=== PATIENT | male | born 1945 | race Caucasian/White ===

== ENCOUNTER → 2017-08-10 06:27 | Outpatient (CLI) | payer MEDICARE, OTHER, SELFPAY ==
--- NOTE | 2017-08-10 14:18 | STRESSREP_ITS ---
Stress Test Report Date: 08/10/2017 Procedure: Pharmacologic stress nuclear imaging study Indications: This of breath/dyspnea on exertion Consent: Per the patient Procedure: The patient underwent pharmacologic (Regadenoson) evaluation with a peak heart rate of 101 beats per minute (68 predicted maximal heart rate) and a peak blood pressure of 180/90 mmHg. The baseline ECG demonstrated sinus rhythm; right bundle branch block pattern. The peak pharmacologic ECG demonstrated no obvious ECG changes. There were rare PACs pretest and in recovery. There was no complaint of chest discomfort during pharmacologic infusion or recovery. The examination was discontinued secondary to completion of protocol. Impression: 1. Pharmacologic (Regadenoson) evaluation 2. Peak pharmacologic ECG with continued right bundle branch block pattern with no obvious ECG changes. 3. Rare PACs pretest and in recovery 4. Nuclear images pending Myocardial perfusion imaging study: Technique: The patient was injected with 14.8 millicuries of technetium 99m Cardiolite and subsequently rest SPECT Cardiolite nuclear imaging was obtained in the horizontal long, vertical long, and short axis views. The patient underwent pharmacologic (Regadenoson) evaluation with a peak heart rate of 101 beats per minute (68 % percent predicted maximal heart rate) and a peak blood pressure of 180/90 mmHg. The patient was injected with 44.5 millicuries of technetium 99m Cardiolite and subsequently stress SPECT Cardiolite nuclear imaging was obtained in the horizontal long, vertical long, and short axis views. A gated Cardiolite study at peak stress was obtained. Interpretation: Rest and stress SPECT Cardiolite nuclear imaging status post realignment, normalization, and attenuation correction demonstrate the appearance of relative uniform tracer uptake and myocardial perfusion appearing within normal limits. There is end systolic thickening and brightening. The gated Cardiolite study demonstrates myocardial thickening and inward wall motion. The reported LVEF is 54 %. Impression: 1. Rest and stress SPECT Cardiolite nuclear imaging demonstrate relative uniform tracer uptake and myocardial perfusion appearing within normal limits. 2. The gated Cardiolite study reports an LVEF of 54 %. This note was generated with [employer] software. It may contain incorrect words, spelling, and punctuation that were not noted in checking the note before signing.
== END ==
PROVIDERS: Family Provider Family Medicine; PCP Family Medicine; Visit Provider Family Medicine
DX: R06.09 Other forms of dyspnea (principal)
CPT/HCPCS: 78452; 93017; A9500; A4216; J2785

== ENCOUNTER → 2017-10-18 12:09 | Outpatient (CLI) | payer MEDICARE, OTHER, SELFPAY ==
[2017-10-18 13:54] LABS: Absolute Lymphocyte Count 1.33 X10^3/ul (0.83-4.51); Absolute Neutrophil Count 2.8 X10^3/uL (2.0-7.7); Basophil# 0.03 X10^3/uL; Basophil% 0.6 % (0-1); Eosinophil# 0.14 X10^3/uL; Hematocrit 42.1 % (40-54); Hemoglobin 14.3 g/dl (13.0-16.5); Lymphocyte # 1.33 X10^3/ul (4.0); Lymphocyte % 28.2 % (19-41); Mean Corpuscular Hgb 29.2 pg (27.0-32.0); Mean Corpuscular Volume 85.9 fL (80-94); Mean Platelet Vol. 10.4 fl (6.2-12.0); Monocyte# 0.42 X10^3/uL; Monocyte% 8.9 % (0-10); Neutrophil # 2.76 X10^3/uL (2.7-7.7); Neutrophil % 58.7 % (47-70); Platelet Count 230 K/mm3 (150-450); RBC Distribution Width CV 13.3 % (11.6-14.6); White Blood Count 4.7 K/mm3 (4.4-11.0)
[2017-10-18 13:56] LABS: POSITIVE COUNT NO; POSITIVE DIFFERENTIAL NO
[2017-10-18 13:57] LABS: POSITIVE MORPHOLOGY NO
[2017-10-18 14:04] LABS: Hemoglobin A1c 10.2 % (4.2-6.3)
[2017-10-18 14:09] LABS: ALB/GLOB Ratio 0.8 RATIO (0.9-2.4); AST(SGOT) 66 U/L (15-37); Alanine Aminotransfer ALT/SGPT 78 U/L (16-61); Albumin, Serum 3.3 g/dL (3.2-5.0); Alkaline Phosphatase 104 U/L (45-117); Anion Gap 10 (5-15); BUN 9 mg/dL (7-18); BUN/Creat Ratio 9.6 RATIO (10-20); Calcium,Total 9.2 mg/dL (8.5-10.1); Chloride 101 mmol/L (98-107); Cholesterol 272 mg/dL (200); Creatinine, Serum 0.94 mg/dL (0.70-1.30); EST Glomerular Filtration Rate 84 mL/min (>60); Est Glom Filt Rate - Afr Amer 102 mL/min (>60); Globulin 4.2 g/dL (2.2-4.2); Glucose 260 mg/dL (74-106); High Density Lipoprotein 37 mg/dL; Potassium 3.9 mmol/L (3.5-5.1); Protein, Total 7.5 g/dL (6.4-8.2); Sodium Level 138 mmol/L (136-145); Triglycerides 359 mg/dL; Very Low Density Lipoprotein 72 mg/dL (5-40)
[2017-10-18 16:26] LABS: Microalbumin:Creatinine Ratio 155.6 mg/g CRE (<30 mg/g CRE)
== END ==
PROVIDERS: Family Provider Family Medicine; PCP Family Medicine; Visit Provider Family Medicine
DX: E11.9 Type 2 diabetes mellitus without complications (principal); I10 Essential (primary) hypertension; E78.5 Hyperlipidemia, unspecified
CPT/HCPCS: 36415; 80053; 80061; 82043; 82570; 83036; 85025

== ENCOUNTER → 2017-10-25 08:48 | Outpatient (CLI) | payer MEDICARE, OTHER, SELFPAY | PROVIDERS: Family Provider Family Medicine; PCP Family Medicine; Visit Provider Family Medicine | DX: E11.9 Type 2 diabetes mellitus without complications (principal); E11.21 Type 2 diabetes mellitus with diabetic nephropathy; I10 Essential (primary) hypertension; E78.5 Hyperlipidemia, unspecified; K75.81 Nonalcoholic steatohepatitis (NASH) ==

== ENCOUNTER → 2018-01-17 10:12 | Outpatient (CLI) | payer MEDICARE, OTHER, SELFPAY ==
[2018-01-17 12:43] LABS: ALB/GLOB Ratio 0.8 RATIO (0.9-2.4); AST(SGOT) 25 U/L (15-37); Alanine Aminotransfer ALT/SGPT 44 U/L (16-61); Albumin, Serum 3.4 g/dL (3.2-5.0); Alkaline Phosphatase 100 U/L (45-117); Anion Gap 8 (5-15); BUN 17 mg/dL (7-18); BUN/Creat Ratio 15.3 RATIO (10-20); Calcium,Total 9.6 mg/dL (8.5-10.1); Chloride 98 mmol/L (98-107); Cholesterol 158 mg/dL (200); Creatinine, Serum 1.11 mg/dL (0.70-1.30); EST Glomerular Filtration Rate 69 mL/min (>60); Est Glom Filt Rate - Afr Amer 84 mL/min (>60); Globulin 4.4 g/dL (2.2-4.2); Glucose 182 mg/dL (74-106); High Density Lipoprotein 41 mg/dL; Potassium 3.8 mmol/L (3.5-5.1); Protein, Total 7.8 g/dL (6.4-8.2); Sodium Level 137 mmol/L (136-145); Triglycerides 181 mg/dL; Very Low Density Lipoprotein 36 mg/dL (5-40)
[2018-01-17 12:47] LABS: Hemoglobin A1c 8.2 % (4.2-6.3)
[2018-01-17 14:41] LABS: Microalbumin,Random Urine 20.3 mg/L (NO RANGE EST.); Microalbumin:Creatinine Ratio 13.4 mg/g CRE (<30 mg/g CRE)
== END ==
PROVIDERS: Family Provider Family Medicine; PCP Family Medicine; Referring Provider Family Medicine; Visit Provider Family Medicine
DX: E11.9 Type 2 diabetes mellitus without complications (principal); E11.21 Type 2 diabetes mellitus with diabetic nephropathy; I10 Essential (primary) hypertension; E78.5 Hyperlipidemia, unspecified; K75.81 Nonalcoholic steatohepatitis (NASH)
CPT/HCPCS: 36415; 80053; 80061; 82043; 82570; 83036

== ENCOUNTER → 2018-07-06 10:02 | Outpatient (CLI) | payer MEDICARE, OTHER, SELFPAY ==
[2018-05-10 13:11] VITALS: BMI 44.4
[2018-07-06 12:37] LABS: ALB/GLOB Ratio 0.9 RATIO (0.9-2.4); AST(SGOT) 40 U/L (15-37); Alanine Aminotransfer ALT/SGPT 46 U/L (16-61); Albumin, Serum 3.5 g/dL (3.2-5.0); Alkaline Phosphatase 90 U/L (45-117); Anion Gap 9 (5-15); BUN 19 mg/dL (7-18); BUN/Creat Ratio 14.8 RATIO (10-20); Calcium,Total 9.2 mg/dL (8.5-10.1); Chloride 96 mmol/L (98-107); Cholesterol 182 mg/dL (200); Creatinine, Serum 1.28 mg/dL (0.70-1.30); EST Glomerular Filtration Rate 59 mL/min (>60); Est Glom Filt Rate - Afr Amer 71 mL/min (>60); Glucose 280 mg/dL (74-106); High Density Lipoprotein 41 mg/dL; Potassium 3.8 mmol/L (3.5-5.1); Protein, Total 7.5 g/dL (6.4-8.2); Sodium Level 134 mmol/L (136-145); Triglycerides 280 mg/dL; Very Low Density Lipoprotein 56 mg/dL (5-40)
[2018-07-06 12:40] LABS: Hemoglobin A1c 11.4 % (4.2-6.3)
[2018-07-06 14:00] LABS: Microalbumin,Random Urine 55.5 mg/L (NO RANGE EST.); Microalbumin:Creatinine Ratio 24.1 mg/g CRE (<30 mg/g CRE)
== END ==
PROVIDERS: Family Provider Family Medicine; PCP Family Medicine; Referring Provider Family Medicine; Visit Provider Family Medicine
DX: E11.21 Type 2 diabetes mellitus with diabetic nephropathy (principal); R80.9 Proteinuria, unspecified; I10 Essential (primary) hypertension; E78.5 Hyperlipidemia, unspecified
CPT/HCPCS: 36415; 80053; 80061; 82043; 82570; 83036

== ENCOUNTER → 2019-01-04 15:24 | Outpatient (CLI) | payer MEDICARE, OTHER, SELFPAY ==
[2018-11-23 12:50] VITALS: BMI 44.4
== END ==
PROVIDERS: Family Provider Family Medicine; PCP Family Medicine; Visit Provider Family Medicine
DX: R19.7 Diarrhea, unspecified (principal)

== ENCOUNTER → 2019-01-05 11:26 | Outpatient (CLI) | payer MEDICARE, OTHER, SELFPAY ==
[2018-11-23 12:50] VITALS: BMI 44.4
[2019-01-08 08:38] LABS: Giardia Lamblia, Stool EIA Negative (Negative)
== END ==
PROVIDERS: Family Provider Family Medicine; PCP Family Medicine; Visit Provider Family Medicine
DX: R19.7 Diarrhea, unspecified (principal)
CPT/HCPCS: 87329; 87493; 87506

== ENCOUNTER → 2019-01-07 11:02 | Outpatient (CLI) | payer MEDICARE, OTHER, SELFPAY ==
[2018-11-23 12:50] VITALS: BMI 44.4
[2019-01-07 11:42] LABS: Absolute Neutrophil Count 3.1 X10^3/uL (2.0-7.7); Basophil# 0.06 X10^3/uL; Eosinophil# 0.32 X10^3/uL; Eosinophils% 5.2 % (0-5); Hematocrit 39.2 % (40-54); Hemoglobin 13.1 g/dL (13.0-16.5); Lymphocyte % 30.7 % (19-41); Mean Corp Hgb Conc 33.4 g/dL (32-36); Mean Corpuscular Hgb 29.9 pg (27.0-32.0); Mean Corpuscular Volume 89.5 fL (80-94); Mean Platelet Vol. 9.7 fl (6.2-12.0); Monocyte# 0.82 X10^3/uL; Monocyte% 13.3 % (0-10); NRBC Flagged by Analyzer 0 % (0-5); Neutrophil # 3.05 X10^3/uL (2.7-7.7); Neutrophil % 49.3 % (47-70); Platelet Count 305 K/mm3 (150-450); RBC Distribution Width CV 13.2 % (11.6-14.6); RBC Distribution Width SD 43.1 fl (35.1-43.9); Red Blood Count 4.38 M/mm3 (4.6-6.2); White Blood Count 6.2 K/mm3 (4.4-11.0)
[2019-01-07 12:01] LABS: Hemoglobin A1c 8.4 % (4.2-6.3)
[2019-01-07 12:13] LABS: ALB/GLOB Ratio 0.7 RATIO (0.9-2.4); AST(SGOT) 43 U/L (15-37); Alanine Aminotransfer ALT/SGPT 35 U/L (16-61); Albumin, Serum 3.1 g/dL (3.2-5.0); Alkaline Phosphatase 104 U/L (45-117); Anion Gap 7 (5-15); BUN 22 mg/dL (7-18); BUN/Creat Ratio 12.8 RATIO (10-20); Calcium,Total 9.1 mg/dL (8.5-10.1); Chloride 101 mmol/L (98-107); Cholesterol 201 mg/dL (200); Creatinine, Serum 1.72 mg/dL (0.70-1.30); EST Glomerular Filtration Rate 42 mL/min (>60); Est Glom Filt Rate - Afr Amer 50 mL/min (>60); Globulin 4.6 g/dL (2.2-4.2); Glucose 111 mg/dL (74-106); High Density Lipoprotein 47 mg/dL; PSA,Total - Annual Screen 4.52 ng/mL (0.00-4.00); Potassium 3.5 mmol/L (3.5-5.1); Protein, Total 7.7 g/dL (6.4-8.2); Sodium Level 135 mmol/L (136-145); Triglycerides 191 mg/dL; Very Low Density Lipoprotein 38 mg/dL (5-40)
== END ==
PROVIDERS: Family Provider Family Medicine; PCP Family Medicine; Referring Provider Family Medicine; Visit Provider Family Medicine
DX: E11.21 Type 2 diabetes mellitus with diabetic nephropathy (principal); I10 Essential (primary) hypertension; E78.5 Hyperlipidemia, unspecified; K75.81 Nonalcoholic steatohepatitis (NASH); Z12.5 Encounter for screening for malignant neoplasm of prostate; Z51.81 Encounter for therapeutic drug level monitoring
CPT/HCPCS: 36415; 80053; 80061; 83036; 84153; 85025; G0103

== ENCOUNTER → 2019-02-03 12:00 | Outpatient (CLI) | payer MEDICARE, OTHER, SELFPAY ==
[2018-11-23 12:50] VITALS: BMI 44.4
--- NOTE | 2019-02-03 12:04 | US_ITS ---
STUDY: RENAL ULTRASOUND - COMPLETE REASON FOR EXAM: Male, 73 years old. Retention. TECHNIQUE: Ultrasound evaluation of the kidneys was performed with real-time and static higgins-scale imaging. COMPARISON: None. FINDINGS: Exam limited by patient size. RIGHT KIDNEY: Normal location of the right kidney, which is normal in size. The right kidney measures 12.4 x 5.8 x 7.2 cm. There is a normal cortex of the right kidney. The renal cortex measures 1.5 cm. There is no right renal mass or cyst. There are no right renal calculi. There is no right hydronephrosis. DISTAL RIGHT URETER: There is non-visualization of the distal right ureter. There is no demonstrated right ureterovesical junction calculus. There is a visualized right ureteral jet. LEFT KIDNEY: Normal location of the left kidney, which is normal in size. The left kidney measures 12.8 x 5.6 x 6.7 cm. There is a normal cortex of the left kidney. The renal cortex measures 2.0 cm. There is no left renal mass or cyst. There are no left renal calculi. There is no left hydronephrosis. DISTAL LEFT URETER: There is non-visualization of the distal left ureter. There is no demonstrated left ureterovesical junction calculus. There is a visualized left ureteral jet. BLADDER: The distended urinary bladder has a volume of 172 ml. The empty urinary bladder has a volume of 10 ml. There is a normal wall thickness of the distended urinary bladder. There is no demonstrated mass within the urinary bladder. There are no demonstrated bladder calculi. US/Kidney and Bladder IMPRESSION: Normal ultrasound of the kidneys and urinary bladder. Electronically Signed: Ezio Morales MD at 16:59 EST , Service support ,
== END ==
PROVIDERS: Family Provider Family Medicine; PCP Family Medicine; Referring Provider Nurse Practitioner Adult Health; Visit Provider Nurse Practitioner Adult Health
DX: R33.9 Retention of urine, unspecified (principal)
CPT/HCPCS: 76770

== ENCOUNTER → 2019-02-06 12:49 | Outpatient (CLI) | payer MEDICARE, OTHER, SELFPAY ==
[2018-11-23 12:50] VITALS: BMI 44.4
--- NOTE | 2019-02-06 14:15 | PFTCOMP ---
COMPLETE PULMONARY FUNCTION TEST INTERPRETATION Brief HPI: Patient is a 73 year old male, currently under the care of myself, who presents to [facility] for complete pulmonary function tests secondary to diagnosis of dyspnea. Respiratory therapist reports good effort and reproducible results. Interpretation: Forced expiration spirometry shows no large airways obstructive ventilatory defect with an FEV1 of 65% predicted. There is no significant bronchodilator response by strict ATS criteria. Spirograms are of good quality and plateau slowly, indicating slowly emptying areas of the lungs. The respiratory flow volume loop shows decreased expiratory flow rates at high lung volumes consistent with small airways obstruction. Lung volumes by body plethysmography show a decreased total lung capacity at 5.18 L, 72% predicted. All other lung volumes are reduced symmetrically. Diffusion capacity by carbon monoxide is normal at 81% predicted. The airway resistance is normal. Compared to previous pulmonary function tests from 09/03/2016, there is been a significant improvement in DLCO by 20%. Impression: Mild restrictive ventilatory defect with a symmetric reduction diffusing capacity
== END ==
PROVIDERS: Family Provider Family Medicine; PCP Family Medicine; Referring Provider Nurse Practitioner Acute Care; Visit Provider Nurse Practitioner Acute Care
DX: R06.02 Shortness of breath (principal)
CPT/HCPCS: 94060; 94726; 94729

== ENCOUNTER → 2019-02-13 12:26 | Outpatient (CLI) | payer MEDICARE, OTHER, SELFPAY ==
[2018-11-23 12:50] VITALS: BMI 44.4
[2019-02-13 12:55] VITALS: PULSE 107; PULSE 110; PULSE 117; PULSE 127; PULSE 135; PULSE 142; PULSE 144; PULSE 160; O2SAT 90; O2SAT 93; O2SAT 94; O2SAT 95
--- NOTE | 2019-02-14 09:17 | PCM.PSN.6M ---
PSN 6 Minute Walk Test - 6 Minute Walk Test 6 Minute Walk Test: 6 Minute Walk Test PSN:6-Minute Walk Test Start: 02/13/19 12:55 Freq: Status: Active Protocol: RESP.6MINW Document 02/13/19 12:55 JOSÉ MANUEL (Rec: 02/13/19 12:57 LILYON [id number]) 6 Minute Walk Test Date Performed 02/13/19 Time Performed 12:30 Height 6 ft 1 in Weight: 330 lb Weight in Pounds 330.[address]: Srikanth Godinez Assistive device used: None Pre-test Oxygen Delivery Method Room Air Pulse Ox (%) 93 Pulse Rate (60-100 beats/min) 107 H Dyspnea Valeriy Scale (0-10) 0 Exertion Valeriy Scale (6-20) 6 1st minute Oxygen Delivery Method Room Air Pulse Ox (%) 90 Pulse Rate (60-100 beats/min) 117 H 2nd minute Oxygen Delivery Method Room Air Pulse Ox (%) 93 Pulse Rate (60-100 beats/min) 127 H 3rd minute Oxygen Delivery Method Room Air Pulse Ox (%) 94 Pulse Rate (60-100 beats/min) 142 H Number of Rests Taken 1 4th minute Oxygen Delivery Method Room Air Pulse Ox (%) 94 Pulse Rate (60-100 beats/min) 160 H Number of Rests Taken 1 Reported Symptoms Dizziness 5th minute Oxygen Delivery Method Room Air Pulse Ox (%) 95 Pulse Rate (60-100 beats/min) 135 H 6th minute Oxygen Delivery Method Room Air Pulse Ox (%) 94 Pulse Rate (60-100 beats/min) 144 H Dyspnea Valeriy Scale (0-10) 4 Exertion Valeriy Scale (6-20) 13 Post-test Oxygen Delivery Method Room Air Pulse Ox (%) 94 Pulse Rate (60-100 beats/min) 110 H Full Laps Walked 12 Partial Lap, Number of Tiles Walked 18 Total Distance Walked (ft) 726 - Interpretation Interpretation: The patient ambulated 726 feet over the course of 6 minutes beginning on room air without assistive devices. Pretesting oxygen saturation was noted to be 93% on room air. With ambulation, the valerie oxygen saturation was 90%. The patient did become progressively tachycardic with exertion with a heart rate of 160 noted at minute 4 of testing. Although there was no significant exertional oxygen desaturation, this testing could indicate the presence of a cardiac or musculoskeletal limitation to exercise tolerance. - Recommendations Recommendations: There is no indication for the use of supplemental oxygen at this time.
== END ==
PROVIDERS: Family Provider Family Medicine; PCP Family Medicine; Referring Provider Nurse Practitioner Acute Care; Visit Provider Nurse Practitioner Acute Care
DX: R06.02 Shortness of breath (principal)
CPT/HCPCS: 94618

== ENCOUNTER → 2019-04-18 13:31 | Outpatient (CLI) | payer MEDICARE, OTHER, SELFPAY ==
[2019-03-30 13:45] VITALS: BMI 45.1
[2019-04-18 15:35] LABS: Anion Gap 7 (5-15); BUN 25 mg/dL (7-18); BUN/Creat Ratio 16.3 RATIO (10-20); Calcium,Total 9.9 mg/dL (8.5-10.1); Chloride 95 mmol/L (98-107); Creatinine, Serum 1.53 mg/dL (0.70-1.30); EST Glomerular Filtration Rate 48 mL/min (>60); Est Glom Filt Rate - Afr Amer 58 mL/min (>60); Glucose 284 mg/dL (74-106); Potassium 3.8 mmol/L (3.5-5.1); Sodium Level 134 mmol/L (136-145)
[2019-04-18 15:42] LABS: Hemoglobin A1c 11.5 % (4.2-6.3)
== END ==
PROVIDERS: PCP Family Medicine; Referring Provider Family Medicine; Visit Provider Family Medicine
DX: E11.21 Type 2 diabetes mellitus with diabetic nephropathy (principal); E11.22 Type 2 diabetes mellitus with diabetic chronic kidney disease; N18.3 Chronic kidney disease, stage 3 (moderate)
CPT/HCPCS: 36415; 80048; 83036

== ENCOUNTER → 2019-04-19 12:54 | Outpatient (CLI) | payer MEDICARE, OTHER, SELFPAY ==
[2019-03-30 13:45] VITALS: BMI 45.1
[2019-04-19 14:23] LABS: Microalbumin:Creatinine Ratio 25.5 mg/g CRE (<30 mg/g CRE)
== END ==
PROVIDERS: PCP Family Medicine; Referring Provider Family Medicine; Visit Provider Family Medicine
DX: E11.21 Type 2 diabetes mellitus with diabetic nephropathy (principal); E11.22 Type 2 diabetes mellitus with diabetic chronic kidney disease; N18.3 Chronic kidney disease, stage 3 (moderate)
CPT/HCPCS: 82043; 82570

== ENCOUNTER 2019-04-28 06:24 | Day surgery (SDC) | payer MEDICARE, OTHER, SELFPAY ==
--- NOTE | 2019-03-30 02:07 | HP_ITS ---
Intake Vital Signs 03/30/19 BMI 45.1 03/30/19 Height 6 ft 1 in 03/30/19 Weight: 347 lb 03/30/19 BMI 45.8 03/30/19 BP 185/90 H 03/30/19 Blood Pressure Location Rt brachial 03/30/19 Position Sitting 03/30/19 Respiration 18 03/30/19 Pulse 115 H 03/30/19 Pulse Source Monitor 03/30/19 Temp 97.9 F 03/30/19 Temp Source Oral 03/30/19 Pulse Oximetry (%) 92 03/30/19 Oxygen Delivery Method room air Intake Visit Reasons: cologuard + consult Chief Complaint: Positive Cologuard Desktop Support Specialist Required: No Is patient in pain?: No Allergies No Known Allergies Allergy (Verified 03/30/19 13:44) Medications Amitriptyline HCl 25 mg PO QHS 03/24/16 [History Confirmed 03/30/19] Amlodipine Besylate [Norvasc] 5 mg PO DAILY 03/24/16 [History Confirmed 03/30/19] Aripiprazole [Abilify] 10 mg PO DAILY 03/24/16 [History Confirmed 03/30/19] Aspirin E.C. [Ecotrin] 81 mg PO DAILY@0800 03/24/16 [History Confirmed 03/30/19] Atorvastatin Calcium [Lipitor] 80 mg PO DAILY 03/24/16 [History Confirmed 03/30/19] Citalopram Hydrobromide [Celexa] 20 mg PO DAILY 03/24/16 [History Confirmed 03/30/19] Ezetimibe [Zetia] 10 mg PO DAILY 03/24/16 [History Confirmed 03/30/19] Fenofibrate [Tricor] 145 mg PO DAILY 03/24/16 [History Confirmed 03/30/19] Lisinopril/Hydrochlorothiazide [Zestoretic 20-25 mg Tablet] 1 ea PO BID 03/24/16 [History Confirmed 03/30/19] Niacin [Niaspan] 500 mg PO DAILY 03/24/16 [History Confirmed 03/30/19] metFORMIN HCl [Glucophage] 500 mg PO TIDCM 03/24/16 [History Confirmed 03/30/19] insulin aspart U-100 100 unit/mL (3 mL) subcutaneous pen See Rx Instructions SC BIDCM 05/12/17 [History Confirmed 03/30/19] tamsulosin 0.4 mg capsule 0.4 mg PO QDAY 08/17/17 [History Confirmed 03/30/19] insulin glargine 100 unit/mL (3 mL) subcutaneous pen See Rx Instructions SC BID ml 11/23/18 [History Confirmed 03/30/19] PFSH Medical History (Updated 03/30/19 @ 14:04 by Bora Butler MD) Positive colorectal cancer screening using Cologuard test (Acute) Sleep apnea (Chronic) Other tear of medial meniscus, current injury, left knee, subsequent encounter (Chronic) Other tear of lateral meniscus, current injury, left knee, initial encounter (Chronic) Other tear of lateral meniscus, current injury, left knee, subsequent encounter (Chronic) Other tear of medial meniscus, current injury, left knee, initial encounter (Chronic) Osteoarthritis of left knee (Chronic) Microalbuminuria (Chronic) Chronic diastolic heart failure (Chronic) Morbid obesity (Chronic) TARA (obstructive sleep apnea) (Chronic) Restrictive lung disease (Chronic) Diabetic peripheral neuropathy (Chronic) Actinic keratosis (Chronic) Hypercholesteremia (Chronic) Passive aggressive personality disorder (Chronic) Onychomycosis (Chronic) Depression, major, recurrent, moderate (Chronic) HTN (hypertension) (Chronic) Type 2 diabetes mellitus (Chronic) Shortness of breath on exertion (Acute) Super obese (Chronic) TARA (obstructive sleep apnea) (Chronic) Positive colorectal cancer screening using Cologuard test (Acute) Surgical History (Updated 03/30/19 @ 13:40 by Tracey Christie) left knee scope (Resolved) History of skin graft (Acute) Family History Mother Hypertension Hyperlipemia Heart disease Diabetes Environmental and seasonal allergies alcoholism and drug abuse Sister Stomach cancer Ovarian cancer Brother Diabetes Daughter bipolar Father Schizophrenia Aortic aneurysm Social History (Updated 03/30/19 @ 14:07 by Bora Butler MD) Smoking Status: Never smoker second hand exposure: No alcohol intake: current alcohol intake frequency: holidays/special occasions only substance use type: does not use caffeine: Yes what type of physical activity do you participate in: none HPI HPI HPI: MEGAN RIVER, is a 73 M who presents to the office today for HPI HPI Surgical H&P: Yes HPI: MEGAN RIVER, is a 73 M who presents to the office today for surgical consultation regarding positive Cologuard. The patient is referred by Dr. Barroso and a written copy of my surgical consult recommendations will be returned to him. 73-year-old gentleman. He lives an extraordinarily sedentary lifestyle. He has not had a recent colonoscopy. He is aware had one prior but many many years ago. He occasionally notes some rectal bleeding. There is been nothing specific. He denies any abdominal pain. Body weight is 347 pounds with a BMI of 45.1. He has multiple medical problems including type 2 diabetes and Rouse and hypertension and hyperlipidemia and obstructive sleep apnea and restrictive lung disease and morbid obesity and right bundle branch block. He is on multiple medications including aspirin. He denies history of peptic ulcer disease. He is not aware as to whether he has advanced liver disease. As of March 13 white blood cell count was 6.2 with a hemo-13.1 and hematocrit 39.2 and a platelet count 305,000 hemoglobin A1c was 8.4. BUN is 22 and creatinine 1.72. Albumin is 3.1. AST is 43. Alkaline phosphatase 104. ALT 35. Total bili 1.4. He does not claim a history of varices or peptic ulcer disease or colon polyps. Family history is negative for colon polyps or colon cancer ROS General General: No weight change, appetite, fatigue, colon cancer, breast cancer or weakness HEENT HEENT: No difficulty swallowing, eye injury, eye surgery, swollen glands or hoarseness Endo Endocrine: Yes diabetes mellitus; no thyroid disease, thyroid cancer, Hair loss, heat intolerance or cold intolerance Skin Skin: Yes changing moles; no rash Breast Breast: No left breast lump, right breast lump, nipple discharge, breast pain, abnormal mammogram, abnormal US or breast enlargement Musc Musculoskeletal: No back problems, arthritis, rheumatoid arthritis, gout or joint pain Cardio Cardiovascular: Yes high blood pressure; no murmur, pacemaker, heart disease, atrial fibrillation, heart attack, heart stent, palpitations, shortness of breat with exertion or chest pain Psych Psychiatric: No depression, anxiety or hearing voices Resp Respiratory: Yes shortness of breath, Yes sleep apnea, No cough, No COPD, No asthma, No emphysema, No wheezing Gastro Gastrointestinal: No abdominal pain, No nausea or vomiting, No diarrhea, No constipation, Yes blood in stool, No acid reflux, No hemorrhoids, No ulcers, No gallbladder problem, No black,tarry stools Zeus Hematologic: Yes blood thinners, No blood disorders, No bleeding, No anemia, No blood clots Neuro Neurologic: No system reviewed and no additional complaints, except as docu, No as per HPI, No abnormal walking, No abnormal hearing, No abnormal movements, No abnormal speech, No behavioral changes, No burning sensations, No confusion, No seizure-like activity, No unsteadiness, No dizziness, No localized weakness, No frequent falls, No headache(s), No lack of coordination, No loss of vision, No memory loss, Yes numbness, No other visual disturbances, No radiating pain, No restless legs, No sensory deficit, No fainting, Yes tingling, No tremor(s), No weakness, No other Exam Const General: cooperative Nutritional Appearance: obese morbidly obese Orientation: alert, awake HENMT Head: normal to inspection Chest Breast Palpation: No nipple discharge Resp Other: Expiratory wheezing noted Cardio Rate: regular rate Rhythm: regular rhythm Heart Sounds: no murmurs GI Other: Markedly overweight with a very large protuberant abdomen which is rather tensely held, I am unable to palpate any internal organs, nontender, bowel sounds diminished Skin Other: Significant bilateral lower extremity pitting and nonpitting edema Neuro Cognition: normal cognition Psych Affect: normal affect Assessment & Plan Problems 1. Positive colorectal cancer screening using Cologuard test R19.5 Plan 73-year-old gentleman with essentially no previous colonoscopy who presents with Cologuard positive and significant multiple medical comorbidities including a diagnosis of Rouse. I propose for him a esophagogastroduodenoscopy with biopsy possible polypectomy and a colonoscopy with possible biopsy or polypectomy as indicated. I have made him and his aware of the technique, benefit, risk, alternatives. At his body weight and abdominal girth I am concerned that a routine bowel prep would not be effective. We will recommend 2 days to clear liquids and magnesium citrate followed by MiraLAX split prep. We will utilize monitored anesthesia care. I appreciate the opportunity of assisting with his surgical care Cc: Dr. Kike Butler M.D., F.A.C.S. Coding Level of Care Code 75710 Diagnoses Positive colorectal cancer screening using Cologuard test R19.5 03/30/19 1407 <Electronically signed by Bora price MD> Date _ Bora Butler MD I have re-examined the patient. There are no clinical changes since date of exam.
[2019-03-30 13:45] VITALS: BMI 45.1
--- NOTE | 2019-04-28 | GASB_PTH ---
PATIENT: MEGAN RIVER . LOC: EN U#:[id number] AGE/SX: 73/M ROOM: RE04/28/[address]: Dr. Bora Butler MD : 1945 BED: DIS: 04/28/2019 SPEC #: [id number] RECD: 04/28/19 12:16 STATUS: BHARTI MARITZA #: [id number] JUANA: 04/28/19 00:[address]: Bora Butler DEPT: SURGICAL PATHOLOGY RECD BY: Shamar James ENTERED: 04/28/19 12:17 SP TYPE: Gastric Bx OTHR DR: Dr. Kike Barroso DO Tissues: A - Gastric mucous membrane B - Gastric mucous membrane C - Esophageal mucous membrane D - Ascending colon E - Transverse colon F - Sigmoid colon biopsy G - Sigmoid colon biopsy Procedures: Surgery Specimen Level IV HEADER OPERATION: Colonoscopy, EGD ([facility] [place]) PRE-OP DIAGNOSIS: Positive colorectal Cologuard test TISSUE SUBMITTED: A - Duodenum biopsy, B - Antrum biopsy for H. pylori and path, C - Distal esophagus biopsy, D - Proximal ascending colon polyp, E - Mid transverse polyp biopsy, F - Proximal sigmoid polyp, G - Mid sigmoid polyp biopsy MICROSCOPIC DIAGNOSIS A. Duodenum, biopsy: Focal gastric metaplasia and mild chronic inflammation, nonspecific. B. Gastric antrum, biopsy: Mild chronic gastritis. See comment. C. Distal esophagus, biopsy: Fragment of benign squamous mucosa. No evidence of inflammation. D. Proximal ascending colon polyp, biopsy: Fragments of tubular adenoma. E. Mid transverse colon polyp, biopsy: Fragments of benign colonic mucosa. See comment. F. Proximal sigmoid colon, biopsy: Tubular adenoma. G. Mid sigmoid colon polyp, biopsy: Fragments of serrated adenoma. AM:david 05/01/19 COMMENT B. The results of immunohistochemistry for Helicobacter pylori will be reported separately ([id number]). E. Neither hyperplastic nor adenomatous change is identified. Clinical correlation is suggested. MICROSCOPIC DESCRIPTION Slides are reviewed. GROSS DESCRIPTION A - Received in fixative is one container labeled with the patient's name and designated duodenum biopsy. The specimen consists of one irregular fragment of light contreras soft tissue that measures 0.4 x 0.2 x 0.1 cm. The specimen is totally submitted in one cassette. B - Received in fixative is one container labeled with the patient's name and designated antrum biopsy. The specimen consists of one irregular fragment of light contreras soft tissue that measures 0.3 x 0.3 x 0.1 cm. The specimen is totally submitted in one cassette. C - Received in fixative is one container labeled with the patient's name and designated distal esophagus biopsy. The specimen consists of one irregular fragment of light contreras soft tissue that measures 0.4 x 0.3 x 0.1 cm. The specimen is totally submitted in one cassette. D - Received in fixative is one container labeled with the patient's name and designated proximal ascending colon polyp. The specimen consists of multiple irregular fragments of light contreras soft tissue mixed with fecal material that in aggregate measure 1 x 0.5 x 0.1 cm. The specimen is totally submitted in one cassette. E - Received in fixative is one container labeled with the patient's name and designated mid transverse polyp biopsy. The specimen consists of multiple irregular fragments of light contreras soft tissue that in aggregate measure 1 x 0.2 x 0.1 cm. The specimen is totally submitted in one cassette. F - Received in fixative is one container labeled with the patient's name and designated proximal sigmoid polyp. The specimen consists of one irregular fragment of light contreras soft tissue that measures 0.3 x 0.3 x 0.1 cm. The specimen is totally submitted in one cassette. G - Received in fixative is one container labeled with the patient's name and designated mid sigmoid polyp. The specimen consists of multiple irregular fragments of light contreras soft tissue that in aggregate measure 1 x 0.3 x 0.2 cm. The specimen is totally submitted in one cassette. / SJ:rg 04/28/19 TC:5 CPT: 90492 x7
[2019-04-28 06:52] VITALS: BP 114/63; PULSE 98; RESP 18; TEMP 36.8; O2SAT 93; BMI 44.6
[2019-04-28] MEDS: Lactated Ringers 1,000 ML 100 ML IV (07:09)
--- NOTE | 2019-04-28 07:30 | IMM_PTH ---
PATIENT: MEGAN RIVER Sr. LOC: EN U#:[id number] AGE/SX: 73/M ROOM: RE04/28/[address]: Dr. Bora Butler MD : 1945 BED: DIS: 04/28/2019 SPEC #: [id number] RECD: 04/28/19 13:13 STATUS: BHARTI REQ #: [id number] JUANA: 04/28/19 07:[address]: Bora Butler DEPT: IMMUNOHISTOCHEMISTRY RECD BY: Michelle Muñoz ENTERED: 04/28/19 13:13 SP TYPE: IMMUNO OTHR DR: Dr. Kike Barroso, Tissues: B - Stomach, NOS Procedures: H Pylori (initial) PHYSICIAN & INSTITUTION [place] [id number] SPECIMEN INFORMATION: Tissue Source: B - Antrum biopsy Clinical Info: Positive colorectal Cologuard test Specimen Number: [id number] CPT code: 57108 METHODOLOGY: Deparaffinized sections of prefer/formalin-fixed tissue or PAP/DQ stained slides are incubated with monoclonal/polyclonal antibodies/oligonucleotide probes. Localization is made via biotin free immunoperoxidase method. Appropriate controls are performed and reacted as expected. Results on target cell population are indicated in the following table: RESULTS: ANTIBODY / CLONE RESULT Block B H Pylori (polyclonal) negative These tests were developed and their performance characteristics determined by [facility]. They may not have been cleared or approved by the U.S. Food and Drug Administration. The FDA has determined that such clearance or approval is not necessary. INTERPRETATION: B. Antrum biopsy: Negative for Helicobacter pylori organisms. AM:david 05/02/19
--- NOTE | 2019-04-28 08:19 | OP.CCLET_ITS ---
04/28/2019 Kike Barroso [address] [facility] [place] [address] Re : Upper GI endoscopy procedure for Sammy Mccormack Dear Dr. Barroso This procedure was performed on Sunday, April 28, 2019. My impressions and recommendations are as follows: Impressions : - Small hiatal hernia. - Z-line regular, 45 cm from the incisors. Biopsied. - Erythematous mucosa in the stomach. Biopsied at antrum - Erythematous duodenopathy. Biopsied. Biopsied at bulb Recommendations : - Await pathology results. - Discharge patient to home. - Resume previous diet. - Continue present medications. - Telephone my office for pathology results in 1 week. My findings are described in the full procedure note, which is enclosed. If I can be of further assistance, please feel free to contact me at Doctor phone number(s): Work: . Sincerely, Bora Butler MD 04/28/2019 8:18:40 AM This report has been signed electronically.
--- NOTE | 2019-04-28 08:19 | OP.EGD_ITS ---
Patient Name: Sammy Mccormack Procedure Date: 04/28/2019 7:35 AM Date of : 1945 Age: 73 Procedure: Upper GI endoscopy Indications: Cologuard positive Providers: Bora Butler MD Referring MD: Kike Barroso Medicines: See the Anesthesia note for documentation of the administered medications Complications: No immediate complications. Procedure: Pre-Anesthesia Assessment: - Prior to the procedure, a History and Physical was performed, and patient medications and allergies were reviewed. The patient's tolerance of previous anesthesia was also reviewed. The risks and benefits of the procedure and the sedation options and risks were discussed with the patient. All questions were answered, and informed consent was obtained. Prior Anticoagulants: The patient has taken no previous anticoagulant or antiplatelet agents. ASA Grade Assessment: III - A patient with severe systemic disease. After reviewing the risks and benefits, the patient was deemed in satisfactory condition to undergo the procedure. After obtaining informed consent, the endoscope was passed under direct vision. Throughout the procedure, the patient's blood pressure, pulse, and oxygen saturations were monitored continuously. The gastroscope was introduced through the mouth, and advanced to the second part of duodenum. The upper GI endoscopy was accomplished without difficulty. The patient tolerated the procedure well. Scope In: 7:40:28 AM Scope Out: 7:44:42 AM Total Procedure Duration Time 0 hours 4 minutes 14 seconds Findings: A small hiatal hernia was present. The Z-line was regular and was found 45 cm from the incisors. Biopsies were taken with a cold forceps for histology. Diffuse erythematous mucosa without bleeding was found in the stomach. Biopsies were taken with a cold forceps for histology. Mildly erythematous mucosa without active bleeding and with no stigmata of bleeding was found in the duodenal bulb. Biopsies were taken with a cold forceps for histology. Impression: - Small hiatal hernia. - Z-line regular, 45 cm from the incisors. Biopsied. - Erythematous mucosa in the stomach. Biopsied at antrum - Erythematous duodenopathy. Biopsied. Biopsied at bulb Recommendation: - Await pathology results. - Discharge patient to home. - Resume previous diet. - Continue present medications. - Telephone my office for pathology results in 1 week. Procedure Code(s): --- Professional --- 08413, Esophagogastroduodenoscopy, flexible, transoral; with biopsy, single or multiple Diagnosis Code(s): --- Professional --- K44.9, Diaphragmatic hernia without obstruction or gangrene K31.89, Other diseases of stomach and duodenum CPT copyright 2017 [employer]. All rights reserved. The codes documented in this report are preliminary and upon business center representative review may be revised to meet current compliance requirements. Bora Butler MD 04/28/2019 8:18:40 AM This report has been signed electronically. Number of Addenda: 0 Note Initiated On: 04/28/2019 7:35 AM
[2019-04-28 08:21] VITALS: BP 114/63; BP 136/74; PULSE 101; RESP 18; TEMP 36.8; O2SAT 92
[2019-04-28 08:25] VITALS: BP 114/63; BP 132/78; PULSE 100; RESP 18; O2SAT 92
--- NOTE | 2019-04-28 08:25 | OP.CCLET_ITS ---
04/28/2019 Kike Chio [address] [facility] [place] [address] Re : Colonoscopy procedure for Sammy Mccormack Dear Dr. Barroso This procedure was performed on Sunday, April 28, 2019. My impressions and recommendations are as follows: Impressions : - Non-thrombosed external hemorrhoids, non-thrombosed internal hemorrhoids and internal hemorrhoids that prolapse with straining, but spontaneously regress to the resting position (Grade II) found on digital rectal exam. - One 5 mm polyp in the proximal ascending colon, removed with a hot snare. Resected and retrieved. Injected. - One 5 mm polyp in the mid transverse colon, removed with a cold biopsy forceps. Resected and retrieved. - One 7 mm polyp in the proximal sigmoid colon, removed with a hot snare. Resected and retrieved. - One 6 mm polyp in the mid sigmoid colon, removed with a hot snare. Resected and retrieved. - Diverticulosis in the sigmoid colon. Recommendations : - Discharge patient to home. - Resume previous diet. - Continue present medications. - Repeat colonoscopy in 3 years for surveillance based on pathology results. - Telephone my office for pathology results in 1 week. My findings are described in the full procedure note, which is enclosed. If I can be of further assistance, please feel free to contact me at Doctor phone number(s): Work: . Sincerely, Bora Butler MD 04/28/2019 8:24:46 AM This report has been signed electronically.
--- NOTE | 2019-04-28 08:25 | OP.COLON_ITS ---
Patient Name: aSmmy Mccormack Procedure Date: 04/28/2019 7:46 AM Date of : 1945 Age: 73 Procedure: Colonoscopy Indications: Positive Cologuard test Providers: Bora Butler MD Referring MD: Kike Barroso Medicines: See the Anesthesia note for documentation of the administered medications Patient Profile: Last Colonoscopy: more than 10 years ago. Complications: No immediate complications. Procedure: Pre-Anesthesia Assessment: - Prior to the procedure, a History and Physical was performed, and patient medications and allergies were reviewed. The patient's tolerance of previous anesthesia was also reviewed. The risks and benefits of the procedure and the sedation options and risks were discussed with the patient. All questions were answered, and informed consent was obtained. Prior Anticoagulants: The patient has taken no previous anticoagulant or antiplatelet agents. ASA Grade Assessment: III - A patient with severe systemic disease. After reviewing the risks and benefits, the patient was deemed in satisfactory condition to undergo the procedure. After I obtained informed consent, the scope was passed under direct vision. Throughout the procedure, the patient's blood pressure, pulse, and oxygen saturations were monitored continuously. The adult colonoscope was introduced through the anus and advanced to the cecum, identified by appendiceal orifice and ileocecal valve. The colonoscopy was performed with moderate difficulty due to the patient's body habitus. The patient tolerated the procedure well. The quality of the bowel preparation was adequate to identify polyps. The ileocecal valve and the appendiceal orifice were photographed. Scope In: 7:47:34 AM Scope Withdrawal Time 0 hours 21 minutes 56 seconds Scope Out: 8:13:17 AM Total Procedure Duration Time 0 hours 25 minutes 43 seconds Findings: The digital rectal exam findings include non-thrombosed external hemorrhoids, non-thrombosed internal hemorrhoids and internal hemorrhoids that prolapse with straining, but spontaneously regress to the resting position (Grade II). A 5 mm polyp was found in the proximal ascending colon. The polyp was sessile. The polyp was removed with a hot snare. Resection and retrieval were complete. Area was successfully injected with 3 mL of a 1:10,000 solution of epinephrine for hemostasis. Estimated blood loss was minimal. A 5 mm polyp was found in the mid transverse colon. The polyp was sessile. The polyp was removed with a cold biopsy forceps. Resection and retrieval were complete. A 7 mm polyp was found in the proximal sigmoid colon. The polyp was sessile. The polyp was removed with a hot snare. Resection and retrieval were complete. A 6 mm polyp was found in the mid sigmoid colon. The polyp was sessile. The polyp was removed with a hot snare. Resection and retrieval were complete. Scattered diverticula were found in the sigmoid colon. Impression: - Non-thrombosed external hemorrhoids, non-thrombosed internal hemorrhoids and internal hemorrhoids that prolapse with straining, but spontaneously regress to the resting position (Grade II) found on digital rectal exam. - One 5 mm polyp in the proximal ascending colon, removed with a hot snare. Resected and retrieved. Injected. - One 5 mm polyp in the mid transverse colon, removed with a cold biopsy forceps. Resected and retrieved. - One 7 mm polyp in the proximal sigmoid colon, removed with a hot snare. Resected and retrieved. - One 6 mm polyp in the mid sigmoid colon, removed with a hot snare. Resected and retrieved. - Diverticulosis in the sigmoid colon. Recommendation: - Discharge patient to home. - Resume previous diet. - Continue present medications. - Repeat colonoscopy in 3 years for surveillance based on pathology results. - Telephone my office for pathology results in 1 week. Procedure Code(s): --- Professional --- 29179, Colonoscopy, flexible; with removal of tumor(s), polyp(s), or other lesion(s) by snare technique 09514, 59, Colonoscopy, flexible; with biopsy, single or multiple Diagnosis Code(s): --- Professional --- K64.1, Second degree hemorrhoids K64.4, Residual hemorrhoidal skin tags D12.2, Benign neoplasm of ascending colon D12.3, Benign neoplasm of transverse colon (hepatic flexure or splenic flexure) D12.5, Benign neoplasm of sigmoid colon R19.5, Other fecal abnormalities K57.30, Diverticulosis of large intestine without perforation or abscess without bleeding CPT copyright 2017 [employer]. All rights reserved. The codes documented in this report are preliminary and upon medical coder review may be revised to meet current compliance requirements. Bora Butler MD 04/28/2019 8:24:46 AM This report has been signed electronically. Number of Addenda: 0 Note Initiated On: 04/28/2019 7:46 AM
[2019-04-28 08:30] VITALS: BP 114/63; BP 131/74; PULSE 93; RESP 18; O2SAT 94
[2019-04-28 08:35] VITALS: BP 114/63; BP 123/72; PULSE 94; RESP 18; TEMP 36.7; O2SAT 94
[2019-04-28 08:46] VITALS: BP 114/63
[2019-04-28 09:21] LABS: Bedside Glucose 175 mg/dL (70-110)
== END 2019-04-28 08:55 | disposition home or self-care (01) ==
LOC: EN 06:24 → AC 06:26
PROVIDERS: Family Provider Family Medicine; PCP Family Medicine; Referring Provider Family Medicine; Visit Provider Surgery
PROC: 0DJD8ZZ Inspection of Lower Intestinal Tract, Via Natural or Artificial Opening Endoscopic (ICD-10-PCS; CPT 45378; principal; 2019-04-28 07:25)
DX: K29.50 Unspecified chronic gastritis without bleeding (principal); K44.9 Diaphragmatic hernia without obstruction or gangrene; D12.5 Benign neoplasm of sigmoid colon; D12.2 Benign neoplasm of ascending colon; K63.5 Polyp of colon; K64.1 Second degree hemorrhoids; K64.4 Residual hemorrhoidal skin tags; K57.30 Diverticulosis of large intestine without perforation or abscess without bleeding; E66.01 Morbid (severe) obesity due to excess calories; Z68.42 Body mass index [BMI] 45.0-49.9, adult; K75.81 Nonalcoholic steatohepatitis (NASH); I11.0 Hypertensive heart disease with heart failure; I50.32 Chronic diastolic (congestive) heart failure; E11.42 Type 2 diabetes mellitus with diabetic polyneuropathy; M17.12 Unilateral primary osteoarthritis, left knee; E78.00 Pure hypercholesterolemia, unspecified; F32.9 Major depressive disorder, single episode, unspecified; G47.33 Obstructive sleep apnea (adult) (pediatric); J98.9 Respiratory disorder, unspecified; I45.10 Unspecified right bundle-branch block; N40.0 Benign prostatic hyperplasia without lower urinary tract symptoms; Z79.4 Long term (current) use of insulin; Z79.82 Long term (current) use of aspirin; Z79.84 Long term (current) use of oral hypoglycemic drugs; Z79.899 Other long term (current) drug therapy
CPT/HCPCS: 43239; 45380; 45385; 82962; 88305; 88342; J7120; J2405; J3490

== ENCOUNTER → 2019-05-19 13:50 | Outpatient (CLI) | payer MEDICARE, OTHER, SELFPAY ==
[2019-05-09 13:00] VITALS: BMI 44.0
--- NOTE | 2019-05-19 13:52 | ECHOCS_ITS ---
Reason For Study: ARRHYTHMIA Procedure This was a 2D Doppler, Color Flow transthoracic echocardiogram. The study was technically difficult. Contrast injection was performed. Poor apical windows. Exam performed in department. Left Ventricle Normal size and thickness. The estimated ejection fraction is 75 %. Stage 1 diastolic dysfunction. No regional wall motion abnormalities noted. Right Ventricle Moderately dilated right ventricle. Normal systolic function. Atria Normal left atrium. Normal right atrium. Normal atrial septum. Mitral Valve The mitral valve is structurally normal. No prolapse or stenosis seen. Tricuspid Valve Normal tricuspid valve. Trivial tricuspid valve insufficiency. Right ventricular systolic pressure estimated to be 26 mmHg. Aortic Valve Trisinus/trileaflet aortic valve. Mild focal aortic valve thickening. There is no aortic stenosis. Pulmonic Valve Normal pulmonic valve. Great Vessels Normal aortic root. Normal arch. Normal inferior vena cava. Inferior vena cava collapse with sniff. Pericardium/Pleural No pericardial effusion. Medication 22 gauge I.V. with prn adaptor inserted into right arm. Diluted definity 4.0ml given slow IV push to enhance endocardial definition. MMode/2D Measurements & Calculations LVIDd: 5.0 cm IVSd: 1.1 cm Ao root diam: 3.9 cm LVIDs: 2.8 cm LVPWd: 1.3 cm RVDd: 4.3 cm FS: 43.7 % LAV(MOD-sp4): 37.5 ml LA A4 area: 16.0 cm2 LA dimension(2D): 4.3 cm RA A4 area: 14.9 cm2 Time Measurements MV dec time: 0.16 sec Doppler Measurements & Calculations MV E max chuck: 71.9 cm/sec Lat Peak E' Chuck: 8.0 cm/sec Med Peak E' Chuck: 5.8 cm/sec MV A max chuck: 104.8 cm/sec E/E' lat: 9.0 E/E' med: 12.4 MV E/A: 0.69 Ao V2 max: 152.5 cm/sec LV V1 max: 118.7 cm/sec TR max chuck: 236.7 cm/sec Ao max P.3 mmHg LV V1 max P.6 mmHg TR max P.4 mmHg Interpretation Summary The estimated ejection fraction is 75 %. Stage 1 diastolic dysfunction. Moderately dilated right ventricle. Trivial tricuspid valve insufficiency. Right ventricular systolic pressure estimated to be 26 mmHg. Compared to echo report dated 11/06/2014, LV function has remained the same and RVSP has improved from 32 to 26 mmHg. The study was technically difficult. Contrast injection was performed. Ordering Physician: Harlan Miller Referring Physician: KECIA KOENIG Performed By: Sailaja Layton, PUJACS, RVT
== END ==
PROVIDERS: PCP Family Medicine; Referring Provider Internal Medicine Cardiovascular Disease; Visit Provider Internal Medicine Cardiovascular Disease
DX: R06.02 Shortness of breath (principal); R00.0 Tachycardia, unspecified; I45.10 Unspecified right bundle-branch block; E11.22 Type 2 diabetes mellitus with diabetic chronic kidney disease; I13.0 Hypertensive heart and chronic kidney disease with heart failure and stage 1 through stage 4 chronic kidney disease, or unspecified chronic kidney disease; N18.3 Chronic kidney disease, stage 3 (moderate); I50.32 Chronic diastolic (congestive) heart failure
CPT/HCPCS: 93306; Q9957; A4216; C8929

== ENCOUNTER → 2019-05-25 12:36 | Outpatient (CLI) | payer MEDICARE, OTHER, SELFPAY ==
[2019-05-09 13:00] VITALS: BMI 44.0
--- NOTE | 2019-05-25 12:36 | STEWCON_ITS ---
Reason For Study: SOB Stress Results Protocol: Dobutamine Stress Echo With Definiity Maximum Predicted HR: 146 bpm Target HR: 124 bpm % Maximum Predicted HR: 88 % DurationHeart Rate Stage (mm:ss) (bpm) BP Comment Baseline 89 149/80No Chest Pain; 8 ML Diluted Definity DSE 10 MCG 3:31 99 149/68No Chest Pain DSE 20 MCG 4:03 129 156/96No Chest Pain Recovery 104 138/83No Chest Pain Stress Duration: 7:34 mm:ss Maximum Stress HR: 129 bpm METS: 1 Baseline Echocardiogram Findings The estimated ejection fraction is 65 %. Stress Echo Wall motion Data Resting WM Intermediate WM Stress WM Resting Wall Motion Wall Motion Stress No regional wall motion No regional wall motion abnormalities noted. abnormalities noted. EKG Data The baseline ECG displays normal sinus rhythm. The patient was titrated from 10 mcg to a maximum of 20 mcg of dobutamine during the stress. The maximum heart rate attained was 129 beats per minute. This was 88% of maximum predicted heart rate. During dobutamine infusion, there were no ST or T wave changes noted to suggest ischemia. No clinical angina was noted. Interpretation Summary The estimated ejection fraction is 65 %. Normal, adequate, dobutamine echocardiogram. Negative for ischemia by EKG and echocardiographic criteria. No anginal symptoms noted. Rare PACs noted. Test terminated due to the attainment of target heart rate. Appropriate blood pressure response to dobutamine. Final LVEF is 75%. Decrease sensitivity due to right bundle branch block and poor echo windows requiring Definity agent. Patient tolerated procedure well. No complications. The study was technically difficult. Contrast injection was performed. Ordering Physician: Harlan Miller Referring Physician: Kike Barroso D.O. Performed By: Sailaja Layton, PUJACS, RVT
== END ==
PROVIDERS: PCP Family Medicine; Referring Provider Internal Medicine Cardiovascular Disease; Visit Provider Internal Medicine Cardiovascular Disease
DX: R06.02 Shortness of breath (principal); E11.22 Type 2 diabetes mellitus with diabetic chronic kidney disease; I13.0 Hypertensive heart and chronic kidney disease with heart failure and stage 1 through stage 4 chronic kidney disease, or unspecified chronic kidney disease; N18.3 Chronic kidney disease, stage 3 (moderate); I50.32 Chronic diastolic (congestive) heart failure; G47.33 Obstructive sleep apnea (adult) (pediatric); I45.10 Unspecified right bundle-branch block; J98.4 Other disorders of lung; R00.0 Tachycardia, unspecified
CPT/HCPCS: 93017; 93350; J7040; Q9957; A4216; C8928

== ENCOUNTER → 2019-09-20 12:21 | Outpatient (CLI) | payer MEDICARE, OTHER, SELFPAY ==
[2019-09-11 08:11] VITALS: BMI 44.1
[2019-09-20 13:17] VITALS: PULSE 100; PULSE 119; PULSE 126; PULSE 133; PULSE 138; PULSE 141; PULSE 162; O2SAT 89; O2SAT 90; O2SAT 91; O2SAT 92; O2SAT 93
--- NOTE | 2019-09-20 13:26 | CPS ---
MrGermaine Mccormack rested from 220 to 240 then 335 to 400 then 5 to 530 he states that it was due to dry mouth.
--- NOTE | 2019-09-20 14:02 | WT_ITS ---
PSN 6 Minute Walk Test - 6 Minute Walk Test 6 Minute Walk Test: 6 Minute Walk Test PSN:6-Minute Walk Test Start: 09/20/19 13:16 Freq: Status: Active Protocol: RESP.6MINW Document 09/20/19 13:17 FR (Rec: 09/20/19 13:30 FR [id number]) 6 Minute Walk Test Date Performed 09/20/19 Time Performed 13:45 Height 6 ft 2.02 in Weight: 150.593 kg Weight in Pounds 332.[address]: Franchesca Garza Assistive device used: None Pre-test Oxygen Delivery Method Room Air Pulse Ox (%) 93 Pulse Rate (60-100 beats/min) 100 Dyspnea Valeriy Scale (0-10) 5 Exertion Valeriy Scale (6-20) 11 1st minute Oxygen Delivery Method Room Air Pulse Ox (%) 90 Pulse Rate (60-100 beats/min) 119 H 2nd minute Pulse Ox (%) 91 Pulse Rate (60-100 beats/min) 133 H Number of Rests Taken 1 Reported Symptoms Increased Work of Breathing 3rd minute Oxygen Delivery Method Room Air Pulse Ox (%) 90 Pulse Rate (60-100 beats/min) 126 H Number of Rests Taken 1 Reported Symptoms Increased Work of Breathing 4th minute Oxygen Delivery Method Room Air Pulse Ox (%) 92 Pulse Rate (60-100 beats/min) 138 H 5th minute Oxygen Delivery Method Room Air Pulse Ox (%) 89 Pulse Rate (60-100 beats/min) 141 H Number of Rests Taken 1 Reported Symptoms Increased Work of Breathing 6th minute Oxygen Delivery Method Room Air Pulse Ox (%) 90 Pulse Rate (60-100 beats/min) 162 H Dyspnea Valeriy Scale (0-10) 8 Exertion Valeriy Scale (6-20) 14 Reported Symptoms Increased Work of Breathing Post-test Oxygen Delivery Method Room Air Pulse Ox (%) 93 Dyspnea Valeriy Scale (0-10) 106 Full Laps Walked 10 Partial Lap, Number of Tiles Walked 31 Total Distance Walked (ft) 621 09/20/19 13:26 Cardiopulmonary Services by Marita Whittaker Mr. Mccormack rested from 220 to 240 then 335 to 400 then 5 to 530 he states that it was due to dry mouth. Initialized on 09/20/19 13:26 - END OF NOTE - Interpretation Interpretation: The patient was able to ambulate 621 feet over the course of 6 minutes on room air with no assistive devices and 3 breaks. The patient did desaturate as low as 89% during ambulation and had a peak heart rate of 162 bpm. These findings are consistent with a cardiopulmonary limitation exercise tolerance. - Recommendations Recommendations: No supplemental oxygen is indicated at this time, but patient will have to be followed closely given level of desaturation.
== END ==
PROVIDERS: PCP Family Medicine; Referring Provider Nurse Practitioner Acute Care; Visit Provider Nurse Practitioner Acute Care
DX: R06.02 Shortness of breath (principal)
CPT/HCPCS: 94618

== ENCOUNTER → 2019-11-15 10:33 | Outpatient (CLI) | payer MEDICARE, OTHER, SELFPAY ==
[2019-11-13 14:21] VITALS: BMI 44.6
[2019-11-15 13:06] LABS: ALB/GLOB Ratio 0.8 RATIO (0.9-2.4); AST(SGOT) 21 U/L (15-37); Alanine Aminotransfer ALT/SGPT 30 U/L (16-61); Albumin, Serum 3.5 g/dL (3.2-5.0); Alkaline Phosphatase 62 U/L (45-117); Anion Gap 6 (5-15); BUN 16 mg/dL (7-18); BUN/Creat Ratio 10.8 RATIO (10-20); Calcium,Total 9.4 mg/dL (8.5-10.1); Chloride 101 mmol/L (98-107); Cholesterol 155 mg/dL (200); Creatinine, Serum 1.48 mg/dL (0.70-1.30); EST Glomerular Filtration Rate 49 mL/min (>60); Est Glom Filt Rate - Afr Amer 60 mL/min (>60); Globulin 4.3 g/dL (2.2-4.2); Glucose 134 mg/dL (74-106); High Density Lipoprotein 48 mg/dL; Potassium 3.7 mmol/L (3.5-5.1); Protein, Total 7.8 g/dL (6.4-8.2); Sodium Level 138 mmol/L (136-145); Triglycerides 147 mg/dL; Very Low Density Lipoprotein 29 mg/dL (5-40)
[2019-11-15 13:10] LABS: Hemoglobin A1c 7.3 % (3.8-5.6)
== END ==
PROVIDERS: PCP Family Medicine; Referring Provider Family Medicine; Visit Provider Family Medicine
DX: E11.21 Type 2 diabetes mellitus with diabetic nephropathy (principal); I12.9 Hypertensive chronic kidney disease with stage 1 through stage 4 chronic kidney disease, or unspecified chronic kidney disease; E11.22 Type 2 diabetes mellitus with diabetic chronic kidney disease; N18.3 Chronic kidney disease, stage 3 (moderate)
CPT/HCPCS: 36415; 80053; 80061; 83036

== ENCOUNTER → 2019-11-30 | Outpatient (CLI) | payer MEDICARE, OTHER, SELFPAY ==
[2019-11-28 08:58] VITALS: BMI 44.7
== END | disposition home or self-care (01) ==
LOC: LABSPEC 10:01
PROVIDERS: PCP Family Medicine; Referring Provider Dermatology; Visit Provider Dermatology
DX: L02.222 Furuncle of back [any part, except buttock and flank] (principal); L57.0 Actinic keratosis; L21.8 Other seborrheic dermatitis
CPT/HCPCS: 87070; 87077; 87186; 87205

== ENCOUNTER → 2019-12-06 12:53 | Outpatient (CLI) | payer MEDICARE, OTHER, SELFPAY ==
[2019-09-11 08:11] VITALS: BMI 44.1
[2019-11-28 08:58] VITALS: BMI 44.7
--- NOTE | 2019-12-07 07:47 | PFT ---
INTRODUCTION: The patient is a 74-year-old male that presents for pulmonary function studies secondary to a diagnosis of shortness of breath. Respiratory therapy reports good patient effort. Bronchodilators were used during testing. INTERPRETATION: Forced expiration spirometry demonstrates no evidence of a large airways obstructive ventilatory defect. There was no significant response to aerosolized bronchodilators. Spirograms are of good quality and plateau gradually. Body plethysmography was performed and reveals a decreased TLC to 5.67 L, 79% of predicted, indicative of a mild restrictive ventilatory impairment. Diffusing capacity by single breath CO is mildly reduced at 75% of predicted. When compared to previous pulmonary function studies dated January 2019, there has been symmetric reductions in FVC and FEV1 by 17% and 15%, respectively. 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 There have been changes in the patient's PFTs since 2018, as noted above.
== END ==
PROVIDERS: PCP Family Medicine; Referring Provider Nurse Practitioner Acute Care; Visit Provider Nurse Practitioner Acute Care
DX: R06.02 Shortness of breath (principal)
CPT/HCPCS: 94060; 94726; 94729

== ENCOUNTER → 2020-01-18 15:50 | Outpatient (CLI) | payer MEDICARE, OTHER, SELFPAY ==
[2019-12-21 06:10] VITALS: BMI 44.7
[2020-01-18 18:04] LABS: ALB/GLOB Ratio 0.7 RATIO (0.9-2.4); AST(SGOT) 16 U/L (15-37); Alanine Aminotransfer ALT/SGPT 24 U/L (16-61); Albumin, Serum 3.2 g/dL (3.2-5.0); Alkaline Phosphatase 71 U/L (45-117); Anion Gap 6 (5-15); BUN 20 mg/dL (7-18); Calcium,Total 9.7 mg/dL (8.5-10.1); Chloride 99 mmol/L (98-107); Creatinine, Serum 1.33 mg/dL (0.70-1.30); EST Glomerular Filtration Rate 56 mL/min (>60); Est Glom Filt Rate - Afr Amer 68 mL/min (>60); Globulin 4.8 g/dL (2.2-4.2); Glucose 121 mg/dL (74-106); Potassium 3.4 mmol/L (3.5-5.1); Sodium Level 137 mmol/L (136-145)
[2020-01-18 18:05] LABS: Hemoglobin A1c 6.8 % (3.8-5.6)
== END ==
PROVIDERS: PCP Family Medicine; Visit Provider Family Medicine
DX: E11.21 Type 2 diabetes mellitus with diabetic nephropathy (principal); E11.22 Type 2 diabetes mellitus with diabetic chronic kidney disease; N18.31 Chronic kidney disease, stage 3a
CPT/HCPCS: 36415; 80053; 83036

== ENCOUNTER → 2020-02-14 16:46 | Outpatient (CLI) | payer MEDICARE, OTHER, SELFPAY ==
[2020-02-14 15:59] VITALS: BMI 44.4
--- NOTE | 2020-02-14 17:10 | RAD_ITS ---
HISTORY: SOB EXAMINATION/TECHNIQUE: XR Chest 2 Views: COMPARISON: May 17, 2014 FINDINGS: LINES/DEVICES: None. LUNGS: No consolidation. There is blunting of the right costophrenic angle may represent a small right pleural effusion No pneumothorax. Elevated right hemidiaphragm similar to prior study MEDIASTINUM AND CARDIOVASCULAR STRUCTURES: Cardiac silhouette not enlarged. Central airways and mediastinal contour are unremarkable. BONES AND SOFT TISSUES: Unremarkable. RAD/Chest PA and Lateral IMPRESSION: Question small right pleural effusion at 0326 Reported and signed by: Naomy Nunez DO Electronically Signed: Naomy Nunez DO at 3:25 EST Tel , Service support ,
[2020-02-14 17:21] LABS: Absolute Lymphocyte Count 1.27 X10^3/uL (0.83-4.51); Basophil# 0.05 X10^3/uL; Basophil% 0.8 % (0-1); Eosinophil# 0.15 X10^3/uL; Eosinophils% 2.4 % (0-5); Hematocrit 39.3 % (40-54); Lymphocyte # 1.27 X10^3/ul (4.0); Lymphocyte % 20.6 % (19-41); Mean Corp Hgb Conc 30.5 g/dL (32-36); Mean Corpuscular Volume 91.6 fL (80-94); Mean Platelet Vol. 9.7 fl (6.2-12.0); Monocyte# 0.67 X10^3/uL; Monocyte% 10.9 % (0-10); NRBC Flagged by Analyzer 0 % (0-5); Platelet Count 264 K/mm3 (150-450); RBC Distribution Width CV 13.6 % (11.6-14.6); Red Blood Count 4.29 M/mm3 (4.6-6.2); White Blood Count 6.2 K/mm3 (4.4-11.0)
[2020-02-14 17:47] LABS: ALB/GLOB Ratio 0.8 RATIO (0.9-2.4); AST(SGOT) 22 U/L (15-37); Alanine Aminotransfer ALT/SGPT 28 U/L (16-61); Albumin, Serum 3.5 g/dL (3.2-5.0); Alkaline Phosphatase 63 U/L (45-117); Anion Gap 4 (5-15); BNP,B-Type NATRIURETIC PEPTIDE 13.4 pg/mL (0-100); BUN 21 mg/dL (7-18); BUN/Creat Ratio 17.4 RATIO (10-20); Calcium,Total 9.8 mg/dL (8.5-10.1); Chloride 99 mmol/L (98-107); Creatinine, Serum 1.21 mg/dL (0.70-1.30); EST Glomerular Filtration Rate 62 mL/min (>60); Est Glom Filt Rate - Afr Amer 75 mL/min (>60); Globulin 4.4 g/dL (2.2-4.2); Glucose 160 mg/dL (74-106); Magnesium 1.6 mg/dL (1.6-2.6); Potassium 3.6 mmol/L (3.5-5.1); Protein, Total 7.9 g/dL (6.4-8.2); Sodium Level 136 mmol/L (136-145)
== END ==
PROVIDERS: PCP Family Medicine; Referring Provider Nurse Practitioner Family; Visit Provider Nurse Practitioner Family
DX: R06.02 Shortness of breath (principal); I10 Essential (primary) hypertension; R00.0 Tachycardia, unspecified; E78.5 Hyperlipidemia, unspecified
CPT/HCPCS: 36415; 71046; 80053; 83735; 83880; 85025

== ENCOUNTER → 2020-02-26 13:32 | Outpatient (CLI) | payer MEDICARE, OTHER, SELFPAY ==
[2020-02-14 15:59] VITALS: BMI 44.4
== END ==
PROVIDERS: PCP Family Medicine; Referring Provider Nurse Practitioner Family; Visit Provider Nurse Practitioner Family
DX: R00.0 Tachycardia, unspecified (principal); R06.02 Shortness of breath
CPT/HCPCS: 93225; 93226

== ENCOUNTER → 2020-05-16 12:32 | Outpatient (CLI) | payer MEDICARE, OTHER, SELFPAY ==
[2020-03-15 13:36] VITALS: BMI 45.2
[2020-05-16 13:19] VITALS: PULSE 100; PULSE 108; PULSE 86; PULSE 88; O2SAT 88; O2SAT 90; O2SAT 91; O2SAT 92
--- NOTE | 2020-05-16 13:23 | CPS ---
PATIENT ARRIVED IN W/C FOR TEST. SPO2 ON RA RANGED BETWEEN 88-89% AT REST PRIOR TO WALK. DISCUSSED READING WITH PATIENT AND ILDA(). PATIENT DECIDED TO WALK WITHOUT OXYGEN TO BEGIN TO SEE WHAT SPO2 DID. SPO2 INCREASED AND MAINTAINED 90-92%. PATIENT RESTED DURING FIRST AND SECOND MINUTE, HE DECIDED HE WAS DIZZY AND DID NOT WANT TO WALK ANYMORE. (HE WAS HYPERVENTILATING, TALKED HIM THROUGH PURSED LIP BREATHING, DIZZINESS SUBSIDED.) PATIENT'S SPO2 AT 92% ON D/C HOME WITH . (DISCUSSED THAT HE MAY REQUIRE OXYGEN, THEY WANT TO DISCUSS WITH YOU., APPT IN MAY.)
--- NOTE | 2020-05-16 17:07 | PCM.PSN.6M ---
PSN 6 Minute Walk Test - 6 Minute Walk Test 6 Minute Walk Test: 6 Minute Walk Test PSN:6-Minute Walk Test Start: 05/16/20 13:18 Freq: Status: Active Protocol: RESP.6MINW Document 05/16/20 13:19 [facility] (Rec: 05/16/20 13:31 [facility] [id number]) 6 Minute Walk Test Date Performed 05/16/20 Time Performed 12:30 Height 6 ft 2 in Weight: 150.593 kg Weight in Pounds 332.[address]: Franchesca Garaz ENGINEERING AND OPERATIONS DIRECTOR Assistive device used: None Pre-test Oxygen Delivery Method Room Air Pulse Ox (%) 88 Pulse Rate (60-100 beats/min) 88 Dyspnea Valeriy Scale (0-10) 2 Reported Symptoms Increased Work of Breathing 1st minute Oxygen Delivery Method Room Air Pulse Ox (%) 90 Pulse Rate (60-100 beats/min) 100 Dyspnea Valeriy Scale (0-10) 3 Number of Rests Taken 1 Reported Symptoms Increased Work of Breathing 2nd minute Oxygen Delivery Method Room Air Pulse Ox (%) 90 Pulse Rate (60-100 beats/min) 108 H Dyspnea Valeriy Scale (0-10) 4 Number of Rests Taken 1 Reported Symptoms Increased Work of Breathing, Dizziness 3rd minute Oxygen Delivery Method Room Air Pulse Ox (%) 91 Number of Rests Taken 1 Reported Symptoms Increased Work of Breathing 4th minute Oxygen Delivery Method Room Air Pulse Ox (%) 90 Number of Rests Taken 1 Reported Symptoms Increased Work of Breathing 5th minute Oxygen Delivery Method Room Air Pulse Ox (%) 91 Number of Rests Taken 1 Reported Symptoms Increased Work of Breathing 6th minute Oxygen Delivery Method Room Air Pulse Ox (%) 91 Number of Rests Taken 1 Reported Symptoms Increased Work of Breathing Post-test Oxygen Delivery Method Room Air Pulse Ox (%) 92 Pulse Rate (60-100 beats/min) 86 Dyspnea Valeriy Scale (0-10) 3 Reported Symptoms Increased Work of Breathing Full Laps Walked 2 Partial Lap, Number of Tiles Walked 15 Total Distance Walked (ft) 133 05/16/20 13:23 Cardiopulmonary Services by Sarah PATIENT ARRIVED IN [facility] FOR TEST. SPO2 ON RA RANGED BETWEEN 88-89% AT REST PRIOR TO WALK. DISCUSSED READING WITH PATIENT AND ILDA(). PATIENT DECIDED TO WALK WITHOUT OXYGEN TO BEGIN TO SEE WHAT SPO2 DID. SPO2 INCREASED AND MAINTAINED 90-92%. PATIENT RESTED DURING FIRST AND SECOND MINUTE, HE DECIDED HE WAS DIZZY AND DID NOT WANT TO WALK ANYMORE. (HE WAS HYPERVENTILATING, TALKED HIM THROUGH PURSED LIP BREATHING, DIZZINESS SUBSIDED.) PATIENT'S SPO2 AT 92% ON D/C HOME WITH . (DISCUSSED THAT HE MAY REQUIRE OXYGEN, THEY WANT TO DISCUSS WITH YOU., APPT IN MAY.) Initialized on 05/16/20 13:23 - END OF NOTE - Interpretation Interpretation: The patient was noted to have a saturation of 89% at rest. However, patient saturation slightly improved with ambulation. Patient was only able to travel 133 feet over the course of 6 minutes on room air with no assistive devices, but 6 breaks. Patient did report dizziness from hyperventilation. - Recommendations Recommendations: Technically, patient does not require supplemental oxygen, but did travel a minimal distance and had multiple breaks. Clinical correlation is advised
== END ==
PROVIDERS: PCP Family Medicine; Referring Provider Nurse Practitioner Acute Care; Visit Provider Nurse Practitioner Acute Care
DX: R06.02 Shortness of breath (principal)
CPT/HCPCS: 94618

== ENCOUNTER → 2020-07-23 07:08 | Outpatient (CLI) | payer MEDICARE, OTHER, SELFPAY ==
[2020-06-28 14:39] VITALS: BMI 42.3
[2020-07-18 14:13] VITALS: BMI 41.1
--- NOTE | 2020-07-23 07:20 | ECHOCS_ITS ---
Reason For Study: DYSPNEA/SOB Procedure This was a 2D Doppler, Color Flow transthoracic echocardiogram. The study was technically difficult. Contrast injection was performed. Exam performed in department. Left Ventricle Normal LV size. Left ventricular systolic function is hyperdynamic. The estimated ejection fraction is 75 %. No evidence for diastolic dysfunction. No regional wall motion abnormalities noted. Right Ventricle Normal RV size. Normal systolic function. Atria Normal left atrium. Normal right atrium. No doppler evidence for ASD. Mitral Valve There is no mitral annular calcification. Normal mitral valve. Tricuspid Valve Normal tricuspid valve. Trivial tricuspid valve insufficiency. Right ventricular systolic pressure estimated to be 23 mmHg. Aortic Valve Trisinus/trileaflet aortic valve. Mild diffuse aortic valve thickening. Mild diffuse aortic valve calcification. Pulmonic Valve The pulmonic valve is not well visualized. Great Vessels The aortic root is not well visualized. Pericardium/Pleural No pericardial effusion. Medication Diluted definity 2.5ml given slow IV push to enhance endocardial definition. MMode/2D Measurements & Calculations SV(MOD-sp4): 38.1 ml LVAd ap4: 19.4 cm2 LVAd ap2: 15.9 cm2 LVLd ap4: 6.5 cm LVLd ap2: 6.6 cm EDV(MOD-sp4): 52.8 ml EDV(MOD-sp2): 31.0 ml EDV(sp4-el): 54.4 ml EDV(sp2-el): 32.3 ml LVAs ap4: 10.2 cm2 LVLs ap4: 5.9 cm ESV(MOD-sp4): 14.7 ml ESV(sp4-el): 15.0 ml EF(MOD-sp4): 72.1 % EF(sp4-el): 72.4 % SV(sp4-el): 39.4 ml LA A4 area: 9.5 cm2 LA dimension(2D): 3.4 cm RA A4 area: 8.8 cm2 Doppler Measurements & Calculations MV E max chuck: 69.7 cm/sec Lat Peak E' Chuck: 9.2 cm/sec Med Peak E' Chuck: 5.9 cm/sec MV A max chuck: 119.0 cm/sec E/E' lat: 7.6 E/E' med: 11.8 MV E/A: 0.59 Ao V2 max: 182.2 cm/sec LV V1 max: 106.9 cm/sec PA V2 max: 114.9 cm/sec Ao max P.3 mmHg LV V1 max P.6 mmHg TR max chuck: 225.7 cm/sec TR max P.4 mmHg ECHO/Echo Complete W/ Contrast Interpretation Summary The study was technically difficult. Contrast injection was performed. Left ventricular systolic function is hyperdynamic. The estimated ejection fraction is 75 %. Trivial tricuspid valve insufficiency. Mild diffuse aortic valve thickening. Mild diffuse aortic valve calcification. Right ventricular systolic pressure estimated to be 23 mmHg. No evidence for diastolic dysfunction. Ordering Physician: Sriram Borja/Eyad Shaw Referring Physician: KECIA KOENIG Performed By: Aranza Lorenzo RDCS
--- NOTE | 2020-07-23 12:46 | STRESSREP ---
Stress Test Report Date: 07-23-2020 Procedure: Pharmacologic stress nuclear imaging study Indications: Shortness of breath/dyspnea on exertion Consent: Per the patient Procedure: The patient underwent pharmacologic (Regadenoson 0.4mg ) evaluation with a peak heart rate of 120 beats per minute (82%predicted maximal heart rate) and a peak blood pressure of 142/82 mmHg. The baseline ECG demonstrated sinus rhythm; right bundle branch block; nonspecific ST/T wave abnormality. The peak pharmacologic ECG demonstrated no obvious ECG changes. There were no cardiac dysrhythmias pretest, during pharmacologic infusion, or recovery. There was no complaint of chest discomfort during pharmacologic infusion or recovery. The examination was discontinued secondary to completion of protocol. Impression: 1. Pharmacologic (Regadenoson) evaluation 2. Peak pharmacologic ECG with no obvious ECG changes. 3. There were no cardiac dysrhythmias pretest, during pharmacologic infusion, or recovery. 4. Nuclear images pending Myocardial perfusion imaging study: Technique: The patient was injected with 14.9 millicuries of technetium 99m Cardiolite and subsequently rest SPECT Cardiolite nuclear imaging was obtained in the horizontal long, vertical long, and short axis views. The patient underwent pharmacologic (Regadenoson) evaluation with a peak heart rate of 120 beats per minute (82% percent predicted maximal heart rate) and a peak blood pressure of 142/82 mmHg. The patient was injected with 44.7 millicuries of technetium 99m Cardiolite and subsequently stress SPECT Cardiolite nuclear imaging was obtained in the horizontal long, vertical long, and short axis views. A gated Cardiolite study at peak stress was obtained. Interpretation: Rest and stress SPECT Cardiolite nuclear imaging status post realignment, normalization, and attenuation correction demonstrate relative uniform tracer uptake and myocardial perfusion appearing within normal limits. There is end systolic thickening and brightening. The gated Cardiolite study demonstrates myocardial thickening and inward wall motion. The reported LVEF is 68%. Impression: 1. Rest and stress SPECT Cardiolite nuclear imaging demonstrate relative uniform tracer uptake and myocardial perfusion appearing within normal limits. 2. The gated Cardiolite study reports an LVEF of 68%. This note was generated with [employer] software. It may contain incorrect words, spelling, and punctuation that were not noted in checking the note before signing.
== END ==
PROVIDERS: PCP Family Medicine; Referring Provider Nurse Practitioner Family; Visit Provider Nurse Practitioner Family
DX: R06.02 Shortness of breath (principal); I10 Essential (primary) hypertension; E78.5 Hyperlipidemia, unspecified; G47.33 Obstructive sleep apnea (adult) (pediatric); E11.9 Type 2 diabetes mellitus without complications
CPT/HCPCS: 78452; 93017; 93306; A9500; Q9957; A4216; C8929; J2785

== ENCOUNTER → 2020-07-30 12:58 | Outpatient (CLI) | payer MEDICARE, OTHER, SELFPAY ==
[2020-07-18 14:13] VITALS: BMI 41.1
== END ==
PROVIDERS: PCP Family Medicine; Referring Provider Internal Medicine Critical Care Medicine; Visit Provider Internal Medicine Critical Care Medicine
DX: J98.4 Other disorders of lung (principal)
CPT/HCPCS: 94762

== ENCOUNTER 2020-11-13 11:51 | Day surgery (SDC) | payer MEDICARE, OTHER, SELFPAY ==
[2020-08-08 14:35] VITALS: BMI 42.3
[2020-11-07 10:58] VITALS: BMI 41.1
--- NOTE | 2020-11-08 13:59 | EKG12_ITS ---
Test Reason : PRE OP Blood Pressure : / mmHG Vent. Rate : 081 BPM Atrial Rate : 081 BPM P-R Int : 220 ms QRS Dur : 146 ms QT Int : 416 ms P-R-T Axes : 055 032 007 degrees QTc Int : 483 ms Sinus rhythm with 1st degree A-V block Right bundle branch block Abnormal ECG Confirmed by JARRETT HARTMAN, MILLI ([id number]), script editor GERALD BREWSTER ([id number]) on 11/12/2020 8:58:22 AM Referred By: Fidencio Gray Confirmed By:MILLI FARIAS MD
[2020-11-08 15:36] LABS: Hemoglobin 12.3 g/dL (13.0-16.5); Mean Corp Hgb Conc 31.5 g/dL (32-36); Mean Corpuscular Volume 85.7 fL (80-94); Mean Platelet Vol. 10.4 fl (6.2-12.0); Platelet Count 313 K/mm3 (150-450); RBC Distribution Width CV 13.9 % (11.6-14.6); RBC Distribution Width SD 43.3 fl (35.1-43.9); Red Blood Count 4.55 M/mm3 (4.6-6.2); White Blood Count 6.8 K/mm3 (4.4-11.0)
[2020-11-08 16:15] LABS: AST(SGOT) 24 U/L (15-37); Alanine Aminotransfer ALT/SGPT 24 U/L (16-61); Alkaline Phosphatase 79 U/L (45-117); Bilirubin, Direct 0.11 mg/dL (0.00-0.30); Cholesterol 162 mg/dL (200); Globulin 4.6 g/dL (2.2-4.2); High Density Lipoprotein 48 mg/dL; Protein, Total 7.6 g/dL (6.4-8.2); Triglycerides 140 mg/dL; Very Low Density Lipoprotein 28 mg/dL (5-40)
[2020-11-08 16:16] LABS: Vitamin B12 260 pg/mL (211-911)
[2020-11-08 17:07] LABS: ALB/GLOB Ratio 0.7 RATIO (0.9-2.4); AST(SGOT) 23 U/L (15-37); Alanine Aminotransfer ALT/SGPT 25 U/L (16-61); Alkaline Phosphatase 79 U/L (45-117); Anion Gap 4 (5-15); BUN 13 mg/dL (7-18); Calcium,Total 9.5 mg/dL (8.5-10.1); Chloride 104 mmol/L (98-107); EST Glomerular Filtration Rate 77 mL/min (>60); Est Glom Filt Rate - Afr Amer 94 mL/min (>60); Globulin 4.6 g/dL (2.2-4.2); Glucose 143 mg/dL (74-106); Potassium 3.6 mmol/L (3.5-5.1); Protein, Total 7.6 g/dL (6.4-8.2); Sodium Level 138 mmol/L (136-145); Thyroid Stim Hormone (TSH) 2.25 uIU/mL (0.358-3.74)
[2020-11-11 09:00] LABS: Hemoglobin A1c 6.6 % (3.8-5.6)
[2020-11-13] VITALS (16 sets, daily range): BP systolic 152–187; BP diastolic 74–93; PULSE 70–93; RESP 16–28; TEMP 35.3–37.3; O2SAT 90–100; BMI 42.5
--- NOTE | 2020-11-13 | PROS_PTH ---
PATIENT: MEGAN RIVER . LOC: [facility] – [place] U#:[id number] AGE/SX: 75/M ROOM: RE11/13/[address]: Dr. Fidencio rGay MD : 1945 BED: DIS: 11/14/2020 SPEC #: [id number] RECD: 11/13/20 15:21 STATUS: BHARTI SALAS #: [id number] JUANA: 11/13/20 00:[address]: Fidencio Gray DEPT: SURGICAL PATHOLOGY RECD BY: Shamar James ENTERED: 11/14/20 08:23 SP TYPE: TURP OTHR DR: Dr. Kike Barroso, DO Tissues: Prostate, NOS Procedures: Surgery Specimen Level IV HEADER OPERATION: Cysto, TUR prostate, Olympus PRE-OP DIAGNOSIS: BPH TISSUE SUBMITTED: Prostate scrapings/pieces MICROSCOPIC DIAGNOSIS Prostate, transurethral resection: Benign nodular hyperplasia, glandular and stromal types. Urothelium with minimal chronic inflammation. AM:david 11/15/2020 MICROSCOPIC DESCRIPTION Slides are reviewed. GROSS DESCRIPTION Received is one container labeled with the patient's name and designated prostate scrapings/pieces. The specimen consists of multiple irregular fragments of pink-contreras, rubbery, soft tissue that in aggregate weigh 9.4 gm and measure in aggregate 5 x 5 x 1.5 cm. Two metallic clips are noted in the specimen. The entire specimen, except metallic clips, is submitted in nine cassettes. / SJ:david 11/14/20 TC:5 CPT: 07681
[2020-11-13] MEDS: Lactated Ringers 1,000 ML 100 ML IV ×3 (12:10→16:21)
[2020-11-13 12:46] LABS: Bedside Glucose 108 mg/dL (70-110)
--- NOTE | 2020-11-13 13:47 | PCM.HP.STD ---
HPI - General HPI Narrative MEGAN RIVER, is a 75 M who presents for transurethral resection of the prostate, failured urolift [facility] Medical History Actinic keratosis Cancer Chronic diastolic heart failure Chronic kidney disease, stage 3 CPAP (continuous positive airway pressure) dependence Depression, major, recurrent, moderate Diabetes Diabetic peripheral neuropathy Dietary restriction Gastric reflux History of echocardiogram History of edema History of stress test HTN (hypertension) Hyperlipidemia Insulin dependent diabetes mellitus Microalbuminuria Non-smoker Onychomycosis TARA (obstructive sleep apnea) Osteoarthritis of left knee Other tear of lateral meniscus, current injury, left knee, initial encounter Other tear of lateral meniscus, current injury, left knee, subsequent encounter Other tear of medial meniscus, current injury, left knee, initial encounter Other tear of medial meniscus, current injury, left knee, subsequent encounter Passive aggressive personality disorder Positive colorectal cancer screening using Cologuard test Positive colorectal cancer screening using Cologuard test Prostate disease Restrictive lung disease Right bundle branch block Shortness of breath on exertion Sleep apnea Super obese Tachycardia Tremor Type 2 diabetes mellitus Home Medications amitriptyline 25 mg PO QHS 03/24/16 [History Last Taken Unknown] aspirin 81 mg PO DAILY@0800 03/24/16 [History Last Taken Unknown] atorvastatin 80 mg PO DAILY 03/24/16 [History Last Taken Unknown] citalopram 20 mg PO DAILY 03/24/16 [History Last Taken 05/13/16 07:00] fenofibrate nanocrystallized 145 mg PO DAILY 03/24/16 [History Last Taken Unknown] lisinopril-hydrochlorothiazide 1 ea PO BID 03/24/16 [History Last Taken Unknown] latanoprost 0.005 % eye drops 1 drp OPHTHALMIC DAILY 05/08/19 [History Last Taken Unknown] metformin 500 mg tablet 500 mg PO BID tab 05/08/19 [History Last Taken Unknown] famotidine 20 mg tablet 20 mg PO DAILY 05/09/19 [History Last Taken Unknown] insulin glargine 100 unit/mL (3 mL) subcutaneous pen 80 unit SUBCUT DAILY ml 06/08/19 [History Last Taken Unknown] insulin aspart U-100 100 unit/mL (3 mL) subcutaneous pen 45 unit SC TID ml 11/09/19 [History Last Taken Unknown] verapamil 180 mg tablet,extended release 180 mg PO DAILY #30 tab 12/21/19 [Rx Last Taken Unknown] furosemide 40 mg tablet 40 mg PO DAILY #30 tab 02/19/20 [Rx Last Taken Unknown] potassium chloride 20 mEq tablet,extended release 20 meq PO DAILY #30 tab 02/19/20 [Rx Last Taken Unknown] aripiprazole 10 mg tablet 5 mg PO DAILY tab 11/07/20 [History Last Taken Unknown] carbidopa 25 mg-levodopa 100 mg tablet 1 tab PO .COMPLEX #90 tab 11/07/20 [Rx Last Taken Unknown] ezetimibe 10 mg tablet 10 mg PO DAILY 11/07/20 [History Last Taken Unknown] Allergy/AdvReac Type Severity Reaction Status Date / Time No Known Allergies Allergy Verified 11/13/20 12:08 Family History Mother Hypertension Hyperlipemia Heart disease Diabetes Environmental and seasonal allergies alcoholism and drug abuse Sister Stomach cancer Ovarian cancer Brother Diabetes Daughter bipolar Father Schizophrenia Aortic aneurysm Surgical History History of skin graft left knee scope s/p urolift procedure (04/21/19) Social History (Updated 11/07/20 @ 10:56 by Sola Syed) Smoking Status: Never smoker Electronic Cigarette Use: not used second hand exposure: No alcohol intake: current alcohol intake frequency: holidays/special occasions only substance use type: does not use caffeine: Yes what type of physical activity do you participate in: none Vital Signs Vital Signs Vital Signs: 11/13/20 12:33 Temperature 98.1 F Temperature Source Temporal Pulse Rate 73 Respiratory Rate 16 Respiratory Pattern Normal Blood Pressure 173/85 H Blood Pressure Mean 114 Blood Pressure Source Monitor Blood Pressure Position Semi-Fowlers Pulse Ox 94 Oxygen Delivery Method Room Air Weight Weight: 146 kg Body Mass Index (BMI) 42.5 Physical Exam Const alert and oriented x3 General Appearance: cooperative HEENT normocephalic, head/scalp atraumatic, EAC's normal and TM's normal bilaterally Eyes PERRL and EOMs intact bilaterally Pupil: sluggish Neck no lymphadenopathy, supple and no JVD General: trachea midline Lymph Lymphatic: no lymphadenopathy noted, lymphedema and lymphadenopathy Resp normal respiratory effort, normal air movement and clear to auscultation bilaterally Cardio regular rate, regular rhythm and peripheral pulses 2+ throughout GI soft to palpation, non-tender and non-distended Extremity normal capillary refill and no clubbing, cyanosis or edema General Extremity: no tenderness to palpation of joints or extremities Skin no rashes or lesions noted General Skin Exam: turgor normal Lesions: no lesions Rashes: no rashes Neuro CN's II-XII intact bilaterally Speech: speech normal Motor Exam: strength 5/5 throughout; Negative for general weakness Psych thought process normal, cooperative and affect normal Appearance: appropriate Results Lab / Micro Data Result Diagrams: 11/08/20 14:27 11/08/20 14:27 Labs: Laboratory Results - last 24 hr 11/13/20 12:27: POC Glucose 108 Assessment & Plan Assessment/Plan (1) BPH (benign prostatic hyperplasia):
--- NOTE | 2020-11-13 13:48 | DCINST_ITS ---
Discharge Instructions Diet Discharge Diet: No restrictions Activity Discharge Activity: Return to Normal Activity and May Not Drive (while taking narcotic pain medications.) Dressing / Incision Call your doctor if you observe: Fever of 101 or Higher Follow Up Care Please Follow Up With: Fidencio Gray MD When: Call [phone] for an appointment Test Results: Test results from this visit will be discussed in further detail at your follow-up appointment, if applicable. Discharge Plan Admission Primary Reason for Your Visit: tur Attending Provider: Fidencio Gray Primary Care Provider: Kike Barroso Instructions Patient Instructions: [facility] Home Recovery Discharge Orders/Prescriptions Prescriptions: Continued latanoprost 0.005 % drops 1 drp OPHTHALMIC DAILY RF: 0 famotidine [Pepcid] 20 mg tablet 20 mg PO DAILY RF: 0 insulin aspart U-100 [Novolog Flexpen U-100 Insulin] 100 unit/mL (3 mL) insulin pen 45 unit SC TID RF: 0 insulin glargine 100 unit/mL (3 mL) insulin pen 80 unit subcut DAILY RF: 0 carbidopa-levodopa [Sinemet] 25-100 mg tablet 1 tab PO .COMPLEX Qty: 90 RF: 2 atorvastatin 80 MG tablet 80 mg PO DAILY RF: 0 citalopram 20 MG tablet 20 mg PO DAILY RF: 0 amitriptyline 25 MG tablet 25 mg PO QHS RF: 0 lisinopril-hydrochlorothiazide 1 EACH tablet 1 ea PO BID RF: 0 fenofibrate nanocrystallized 145 MG tablet 145 mg PO DAILY RF: 0 metformin 500 mg tablet 500 mg PO BID RF: 0 aripiprazole 10 mg tablet 5 mg PO DAILY RF: 0 ezetimibe 10 mg tablet 10 mg PO DAILY RF: 0 verapamil 180 mg tablet extended release 180 mg PO DAILY Qty: 30 RF: 11 furosemide [Lasix] 40 mg tablet 40 mg PO DAILY Qty: 30 RF: 12 potassium chloride 20 mEq tablet extended release 20 meq PO DAILY Qty: 30 RF: 12 Held aspirin 81 MG tablet 81 mg PO DAILY@0800 RF: 0 Hold Instructions: Resume on 11/27/20. Discontinued finasteride 5 mg tablet 5 mg PO DAILY RF: 0 tamsulosin 0.4 mg capsule 0.4 mg PO DAILY RF: 0 Other Ambulatory Orders: Basic Metabolic Profile (BMP) (Routine) Timeframe: 20201108 Facility: [facility] [place] - Location: Laboratory Ordered By: Dr. Abdias Barron CBC W/Diff, Automated (Routine) Timeframe: 20201108 Facility: [facility] [place] - Location: Laboratory Ordered By: Dr. Abdias Barron 12 Lead EKG (Routine) Timeframe: 20201108 Location: None Selected Ordered By: Dr. Abdias Barron Referrals / Follow Up: Fidencio Gray MD [STAFF PHYSICIAN] - Kike Barroso DO [Primary Care Provider] - Disposition Disposition (needs filled in before D/C Order can be placed): Home, Self Care
--- NOTE | 2020-11-13 15:00 | OP.PCM_ITS ---
Report of Operation Date of Procedure: 11/13/20 Pre-Operative Diagnosis: BPH with obstruction Post-Operative Diagnosis: Same Surgery/Procedure Performed:: Transurethral resection of prostate Description of Surgical Findings:: In the preoperative setting I discussed with the patient how the surgery would be done with expect afterwards. We discussed how a prostate resection is done and we discussed the risk of the surgery including, bleeding, infection, retrograde ejaculation, changes with ejaculation or intercourse,. We discussed the possibility that the resection of the prostate may not alleviate his urinary symptoms. We discussed the small risk of developing scar tissue along the urethral channel and strictures. We also discussed the chance of the prostate could grow back and he may need further surgery or treatment in the future for prostate problems. Patient was taken back to the operating room, timeout procedure was performed, he was identified and marked and placed on the operating room table. He underwent general anesthesia. He was placed in dorsolithotomy position. Penis and testicles were prepped and draped in usual sterile fashion. Went into the bladder using the visual obturator with a resectoscope. Once inside the bladder identified the right and left ureteral orifice. I then identified the prostate and the anatomy of the prostate. I marked out the area of the sphincter and the verumontanum was identified. I then proceeded with the prostate resection first resected the median lobe. And then resected the right lobe of the prostate. Then to resect the left lobe of the prostate. I then resected the apical tissue of the prostate. Made sure that there was no injury to the sphincter or the verumontanum was still intact. At the end of the resection all the chips were Ellik out of the bladder. I then identified the left and right ureteral orifice and these were confirmed to be in good position and effluxing and not injured. The resectoscope was removed, a 22 Sinhala catheter was placed into the bladder on continuous irrigation. And the urine was fairly light pink color and draining normally. He was taken back to the PACU in good condition. Surgeon: Fidencio Gray Type of Anesthesia: General Drains: 20 fr moeller Admit VTE Documentation VTE Present on Admission: No VTE Mechan Device Prophylaxis: SCD's
[2020-11-13 15:26] LABS: Bedside Glucose 113 mg/dL (70-110)
[2020-11-13] MEDS: metFORMIN HCl 500 MG Tablet PO (18:37)
[2020-11-13] MEDS: 0.9% Normal Saline 1,000 ML 150 ML IV (18:37)
[2020-11-13 20:08] LABS: Free Kappa Light Chains 37.5 mg/L (3.3-19.4); Free Lambda Light Chains 21.2 mg/L (5.7-26.3)
[2020-11-13] MEDS: Amitriptyline 25 MG Tablet PO (21:14)
[2020-11-13] MEDS: Ciprofloxacin 400 MG/200 ML BAG 200 MG IV (21:14)
[2020-11-13] MEDS: Atorvastatin Calcium 80 MG Tablet PO (21:14)
[2020-11-13] MEDS: Latanoprost 0.005% 1 Bottle 1 DRP OPHTHALMIC (21:15)
[2020-11-13] MEDS: Docusate Sodium 100 MG Capsule PO (21:15)
[2020-11-14] VITALS (9 sets, daily range): BP systolic 122–152; BP diastolic 52–72; PULSE 80–96; RESP 18; TEMP 36.7–38.2; O2SAT 90–96; BMI 42.5
[2020-11-14] MEDS: 0.9% Normal Saline 1,000 ML 150 ML IV ×2 (02:01→09:20)
[2020-11-14] MEDS: metFORMIN HCl 500 MG Tablet PO (07:51)
[2020-11-14] MEDS: Fenofibrate 145 MG Tablet PO (07:51)
[2020-11-14] MEDS: Potassium Chloride Oral Tablet 20 MEQ PO (07:51)
[2020-11-14] MEDS: Ezetimibe 10 MG Tablet PO (07:51)
[2020-11-14] MEDS: Citalopram 20 MG Tablet PO (07:51)
[2020-11-14] MEDS: Acetaminophen 325 MG Tablet PO (07:51)
[2020-11-14] MEDS: Furosemide 40 MG Tablet PO (07:52)
[2020-11-14] MEDS: Docusate Sodium 100 MG Capsule PO (07:52)
[2020-11-14] MEDS: Famotidine 20 MG Tablet PO (07:52)
[2020-11-14] MEDS: hydroCHLOROthiazide 25 MG Tablet PO (07:52)
[2020-11-14] MEDS: Lisinopril 20 MG Tablet PO (07:52)
[2020-11-14] MEDS: ARIPiprazole 5 MG Tablet PO (07:52)
[2020-11-14] MEDS: Verapamil SR 180 MG CAPSULE PO (07:52)
[2020-11-14 08:01] LABS: Bedside Glucose 147 mg/dL (70-110)
[2020-11-14] MEDS: Insulin Lispro 100 UNIT/ML INSULN.PEN 45 UNIT SC ×2 (08:37→12:35)
[2020-11-14] MEDS: Ciprofloxacin 400 MG/200 ML BAG 200 MG IV (09:20)
[2020-11-14] MEDS: Ibuprofen 600 MG Tablet PO (11:29)
[2020-11-14 11:36] LABS: Bedside Glucose 93 mg/dL (70-110)
== END 2020-11-14 16:24 | disposition home or self-care (01) ==
LOC: SDC 11:51 → AC 11:52 → MS3 17:22
PROVIDERS: Anesthesiology; Internal Medicine Cardiovascular Disease; Psychiatry & Neurology Neurology; PCP Family Medicine; Referring Provider Urology; Visit Provider Urology
PROC: (CPT 52601; principal; 2020-11-13 13:50)
DX: N40.1 Benign prostatic hyperplasia with lower urinary tract symptoms (principal); E11.42 Type 2 diabetes mellitus with diabetic polyneuropathy; E66.9 Obesity, unspecified; Z68.41 Body mass index [BMI] 40.0-44.9, adult; E78.5 Hyperlipidemia, unspecified; G47.33 Obstructive sleep apnea (adult) (pediatric); I13.0 Hypertensive heart and chronic kidney disease with heart failure and stage 1 through stage 4 chronic kidney disease, or unspecified chronic kidney disease; E11.22 Type 2 diabetes mellitus with diabetic chronic kidney disease; N18.30 Chronic kidney disease, stage 3 unspecified; I50.32 Chronic diastolic (congestive) heart failure; F32.9 Major depressive disorder, single episode, unspecified; K21.9 Gastro-esophageal reflux disease without esophagitis; M17.12 Unilateral primary osteoarthritis, left knee; N13.8 Other obstructive and reflux uropathy; Z79.4 Long term (current) use of insulin; Z79.82 Long term (current) use of aspirin; Z79.899 Other long term (current) drug therapy
CPT/HCPCS: 00914; 52601; 36415; 80053; 80061; 80076; 82607; 82746; 82962; 83036; 83883; 84425; 84443; 85027; 88305; 93005; 99251; J7030; J7120; G0463; J0744; J2405

== ENCOUNTER → 2020-12-03 13:10 | Outpatient (CLI) | payer MEDICARE, OTHER, SELFPAY ==
[2020-11-07 10:58] VITALS: BMI 41.1
--- NOTE | 2020-12-03 13:12 | MRI_ITS ---
STUDY: MRI BRAIN WITH AND WITHOUT CONTRAST REASON FOR EXAM: Male, 75 years old. Mild cognitive impairment and Parkinson''s disease TECHNIQUE: Standardized multiplanar fat and water weighted pulse sequences were obtained. 29ml Dotarem via IV was administered for the contrast portion of the examination. COMPARISON: None. FINDINGS: There is mild cerebral atrophy with widening of the extra-axial spaces and ventricular dilatation. There are a limited number of small white matter hyperintensities, distributed throughout the deep white matter tracts of the cerebral hemispheres, consistent with mild chronic white matter ischemic changes. There is no evidence for recent intracranial ischemia or other cause of cytotoxic edema on diffusion weighted imaging (DWI). Normal T2* images of the brain without demonstrated susceptibility artifact. There is no demonstrated hemosiderin stain. Normal bilateral basal ganglia. Normal thalami. There is no extra-axial fluid accumulation. Normal flow voids within the major intracranial circulation suggesting patency by spin echo criteria. Normal venous enhancement. There is no enhancing intra-axial or extra-axial abnormality. Normal sella turcica, pituitary gland, infundibular stalk, optic chiasm and hypothalamus. Normal tectal plate and pineal gland. Normal midbrain, hubert and medulla. Normal cerebellum. Normal basal cisterns. Normal bilateral temporal bones. Normal bilateral internal auditory canals. No demonstrated orbital abnormality, within the constraints of a routine brain study. Normal visualized paranasal sinuses. Normal calvarium and skull base. Normal visualized soft tissue structures. Normal visualized upper cervical spine. MRI/Brain W/WO Contrast IMPRESSION: Involutional changes of the brain, as described above. Electronically Signed: Corwin Tovar MD at 16:37 EDT Tel , Service support ,
== END ==
PROVIDERS: PCP Family Medicine; Referring Provider Psychiatry & Neurology Neurology; Visit Provider Psychiatry & Neurology Neurology
DX: G20 Parkinson's disease (principal); G31.84 Mild cognitive impairment of uncertain or unknown etiology
CPT/HCPCS: 70553; A9575

== ENCOUNTER → 2020-12-13 10:38 | Outpatient (CLI) | payer MEDICARE, OTHER, SELFPAY ==
[2020-11-07 10:58] VITALS: BMI 41.1
--- NOTE | 2020-12-13 10:40 | ART_ITS ---
Reason For Study: Nonpalpable pulses in feet Procedure A bilateral lower extremity continuous wave Doppler with analog waveform analysis and ankle brachial indexes. Left Segmental Pressures Left brachial= 134mmHg. Left posterior tibial artery = 148mmHg. Left dorsalis pedis artery = 136mmHg. Left digit = 130 mmHg. The left dorsalis pedis waveforms are triphasic. The left posterior tibial artery waveforms are triphasic. Right Segmental Pressures Right brachial= 129mmHg. Right posterior tibial artery = 101mmHg. Right dorsalis pedis artery = 168mmHg. Right digit = 84 mmHg. The right dorsalis pedis waveforms are triphasic. The right posterior tibial artery waveforms are triphasic. Right HYDRAULIC JACK ADJUSTER BP taken twice. Indices The right ankle brachial index by the dorsalis pedis is 1.25. The right ankle brachial index by the posterior tibial artery is 0.75. The right digital-brachial index is 0.63. The left ankle brachial index by the dorsalis pedis is 1.01. The left ankle brachial index by the posterior tibial artery is 1.10. The left digital-brachial index is 0.97. VL/Ankle Brachial Index Interpretation Summary Normal bilateral lower extremity ankle-brachial indices and triphasic Doppler w aveforms Abnormal right lower extremity digital brachial indices Normal left lower extremity digital brachial indices Ordering Physician: Neri Gibson Referring Physician: Kike Barroso Performed By: Kimberly Stephenson RVT
== END ==
PROVIDERS: PCP Family Medicine; Referring Provider Psychiatry & Neurology Neurology; Visit Provider Psychiatry & Neurology Neurology
DX: I73.9 Peripheral vascular disease, unspecified (principal)
CPT/HCPCS: 93922

== ENCOUNTER → 2021-01-01 14:18 | Outpatient (CLI) | payer MEDICARE, OTHER, SELFPAY ==
[2020-11-07 10:58] VITALS: BMI 41.1
--- NOTE | 2021-01-01 15:08 | NEURO ---
NCS and/or EMG Patient Report Ordering Doctor: Neri Gibson DATE OF SERVICE: 01/01/21 Sammy Presents for electrodiagnostic testing of the left upper limb. He reports tremors in the left arm for the past few months. He denies any numbness or tingling. He denies any pain. Electrodiagnostic findings:Left median motor nerve demonstrates prolonged distal latency with normal amplitude and borderline reduced conduction velocity. Normal left median F wave. Prolonged left median sensory latency at the wrist. Absent left median palmar response normal ulnar and radial sensory responses. Ulnar motor response could not be obtained.On needle EMG, all muscles tested in the left upper limb showed no evidence of denervation with normal motor unit action potentials. Electrodiagnostic impression: This is an abnormal study in the left upper limb. 1. 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 2. Ulnar motor response could not be obtained. This may be due to technical difficulties in the examination as the patient did demonstrate significant shaking. 3. No electrodiagnostic evidence for cervical radiculopathy.
== END ==
PROVIDERS: PCP Family Medicine; Visit Provider Psychiatry & Neurology Neurology
DX: E11.42 Type 2 diabetes mellitus with diabetic polyneuropathy (principal); G56.20 Lesion of ulnar nerve, unspecified upper limb
CPT/HCPCS: 95886; 95910

== ENCOUNTER → 2021-01-24 13:39 | Outpatient (CLI) | payer MEDICARE, OTHER, SELFPAY ==
[2021-01-24 15:47] LABS: Ferritin 259 ng/mL (26-388); Iron 92 ug/dL (65-175)
[2021-01-27 14:08] LABS: Albumin 3.1 g/dL (2.9-4.4); Alpha-1-Globulins 0.3 g/dL (0.0-0.4); Alpha-2-Globulins 0.9 g/dL (0.4-1.0); Gamma Globulin 1.2 g/dL (0.4-1.8); Immunoglobulin A 256 mg/dL (61-437); Immunoglobulin G 1296 mg/dL (603-1613); Immunoglobulin M 67 mg/dL (15-143); PROEL- TOTAL PROTEIN 6.7 g/dL (6.0-8.5)
== END ==
PROVIDERS: PCP Family Medicine; Referring Provider Psychiatry & Neurology Neurology; Visit Provider Psychiatry & Neurology Neurology
DX: G62.9 Polyneuropathy, unspecified (principal); Z86.2 Personal history of diseases of the blood and blood-forming organs and certain disorders involving the immune mechanism
CPT/HCPCS: 36415; 82728; 82784; 83540; 84165; 86334

== ENCOUNTER → 2021-01-28 12:44 | Outpatient (CLI) | payer MEDICARE, OTHER, SELFPAY | PROVIDERS: PCP Family Medicine; Referring Provider Psychiatry & Neurology Neurology; Visit Provider Psychiatry & Neurology Neurology | DX: G62.9 Polyneuropathy, unspecified (principal) | CPT/HCPCS: 86335 ==

== ENCOUNTER → 2021-03-03 | Outpatient (CLI) | payer MEDICARE, OTHER, SELFPAY | END | disposition home or self-care (01) | PROVIDERS: PCP Family Medicine; Referring Provider Family Medicine; Visit Provider Family Medicine | DX: Z20.828 Contact with and (suspected) exposure to other viral communicable diseases (principal) | CPT/HCPCS: 87633; 87635; U0005; U0003 ==

== ENCOUNTER → 2021-03-12 12:30 | Outpatient (CLI) | payer MEDICARE, OTHER, SELFPAY ==
[2021-03-12 12:30] VITALS: PULSE 104; PULSE 107; PULSE 110; PULSE 113; PULSE 118; PULSE 73; PULSE 80; PULSE 97; O2SAT 89; O2SAT 91; O2SAT 92; O2SAT 94; O2SAT 95
--- NOTE | 2021-03-14 07:30 | WT_ITS ---
PSN 6 Minute Walk Test 6 Minute Walk Test 6 Minute Walk Test: 6 Minute Walk Test PSN:6-Minute Walk Test Start: 03/12/21 12:52 Freq: Status: Active Protocol: RESP.6MINW Document 03/12/21 12:30 [facility] (Rec: 03/12/21 12:59 [facility] [id number]) 6 Minute Walk Test Date Performed 03/12/21 Time Performed 12:30 Height 6 ft 1 in Weight: 145.15 kg Weight in Pounds 320.[address]: Ron Assistive device used: None Pre-test Oxygen Delivery Method Room Air Pulse Ox (%) 95 Pulse Rate (60-100 beats/min) 73 Dyspnea Valeriy Scale (0-10) 0 Exertion Valeriy Scale (6-20) 6 1st minute Oxygen Delivery Method Room Air Pulse Ox (%) 94 Pulse Rate (60-100 beats/min) 107 H 2nd minute Oxygen Delivery Method Room Air Pulse Ox (%) 91 Pulse Rate (60-100 beats/min) 118 H Dyspnea Valeriy Scale (0-10) 3 Number of Rests Taken 1 Reported Symptoms Increased Work of Breathing 3rd minute Oxygen Delivery Method Room Air Pulse Ox (%) 92 Pulse Rate (60-100 beats/min) 97 Dyspnea Valeriy Scale (0-10) 3 Number of Rests Taken 1 Reported Symptoms Increased Work of Breathing 4th minute Oxygen Delivery Method Room Air Pulse Ox (%) 95 Pulse Rate (60-100 beats/min) 104 H 5th minute Oxygen Delivery Method Room Air Pulse Ox (%) 89 Pulse Rate (60-100 beats/min) 113 H Dyspnea Valeriy Scale (0-10) 2 Number of Rests Taken 1 Reported Symptoms Increased Work of Breathing 6th minute Oxygen Delivery Method Room Air Pulse Ox (%) 91 Pulse Rate (60-100 beats/min) 110 H Dyspnea Valeriy Scale (0-10) 3 Exertion Valeriy Scale (6-20) 13 Number of Rests Taken 1 Reported Symptoms Increased Work of Breathing Post-test Oxygen Delivery Method Room Air Pulse Ox (%) 95 Pulse Rate (60-100 beats/min) 80 Full Laps Walked 7 Partial Lap, Number of Tiles Walked 0 Total Distance Walked (ft) 413 Interpretation Interpretation: The patient ambulated 413 feet over the course of 6 minutes beginning on room air without assistive devices. Pretesting oxygen saturation was noted to be 95% on room air. With ambulation, the valerie oxygen saturation was 89%. This testing indicated the presence of impaired walk distance along with significant exertional oxygen desaturation. Recommendations Recommendations: There is no indication for the use of supplemental oxygen at this time. However, close interval follow-up is recommended, given the degree of oxygen desaturation noted during this study.
== END ==
PROVIDERS: PCP Family Medicine; Referring Provider Nurse Practitioner Acute Care; Visit Provider Nurse Practitioner Acute Care
DX: R06.02 Shortness of breath (principal)
CPT/HCPCS: 94618

== ENCOUNTER 2021-07-01 13:23 | Outpatient (CLI) | payer MEDICARE, OTHER, SELFPAY ==
[2021-07-01 15:59] LABS: Anion Gap 3 (5-15); BUN 28 mg/dL (7-18); BUN/Creat Ratio 19.9 RATIO (10-20); Calcium,Total 9.2 mg/dL (8.5-10.1); Chloride 100 mmol/L (98-107); Creatinine, Serum 1.41 mg/dL (0.70-1.30); EST Glomerular Filtration Rate 52 mL/min (>60); Est Glom Filt Rate - Afr Amer 63 mL/min (>60); Glucose 138 mg/dL (74-106); Potassium 3.8 mmol/L (3.5-5.1); Sodium Level 139 mmol/L (136-145)
== END 2021-07-01 23:59 | disposition home or self-care (01) ==
LOC: MTLAB 13:26
PROVIDERS: PCP Family Medicine; Referring Provider Urology; Visit Provider Urology
DX: R39.14 Feeling of incomplete bladder emptying (principal)
CPT/HCPCS: 36415; 80048; 84153

== ENCOUNTER → 2022-01-26 | Outpatient (CLI) | payer MEDICARE, OTHER, SELFPAY ==
[2022-01-26 15:18] LABS: Absolute Lymphocyte Count 1.82 X10^3/uL (0.83-4.51); Absolute Neutrophil Count 4.7 X10^3/uL (2.0-7.7); Basophil# 0.06 X10^3/uL; Basophil% 0.8 % (0-1); Eosinophil# 0.41 X10^3/uL; Eosinophils% 5.3 % (0-5); Hematocrit 36.8 % (40-54); Hemoglobin 12.1 g/dL (13.0-16.5); Lymphocyte # 1.82 X10^3/ul (0.83-4.51); Lymphocyte % 23.7 % (19-41); Mean Corp Hgb Conc 32.9 g/dL (32-36); Mean Corpuscular Hgb 29.9 pg (27.0-32.0); Mean Corpuscular Volume 90.9 fL (80-94); Mean Platelet Vol. 10.6 fl (6.2-12.0); Monocyte# 0.68 X10^3/uL; Monocyte% 8.9 % (0-10); NRBC Flagged by Analyzer 0 % (0-5); Neutrophil # 4.67 X10^3/uL (2.7-7.7); Neutrophil % 60.9 % (47-70); Platelet Count 339 K/mm3 (150-450); RBC Distribution Width CV 14.1 % (11.6-14.6); RBC Distribution Width SD 47.5 fl (35.1-43.9); Red Blood Count 4.05 M/mm3 (4.6-6.2); White Blood Count 7.7 K/mm3 (4.4-11.0)
[2022-01-26 15:28] LABS: ALB/GLOB Ratio 0.8 RATIO (0.9-2.4); AST(SGOT) 26 U/L (15-37); Alanine Aminotransfer ALT/SGPT 28 U/L (16-61); Albumin, Serum 3.3 g/dL (3.2-5.0); Alkaline Phosphatase 73 U/L (45-117); Anion Gap 12 (5-15); BUN 33 mg/dL (7-18); BUN/Creat Ratio 18.4 RATIO (10-20); Calcium,Total 9.5 mg/dL (8.5-10.1); Chloride 100 mmol/L (98-107); Cholesterol 150 mg/dL (200); Creatinine, Serum 1.79 mg/dL (0.70-1.30); EST Glomerular Filtration Rate 39 mL/min (>60); Est Glom Filt Rate - Afr Amer 48 mL/min (>60); Globulin 4.4 g/dL (2.2-4.2); Glucose 141 mg/dL (74-106); High Density Lipoprotein 53 mg/dL; Potassium 3.7 mmol/L (3.5-5.1); Protein, Total 7.7 g/dL (6.4-8.2); Sodium Level 141 mmol/L (136-145); Triglycerides 178 mg/dL; Very Low Density Lipoprotein 36 mg/dL (5-40)
== END | disposition home or self-care (01) ==
PROVIDERS: PCP Family Medicine; Referring Provider Family Medicine; Visit Provider Family Medicine
DX: I12.9 Hypertensive chronic kidney disease with stage 1 through stage 4 chronic kidney disease, or unspecified chronic kidney disease (principal); E11.21 Type 2 diabetes mellitus with diabetic nephropathy; E11.22 Type 2 diabetes mellitus with diabetic chronic kidney disease; N18.31 Chronic kidney disease, stage 3a; E78.5 Hyperlipidemia, unspecified
CPT/HCPCS: 36415; 80053; 80061; 85025

== ENCOUNTER 2022-02-12 11:15 | Outpatient (CLI) | payer MEDICARE, OTHER, SELFPAY ==
[2022-02-12 15:25] LABS: Anion Gap 8 (5-15); BUN 17 mg/dL (7-18); BUN/Creat Ratio 13.9 RATIO (10-20); Chloride 105 mmol/L (98-107); Creatinine, Serum 1.22 mg/dL (0.70-1.30); EST Glomerular Filtration Rate 61 mL/min (>60); Est Glom Filt Rate - Afr Amer 74 mL/min (>60); Glucose 156 mg/dL (74-106); Potassium 4.1 mmol/L (3.5-5.1); Sodium Level 140 mmol/L (136-145)
== END 2022-02-12 23:59 | disposition home or self-care (01) ==
LOC: BFHLAB 11:16
PROVIDERS: PCP Family Medicine; Visit Provider Family Medicine
DX: N18.32 Chronic kidney disease, stage 3b (principal)
CPT/HCPCS: 36415; 80048

== ENCOUNTER → 2022-07-16 | Outpatient (CLI) | payer MEDICARE, OTHER, SELFPAY ==
[2022-07-16 15:44] LABS: Absolute Lymphocyte Count 1.33 X10^3/uL (0.83-4.51); Absolute Neutrophil Count 4.8 X10^3/uL (2.0-7.7); Basophil# 0.05 X10^3/uL; Basophil% 0.7 % (0-1); Eosinophil# 0.14 X10^3/uL; Hematocrit 34.9 % (40-54); Hemoglobin 11.1 g/dL (13.0-16.5); Lymphocyte # 1.33 X10^3/ul (0.83-4.51); Lymphocyte % 19.2 % (19-41); Mean Corp Hgb Conc 31.8 g/dL (32-36); Mean Corpuscular Hgb 28.7 pg (27.0-32.0); Mean Corpuscular Volume 90.2 fL (80-94); Mean Platelet Vol. 9.9 fl (6.2-12.0); Monocyte# 0.62 X10^3/uL; Monocyte% 8.9 % (0-10); NRBC Flagged by Analyzer 0 % (0-5); Neutrophil # 4.77 X10^3/uL (2.7-7.7); Neutrophil % 68.8 % (47-70); Platelet Count 325 K/mm3 (150-450); RBC Distribution Width CV 15.7 % (11.6-14.6); RBC Distribution Width SD 51.9 fl (35.1-43.9); Red Blood Count 3.87 M/mm3 (4.6-6.2); White Blood Count 6.9 K/mm3 (4.4-11.0)
[2022-07-16 15:57] LABS: ALB/GLOB Ratio 0.8 RATIO (0.9-2.4); AST(SGOT) 20 U/L (15-37); Alanine Aminotransfer ALT/SGPT 17 U/L (16-61); Albumin, Serum 3.3 g/dL (3.2-5.0); Alkaline Phosphatase 63 U/L (45-117); Anion Gap 3 (5-15); BUN 18 mg/dL (7-18); BUN/Creat Ratio 13.1 RATIO (10-20); Calcium,Total 9.4 mg/dL (8.5-10.1); Chloride 104 mmol/L (98-107); Creatinine, Serum 1.37 mg/dL (0.70-1.30); EST Glomerular Filtration Rate 54 mL/min (>60); Est Glom Filt Rate - Afr Amer 65 mL/min (>60); Glucose 141 mg/dL (74-106); Potassium 3.6 mmol/L (3.5-5.1); Protein, Total 7.3 g/dL (6.4-8.2); Sodium Level 135 mmol/L (136-145)
== END | disposition home or self-care (01) ==
LOC: BFHLAB 13:46
PROVIDERS: PCP Family Medicine; Referring Provider Family Medicine; Visit Provider Family Medicine
DX: D64.9 Anemia, unspecified (principal); N18.31 Chronic kidney disease, stage 3a
CPT/HCPCS: 36415; 80053; 85025

== ENCOUNTER → 2023-01-04 | Outpatient (CLI) | payer MEDICARE, OTHER, SELFPAY ==
[2023-01-04 15:16] LABS: Absolute Lymphocyte Count 1.81 X10^3/uL (0.83-4.51); Absolute Neutrophil Count 6.8 X10^3/uL (2.0-7.7); Eosinophil# 0.27 X10^3/uL; Eosinophils% 2.8 % (0-5); Hematocrit 37.8 % (40-54); Hemoglobin 11.7 g/dL (13.0-16.5); Lymphocyte # 1.81 X10^3/ul (0.83-4.51); Lymphocyte % 18.5 % (19-41); Mean Corpuscular Hgb 28.5 pg (27.0-32.0); Mean Platelet Vol. 9.5 fl (6.2-12.0); Monocyte# 0.69 X10^3/uL; Monocyte% 7.1 % (0-10); NRBC Flagged by Analyzer 0 % (0-5); Neutrophil # 6.82 X10^3/uL (2.7-7.7); Neutrophil % 69.7 % (47-70); Platelet Count 407 K/mm3 (150-450); RBC Distribution Width CV 13.6 % (11.6-14.6); Red Blood Count 4.11 M/mm3 (4.6-6.2); White Blood Count 9.8 K/mm3 (4.4-11.0)
[2023-01-04 15:34] LABS: Microalbumin,Random Urine 17.5 mg/L (NO RANGE EST.); Microalbumin:Creatinine Ratio 29.1 mg/g CRE (<30 mg/g CRE)
[2023-01-04 15:57] LABS: ALB/GLOB Ratio 0.7 RATIO (0.9-2.4); AST(SGOT) 17 U/L (15-37); Alanine Aminotransfer ALT/SGPT 31 U/L (16-61); Albumin, Serum 3.2 g/dL (3.2-5.0); Alkaline Phosphatase 122 U/L (45-117); Anion Gap 13 (5-15); BUN 28 mg/dL (7-18); BUN/Creat Ratio 18.9 RATIO (10-20); Calcium,Total 9.3 mg/dL (8.5-10.1); Chloride 95 mmol/L (98-107); Cholesterol 128 mg/dL (200); Creatinine, Serum 1.48 mg/dL (0.70-1.30); EST Glomerular Filtration Rate 49 mL/min (>60); Est Glom Filt Rate - Afr Amer 59 mL/min (>60); Globulin 4.7 g/dL (2.2-4.2); Glucose 247 mg/dL (74-106); High Density Lipoprotein 50 mg/dL; Potassium 3.4 mmol/L (3.5-5.1); Protein, Total 7.9 g/dL (6.4-8.2); Sodium Level 135 mmol/L (136-145); Thyroid Stim Hormone (TSH) 5.05 uIU/mL (0.358-3.74); Triglycerides 202 mg/dL; Very Low Density Lipoprotein 40 mg/dL (5-40)
== END | disposition home or self-care (01) ==
PROVIDERS: PCP Family Medicine; Referring Provider Internal Medicine Endocrinology, Diabetes & Metabolism; Visit Provider Internal Medicine Endocrinology, Diabetes & Metabolism
DX: I12.9 Hypertensive chronic kidney disease with stage 1 through stage 4 chronic kidney disease, or unspecified chronic kidney disease (principal); E11.21 Type 2 diabetes mellitus with diabetic nephropathy; E11.22 Type 2 diabetes mellitus with diabetic chronic kidney disease; N18.31 Chronic kidney disease, stage 3a
CPT/HCPCS: 36415; 80053; 80061; 82043; 82570; 84443; 85025

== ENCOUNTER → 2023-02-02 | Outpatient (CLI) | payer MEDICARE, OTHER, SELFPAY ==
[2023-02-02 13:25] VITALS: PULSE 105; PULSE 114; PULSE 125; PULSE 131; PULSE 132; PULSE 137; PULSE 87; O2SAT 92; O2SAT 93
--- NOTE | 2023-02-05 07:26 | PCM.PSN.6M ---
PSN 6 Minute Walk Test 6 Minute Walk Test 6 Minute Walk Test: 6 Minute Walk Test PSN:6-Minute Walk Test Start: 02/02/23 13:25 Freq: Status: Discharge Protocol: RESP.6MINW Document 02/02/23 13:25 [facility] (Rec: 02/02/23 13:39 [facility] [id number]) 6 Minute Walk Test Date Performed 02/02/23 Time Performed 12:35 Height 6 ft 1 in Weight: 142.428 kg Weight in Pounds 314.[address]: Franchesca Garza [employer] Assistive device used: None Pre-test Oxygen Delivery Method Room Air Pulse Ox 92 Pulse Rate (60-100) 87 Dyspnea Valeriy Scale (0-10) 0 Exertion Valeriy Scale (6-20) 6 1st minute Oxygen Delivery Method Room Air Pulse Ox 93 Pulse Rate (60-100) 114 H 2nd minute Oxygen Delivery Method Room Air Pulse Ox 92 Pulse Rate (60-100) 137 H Dyspnea Valeriy Scale (0-10) 3 Number of Rests Taken 1 3rd minute Oxygen Delivery Method Room Air Pulse Ox 92 Pulse Rate (60-100) 125 H Number of Rests Taken 1 4th minute Oxygen Delivery Method Room Air Pulse Ox 92 Pulse Rate (60-100) 132 H Number of Rests Taken 1 5th minute Oxygen Delivery Method Room Air Pulse Ox 92 Pulse Rate (60-100) 132 H Number of Rests Taken 1 6th minute Oxygen Delivery Method Room Air Pulse Ox 92 Pulse Rate (60-100) 131 H Post-test Oxygen Delivery Method Room Air Pulse Ox 93 Pulse Rate (60-100) 105 H Full Laps Walked 8 Partial Lap, Number of Tiles Walked 25 Total Distance Walked (ft) 497 Interpretation Interpretation: The patient was able to ambulate only 497 feet over the course of 6 minutes on room air with no assistive devices and for breaks. The patient was noted to have a lower baseline saturation of 92%, but this did not change significantly during testing. However, patient's pulse did increase from a baseline of 87% to as high as 137 bpm. These findings are consistent with a cardiovascular limitation exercise tolerance. Recommendations Recommendations: No supplemental oxygen is indicated at this time. Patient may benefit from cardiac optimization
== END | disposition home or self-care (01) ==
LOC: PSN 12:38
PROVIDERS: PCP Family Medicine; Referring Provider Nurse Practitioner Acute Care; Visit Provider Nurse Practitioner Acute Care
DX: R06.02 Shortness of breath (principal)
CPT/HCPCS: 94618

== ENCOUNTER 2023-07-12 20:53 | Inpatient (IN) | payer MEDICARE, OTHER, SELFPAY ==
[2023-07-12 20:53] VITALS: BP 86/48; PULSE 94; RESP 21; TEMP 36.9; O2SAT 86; BMI 42.2
[2023-07-12 20:57] VITALS: BP 86/48; PULSE 93; RESP 24; TEMP 36.9; O2SAT 92
--- NOTE | 2023-07-12 21:04 | EKG12_ITS ---
Test Reason : DYSRHYTHMIA Blood Pressure : / mmHG Vent. Rate : 088 BPM Atrial Rate : 088 BPM P-R Int : 248 ms QRS Dur : 146 ms QT Int : 412 ms P-R-T Axes : 021 012 050 degrees QTc Int : 498 ms Sinus rhythm with 1st degree A-V block Right bundle branch block Septal infarct , age undetermined Possible Inferior infarct , age undetermined Abnormal ECG Confirmed by SARAH HARTMAN, TRENT ([id number]), editorial project manager DANTE CORTEZ ([id number]) on 07/13/2023 8:29:41 AM Referred By: Confirmed By:TRENT SMITH MD
--- NOTE | 2023-07-12 21:06 | EDS_ITS ---
HPI History of Present Illness Chief Complaint: Weakness Narrative Narrative: 78-year-old male past medical history of dementia, possible Parkinson's disease, chronic kidney disease, obstructive sleep apnea presents via EMS with generalized weakness. According to his and EMS, they had been out shopping today. When he was getting out of the car, he was standing and stated wait a minute. He then felt very weak and was assisted to the ground. He denies any injury. His states there was no loss of consciousness. He was very weak. Upon arrival to the ED, he is hypotensive and hypoxic. He denies any pain or injury. No recent nausea or vomiting, no diarrhea. [facility] Medical History Actinic keratosis Cancer Chronic diastolic heart failure Chronic kidney disease, stage 3 CPAP (continuous positive airway pressure) dependence Depression, major, recurrent, moderate Diabetes Diabetic peripheral neuropathy Dietary restriction Essential hypertension Fatigue Gastric reflux History of echocardiogram History of edema History of stress test Hyperlipidemia Insulin dependent diabetes mellitus Microalbuminuria Non-smoker Onychomycosis TARA (obstructive sleep apnea) Osteoarthritis of left knee Other tear of lateral meniscus, current injury, left knee, initial encounter Other tear of lateral meniscus, current injury, left knee, subsequent encounter Other tear of medial meniscus, current injury, left knee, initial encounter Other tear of medial meniscus, current injury, left knee, subsequent encounter Passive aggressive personality disorder Positive colorectal cancer screening using Cologuard test Positive colorectal cancer screening using Cologuard test Prostate disease Restrictive lung disease Right bundle branch block Shortness of breath on exertion Sleep apnea Super obese Tachycardia Tremor Type 2 diabetes mellitus Home Medications amitriptyline 25 mg tablet 25 mg PO QHS 03/24/16 [History Last Taken Unknown] aspirin 81 mg tablet,delayed release 81 mg PO DAILY@0800 03/24/16 [History Last Taken Unknown] atorvastatin 80 mg tablet 80 mg PO DAILY 03/24/16 [History Last Taken Unknown] citalopram 20 mg tablet 20 mg PO DAILY 03/24/16 [History Last Taken 05/13/16 07:00] fenofibrate nanocrystallized 145 mg tablet 145 mg PO DAILY 03/24/16 [History Last Taken Unknown] lisinopril 20 mg-hydrochlorothiazide 25 mg tablet 1 ea PO BID 03/24/16 [History Last Taken Unknown] metformin 500 mg tablet 500 mg PO BID 05/08/19 [History Last Taken Unknown] famotidine 20 mg tablet (Pepcid) 20 mg PO DAILY 05/09/19 [History Last Taken Unknown] ezetimibe 10 mg tablet 10 mg PO DAILY 11/07/20 [History Last Taken Unknown] finasteride 5 mg tablet 5 mg PO DAILY 12/06/20 [History Last Taken Unknown] potassium chloride 20 mEq tablet,extended release 20 meq PO DAILY #30 tabs 02/28/21 [Rx Last Taken Unknown] flu vacc (65yr up)-MF59C(PF) 60 mcg(15 mcgx4)/0.5 mL IM syringe 60 mcg IM ONCE #0.5 mL 11/17/21 [Clinic Last Taken Unknown] olopatadine 0.2 % eye drops 1 drp ophthalmic (eye) BID 07/20/22 [History Last Taken Unknown] hydroxyzine pamoate 25 mg capsule 25 mg PO TID #90 caps 01/04/23 [Rx Last Taken Unknown] verapamil 180 mg tablet,extended release See Rx Instructions .Route .COMPLEX #30 tabs 03/08/23 [Rx Last Taken Unknown] Lantus Solostar U-100 Insulin 100 unit/mL (3 mL) subcutaneous pen (insulin glargine) 80 unit (0.8 mL) subcut DAILY #72 mL 04/15/23 [Rx Last Taken Unknown] Precision Xtra Test (blood sugar diagnostic) #200 ea 04/15/23 [Rx Last Taken Unknown] insulin aspart U-100 100 unit/mL (3 mL) subcutaneous pen (Novolog FlexPen U-100 Insulin aspart) 45 unit (0.45 mL) subcut TID #120 mL 04/15/23 [Rx Last Taken Unknown] pen needle, diabetic 32 gauge x 5/32 (BD Ultra-Fine Zenaida Pen Needle) #400 ea 04/15/23 [Rx Last Taken Unknown] lancets 32 gauge (Easy Touch Twist Lancets) #200 ea 04/16/23 [Rx Last Taken Unknown] donepezil 10 mg tablet 10 mg PO QHS #30 tabs 04/26/23 [Rx Last Taken Unknown] donepezil 5 mg tablet 5 mg PO QHS #30 tabs 04/26/23 [Rx Last Taken Unknown] furosemide 40 mg tablet (Lasix) 40 mg PO DAILY #90 tabs 04/26/23 [Rx Last Taken Unknown] Allergy/AdvReac Type Severity Reaction Status Date / Time No Known Allergies Allergy Verified 07/12/23 20:54 Family History Mother Hypertension Hyperlipemia Heart disease Diabetes Environmental and seasonal allergies alcoholism and drug abuse Sister Stomach cancer Ovarian cancer Brother Diabetes Daughter bipolar Father Schizophrenia Aortic aneurysm Surgical History History of arthroscopy of left knee (~05/03/16) History of skin graft History of transurethral resection of prostate (11/13/20) s/p urolift procedure (04/21/19) Social History Smoking Status: Never smoker Electronic Cigarette Use: not used second hand exposure: No alcohol intake: current alcohol intake frequency: holidays/special occasions only substance use type: does not use caffeine: Yes what type of physical activity do you participate in: none jason/yazdanism: None seatbelt use: always ROS ROS ED ROS Narrative Constitutional: No fever, no chills. Positive generalized weakness. HEENT: No sore throat. No neck pain. No loss of vision. No rhinorrhea. Cardiovascular: No chest pain. No palpitations. No pedal edema. Respiratory: No cough, no shortness of breath. Abdominal: No abdominal pain. No nausea. No vomiting. Genitourinary: No dysuria. No hematuria. Musculoskeletal: No myalgias. No arthralgias. Neurologic: No headaches. No dizziness. No lightheadedness. Skin: No rash. No change in color. Psychiatric: No depression. No anxiety. EXAM Physical Exam Narrative Exam Narrative: Afebrile. Vital signs noted. HEENT: Normocephalic. Atraumatic. PERRL, EOMI. Neck soft and supple. No point tenderness or step off. Cardiovascular: Regular rate and rhythm. No murmurs, rubs, or gallops appreciated. Respiratory: No tachypnea. Lungs clear to auscultation bilaterally. Gastrointestinal: Abdomen soft, obese nontender, with normoactive bowel sounds. No rebound or guarding. Neurological: Awake. Alert. Nonfocal, nonlateralizing. Skin: No rash. Normal color. No pallor. Musculoskeletal: Full range of motion extremities. Const Vital Signs: 07/12/23 20:53 07/12/23 20:57 07/12/23 21:48 Temperature 98.5 F 98.5 F Temperature Source Temporal Temporal Pulse Rate 94 93 81 Respiratory Rate 21 H 24 H 16 Respiratory Effort Respiratory Depth Respiratory Pattern Blood Pressure 86/48 L 86/48 L 105/50 L Blood Pressure Mean 60 60 68 Pulse Ox 86 92 94 Oxygen Delivery Method Room Air Nasal Cannula Oxygen Flow Rate (L/min) 2 07/12/23 21:04 07/12/23 22:10 07/12/23 22:15 Temperature Temperature Source Pulse Rate 77 Respiratory Rate 21 H Respiratory Effort Short of Breath Respiratory Depth Respiratory Pattern Normal Blood Pressure 97/66 Blood Pressure Mean 76 Pulse Ox Oxygen Delivery Method Nasal Cannula Oxygen Flow Rate (L/min) 4 07/12/23 22:46 Temperature Temperature Source Pulse Rate Respiratory Rate Respiratory Effort Normal Non-Labored Respiratory Depth Normal Respiratory Pattern Normal Blood Pressure Blood Pressure Mean Pulse Ox Oxygen Delivery Method Room Air Oxygen Flow Rate (L/min) Sepsis Attestation Sepsis Alert: Yes Sepsis Attestation: Agree w/Sepsis Date exam was performed: 07/12/23 Time exam was performed: 23:06 Possible Source of Sepsis: Genitourinary Sepsis Organ Dysfunction Criteria Present: SBP < 90 mmHg or MAP < 65 mmHg, SBP decrease of more than 40 mmHg, Creatinine > 2.0 mg/dL, Lactic Acid > 2 mmol/L and New/Unexplained change in mental status MDM MDM MDM Narrative Medical decision making narrative: In the differential diagnosis is COPD exacerbation with hypoxia versus sepsis of unknown source. Sepsis workup was pursued. He will be bolused normal saline as he is currently hypotensive and he was placed in Trendelenburg position. Will start with 1 L and if his lactic acid is elevated he will receive the 30 mg/kg. EKG was obtained and interpreted by myself as normal sinus rhythm at 88 bpm with first-degree AV block. There is a right bundle branch block present. No acute ST changes. No STEMI. I reviewed his laboratory work and he has normal white count of 10.4, hemoglobin 12.5, hematocrit 39.3. Platelet count normal at 409. Coagulation studies are normal with an INR of 1.2 and a PTT 30.3. His electrolyte panel is reviewed and his BUN is elevated 35 with a creatinine of 2.38 which is an acute on chronic kidney injury. Lactic acid is elevated at 3.1. He will be bolused a total of at least 4 L. Although he is hypotensive, his MAP remains above 65. I reviewed his respiratory swabs and he is negative for COVID, influenza, and RSV. Ur inalysis was obtained and reviewed and is consistent with acute UTI with greater than 100 WBCs. There is 1+ bacteria. He is not really meeting any other SIRS criteria as he does not have a leukocytosis, he is not tachycardic, and he is afebrile. Yet, he has a creatinine greater then 2, and is meeting other sepsis criteria including mental status change given his weakness, hypoxia, and significant low blood pressure. However, he will be started on Rocephin for his lactic acidosis and hypotension. Regarding his hypoxia, he does have history of obstructive sleep apnea. Chest x-ray was obtained and 1 view interpreted by myself independently as no pneumothorax or consolidation. I reviewed the radiology report which comments on atelectasis more so than pneumonia. Blood cultures are currently pending as well as urine culture. I will discuss patient with the hospitalist, Dr. Allen for admission. Patient is in stable condition. History & Record Review Discussion w/independent historian: Patient and Family () Additional record(s) reviewed:: Prior ED visit and Prior labs Lab Data Attestation: I reviewed the patient's lab results. Labs: Laboratory Results - last 24 hr 07/12/23 07/12/23 21:05 21:56 WBC 10.4 RBC 4.60 Hgb 12.5 L Hct 39.3 L MCV 85.4 MCH 27.2 MCHC 31.8 L RDW Std Deviation 47.2 H RDW Coeff of Woo 15.4 H Plt Count 409 MPV 10.5 Immature Gran % (Auto) 0.500 Neut % (Auto) 71.7 H Lymph % (Auto) 15.1 L [place] % (Auto) 10.2 H Eos % (Auto) 1.8 Baso % (Auto) 0.7 Absolute Neuts (auto) 7.5 Absolute Lymphs (auto) 1.57 Nucleated RBC % 0 PT 14.8 INR 1.2 APTT 30.3 Sodium 139 Potassium 3.8 Chloride 102 Carbon Dioxide 30.0 Anion Gap 7 BUN 35 H Creatinine 2.38 H Estim Creat Clear Calc 38.34 Est GFR (MDRD) Af Amer 34 L Est GFR (MDRD) Non-Af 28 L BUN/Creatinine Ratio 14.7 Glucose 81 Lactic Acid 3.1 H* Calcium 9.8 Total Bilirubin 0.40 AST 31 ALT 37 Alkaline Phosphatase 59 Troponin I High Sens 16 Total Protein 7.8 Albumin 3.4 Globulin 4.4 H Albumin/Globulin Ratio 0.8 L Urine Color Yellow Urine Clarity Cloudy Urine pH 6.5 Ur Specific [place] 1.005 Urine Protein 15 H Urine Glucose (UA) Normal Urine Ketones Negative Urine Occult Blood 25 H Urine Nitrite Negative Urine Bilirubin Negative Urine Urobilinogen Normal Ur Leukocyte Esterase 500 H Urine RBC 0 SEEN Urine WBC >100 SEEN Ur Squamous Epith Cells 0 SEEN Urine Bacteria 1+ Urine Mucus 0 SEEN Radiography Diagnostic Testing: Clinical Impression(s) from Imaging Studies Chest X-Ray 07/12/23 21:25 IMPRESSION: Minimal bibasilar pulmonary opacity may be atelectasis rather than pneumonia. Electronically Signed: Francis Nicolas DO at 22:01 EDT , Management Discussion w/another healthcare provider: Hospitalist (Dr. Allen) Discharge Plan Dx/Rx/DC Orders Clinical Impression: Acute UTI, Hypotension, Lactic acidosis, Acute kidney injury superimposed on chronic kidney disease, Weakness, Hypoxia, Sepsis Disposition Disposition: Acute Care [facility]
[2023-07-12 21:22] LABS: Absolute Lymphocyte Count 1.57 X10^3/uL (0.83-4.51); Absolute Neutrophil Count 7.5 X10^3/uL (2.0-7.7); Basophil# 0.07 X10^3/uL; Basophil% 0.7 % (0-1); Eosinophil# 0.19 X10^3/uL; Eosinophils% 1.8 % (0-5); Hematocrit 39.3 % (40-54); Hemoglobin 12.5 g/dL (13.0-16.5); Lymphocyte # 1.57 X10^3/ul (0.83-4.51); Lymphocyte % 15.1 % (19-41); Mean Corp Hgb Conc 31.8 g/dL (32-36); Mean Corpuscular Hgb 27.2 pg (27.0-32.0); Mean Corpuscular Volume 85.4 fL (80-94); Mean Platelet Vol. 10.5 fl (6.2-12.0); Monocyte# 1.06 X10^3/uL; Monocyte% 10.2 % (0-10); NRBC Flagged by Analyzer 0 % (0-5); Neutrophil # 7.49 X10^3/uL (2.7-7.7); Neutrophil % 71.7 % (47-70); Platelet Count 409 K/mm3 (150-450); RBC Distribution Width CV 15.4 % (11.6-14.6); RBC Distribution Width SD 47.2 fl (35.1-43.9); White Blood Count 10.4 K/mm3 (4.4-11.0)
--- NOTE | 2023-07-12 21:25 | RAD_ITS ---
EXAM: XR CHEST, 1 VIEW CLINICAL INDICATION: Shortness of Breath TECHNIQUE: Frontal view of the chest. COMPARISON: 02/14/2020 FINDINGS: LUNGS AND PLEURAL SPACES: Minimal bibasilar pulmonary opacity may be atelectasis rather than pneumonia. Incidental azygous lobe and fissure. No pneumothorax. No effusion. HEART: No significant abnormality. Cardiac silhouette not enlarged. MEDIASTINUM: Central airways and mediastinal contour are unremarkable. BONES/JOINTS: Degenerative changes in the spine and shoulders. No acute fracture. SOFT TISSUES: No significant abnormality. VASCULATURE: Atherosclerosis. RAD/Chest 1 View (Portable) IMPRESSION: Minimal bibasilar pulmonary opacity may be atelectasis rather than pneumonia. Electronically Signed: Francis Nicolas DO at 22:01 EDT ,
[2023-07-12 21:31] LABS: International Normalized Ratio 1.2; Prothrombin Time (Protime)PT. 14.8 SECONDS (11.7-14.9)
[2023-07-12 21:32] LABS: Partial Thromboplast Time 30.3 Seconds (24.1-36.2)
[2023-07-12 21:46] LABS: ALB/GLOB Ratio 0.8 RATIO (0.9-2.4); AST(SGOT) 31 U/L (15-37); Alanine Aminotransfer ALT/SGPT 37 U/L (16-61); Albumin, Serum 3.4 g/dL (3.2-5.0); Alkaline Phosphatase 59 U/L (45-117); Anion Gap 7 (5-15); BUN 35 mg/dL (7-18); BUN/Creat Ratio 14.7 RATIO (10-20); Calcium,Total 9.8 mg/dL (8.5-10.1); Chloride 102 mmol/L (98-107); Creatinine, Serum 2.38 mg/dL (0.70-1.30); EST Glomerular Filtration Rate 28 mL/min (>60); Est Glom Filt Rate - Afr Amer 34 mL/min (>60); Estimated Creatinine Clearance 38.34 ml/min; Globulin 4.4 g/dL (2.2-4.2); Glucose 81 mg/dL (74-106); Potassium 3.8 mmol/L (3.5-5.1); Protein, Total 7.8 g/dL (6.4-8.2); Sodium Level 139 mmol/L (136-145); Troponin-I HS 16 pg/mL (3.0-78.0)
[2023-07-12 21:48] VITALS: BP 105/50; PULSE 81; RESP 16; O2SAT 94
[2023-07-12 21:52] LABS: Lactic Acid 3.1 mmol/L (0.4-1.9)
[2023-07-12 22:02] LABS: Color, Urine Yellow (Yellow); Glucose, Dipstick Normal (Normal); Ketone-Dipstick Negative (Negative); Leukocyte Esterase-Dipstick 500 /ul (Negative); Nitrite-Dipstick Negative (Negative); Occult Blood-Urine 25 /ul (Negative); Protein-Dipstick 15 mg/dl (Negative); Specific Gravity, Urine 1.005 (1.002-1.030); Urine Bilirubin Dipstick Negative (Negative); Urine Clarity Cloudy (Clear); Urine Urobilinogen Normal (Normal); Urine pH 6.5 (5.0 - 8.0)
[2023-07-12 22:03] LABS: Mucous, Urine 0 SEEN /hpf (<or=2+); Red Blood Cells-Urine 0 SEEN /hpf (0-5); Squamous Epithelial Cells - UA 0 SEEN /hpf (0-5)
[2023-07-12 22:07] LABS: Bacteria 1+ /hpf (None Seen); White Blood Cells >100 SEEN /hpf (0-5)
[2023-07-12 22:15] VITALS: BP 97/66; PULSE 77; RESP 21
[2023-07-12] MEDS: 0.9% Normal Saline (1000mL) 1,000 ML 999 ML IV ×3 (22:56→22:57)
[2023-07-12] MEDS: Ceftriaxone 1 GM/50 ML BAG IV (22:56)
[2023-07-12 23:00] VITALS: BP 137/78; PULSE 82; RESP 21; O2SAT 99
--- NOTE | 2023-07-12 23:31 | PCM.HP.STD ---
HPI - General General Date of Admission: 07/12/23 HPI Narrative MEGAN RIVER, is a 78 M who presents to the hospital with signs consistent of severe sepsis. He was out shopping with his today and became very fatigued and had to sit on the ground. When he presented to the hospital white count was only 10.4 however he was found to have a UTI on UA, cultures are pending. He was also found to have new onset hypoxia and was initially placed on 4 L nasal cannula, he does have a history obstructive sleep apnea that he does not wear CPAP for. He did receive sepsis fluids in the ER and was started on IV Rocephin. Initial lactic acid on admission was 3.1. His has noticed slight increasing confusion over the last couple of days but he denies any dysuria or increased frequency. No obvious fevers or chills. Of note his renal function is now 2.38 his last creatinine was in December 2022 and it was 1.48, this new increase is consistent with an BHAVNA especially in the setting of his sepsis. [facility] Medical History Actinic keratosis Cancer Chronic diastolic heart failure Chronic kidney disease, stage 3 CPAP (continuous positive airway pressure) dependence Depression, major, recurrent, moderate Diabetes Diabetic peripheral neuropathy Dietary restriction Essential hypertension Fatigue Gastric reflux History of echocardiogram History of edema History of stress test Hyperlipidemia Insulin dependent diabetes mellitus Microalbuminuria Non-smoker Onychomycosis TARA (obstructive sleep apnea) Osteoarthritis of left knee Other tear of lateral meniscus, current injury, left knee, initial encounter Other tear of lateral meniscus, current injury, left knee, subsequent encounter Other tear of medial meniscus, current injury, left knee, initial encounter Other tear of medial meniscus, current injury, left knee, subsequent encounter Passive aggressive personality disorder Positive colorectal cancer screening using Cologuard test Positive colorectal cancer screening using Cologuard test Prostate disease Restrictive lung disease Right bundle branch block Shortness of breath on exertion Sleep apnea Super obese Tachycardia Tremor Type 2 diabetes mellitus Home Medications amitriptyline 25 mg tablet 25 mg PO QHS 03/24/16 [History Last Taken Unknown] aspirin 81 mg tablet,delayed release 81 mg PO DAILY@0800 03/24/16 [History Last Taken Unknown] atorvastatin 80 mg tablet 80 mg PO DAILY 03/24/16 [History Last Taken Unknown] citalopram 20 mg tablet 20 mg PO DAILY 03/24/16 [History Last Taken 05/13/16 07:00] fenofibrate nanocrystallized 145 mg tablet 145 mg PO DAILY 03/24/16 [History Last Taken Unknown] lisinopril 20 mg-hydrochlorothiazide 25 mg tablet 1 ea PO BID 03/24/16 [History Last Taken Unknown] metformin 500 mg tablet 500 mg PO BID 05/08/19 [History Last Taken Unknown] ezetimibe 10 mg tablet 10 mg PO DAILY 11/07/20 [History Last Taken Unknown] potassium chloride 20 mEq tablet,extended release 20 meq PO DAILY #30 tabs 02/28/21 [Rx Last Taken Unknown] hydroxyzine pamoate 25 mg capsule 25 mg PO TID #90 caps 01/04/23 [Rx Last Taken Unknown] verapamil 180 mg tablet,extended release See Rx Instructions .Route .COMPLEX #30 tabs 03/08/23 [Rx Last Taken Unknown] Lantus Solostar U-100 Insulin 100 unit/mL (3 mL) subcutaneous pen (insulin glargine) 80 unit (0.8 mL) subcut DAILY #72 mL 04/15/23 [Rx Last Taken Unknown] Precision Xtra Test (blood sugar diagnostic) #200 ea 04/15/23 [Rx Last Taken Unknown] insulin aspart U-100 100 unit/mL (3 mL) subcutaneous pen (Novolog FlexPen U-100 Insulin aspart) 45 unit (0.45 mL) subcut TID #120 mL 04/15/23 [Rx Last Taken Unknown] pen needle, diabetic 32 gauge x 5/32 (BD Ultra-Fine Zenaida Pen Needle) #400 ea 04/15/23 [Rx Last Taken Unknown] lancets 32 gauge (Easy Touch Twist Lancets) #200 ea 04/16/23 [Rx Last Taken Unknown] donepezil 10 mg tablet 10 mg PO QHS #30 tabs 04/26/23 [Rx Last Taken Unknown] furosemide 40 mg tablet (Lasix) 40 mg PO DAILY #90 tabs 04/26/23 [Rx Last Taken Unknown] omeprazole 20 mg capsule,delayed release 20 mg PO DAILY 07/12/23 [History Last Taken Unknown] oxybutynin chloride 15 mg tablet,extended release 24 hr 15 mg PO DAILY 07/12/23 [History Last Taken Unknown] timolol maleate 0.5 % eye drops 1 drp ophthalmic (eye) BID 07/12/23 [History Last Taken Unknown] Allergy/AdvReac Type Severity Reaction Status Date / Time No Known Allergies Allergy Verified 07/12/23 20:54 Family History Mother Hypertension Hyperlipemia Heart disease Diabetes Environmental and seasonal allergies alcoholism and drug abuse Sister Stomach cancer Ovarian cancer Brother Diabetes Daughter bipolar Father Schizophrenia Aortic aneurysm Surgical History History of arthroscopy of left knee (~05/03/16) History of skin graft History of transurethral resection of prostate (11/13/20) s/p urolift procedure (04/21/19) Social History Smoking Status: Never smoker Electronic Cigarette Use: not used second hand exposure: No alcohol intake: current alcohol intake frequency: holidays/special occasions only substance use type: does not use caffeine: Yes what type of physical activity do you participate in: none jason/yarsani: None seatbelt use: always ROS Constitutional Constitutional: Reports fatigue and weakness; Denies chills, fever(s) or malaise Eyes Eyes: Denies blurry vision ENT HEENT: Denies headache(s) or nasal discharge Cardiovascular Cardiovascular: Denies chest pain, dyspnea on exertion or syncope Respiratory/Chest Respiratory/Chest: Denies cough, shortness of breath at rest or shortness of breath with exertion Gastrointestinal Gastrointestinal: Denies constipation, diarrhea, nausea or vomiting Genitourinary Genitourinary: Denies dysuria Neurologic Neurologic: Denies focal weakness, numbness or tremor(s) Psychiatric Psychiatric: Denies anxiety or depression Vital Signs Vital Signs Vital Signs: 07/12/23 20:53 07/12/23 20:57 07/12/23 21:48 Temperature 98.5 F 98.5 F Temperature Source Temporal Temporal Pulse Rate 94 93 81 Respiratory Rate 21 H 24 H 16 Respiratory Effort Respiratory Depth Respiratory Pattern Blood Pressure 86/48 L 86/48 L 105/50 L Blood Pressure Mean 60 60 68 Pulse Ox 86 92 94 Oxygen Delivery Method Room Air Nasal Cannula Oxygen Flow Rate (L/min) 2 07/12/23 21:04 07/12/23 22:10 07/12/23 22:15 Temperature Temperature Source Pulse Rate 77 Respiratory Rate 21 H Respiratory Effort Short of Breath Respiratory Depth Respiratory Pattern Normal Blood Pressure 97/66 Blood Pressure Mean 76 Pulse Ox Oxygen Delivery Method Nasal Cannula Oxygen Flow Rate (L/min) 4 07/12/23 22:46 07/12/23 23:00 Temperature Temperature Source Pulse Rate 82 Respiratory Rate 21 H Respiratory Effort Normal Non-Labored Respiratory Depth Normal Respiratory Pattern Normal Blood Pressure 137/78 H Blood Pressure Mean 97 Pulse Ox 99 Oxygen Delivery Method Room Air Nasal Cannula Oxygen Flow Rate (L/min) 2 Weight Weight: 319 lb 14.252 oz Body Mass Index (BMI) 42.2 Physical Exam Narrative General: Alert, Oriented, Cooperative, No apparent distress HEENT: Atraumatic, PERRLA, EOMI, Normocephalic Oral: Moist Mucosa Neck: Supple, No JVD Lungs: Diminished, Normal air movement, No rhonchi, No wheeze, No rales Cardiovascular: Regular rate, Regular Rhythm, Normal S1, Normal S2, No murmurs Abdomen: Soft, Non Tender, Non-Distended, No Hepato-splenomegaly Extremities: Trace edema, Capillary Refill Less than 3 Seconds Skin: No rashes, No breakdown Musculoskeletal: No Tenderness to Palpation of Joints or Extremities Neurological: No focal neurological deficits, Motor Exam 5/5 strength throughout, Sensory exam intact to light touch and pain Psych/Mental Status: Normal Affect, Appropriate Results Lab / Micro Data 07/12/23 21:05 07/12/23 21:05 Labs: Laboratory Results - last 24 hr 07/12/23 21:05: WBC 10.4, RBC 4.60, Hgb 12.5 L, Hct 39.3 L, MCV 85.4, MCH 27.2, MCHC 31.8 L, RDW Std Deviation 47.2 H, RDW Coeff of Woo 15.4 H, Plt Count 409, MPV 10.5, Immature Gran % (Auto) 0.500, Neut % (Auto) 71.7 H, Lymph % (Auto) 15.1 L, [place] % (Auto) 10.2 H, Eos % (Auto) 1.8, Baso % (Auto) 0.7, Absolute Neuts (auto) 7.5, Absolute Lymphs (auto) 1.57, Nucleated RBC % 0, PT 14.8, INR 1.2, APTT 30.3, Sodium 139, Potassium 3.8, Chloride 102, Carbon Dioxide 30.0, Anion Gap 7, BUN 35 H, Creatinine 2.38 H, Estim Creat Clear Calc 38.34, Est GFR (MDRD) Af Amer 34 L, Est GFR (MDRD) Non-Af 28 L, BUN/Creatinine Ratio 14.7, Glucose 81, Lactic Acid 3.1 H*, Calcium 9.8, Total Bilirubin 0.40, AST 31, ALT 37, Alkaline Phosphatase 59, Troponin I High Sens 16, Total Protein 7.8, Albumin 3.4, Globulin 4.4 H, Albumin/Globulin Ratio 0.8 L 07/12/23 21:56: Urine Color Yellow, Urine Clarity Cloudy, Urine pH 6.5, Ur Specific [place] 1.005, Urine Protein 15 H, Urine Glucose (UA) Normal, Urine Ketones Negative, Urine Occult Blood 25 H, Urine Nitrite Negative, Urine Bilirubin Negative, Urine Urobilinogen Normal, Ur Leukocyte Esterase 500 H, Urine RBC 0 SEEN, Urine WBC >100 SEEN, Ur Squamous Epith Cells 0 SEEN, Urine Bacteria 1+, Urine Mucus 0 SEEN Micro: Microbiology 07/12/23 21:15 Mucosa - Nose SARS-CoV-2, Influenza & RSV (PCR) - Final Imaging Radiology Impression Chest X-Ray 07/12/23 21:25 IMPRESSION: Minimal bibasilar pulmonary opacity may be atelectasis rather than pneumonia. Electronically Signed: Francis Nicolas, at 22:01 EDT , Assessment & Plan Assessment/Plan (1) Sepsis: (2) Hypoxia: (3) Acute kidney injury superimposed on chronic kidney disease: (4) Acute UTI: PLAN: Plan 1. Severe sepsis with an BHAVNA secondary to an acute UTI ? Sepsis criteria met based on insurance ? Lactic acid greater than 2 ? Continue with IV fluids ? Will continue with Rocephin ? Urine cultures pending, blood cultures pending ? Respiratory panel is negative for RSV, flu, COVID 2. Chronic diastolic CHF/essential HTN/HLD ? Given his hypotension initially in the ER, will hold his antihypertensives ? Will hold his Lasix given his BHAVNA ? Continue with IV fluids ? Will monitor and make adjustments as necessary 3. DM2/CKD 3 a ? Will hold his home metformin and insulin given that his blood sugar is 81 ? Continue sign scale insulin ? Accu-Cheks ACHS ? Will monitor and make adjustments as necessary ? Baseline creatinine appears to be around 1.5 roughly, currently 2.38 4. Anxiety/depression/dementia ? Stable ? Resume his home medications 5. Overactive bladder ? Currently on oxybutynin which could be contributing to this UTI ? Will hold DVT: Heparin Charges/Coding Visit Charges Inpatient E&M: 05032 Init Hosp L3
[2023-07-13] VITALS (7 sets, daily range): BP systolic 110–138; BP diastolic 63–78; PULSE 66–77; RESP 15–18; TEMP 36.6–37.1; O2SAT 96–99; BMI 42.2
[2023-07-13 01:17] LABS: Reflex Lactate? Y
[2023-07-13] MEDS: 0.9% Saline Lock 10 ML Syringe IV ×2 (01:55→05:44)
[2023-07-13] MEDS: 0.9% Normal Saline (1000mL) 1,000 ML 100 ML IV ×3 (01:55→20:21)
[2023-07-13 02:33] LABS: Lactic Acid 0.8 mmol/L (0.4-1.9)
[2023-07-13 04:07] LABS: Absolute Lymphocyte Count 1.94 X10^3/uL (0.83-4.51); Absolute Neutrophil Count 5.9 X10^3/uL (2.0-7.7); Basophil# 0.04 X10^3/uL; Basophil% 0.4 % (0-1); Eosinophil# 0.13 X10^3/uL; Eosinophils% 1.4 % (0-5); Hematocrit 35.2 % (40-54); Hemoglobin 10.9 g/dL (13.0-16.5); Lymphocyte # 1.94 X10^3/ul (0.83-4.51); Lymphocyte % 21.6 % (19-41); Mean Corpuscular Volume 87.3 fL (80-94); Monocyte# 0.94 X10^3/uL; Monocyte% 10.5 % (0-10); NRBC Flagged by Analyzer 0 % (0-5); Neutrophil % 65.8 % (47-70); Platelet Count 296 K/mm3 (150-450); RBC Distribution Width CV 15.4 % (11.6-14.6); Red Blood Count 4.03 M/mm3 (4.6-6.2)
[2023-07-13 04:23] LABS: Anion Gap 3 (5-15); BUN 31 mg/dL (7-18); BUN/Creat Ratio 16.1 RATIO (10-20); Calcium,Total 8.4 mg/dL (8.5-10.1); Chloride 106 mmol/L (98-107); Creatinine, Serum 1.93 mg/dL (0.70-1.30); EST Glomerular Filtration Rate 36 mL/min (>60); Est Glom Filt Rate - Afr Amer 44 mL/min (>60); Glucose 77 mg/dL (74-106); Potassium 3.5 mmol/L (3.5-5.1); Sodium Level 141 mmol/L (136-145)
[2023-07-13] MEDS: hydrOXYzine PAM 25 MG Capsule PO ×3 (05:44→21:00)
[2023-07-13] MEDS: Heparin Injection (Vial) 5,000 UNIT/ML VIAL 5000 UNIT SC ×3 (05:44→21:00)
--- NOTE | 2023-07-13 07:34 | PN.HOSP_ITS ---
Reason for Visit Reason for Visit: Diagnoses Sepsis, unspecified organism (07/12/23) Acute kidney failure, unspecified (07/12/23) Chronic kidney disease, unspecified (07/12/23) Urinary tract infection, site not specified (07/12/23) Hypoxemia (07/12/23) Subjective Subjective Patient is a 78-year-old gentleman with multiple comorbidities admitted with progressive generalized weakness. Assessment on admission consistent with severe sepsis secondary to UTI Objective Data Objective Data Vital Signs: Vital Signs Temp Pulse Resp BP Pulse Ox O2 Del Method O2 Flow Rate 98.2 F 67 16 119/73 98 Nasal Cannula 2 07/13/23 04:00 07/13/23 04:00 07/13/23 04:00 07/13/23 04:00 07/13/23 04:00 07/13/23 04:00 07/13/23 04:00 Oxygen Flow Rate (L/min) 2 Oxygen Delivery Method Nasal Cannula Weight: 145.2 kg Body Mass Index (BMI) 42.2 Intake & Output: Intake and Output for Last 24 Hours 07/11/23 07/12/23 07/13/23 23:59 23:59 23:59 Intake Total 16.65 / 16.65 1050 / 1050 Balance 16.65 / 16.65 1050 / 1050 Lab / Micro Data 07/13/23 03:50 07/13/23 03:50 Labs: Laboratory Results - last 24 hr 07/12/23 21:05: WBC 10.4, RBC 4.60, Hgb 12.5 L, Hct 39.3 L, MCV 85.4, MCH 27.2, MCHC 31.8 L, RDW Std Deviation 47.2 H, RDW Coeff of Woo 15.4 H, Plt Count 409, MPV 10.5, Immature Gran % (Auto) 0.500, Neut % (Auto) 71.7 H, Lymph % (Auto) 15.1 L, [place] % (Auto) 10.2 H, Eos % (Auto) 1.8, Baso % (Auto) 0.7, Absolute Neuts (auto) 7.5, Absolute Lymphs (auto) 1.57, Nucleated RBC % 0, PT 14.8, INR 1.2, APTT 30.3, Sodium 139, Potassium 3.8, Chloride 102, Carbon Dioxide 30.0, Anion Gap 7, BUN 35 H, Creatinine 2.38 H, Estim Creat Clear Calc 38.34, Est GFR (MDRD) Af Amer 34 L, Est GFR (MDRD) Non-Af 28 L, BUN/Creatinine Ratio 14.7, Glucose 81, Lactic Acid 3.1 H*, Calcium 9.8, Total Bilirubin 0.40, AST 31, ALT 37, Alkaline Phosphatase 59, Troponin I High Sens 16, Total Protein 7.8, Albumin 3.4, Globulin 4.4 H, Albumin/Globulin Ratio 0.8 L 07/12/23 21:56: Urine Color Yellow, Urine Clarity Cloudy, Urine pH 6.5, Ur Specific [place] 1.005, Urine Protein 15 H, Urine Glucose (UA) Normal, Urine Ketones Negative, Urine Occult Blood 25 H, Urine Nitrite Negative, Urine Bilirubin Negative, Urine Urobilinogen Normal, Ur Leukocyte Esterase 500 H, Urine RBC 0 SEEN, Urine WBC >100 SEEN, Ur Squamous Epith Cells 0 SEEN, Urine Bacteria 1+, Urine Mucus 0 SEEN 07/13/23 01:42: Lactic Acid 0.8 07/13/23 03:50: WBC 9.0, RBC 4.03 L, Hgb 10.9 L, Hct 35.2 L, MCV 87.3, MCH 27.0, MCHC 31.0 L, RDW Std Deviation 49.0 H, RDW Coeff of Woo 15.4 H, Plt Count 296, MPV 10.0, Immature Gran % (Auto) 0.300, Neut % (Auto) 65.8, Lymph % (Auto) 21.6, [place] % (Auto) 10.5 H, Eos % (Auto) 1.4, Baso % (Auto) 0.4, Absolute Neuts (auto) 5.9, Absolute Lymphs (auto) 1.94, Nucleated RBC % 0, Sodium 141, Potassium 3.5, Chloride 106, Carbon Dioxide 32.0, Anion Gap 3 L, BUN 31 H, Creatinine 1.93 H, Estim Creat Clear Calc 47.30, Est GFR (MDRD) Af Amer 44 L, Est GFR (MDRD) Non-Af 36 L, BUN/Creatinine Ratio 16.1, Glucose 77, Calcium 8.4 L Micro: Microbiology 07/12/23 21:15 Mucosa - Nose SARS-CoV-2, Influenza & RSV (PCR) - Final Radiography Diagnostic Testing: Radiology Impression Chest X-Ray 07/12/23 21:25 IMPRESSION: Minimal bibasilar pulmonary opacity may be atelectasis rather than pneumonia. Electronically Signed: Francis Nicolas DO at 22:01 EDT , Physical Exam Narrative GENERAL: cooperative HEENT: Atraumatic; normocephalic EYES; Anicteric, Normal Conjunctiva NECK; supple, normal thyroid, RESPIRATORY: Diminished to auscultation CARDIOVASCULAR: Regular S1 S2, GI: soft, normoactive bowel sounds, : No Renal angle tenderness; EXTREMITIES: No edema, no clubbing, MUSCULOSKELETAL: no muscle wasting NEURO: Awake; no lateralizing signs. SKIN: No Rash PSYCH; Flat affect Assessment & Plan Assessment/Plan (1) Sepsis: (2) Hypoxia: (3) Acute kidney injury superimposed on chronic kidney disease: (4) Acute UTI: PLAN: Plan Patient is a 78-year-old gentleman with multiple comorbidities admitted with progressive generalized weakness. Assessment on admission consistent with sever e sepsis secondary to UTI 1. Severe sepsis ? Secondary to UTI patient met criteria on admission started on Rocephin after IV fluid resuscitation. Cultures sent we will follow-up on result 2. Acute kidney injury ? Superimposed on chronic kidney disease stage III. Patient started on IV fluid with subsequent monitoring of electrolytes ordered 3. Class II obesity with BMI of 42.2 ? Complicating care weight loss advised 4. Dyslipidemia -Patient is on statin therapy, continued at home dose 5. Obstructive sleep apnea ? Consistent use of CPAP encouraged 6. Diabetes mellitus type II -patient's oral hypoglycemics held. Placed on long acting insulin, Accu-Cheks a.c. and at bedtime and covered with sliding scale insulin 7. Essential hypertension ? Patient is on lisinopril and HCTZ both held given worsening kidney function 8. Chronic congestive heart failure with preserved ejection fraction ? Patient remains euvolemic 9. Depression with anxiety ? On amitriptyline as well as citalopram 10. GERD ? On PPI 11. DVT prophylaxis ? SC heparin Time spent in the patient's overall evaluation,decision-making process, review of diagnostic data, adjustment of management, discussion with other providers, nursing nursing and ancillary staff involved in patient's care documentation, 50 Minutes Charges/Coding Visit Charges Inpatient E&M: 96566 Subs Hosp L3
[2023-07-13] MEDS: Aspirin E.C. 81 MG Tablet PO (07:42)
[2023-07-13] MEDS: Pantoprazole Sodium 20 MG Tablet PO (07:43)
[2023-07-13] MEDS: Fenofibrate 145 MG Tablet PO (07:43)
[2023-07-13] MEDS: Ezetimibe 10 MG Tablet PO (07:43)
[2023-07-13] MEDS: Timolol 0.5% 5ML OPTH.BTL 1 DRP OPHTHALMIC ×2 (07:43→21:02)
[2023-07-13] MEDS: Citalopram 20 MG Tablet PO (07:43)
[2023-07-13 08:03] LABS: Bedside Glucose 76 mg/dL (74-106)
--- NOTE | 2023-07-13 09:40 | CASEMGMT ---
RN?CM?CROSSING WATCHMAN?CM?to room to meet with patient for initial transition planning/care coordination?assessment.?RN?CM?introduced self and role at [facility].? Pt voices understanding and consents to?assessment?at this time.? Pt in bed w/HOB elevated, eating breakfast and in no distress at this time.? Hx Parkinson's and dementia, but pt is A/O at this time and answers all questions appropriately.?? Care providers, pharmacy, and demographics verified/updated at this time. PCP: Dr Barroso Specialists: Dr Gibson-neuro, Dr Cooper-endocrinolgy, [facility]. Preferred [facility]acy: [facility] Insurance: MCR, Prescription Benefit:?yes Living Will/HPOA:Pt does not currently have LW/HCPOA and declines info at this time.? Pt made aware that he can contact as an out-pt and make appt in the future if he decides he would like to talk with someone about this or would like to utilize [facility] social work for advanced directive completion. LNOK: , Edwina. 3 adult children Living Arrangements: Lives w/ in 2-story home w/2 steps to enter w/railing on one side. Pt states he does okay w/the stairs. FFSU. He reports being fairly independent @ home, but states does provide some assistance w/bathing/dressing, manages his medications, and does home mgnt tasks. Transportation:?Pt states he and his both drive. DME: States he uses no AD to ambulate. He states has a CPAP but has not used it in awhile and does not remember name of co.he got it from. He does not have home O2 and does not have a pulse ox. Discussed possible need of home O2 @ discharge and verbally reviewed local DME co's and made aware [facility] is affiliated w/[facility]. Pt chooses [employer]. He states he used to have a glucometer but does not think he has it any longer, he is not sure. Pt states no need for further DME at this time.? HHC/SNF: No hx of either. Discussed discharge planning. Pt states he wishes to return home @ discharge. He declines need of HHC at this time. Therapy evals pending. CM?to follow for home oxygen needs and any further discharge planning/needs.? Pt voices no further concerns/needs at this time.? Advised pt to ask for?CM?if any further questions/concerns/needs arise.? Voices understanding. Pt Plan:? Pt wishes to discharge home and declines need for HHC. Plan: TBD. Therapy evals pending. CM to follow for possible HHC/OP therapy. Follow for possible home O2 @ d/c. Huseyin BSN?RN?CM
[2023-07-13 11:32] LABS: Bedside Glucose 142 mg/dL (74-106)
[2023-07-13] MEDS: Insulin Lispro 100 UNIT/ML INSULN.PEN SC ×2 (16:04→21:00)
[2023-07-13 16:24] LABS: Bedside Glucose 175 mg/dL (74-106)
[2023-07-13] MEDS: Donepezil HCl 10 MG Tablet PO (21:01)
[2023-07-13] MEDS: Atorvastatin Calcium 80 MG Tablet PO (21:02)
[2023-07-13] MEDS: Ceftriaxone 1 GM/50 ML BAG IV (21:02)
[2023-07-13] MEDS: Amitriptyline 25 MG Tablet PO (21:02)
[2023-07-13 21:24] LABS: Bedside Glucose 208 mg/dL (74-106)
[2023-07-14 01:00] VITALS: BP 134/76; PULSE 66; RESP 18; TEMP 36.2; O2SAT 96
[2023-07-14 03:19] LABS: Absolute Lymphocyte Count 1.45 X10^3/uL (0.83-4.51); Absolute Neutrophil Count 3.2 X10^3/uL (2.0-7.7); Basophil# 0.03 X10^3/uL; Basophil% 0.5 % (0-1); Eosinophil# 0.22 X10^3/uL; Hematocrit 34.8 % (40-54); Hemoglobin 10.7 g/dL (13.0-16.5); Lymphocyte # 1.45 X10^3/ul (0.83-4.51); Lymphocyte % 26.6 % (19-41); Mean Corp Hgb Conc 30.7 g/dL (32-36); Mean Corpuscular Hgb 27.4 pg (27.0-32.0); Mean Platelet Vol. 9.8 fl (6.2-12.0); Monocyte# 0.56 X10^3/uL; Monocyte% 10.3 % (0-10); NRBC Flagged by Analyzer 0 % (0-5); Neutrophil # 3.18 X10^3/uL (2.7-7.7); Neutrophil % 58.2 % (47-70); Platelet Count 253 K/mm3 (150-450); RBC Distribution Width CV 15.2 % (11.6-14.6); RBC Distribution Width SD 49.1 fl (35.1-43.9); Red Blood Count 3.91 M/mm3 (4.6-6.2); White Blood Count 5.5 K/mm3 (4.4-11.0)
[2023-07-14 03:49] LABS: Anion Gap 2 (5-15); BUN 23 mg/dL (7-18); BUN/Creat Ratio 16.2 RATIO (10-20); Calcium,Total 8.7 mg/dL (8.5-10.1); Chloride 106 mmol/L (98-107); Creatinine, Serum 1.42 mg/dL (0.70-1.30); EST Glomerular Filtration Rate 51 mL/min (>60); Est Glom Filt Rate - Afr Amer 62 mL/min (>60); Estimated Creatinine Clearance 64.29 ml/min; Glucose 165 mg/dL (74-106); Magnesium 1.5 mg/dL (1.6-2.6); Phosphorus 2.8 mg/dL (2.5-4.9); Potassium 3.9 mmol/L (3.5-5.1); Sodium Level 141 mmol/L (136-145)
[2023-07-14 05:00] VITALS: BP 140/75; PULSE 69; RESP 16; TEMP 36.3; O2SAT 96
[2023-07-14] MEDS: 0.9% Saline Lock 10 ML Syringe IV (05:01)
[2023-07-14] MEDS: Magnesium Sulfate 2 GM in Dextrose 5%-Water (100mL Bag) 100 ML IV (05:02)
[2023-07-14] MEDS: hydrOXYzine PAM 25 MG Capsule PO ×3 (05:02→22:15)
[2023-07-14] MEDS: Heparin Injection (Vial) 5,000 UNIT/ML VIAL 5000 UNIT SC ×3 (05:02→22:15)
--- NOTE | 2023-07-14 07:03 | PN.HOSP_ITS ---
Reason for Visit Reason for Visit: Diagnoses Sepsis, unspecified organism (07/12/23) Acute kidney failure, unspecified (07/12/23) Chronic kidney disease, unspecified (07/12/23) Urinary tract infection, site not specified (07/12/23) Hypoxemia (07/12/23) Subjective Subjective Patient urine cultures so far positive for GNR lactose power and recovery shift engineer Objective Data Objective Data Vital Signs: Vital Signs Temp Pulse Resp BP Pulse Ox O2 Del Method O2 Flow Rate 97.4 F L 69 16 140/75 H 96 Nasal Cannula 2 07/14/23 05:00 07/14/23 05:00 07/14/23 05:00 07/14/23 05:00 07/14/23 05:00 07/14/23 05:00 07/14/23 05:00 Oxygen Flow Rate (L/min) 2 Oxygen Delivery Method Nasal Cannula Weight: 145.2 kg Body Mass Index (BMI) 42.2 Intake & Output: Intake and Output for Last 24 Hours 07/12/23 07/13/23 07/14/23 23:59 23:59 23:59 Intake Total 16.65 / 16.65 2943.34 / 2943.34 973.33 / 973.33 Output Total 675 / 675 Balance 16.65 / 16.65 2943.34 / 2943.34 298.33 / 298.33 Lab / Micro Data 07/14/23 03:12 07/14/23 03:12 Labs: Laboratory Results - last 24 hr 07/13/23 07:41: POC Glucose 76 07/13/23 11:15: POC Glucose 142 H 07/13/23 16:02: POC Glucose 175 H 07/13/23 20:57: POC Glucose 208 H 07/14/23 03:12: WBC 5.5, RBC 3.91 L, Hgb 10.7 L, Hct 34.8 L, MCV 89.0, MCH 27.4, MCHC 30.7 L, RDW Std Deviation 49.1 H, RDW Coeff of Woo 15.2 H, Plt Count 253, MPV 9.8, Immature Gran % (Auto) 0.400, Neut % (Auto) 58.2, Lymph % (Auto) 26.6, [place] % (Auto) 10.3 H, Eos % (Auto) 4.0, Baso % (Auto) 0.5, Absolute Neuts (auto) 3.2, Absolute Lymphs (auto) 1.45, Nucleated RBC % 0, Sodium 141, Potassium 3.9, Chloride 106, Carbon Dioxide 33.0 H, Anion Gap 2 L, BUN 23 H, Creatinine 1.42 H, Estim Creat Clear Calc 64.29, Est GFR (MDRD) Af Amer 62, Est GFR (MDRD) Non-Af 51 L, BUN/Creatinine Ratio 16.2, Glucose 165 H, Calcium 8.7, Phosphorus 2.8, Magnesium 1.5 L Micro: Microbiology 07/12/23 21:56 Urine, Catheterized Urine Culture - Preliminary GNR lactose power and recovery shift engineer 07/12/23 21:15 Mucosa - Nose SARS-CoV-2, Influenza & RSV (PCR) - Final Physical Exam Narrative GENERAL: cooperative HEENT: Atraumatic; normocephalic EYES; Anicteric, Normal Conjunctiva NECK; supple, normal thyroid, RESPIRATORY: Diminished to auscultation CARDIOVASCULAR: Regular S1 S2, GI: soft, normoactive bowel sounds, : No Renal angle tenderness; EXTREMITIES: No edema, no clubbing, MUSCULOSKELETAL: no muscle wasting NEURO: Awake; no lateralizing signs. SKIN: No Rash PSYCH; Flat affect Assessment & Plan Assessment/Plan (1) Sepsis: (2) Hypoxia: (3) Acute kidney injury superimposed on chronic kidney disease: (4) Acute UTI: PLAN: Plan Patient is a 78-year-old gentleman with multiple comorbidities admitted with p rogressive generalized weakness. Assessment on admission consistent with severe sepsis secondary to UTI 1. Severe sepsis ? Secondary to UTI patient met criteria on admission started on Rocephin after IV fluid resuscitation. Cultures sent we will follow-up on result ? 07/14/2023;Patient urine cultures so far positive for GNR lactose power and recovery shift engineer 2. Acute kidney injury ? Superimposed on chronic kidney disease stage III. Patient started on IV fluid with subsequent monitoring of electrolytes ordered ? 07/04/2023; kidney function responded to treatment improvement in creatinine 3. Class II obesity with BMI of 42.2 ? Complicating care weight loss advised 4. Dyslipidemia -Patient is on statin therapy, continued at home dose 5. Obstructive sleep apnea ? Consistent use of CPAP encouraged 6. Diabetes mellitus type II -patient's oral hypoglycemics held. Placed on long acting insulin, Accu-Cheks a.c. and at bedtime and covered with sliding scale insulin 7. Essential hypertension ? Patient is on lisinopril and HCTZ both held given worsening kidney function 8. Chronic congestive heart failure with preserved ejection fraction ? Patient remains euvolemic 9. Depression with anxiety ? On amitriptyline as well as citalopram 10. GERD ? On PPI 11. DVT prophylaxis ? SC heparin 12. Physical deconditioning - Requested for PT OT eval and social security assessor to assist with discharge planning Time spent in the patient's overall evaluation,decision-making process, review of diagnostic data, adjustment of management, discussion with other providers, nursing nursing and ancillary staff involved in patient's care documentation, 40 Minutes Charges/Coding Visit Charges Inpatient E&M: 50503 Subs Hosp L2
[2023-07-14] MEDS: Ezetimibe 10 MG Tablet PO (07:44)
[2023-07-14] MEDS: Citalopram 20 MG Tablet PO (07:44)
[2023-07-14] MEDS: Pantoprazole Sodium 20 MG Tablet PO (07:44)
[2023-07-14] MEDS: Aspirin E.C. 81 MG Tablet PO (07:44)
[2023-07-14 07:45] VITALS: BP 123/69; PULSE 68; RESP 15; TEMP 36; O2SAT 97
[2023-07-14] MEDS: Fenofibrate 145 MG Tablet PO (07:45)
[2023-07-14 08:12] LABS: Bedside Glucose 146 mg/dL (74-106)
[2023-07-14] MEDS: Insulin Lispro 100 UNIT/ML INSULN.PEN SC ×2 (12:14→22:16)
[2023-07-14 12:34] LABS: Bedside Glucose 173 mg/dL (74-106)
[2023-07-14 13:45] VITALS: BP 139/65; PULSE 68; RESP 16; TEMP 36.6; O2SAT 96
[2023-07-14 17:40] LABS: Bedside Glucose 155 mg/dL (74-106)
[2023-07-14 19:39] VITALS: BP 147/90; PULSE 74; RESP 18; TEMP 37; O2SAT 94
[2023-07-14] MEDS: Atorvastatin Calcium 80 MG Tablet PO (22:15)
[2023-07-14] MEDS: Donepezil HCl 10 MG Tablet PO (22:15)
[2023-07-14] MEDS: Timolol 0.5% 5ML OPTH.BTL 1 DRP OPHTHALMIC (22:15)
[2023-07-14] MEDS: Amitriptyline 25 MG Tablet PO (22:15)
[2023-07-14 22:20] LABS: Bedside Glucose 182 mg/dL (74-106)
[2023-07-14] MEDS: Ceftriaxone 1 GM/50 ML BAG IV (22:21)
--- NOTE | 2023-07-14 23:40 | NURSING ---
Patient was assisted from chair to bed. Immediately after getting into bed pt became very sob and pale. SPO2 was checked and was 69% on RA. Apply 5L via NC for a short time and patient is now 96% on 2L NC and with HOB raised.
[2023-07-15] VITALS (7 sets, daily range): BP systolic 136–159; BP diastolic 73–119; PULSE 70–84; RESP 16–20; TEMP 36.5–36.8; O2SAT 83–97
[2023-07-15] MEDS: hydrOXYzine PAM 25 MG Capsule PO ×2 (06:27→15:05)
[2023-07-15] MEDS: Heparin Injection (Vial) 5,000 UNIT/ML VIAL 5000 UNIT SC ×2 (06:27→15:05)
[2023-07-15] MEDS: Insulin Lispro 100 UNIT/ML INSULN.PEN SC ×2 (06:31→11:36)
[2023-07-15 08:22] LABS: Absolute Lymphocyte Count 1.25 X10^3/uL (0.83-4.51); Absolute Neutrophil Count 3.3 X10^3/uL (2.0-7.7); Basophil# 0.03 X10^3/uL; Basophil% 0.6 % (0-1); Eosinophil# 0.22 X10^3/uL; Eosinophils% 4.1 % (0-5); Hematocrit 34.7 % (40-54); Hemoglobin 10.9 g/dL (13.0-16.5); Lymphocyte # 1.25 X10^3/ul (0.83-4.51); Lymphocyte % 23.4 % (19-41); Mean Corp Hgb Conc 31.4 g/dL (32-36); Mean Corpuscular Hgb 27.6 pg (27.0-32.0); Mean Corpuscular Volume 87.8 fL (80-94); Mean Platelet Vol. 10.3 fl (6.2-12.0); Monocyte# 0.52 X10^3/uL; Monocyte% 9.7 % (0-10); NRBC Flagged by Analyzer 0 % (0-5); Neutrophil # 3.32 X10^3/uL (2.7-7.7); Platelet Count 241 K/mm3 (150-450); RBC Distribution Width CV 14.9 % (11.6-14.6); RBC Distribution Width SD 48.1 fl (35.1-43.9); Red Blood Count 3.95 M/mm3 (4.6-6.2); White Blood Count 5.4 K/mm3 (4.4-11.0)
--- NOTE | 2023-07-15 09:04 | PCM.DC.SUM ---
Providers Date of Admission: 07/12/23 Date of Discharge: 07/15/23 Primary Care Physician: Dr. Kike Barroso, DO Reason For Visit: SEVER SEPSIS UTI Diagnosis Discharge Diagnosis (1) Sepsis: Status: Acute Code(s): A41.9 - Sepsis, unspecified organism (2) Hypoxia: Status: Acute Code(s): R09.02 - Hypoxemia (3) Acute kidney injury superimposed on chronic kidney disease: Status: Chronic Code(s): N17.9 - Acute kidney failure, unspecified; N18.9 - Chronic kidney disease, unspecified (4) Acute UTI: Status: Acute Code(s): N39.0 - Urinary tract infection, site not specified Plan Patient is a 78-year-old gentleman with multiple comorbidities admitted with progressive generalized weakness. Assessment on admission consistent with severe sepsis secondary to UTI 1. Severe sepsis secondary to UTI with Klebsiella pneumonia ? Secondary to UTI patient met criteria on admission started on Rocephin after IV fluid resuscitation. Cultures sent we will follow-up on result ? 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 07/15/2023; cultures grew Klebsiella pneumonia patient was treated with appropriate antibiotic therapy 2. Acute kidney injury ? Superimposed on chronic kidney disease stage III. Patient started on IV fluid with subsequent monitoring of electrolytes ordered ? 07/04/2023; kidney function responded to treatment improvement in creatinine 3. Class II obesity with BMI of 42.2 ? Complicating care weight loss advised 4. Dyslipidemia -Patient is on statin therapy, continued at home dose 5. Obstructive sleep apnea ? Consistent use of CPAP encouraged 6. Diabetes mellitus type II -patient's oral hypoglycemics held. Placed on long acting insulin, Accu-Cheks a.c. and at bedtime and covered with sliding scale insulin 7. Essential hypertension ? Patient is on lisinopril and HCTZ both held given worsening kidney function 8. Chronic congestive heart failure with preserved ejection fraction ? Patient remains euvolemic 9. Depression with anxiety ? On amitriptyline as well as citalopram 10. GERD ? On PPI 11. DVT prophylaxis ? SC heparin 12. Physical deconditioning - Requested for PT OT eval and social media marketer to assist with discharge planning ? Patient apparently declined home health. Time spent in the patient's overall evaluation,decision-making process, review of diagnostic data, adjustment of management, discussion with other providers, nursing nursing and ancillary staff involved in patient's care documentation, 40 Minutes Medications at Discharge Home Medications amitriptyline 25 mg tablet 25 mg PO QHS 03/24/16 aspirin 81 mg tablet,delayed release 81 mg PO DAILY@0800 03/24/16 atorvastatin 80 mg tablet 80 mg PO DAILY 03/24/16 citalopram 20 mg tablet 20 mg PO DAILY 03/24/16 fenofibrate nanocrystallized 145 mg tablet 145 mg PO DAILY 03/24/16 metformin 500 mg tablet 500 mg PO BID 05/08/19 ezetimibe 10 mg tablet 10 mg PO DAILY 11/07/20 hydroxyzine pamoate 25 mg capsule 25 mg PO TID #90 caps 01/04/23 verapamil 180 mg tablet,extended release See Rx Instructions .Route .COMPLEX #30 tabs 03/08/23 Lantus Solostar U-100 Insulin 100 unit/mL (3 mL) subcutaneous pen (insulin glargine) 80 unit (0.8 mL) subcut DAILY #72 mL 04/15/23 Precision Xtra Test (blood sugar diagnostic) #200 ea 04/15/23 insulin aspart U-100 100 unit/mL (3 mL) subcutaneous pen (Novolog FlexPen U-100 Insulin aspart) 45 unit (0.45 mL) subcut TID #120 mL 04/15/23 pen needle, diabetic 32 gauge x 5/32 (BD Ultra-Fine Zenaida Pen Needle) #400 ea 04/15/23 lancets 32 gauge (Easy Touch Twist Lancets) #200 ea 04/16/23 donepezil 10 mg tablet 10 mg PO QHS #30 tabs 04/26/23 furosemide 40 mg tablet (Lasix) 40 mg PO DAILY #90 tabs 04/26/23 omeprazole 20 mg capsule,delayed release 20 mg PO DAILY 07/12/23 oxybutynin chloride 15 mg tablet,extended release 24 hr 15 mg PO DAILY 07/12/23 timolol maleate 0.5 % eye drops 1 drp ophthalmic (eye) BID 07/12/23 cefdinir 300 mg capsule 300 mg PO BID #20 caps 07/15/23 Physical Exam Narrative GENERAL: cooperative HEENT: Atraumatic; normocephalic EYES; Anicteric, Normal Conjunctiva NECK; supple, normal thyroid, RESPIRATORY: Diminished to auscultation CARDIOVASCULAR: Regular S1 S2, GI: soft, normoactive bowel sounds, : No Renal angle tenderness; EXTREMITIES: No edema, no clubbing, MUSCULOSKELETAL: no muscle wasting NEURO: Awake; no lateralizing signs. SKIN: No Rash PSYCH; Flat affect Weight / BMI Weight Weight: 145.2 kg Body Mass Index (BMI) 42.2 ABG / Lab / Microbiology Data 07/15/23 07:45 07/14/23 03:12 Laboratory: Laboratory Results - last 24 hr 07/14/23 12:13: POC Glucose 173 H 07/14/23 17:22: POC Glucose 155 H 07/14/23 22:02: POC Glucose 182 H 07/15/23 07:45: WBC 5.4, RBC 3.95 L, Hgb 10.9 L, Hct 34.7 L, MCV 87.8, MCH 27.6, MCHC 31.4 L, RDW Std Deviation 48.1 H, RDW Coeff of Woo 14.9 H, Plt Count 241, MPV 10.3, Immature Gran % (Auto) 0.200, Neut % (Auto) 62.0, Lymph % (Auto) 23.4, [place] % (Auto) 9.7, Eos % (Auto) 4.1, Baso % (Auto) 0.6, Absolute Neuts (auto) 3.3, Absolute Lymphs (auto) 1.25, Nucleated RBC % 0 Microbiology: Microbiology 07/12/23 21:10 Blood Culture (Wb) - Anticubital Right Blood Culture - Preliminary No growth in 48 hours. 07/12/23 21:05 Blood Culture (Wb) - Anticubital Left Blood Culture - Preliminary No growth in 48 hours. 07/12/23 21:56 Urine, Catheterized Urine Culture - Final Klebsiella pneumoniae sp pneum 07/12/23 21:15 Mucosa - Nose SARS-CoV-2, Influenza & RSV (PCR) - Final D/C Instructions Discharge Diet: No restrictions Discharge Activity: Return to Normal Activity Call your doctor if you observe: Fever of 101 or Higher, Shortness of breath, Fainting spells and Chest pain Meaningful Use Info Meaningful Use Meaningful Use Diagnoses (Choose all that apply): None applicable Ischemic Stroke Statin Dosing Therapy Reference: STATIN DOSE THERAPY REFERENCE: * Patients > 75 years receive moderate or high dose statin therapy. * Patients 75 years or YOUNGER should receive HIGH intensity statin dose unless contraindicated. You will be required to document reason for non-treatment if statin daily dose does not meet guidelines. HIGH DOSE STATIN THERAPY DAILY Atorvastatin > than or = to 40 mg Rosuvastatin > than or = to 20 mg Amlodipine + Atorvastatin > than or = to 2.5/40 mg Ezetimibe + Simvastatin 10/80 mg Simvastatin 80mg Discharge Plan Admission Admit Date/Time: 07/12/23 23:17 Attending Provider: Socrates Moise Primary Care Provider: Kike Barroso Consulting Providers: Pedro Allen Discharge Orders/Prescriptions Prescriptions: New cefdinir 300 mg capsule 300 mg PO BID Qty: 20 0RF Continued (DME) Precision Xtra Test Strip See Rx Instructions .Route Qty: 200 3RF Rx Instructions: bid insulin glargine [Lantus Solostar U-100 Insulin] 100 unit/mL (3 mL) insulin pen 80 unit subcut DAILY Qty: 72 2RF insulin aspart U-100 [Novolog FlexPen U-100 Insulin] 100 unit/mL (3 mL) insulin pen 45 unit SC TID Qty: 120 3RF (DME) pen needle, diabetic [BD Ultra-Fine Zenaida Pen Needle] 32 gauge x 5/32 needle See Rx Instructions .ROUTE .MEDSUPPLY Qty: 400 3RF Rx Instructions: 4 times daily donepezil 10 mg tablet 10 mg PO QHS Qty: 30 5RF Rx Instructions: Begin after completing one month of treatment of donepezil 5mg nightly atorvastatin 80 MG tablet 80 mg PO DAILY Patient Comments: cholesterol lowering aspirin 81 MG tablet 81 mg PO DAILY@0800 Hold Instructions: Resume on 11/27/20. Patient Comments: blood thinner citalopram 20 MG tablet 20 mg PO DAILY Patient Comments: anti-depressant amitriptyline 25 MG tablet 25 mg PO QHS Patient Comments: anti-depressant fenofibrate nanocrystallized 145 MG tablet 145 mg PO DAILY Patient Comments: cholesterol lowering metformin 500 mg tablet 500 mg PO BID Patient Comments: diabetic med ezetimibe 10 mg tablet 10 mg PO DAILY omeprazole 20 mg capsule,delayed release(DR/EC) 20 mg PO DAILY oxybutynin chloride 15 mg tablet extended release 24hr 15 mg PO DAILY timolol maleate 0.5 % drops 1 drp ophthalmic (eye) BID Patient Comments: [NO ORIGINAL SIG] hydroxyzine pamoate 25 mg capsule 25 mg PO TID Qty: 90 4RF verapamil 180 mg tablet extended release See Rx Instructions .ROUTE .COMPLEX Qty: 30 6RF Dose Instruction: take 1 tablet by mouth once daily Rx Instructions: take 1 tablet by mouth once daily (DME) Easy Touch Twist Lancets 32 gauge misc See Rx Instructions .Route Qty: 200 1RF Rx Instructions: bid furosemide [Lasix] 40 mg tablet 40 mg PO DAILY Qty: 90 4RF Discontinued lisinopril-hydrochlorothiazide 1 EACH tablet 1 ea PO BID Patient Comments: bp med potassium chloride 20 mEq tablet extended release 20 meq PO DAILY Qty: 30 12RF Referrals / Follow Up: Kike Barroso DO [Primary Care Provider] - Disposition Disposition (needs filled in before D/C Order can be placed): Home, Self Care Charges/Coding Visit Charges Inpatient E&M: 31285 Disch Hosp >30min
[2023-07-15 09:46] LABS: Anion Gap 4 (5-15); BUN 17 mg/dL (7-18); BUN/Creat Ratio 14.2 RATIO (10-20); Calcium,Total 9.2 mg/dL (8.5-10.1); Chloride 106 mmol/L (98-107); EST Glomerular Filtration Rate 62 mL/min (>60); Est Glom Filt Rate - Afr Amer 75 mL/min (>60); Estimated Creatinine Clearance 76.08 ml/min; Glucose 143 mg/dL (74-106); Potassium 3.7 mmol/L (3.5-5.1); Sodium Level 139 mmol/L (136-145)
[2023-07-15] MEDS: Citalopram 20 MG Tablet PO (10:36)
[2023-07-15] MEDS: Pantoprazole Sodium 20 MG Tablet PO (10:36)
[2023-07-15] MEDS: Ezetimibe 10 MG Tablet PO (10:36)
[2023-07-15] MEDS: Timolol 0.5% 5ML OPTH.BTL 1 DRP OPHTHALMIC (10:36)
[2023-07-15] MEDS: Aspirin E.C. 81 MG Tablet PO (10:36)
[2023-07-15] MEDS: Fenofibrate 145 MG Tablet PO (10:36)
--- NOTE | 2023-07-15 10:57 | PHA.DC_ITS ---
Pharmacy [facility] Pharm[facility] Service has performed discharge medication reconciliation and counseling for this patient. The patient's discharge medication list was reviewed for discrepancies and discrepancies were resolved. The patient was counseled on the following discharge medications and changes in medications for homegoing were reviewed. 1. CEFDINIR The Reason for Use, instructions for use, and potential side effects were reviewed for all new medications. The patient's questions regarding all of their medications were answered. The patient was able to verbally demonstrate an understanding of their discharge medications. Medications at Discharge Home Medications amitriptyline 25 mg tablet 25 mg PO QHS 03/24/16 aspirin 81 mg tablet,delayed release 81 mg PO DAILY@0800 03/24/16 atorvastatin 80 mg tablet 80 mg PO DAILY 03/24/16 citalopram 20 mg tablet 20 mg PO DAILY 03/24/16 fenofibrate nanocrystallized 145 mg tablet 145 mg PO DAILY 03/24/16 metformin 500 mg tablet 500 mg PO BID 05/08/19 ezetimibe 10 mg tablet 10 mg PO DAILY 11/07/20 hydroxyzine pamoate 25 mg capsule 25 mg PO TID #90 caps 01/04/23 verapamil 180 mg tablet,extended release See Rx Instructions .Route .COMPLEX #30 tabs 03/08/23 Lantus Solostar U-100 Insulin 100 unit/mL (3 mL) subcutaneous pen (insulin glargine) 80 unit (0.8 mL) subcut DAILY #72 mL 04/15/23 Precision Xtra Test (blood sugar diagnostic) #200 ea 04/15/23 insulin aspart U-100 100 unit/mL (3 mL) subcutaneous pen (Novolog FlexPen U-100 Insulin aspart) 45 unit (0.45 mL) subcut TID #120 mL 04/15/23 pen needle, diabetic 32 gauge x 5/32 (BD Ultra-Fine Zenaida Pen Needle) #400 ea 04/15/23 lancets 32 gauge (Easy Touch Twist Lancets) #200 ea 04/16/23 donepezil 10 mg tablet 10 mg PO QHS #30 tabs 04/26/23 furosemide 40 mg tablet (Lasix) 40 mg PO DAILY #90 tabs 04/26/23 omeprazole 20 mg capsule,delayed release 20 mg PO DAILY 07/12/23 oxybutynin chloride 15 mg tablet,extended release 24 hr 15 mg PO DAILY 07/12/23 timolol maleate 0.5 % eye drops 1 drp ophthalmic (eye) BID 07/12/23 cefdinir 300 mg capsule 300 mg PO BID #20 caps 07/15/23
--- NOTE | 2023-07-15 12:00 | CASEMGMT ---
RN CM in to discuss needs at discahrge with patient. Patient is agreeable to HHC, walker, and possible oxygen at discharge. A list of HHC providers including quality and resource use data and consistent with the patient?s preferred geographical region, medical needs, and insurance network were provided from the [facility]. Patient requested RN CM called . RN CM called and discuss needs at discharge. agreeable to HHC, RN CM reviewed list of HHC with and prefers [facility]. would also like [employer] for DME at discharge. had no further questions or concerns. RN CM called and made referral to [facility], awaiting acceptance.
[2023-07-15 13:51] LABS: Bedside Glucose 154 mg/dL (74-106)
[2023-07-15 13:51] LABS: Bedside Glucose 180 mg/dL (74-106)
--- NOTE | 2023-07-15 15:30 | CASEMGMT ---
SHEBA FAJARDO received call back from [facility] nad they are able to accept patient with start of care for Wednesday. Patient requires oxygen at discharge. Script received for oxygen and walker at discharge. [place] [facility] [facility] SHEBA FAJARDO in to updated patient and regarding acceptance of [facility] and delivered oxygen tank and walker from [place]. Patient and had no further questions or concerns.
== END 2023-07-15 16:25 | disposition home health service (06) | DRG 872 ==
LOC: ED 23:05 → ICU 07-13 00:13 → PCU 07-14 14:31
PROVIDERS: Admitting Provider Family Medicine; Emergency Provider Emergency Medicine; PCP Family Medicine; Visit Provider Internal Medicine
DX: A41.59 Other Gram-negative sepsis (principal); I13.0 Hypertensive heart and chronic kidney disease with heart failure and stage 1 through stage 4 chronic kidney disease, or unspecified chronic kidney disease; N17.9 Acute kidney failure, unspecified; I50.32 Chronic diastolic (congestive) heart failure; Z68.41 Body mass index [BMI] 40.0-44.9, adult; N39.0 Urinary tract infection, site not specified; E11.42 Type 2 diabetes mellitus with diabetic polyneuropathy; E11.22 Type 2 diabetes mellitus with diabetic chronic kidney disease; F03.90 Unspecified dementia, unspecified severity, without behavioral disturbance, psychotic disturbance, mood disturbance, and anxiety; N18.31 Chronic kidney disease, stage 3a; R65.20 Severe sepsis without septic shock; E66.01 Morbid (severe) obesity due to excess calories; Z79.4 Long term (current) use of insulin; F32.A Depression, unspecified; E78.5 Hyperlipidemia, unspecified; G47.33 Obstructive sleep apnea (adult) (pediatric); K21.9 Gastro-esophageal reflux disease without esophagitis; F41.9 Anxiety disorder, unspecified; N32.81 Overactive bladder; R09.02 Hypoxemia; R53.81 Other malaise; B96.1 Klebsiella pneumoniae [K. pneumoniae] as the cause of diseases classified elsewhere; Z79.82 Long term (current) use of aspirin; Z79.84 Long term (current) use of oral hypoglycemic drugs; Z79.899 Other long term (current) drug therapy
CPT/HCPCS: 36415; 71045; 80048; 80053; 81001; 82962; 83605; 83735; 84100; 84484; 85025; 85610; 85730; 87040; 87077; 87086; 87088; 87186; 87631; 93005; 97162; 97166; 99285; J7030; A4216

== ENCOUNTER → 2023-11-01 | Outpatient (CLI) | payer MEDICARE, OTHER, SELFPAY ==
[2023-11-01 12:50] VITALS: PULSE 104; PULSE 106; PULSE 108; PULSE 67; PULSE 72; PULSE 88; PULSE 96; PULSE 99; O2SAT 84; O2SAT 92; O2SAT 94; O2SAT 95; O2SAT 96; O2SAT 97
--- NOTE | 2023-11-01 12:56 | CPS ---
Patient wears 2.5 lpm O2 at home. He did not bring his oxygen in for testing. SpO2 84% on room air, resting in wheelchair. Placed patient on 3 lpm O2 before starting testing. SpO2 recovered to 94% before walking. Patient took a few breaks during testing for 40ish seconds at a time. Patient said he was moderately short of breath towards the end but what gave him the most difficulty was his legs and body being weak and tired.
--- NOTE | 2023-11-08 06:52 | WT_ITS ---
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 Assistive device used: None Pre-test Oxygen Delivery Method Room Air Pulse Ox (%) 84 Pulse Rate (60-100 beats/min) 67 Dyspnea Valeriy Scale (0-10) 0 Exertion Valeriy Scale (6-20) 6 1st minute Oxygen Flow Rate (L/min) (L/min) 3 Oxygen Delivery Method Nasal Cannula Pulse Ox (%) 95 Pulse Rate (60-100 beats/min) 96 2nd minute Oxygen Flow Rate (L/min) (L/min) 3 Oxygen Delivery Method Nasal Cannula Pulse Ox (%) 92 Pulse Rate (60-100 beats/min) 108 H 3rd minute Oxygen Flow Rate (L/min) (L/min) 3 Oxygen Delivery Method Nasal Cannula Pulse Ox (%) 94 Pulse Rate (60-100 beats/min) 104 H Number of Rests Taken 1 4th minute Oxygen Flow Rate (L/min) (L/min) 3 Oxygen Delivery Method Nasal Cannula Pulse Ox (%) 95 Pulse Rate (60-100 beats/min) 88 Number of Rests Taken 1 5th minute Oxygen Flow Rate (L/min) (L/min) 3 Oxygen Delivery Method Nasal Cannula Pulse Ox (%) 96 Pulse Rate (60-100 beats/min) 106 H 6th minute Oxygen Flow Rate (L/min) (L/min) 3 Oxygen Delivery Method Nasal Cannula Pulse Ox (%) 95 Pulse Rate (60-100 beats/min) 99 Dyspnea Valeriy Scale (0-10) 3 Exertion Valeriy Scale (6-20) 15 Number of Rests Taken 1 Post-test Oxygen Flow Rate (L/min) (L/min) 3 Oxygen Delivery Method Nasal Cannula Pulse Ox (%) 97 Pulse Rate (60-100 beats/min) 72 Full Laps Walked 6 Partial Lap, Number of Tiles Walked 12 Total Distance Walked (ft) 366 11/01/23 12:56 Cardiopulmonary Services by Caryl Hill Patient wears 2.5 lpm O2 at home. He did not bring his oxygen in for testing. SpO2 84% on room air, resting in wheelchair. Placed patient on 3 lpm O2 before starting testing. SpO2 recovered to 94% before walking. Patient took a few breaks during testing for 40ish seconds at a time. Patient said he was moderately short of breath towards the end but what gave him the most difficulty was his legs and body being weak and tired. Initialized on 11/01/23 12:56 - END OF NOTE Interpretation Interpretation: The patient ambulated 366 feet over the course of 6 minutes. Pretesting oxygen saturation was noted to be 84% on room air. 3 L/min of supplemental oxygen was applied and the patient was able to complete the remainder of the test while maintaining appropriate oxygen saturations. Recommendations Recommendations: 3 L/min of supplemental oxygen should be utilized at rest and with exertion.
== END | disposition home or self-care (01) ==
LOC: PSN 12:25
PROVIDERS: PCP Family Medicine; Referring Provider Nurse Practitioner Acute Care; Visit Provider Nurse Practitioner Acute Care
DX: R06.02 Shortness of breath (principal)
CPT/HCPCS: 94618

== ENCOUNTER 2023-12-30 16:38 | Inpatient (IN) | payer MEDICARE, OTHER, SELFPAY ==
[2023-12-30] VITALS (19 sets, daily range): BP systolic 98–163; BP diastolic 45–83; PULSE 54–88; RESP 15–22; TEMP 36.4–36.8; O2SAT 91–100; BMI 42.0; BMI 41.1
[2023-12-30] MEDS: Dextrose 50%-Water 25 GM/50 ML DISP.SYRIN IV (16:43)
--- NOTE | 2023-12-30 17:16 | EDS_ITS ---
HPI History of Present Illness Chief Complaint: General Illness Narrative Narrative: Patient is a 70-year-old male with a past medical history of hypertension, diabetes, sleep apnea, hyperlipidemia, chronic kidney disease stage III, chronic diastolic heart failure, chronically on 2-3 L nasal cannula who presented to the emergency department chief complaint of altered mental status. According to the patient's at bedside he had a doctor's appointment for a vitamin B12 shot today and they were out running around about 2 hours and when he got home he was not acting his normal self he was having some altered mental status and was sweating therefore she called EMS to have him brought here for further evaluation management. She states that he did not have his oxygen on him while he was out he normally does not wear it as he does not want to. According to EMS when they arrived he was 50% on room air and they checked a blood sugar that was noted to be 54. They gave him oral glucose rechecked was 30 and he received D50 when he got to the emergency department according to nursing staff. After this he became alert and oriented x 4 at his baseline according to his . [facility] [facility] [place] Fatigue Essential hypertension Cancer Insulin dependent diabetes mellitus Diabetes Prostate disease Tremor Dietary restriction Gastric reflux Non-smoker CPAP (continuous positive airway pressure) dependence Sleep apnea History of edema History of echocardiogram History of stress test Hyperlipidemia Chronic kidney disease, stage 3 Right bundle branch block Tachycardia Positive colorectal cancer screening using Cologuard test Positive colorectal cancer screening using Cologuard test Shortness of breath on exertion Super obese Type 2 diabetes mellitus Depression, major, recurrent, moderate Onychomycosis Passive aggressive personality disorder Actinic keratosis Diabetic peripheral neuropathy Restrictive lung disease TARA (obstructive sleep apnea) Chronic diastolic heart failure Microalbuminuria Osteoarthritis of left knee Other tear of medial meniscus, current injury, left knee, initial encounter Other tear of lateral meniscus, current injury, left knee, subsequent encounter Other tear of lateral meniscus, current injury, left knee, initial encounter Other tear of medial meniscus, current injury, left knee, subsequent encounter Home Medications ?Medication ?Instructions ?Recorded ?Last Taken ?Type amitriptyline 25 mg tablet 25 mg PO QHS 03/24/16 Unknown History aspirin 81 mg tablet,delayed 81 mg PO DAILY@0800 03/24/16 Unknown History release atorvastatin 80 mg tablet 80 mg PO DAILY 03/24/16 Unknown History citalopram 20 mg tablet 20 mg PO DAILY 03/24/16 05/13/16 07:00 History fenofibrate nanocrystallized 145 145 mg PO DAILY 03/24/16 Unknown History mg tablet metformin 500 mg tablet 500 mg PO BID 05/08/19 Unknown History ezetimibe 10 mg tablet 10 mg PO DAILY 11/07/20 Unknown History Precision Xtra Test (blood sugar #200 ea 04/15/23 Unknown Rx diagnostic) lancets 32 gauge (Easy Touch Twist #200 ea 04/16/23 Unknown Rx Lancets) furosemide 40 mg tablet (Lasix) 40 mg PO DAILY #90 tabs 04/26/23 Unknown Rx omeprazole 20 mg capsule,delayed 20 mg PO DAILY 07/12/23 Unknown History release timolol maleate 0.5 % eye drops 1 drp ophthalmic (eye) BID 07/12/23 Unknown History hydroxyzine pamoate 25 mg capsule 25 mg PO TID #90 caps 08/30/23 Unknown Rx Lantus Solostar U-100 Insulin 100 80 unit (0.8 mL) subcut DAILY #72 09/03/23 Unknown Rx unit/mL (3 mL) subcutaneous pen mL (insulin glargine) insulin aspart U-100 100 unit/mL 45 unit (0.45 mL) subcut TID #120 09/03/23 Unknown Rx (3 mL) subcutaneous pen (Novolog mL FlexPen U-100 Insulin aspart) pen needle, diabetic 32 gauge x #400 ea 09/03/23 Unknown Rx 5/32 (BD Ultra-Fine Zenaida Pen Needle) donepezil 10 mg tablet 10 mg PO QHS #30 tabs 10/19/23 Unknown Rx clotrimazole-betamethasone 1 1 applic topical PRN 11/19/23 Unknown History %-0.05 % topical cream lisinopril 20 1 tab PO BID 11/19/23 Unknown History mg-hydrochlorothiazide 25 mg tablet oxybutynin chloride 15 mg 5 mg PO DAILY 11/19/23 Unknown History tablet,extended release 24 hr potassium chloride 20 mEq 20 meq PO QDAY 11/19/23 Unknown History tablet,extended release verapamil 180 mg tablet,extended 180 mg PO DAILY #30 tabs 12/27/23 Unknown Rx release cyanocobalamin (vitamin B-12) 100 mcg IM QMONTH 12/30/23 Unknown History 1,000 mcg/mL injection solution Allergy/AdvReac Type Severity Reaction Status Date / Time No Known Allergies Allergy Verified 12/30/23 16:49 Family History Mother Hypertension Hyperlipemia Heart disease Diabetes Environmental and seasonal allergies alcoholism and drug abuse Sister Stomach cancer Ovarian cancer Brother Diabetes Daughter bipolar Father Schizophrenia Aortic aneurysm Surgical History History of transurethral resection of prostate (11/13/20) History of arthroscopy of left knee (~05/03/16) s/p urolift procedure (04/21/19) History of skin graft Social History Smoking Status: Never smoker Electronic Cigarette Use: not used second hand exposure: No alcohol intake: current alcohol intake frequency: holidays/special occasions only substance use type: does not use caffeine: Yes what type of physical activity do you participate in: none jason/restorationism: None seatbelt use: always ROS ROS ED ROS Narrative Constitutional: Denies any fevers, chills, headaches, lightness, dizziness Eyes: Denies change in vision double vision blurry vision Cardiovascular: Denies chest pain or palpitations Respiratory: Denies coughing wheezing shortness of breath Abdomen: Denies abdominal pain nausea vomit diarrhea : Denies any urinary symptoms Neurological: Denies numbness, weakness, tingling Musculoskeletal: Denies back pain Skin: Denies rashes or lesions EXAM Physical Exam Narrative Exam Narrative: General: Patient lying in bed rest comfortably did not appear to be in acute distress Head: Atraumatic, normocephalic Eyes: PERRL bilateral, EOMI bilateral, no conjunctival injection noted Neck: Soft, supple, trach midline Cardiovascular: Regular rate and rhythm no murmurs gallops rubs noted Respiratory: Clear to auscultation bilaterally no rales rhonchi or wheezes noted Abdomen: Soft, nondistended, nontender to palpation, bowel sounds present x 4 Extremities: +5/5 strength noted in the bilateral upper and lower extremities, no pedal edema on exam, radial pulses +2/4 in the bilateral upper extremities Neurological: Patient was following commands knew that he was at [facility]. He is at his baseline according to his significant other at bedside. NIH of 0 GCS 15 Skin: Warm, dry, tact Const Vital Signs: 12/30/23 16:40 12/30/23 16:48 12/30/23 17:10 Temperature 97.8 F 97.8 F Temperature Source Oral Oral Pulse Rate 67 62 56 L Respiratory Rate 22 H 18 15 Respiratory Effort Blood Pressure 154/60 H 154/60 H 112/45 L Blood Pressure Mean 91 91 67 Pulse Ox 91 93 99 Oxygen Delivery Method High Flow High Flow High Flow Oxygen Flow Rate (L/min) 8 8 15 12/30/23 17:16 12/30/23 17:30 12/30/23 17:46 Temperature 97.9 F Temperature Source Axillary Pulse Rate 58 L 88 Respiratory Rate 17 15 Respiratory Effort Short of Breath Blood Pressure 105/52 L 117/62 Blood Pressure Mean 69 80 Pulse Ox 99 97 Oxygen Delivery Method Room Air High Flow Oxygen Flow Rate (L/min) 10 12/30/23 18:00 12/30/23 18:30 12/30/23 19:00 Temperature 97.9 F 97.9 F Temperature Source Axillary Axillary Pulse Rate 71 54 L 66 Respiratory Rate 15 18 16 Respiratory Effort Blood Pressure 129/59 H 98/72 118/61 Blood Pressure Mean 82 80 80 Pulse Ox 97 97 100 Oxygen Delivery Method High Flow Nasal Cannula Nasal Cannula Oxygen Flow Rate (L/min) 10 4 4 12/30/23 19:30 12/30/23 20:00 12/30/23 20:20 Temperature 98.2 F 98.2 F Temperature Source Oral Pulse Rate 57 L 57 L 59 L Respiratory Rate 17 19 H 18 Respiratory Effort Blood Pressure 132/66 H 121/58 H 121/58 H Blood Pressure Mean 88 79 79 Pulse Ox 96 98 98 Oxygen Delivery Method Nasal Cannula Nasal Cannula Oxygen Flow Rate (L/min) 4 4 12/30/23 20:30 Temperature Temperature Source Pulse Rate 59 L Respiratory Rate 17 Respiratory Effort Blood Pressure 140/70 H Blood Pressure Mean 93 Pulse Ox 91 Oxygen Delivery Method Nasal Cannula Oxygen Flow Rate (L/min) 4 MDM MDM MDM Narrative Medical decision making narrative: Patient is a 70-year-old male who presented to the emerged part with a chief complaint of altered mental status, hypoxia, hypoglycemia. Patient will be observed here as he is back at his baseline he is on his home oxygen requirements and his glucose is now corrected. We will observe him. According to the she would like his urine checked this will be sent. On reevaluation of the patient his glucose was noted be 79 we did give him food prior to recheck of this. Blood work was obtained as he had recurrent bouts of hypoglycemia and drop in his blood glucose. His CBC was reviewed and showed a white blood count normal at 10.2, hemoglobin stable 12.5, platelet count was noted be normal at 362. Patient's sodium normal at 138, potassium was noted be low indicating hypokalemia at 2.9 he will be given 40 mill equivalents orally and potassium will be added to his D5 half NS as he became hypoglycemic again his glucose was to be 28. Patient's anion gap normal at 8, kidney function showed normal creatinine of 1.25. Patient's AST and ALT were normal at 2021. Patient's lipase normal at 23, urinalysis showed 100 leukocyte esterase 25-50 cells and 2+ bacteria he was given a gram Rocephin this was sent for culture. At this point in time do believe the patient will warrant admission to the hospital service for his hypokalemia, recurrent bouts of hypoglycemia. Did discuss case with hospitalist Dr. Calle to accept patient for admission. Patient was placed on D5 half NS at 100 cc an hour with 40 mill equivalents of potassium supplementation in this fluid. Patient was notified that he be admitted as well as his significant other at bedside all question concerns were answered. Lab Data Labs: Laboratory Results - last 24 hr 12/30/23 12/30/23 12/30/23 16:48 17:37 17:52 WBC 10.2 RBC 4.50 L Hgb 12.5 L Hct 40.0 MCV 88.9 MCH 27.8 MCHC 31.3 L RDW Std Deviation 47.6 H RDW Coeff of Woo 14.6 Plt Count 362 MPV 10.5 Immature Gran % (Auto) 0.500 Neut % (Auto) 80.0 H Lymph % (Auto) 9.4 L Howard % (Auto) 7.7 Eos % (Auto) 2.0 Baso % (Auto) 0.4 Absolute Neuts (auto) 8.2 H Absolute Lymphs (auto) 0.96 Nucleated RBC % 0 Sodium Potassium Chloride Carbon Dioxide Anion Gap BUN Creatinine Estim Creat Clear Calc Est GFR (MDRD) Af Amer Est GFR (MDRD) Non-Af BUN/Creatinine Ratio Glucose Calcium Total Bilirubin AST ALT Alkaline Phosphatase Total Protein Albumin Globulin Albumin/Globulin Ratio Lipase Urine Color Straw Urine Clarity Clear Urine pH 7.0 Ur Specific [place] 1.010 Urine Protein Negative Urine Glucose (UA) Normal Urine Ketones Negative Urine Occult Blood 10 H Urine Nitrite Negative Urine Bilirubin Negative Urine Urobilinogen Normal Ur Leukocyte Esterase 100 H Urine RBC 0 SEEN Urine WBC 25-50 SEEN Ur Squamous Epith Cells 0 SEEN Urine Bacteria 2+ Urine Mucus 0 SEEN POC Glucose 75 12/30/23 12/30/23 18:46 18:59 WBC RBC Hgb Hct MCV MCH MCHC RDW Std Deviation RDW Coeff of Woo Plt Count MPV Immature Gran % (Auto) Neut % (Auto) Lymph % (Auto) Howard % (Auto) Eos % (Auto) Baso % (Auto) Absolute Neuts (auto) Absolute Lymphs (auto) Nucleated RBC % Sodium 138 Potassium 2.9 L Chloride 96 L Carbon Dioxide 35.0 H Anion Gap 8 BUN 17 Creatinine 1.25 Estim Creat Clear Calc 72.87 Est GFR (MDRD) Af Amer 72 Est GFR (MDRD) Non-Af 59 L BUN/Creatinine Ratio 13.6 Glucose 28 L* Calcium 10.2 H Total Bilirubin 0.50 AST 28 ALT 22 Alkaline Phosphatase 63 Total Protein 8.5 H Albumin 3.7 Globulin 4.8 H Albumin/Globulin Ratio 0.8 L Lipase 23 Urine Color Urine Clarity Urine pH Ur Specific [place] Urine Protein Urine Glucose (UA) Urine Ketones Urine Occult Blood Urine Nitrite Urine Bilirubin Urine Urobilinogen Ur Leukocyte Esterase Urine RBC Urine WBC Ur Squamous Epith Cells Urine Bacteria Urine Mucus POC Glucose 79 Discharge Plan Triage Chief Complaint: General Illness ED Provider: Tex Albert Dx/Rx/DC Orders Clinical Impression: Hypoglycemia, Acute and chronic respiratory failure with hypoxia, Acute hypokalemia Prescriptions: No Action (DME) Precision Xtra Test Strip See Rx Instructions .Route Qty: 200 3RF Rx Instructions: bid insulin aspart U-100 [Novolog FlexPen U-100 Insulin] 100 unit/mL (3 mL) insulin pen 45 unit SC TID Qty: 120 3RF insulin glargine [Lantus Solostar U-100 Insulin] 100 unit/mL (3 mL) insulin pen 80 unit subcut DAILY Qty: 72 2RF (DME) pen needle, diabetic [BD Ultra-Fine Zenaida Pen Needle] 32 gauge x 5/32 needle See Rx Instructions .ROUTE .MEDSUPPLY Qty: 400 3RF Rx Instructions: 4 times daily donepezil 10 mg tablet 10 mg PO QHS Qty: 30 10RF lisinopril-hydrochlorothiazide 20-25 mg tablet 1 tab PO BID clotrimazole-betamethasone 1-0.05 % cream 1 applic topical PRN potassium chloride 20 mEq tablet extended release 20 meq PO QDAY atorvastatin 80 MG tablet 80 mg PO DAILY Patient Comments: cholesterol lowering aspirin 81 MG tablet 81 mg PO DAILY@0800 Patient Comments: blood thinner citalopram 20 MG tablet 20 mg PO DAILY Patient Comments: anti-depressant amitriptyline 25 MG tablet 25 mg PO QHS Patient Comments: anti-depressant fenofibrate nanocrystallized 145 MG tablet 145 mg PO DAILY Patient Comments: cholesterol lowering metformin 500 mg tablet 500 mg PO BID Patient Comments: diabetic med ezetimibe 10 mg tablet 10 mg PO DAILY omeprazole 20 mg capsule,delayed release(DR/EC) 20 mg PO DAILY timolol maleate 0.5 % drops 1 drp ophthalmic (eye) BID Patient Comments: [NO ORIGINAL SIG] oxybutynin chloride 15 mg tablet extended release 24hr 5 mg PO DAILY cyanocobalamin (vitamin B-12) 1,000 mcg/mL solution 100 mcg IM QMONTH (DME) Easy Touch Twist Lancets 32 gauge misc See Rx Instructions .Route Qty: 200 1RF Rx Instructions: bid furosemide [Lasix] 40 mg tablet 40 mg PO DAILY Qty: 90 4RF hydroxyzine pamoate 25 mg capsule 25 mg PO TID Qty: 90 2RF verapamil 180 mg tablet extended release 180 mg PO DAILY Qty: 30 11RF Primary Care Provider: Kike Barroso Referrals: Kike Barroso DO [Primary Care Provider] - Print Language: Yoruba
[2023-12-30 17:55] LABS: Bedside Glucose 75 mg/dL (74-106)
[2023-12-30 18:13] LABS: Mucous, Urine 0 SEEN /hpf (<or=2+); Red Blood Cells-Urine 0 SEEN /hpf (0-5); Squamous Epithelial Cells - UA 0 SEEN /hpf (0-5)
[2023-12-30 18:18] LABS: Color, Urine Straw (Yellow); Glucose, Dipstick Normal (Normal); Ketone-Dipstick Negative (Negative); Leukocyte Esterase-Dipstick 100 /ul (Negative); Nitrite-Dipstick Negative (Negative); Occult Blood-Urine 10 /ul (Negative); Protein-Dipstick Negative (Negative); Urine Bilirubin Dipstick Negative (Negative); Urine Clarity Clear (Clear); Urine Urobilinogen Normal (Normal)
[2023-12-30 19:00] LABS: Bacteria 2+ /hpf (None Seen); White Blood Cells 25-50 SEEN /hpf (0-5)
[2023-12-30 19:06] LABS: Bedside Glucose 79 mg/dL (74-106)
[2023-12-30 19:08] LABS: Absolute Lymphocyte Count 0.96 X10^3/uL (0.83-4.51); Absolute Neutrophil Count 8.2 X10^3/uL (2.0-7.7); Basophil# 0.04 X10^3/uL; Basophil% 0.4 % (0-1); Hemoglobin 12.5 g/dL (13.0-16.5); Lymphocyte # 0.96 X10^3/ul (0.83-4.51); Lymphocyte % 9.4 % (19-41); Mean Corp Hgb Conc 31.3 g/dL (32-36); Mean Corpuscular Hgb 27.8 pg (27.0-32.0); Mean Corpuscular Volume 88.9 fL (80-94); Mean Platelet Vol. 10.5 fl (6.2-12.0); Monocyte# 0.79 X10^3/uL; Monocyte% 7.7 % (0-10); NRBC Flagged by Analyzer 0 % (0-5); Neutrophil # 8.19 X10^3/uL (2.7-7.7); Platelet Count 362 K/mm3 (150-450); RBC Distribution Width CV 14.6 % (11.6-14.6); RBC Distribution Width SD 47.6 fl (35.1-43.9); White Blood Count 10.2 K/mm3 (4.4-11.0)
[2023-12-30] MEDS: Ceftriaxone 1 GM/50 ML BAG IV (19:36)
[2023-12-30 19:53] LABS: ALB/GLOB Ratio 0.8 RATIO (0.9-2.4); AST(SGOT) 28 U/L (15-37); Alanine Aminotransfer ALT/SGPT 22 U/L (16-61); Albumin, Serum 3.7 g/dL (3.2-5.0); Alkaline Phosphatase 63 U/L (45-117); Anion Gap 8 (5-15); BUN 17 mg/dL (7-18); BUN/Creat Ratio 13.6 RATIO (10-20); Calcium,Total 10.2 mg/dL (8.5-10.1); Chloride 96 mmol/L (98-107); Creatinine, Serum 1.25 mg/dL (0.70-1.30); EST Glomerular Filtration Rate 59 mL/min (>60); Est Glom Filt Rate - Afr Amer 72 mL/min (>60); Estimated Creatinine Clearance 72.87 ml/min; Globulin 4.8 g/dL (2.2-4.2); Glucose 28 mg/dL (74-106); Lipase 23 U/L (13-75); Potassium 2.9 mmol/L (3.5-5.1); Protein, Total 8.5 g/dL (6.4-8.2); Sodium Level 138 mmol/L (136-145)
--- NOTE | 2023-12-30 20:37 | HP.PCM.HOS_ITS ---
HPI - General General Date of Admission: 12/30/23 Date of Service: 12/30/23 Chief Complaint: Confusion. 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 ED on 12/30/23 with concern per of altered mental status with several errands on day of presentation and unfortunately patient declining to wear his chronic supplementation with increasing fatigue and malaise as well as diaphoresis eventually prompting EMS call who noted upon arrival and assessment of him that he was 50% on room air and a blood sugar check was 54 with a recheck noted to be 30 prompting dextrose amp administration and transition to the ED for evaluation. Patient also reported recent history of increasing fatigue malaise as well as very foul-smelling urine and increased urinary frequency over the last couple days but no associated fevers or chills. Patient's mental status did improved to his baseline in the ED according to his spouse. Workup in the ED included T98, heart rate 71, BP 122/60, respiratory rate 18, 84% on initial room air transition to 8 L high flow noted to be 91% transiently requiring high flow up to 10 L during ED evaluations with most recent repeat vital signs T98.2, heart rate 59, BP 121/50, respiratory rate 18, 98% on 4 L nasal cannula, CBC with WBC 10.2, hemoglobin 12.5, MCV 88.9, platelet 362 with left shift, CMP with potassium 2.9, chloride 96, At 35, BUN/creatinine 17/1.5, GFR 59, glucose 28, calcium 10.2, hepatic profile not marked appearing, lipase 23, urinalysis with specific remedy 1.010, occult blood 10, negative nitrite, leukocyte esterase 100 with urine WBCs 25-50 with 2+ urine bacteria, urine culture pending per ED, blood culture pending per ED, repeat POC glucose checks given hypoglycemic presentation with repeat 75 and most recently at 1846 blood sugar 79. In the ED patient initiated on Rocephin 1 g IV x 1, potassium supplementation IV/oral as well as a dextrose amp x 2 eventually transition to D5 half NS. [facility] Medical History Fatigue Essential hypertension Cancer Insulin dependent diabetes mellitus Diabetes Prostate disease Tremor Dietary restriction Gastric reflux Non-smoker CPAP (continuous positive airway pressure) dependence Sleep apnea History of edema History of echocardiogram History of stress test Hyperlipidemia Chronic kidney disease, stage 3 Right bundle branch block Tachycardia Positive colorectal cancer screening using Cologuard test Positive colorectal cancer screening using Cologuard test Shortness of breath on exertion Super obese Type 2 diabetes mellitus Depression, major, recurrent, moderate Onychomycosis Passive aggressive personality disorder Actinic keratosis Diabetic peripheral neuropathy Restrictive lung disease TARA (obstructive sleep apnea) Chronic diastolic heart failure Microalbuminuria Osteoarthritis of left knee Other tear of medial meniscus, current injury, left knee, initial encounter Other tear of lateral meniscus, current injury, left knee, subsequent encounter Other tear of lateral meniscus, current injury, left knee, initial encounter Other tear of medial meniscus, current injury, left knee, subsequent encounter Home Medications ?Medication ?Instructions ?Recorded ?Last Taken ?Type amitriptyline 25 mg tablet 25 mg PO QHS 03/24/16 Unknown History aspirin 81 mg tablet,delayed 81 mg PO DAILY@0800 03/24/16 Unknown History release atorvastatin 80 mg tablet 80 mg PO DAILY 03/24/16 Unknown History citalopram 20 mg tablet 20 mg PO DAILY 03/24/16 05/13/16 07:00 History fenofibrate nanocrystallized 145 145 mg PO DAILY 03/24/16 Unknown History mg tablet metformin 500 mg tablet 500 mg PO BID 05/08/19 Unknown History ezetimibe 10 mg tablet 10 mg PO DAILY 11/07/20 Unknown History Precision Xtra Test (blood sugar #200 ea 04/15/23 Unknown Rx diagnostic) lancets 32 gauge (Easy Touch Twist #200 ea 04/16/23 Unknown Rx Lancets) furosemide 40 mg tablet (Lasix) 40 mg PO DAILY #90 tabs 04/26/23 Unknown Rx omeprazole 20 mg capsule,delayed 20 mg PO DAILY 07/12/23 Unknown History release timolol maleate 0.5 % eye drops 1 drp ophthalmic (eye) BID 07/12/23 Unknown History hydroxyzine pamoate 25 mg capsule 25 mg PO TID #90 caps 08/30/23 Unknown Rx Lantus Solostar U-100 Insulin 100 80 unit (0.8 mL) subcut DAILY #72 09/03/23 Unknown Rx unit/mL (3 mL) subcutaneous pen mL (insulin glargine) insulin aspart U-100 100 unit/mL 45 unit (0.45 mL) subcut TID #120 09/03/23 Unknown Rx (3 mL) subcutaneous pen (Novolog mL FlexPen U-100 Insulin aspart) pen needle, diabetic 32 gauge x #400 ea 09/03/23 Unknown Rx (BD Ultra-Fine Zenaida Pen Needle) donepezil 10 mg tablet 10 mg PO QHS #30 tabs 10/19/23 Unknown Rx clotrimazole-betamethasone 1 1 applic topical PRN 11/19/23 Unknown History %-0.05 % topical cream lisinopril 20 1 tab PO BID 11/19/23 Unknown History mg-hydrochlorothiazide 25 mg tablet oxybutynin chloride 15 mg 5 mg PO DAILY 11/19/23 Unknown History tablet,extended release 24 hr potassium chloride 20 mEq 20 meq PO QDAY 11/19/23 Unknown History tablet,extended release verapamil 180 mg tablet,extended 180 mg PO DAILY #30 tabs 12/27/23 Unknown Rx release cyanocobalamin (vitamin B-12) 100 mcg IM QMONTH 12/30/23 Unknown History 1,000 mcg/mL injection solution Allergy/AdvReac Type Severity Reaction Status Date / Time No Known Allergies Allergy Verified 12/30/23 16:49 Family History Mother Hypertension Hyperlipemia Heart disease Diabetes Environmental and seasonal allergies alcoholism and drug abuse Sister Stomach cancer Ovarian cancer Brother Diabetes Daughter bipolar Father Schizophrenia Aortic aneurysm Surgical History History of transurethral resection of prostate (11/13/20) History of arthroscopy of left knee (~05/03/16) s/p urolift procedure (04/21/19) History of skin graft Social History (Updated 12/30/23 @ 22:[address] Yana Calle MD) household members: spouse Smoking Status: Never smoker Electronic Cigarette Use: not used second hand exposure: No alcohol intake: current alcohol intake frequency: holidays/special occasions only substance use type: does not use caffeine: Yes what type of physical activity do you participate in: none jason/episcopal: None seatbelt use: always ROS ROS Narrative Admission Review of Systems: CONSTITUTIONAL: No weight loss, fever, chills, +weakness or fatigue. HEENT: Eyes: No visual loss, blurred vision, double vision or yellow sclerae. Ears, Nose, Throat: No hearing loss, sneezing, congestion, runny nose or sore throat. SKIN: No rash or itching, lesions, wounds. CARDIOVASCULAR: No chest pain, chest pressure or chest discomfort, palpitations, edema, orthopnea, syncopal events. RESPIRATORY: + Chronic dyspnea worse with activity out as patient chronically does not use his oxygen supplementation which she is chronically supposed to use. No marked recent cough or productive sputum, wheezing, hemoptysis. GASTROINTESTINAL: No anorexia, nausea, vomiting or diarrhea, abdominal pain, melena, BRBPR. GENITOURINARY: + Foul-smelling urine, increased urinary frequency. No dysuria, retention or urgency. NEUROLOGICAL: + Episode of confusion. No headache, dizziness, syncope, paralysis, ataxia, numbness or tingling in the extremities, focal weakness, change in bowel or bladder control, seizure. MUSCULOSKELETAL: + muscle, back pain, joint pain or stiffness. HEMATOLOGIC: + Chronic anemia. No specific easy bleeding/bruising history. LYMPHATICS: No enlarged nodes. No history of splenectomy. PSYCHIATRIC: + History of anxiety and depression. ENDOCRINOLOGIC: No reports of sweating, cold or heat intolerance. No polyuria or polydipsia. ALLERGIES: No history of asthma, hives, eczema or rhinitis. Vital Signs Vital Signs Vital Signs: 12/30/23 16:40 12/30/23 16:48 12/30/23 17:10 Temperature 97.8 F 97.8 F Temperature Source Oral Oral Pulse Rate 67 62 56 L Respiratory Rate 22 H 18 15 Respiratory Effort Blood Pressure 154/60 H 154/60 H 112/45 L Blood Pressure Mean 91 91 67 Pulse Ox 91 93 99 Oxygen Delivery Method High Flow High Flow High Flow Oxygen Flow Rate (L/min) 8 8 15 12/30/23 17:16 12/30/23 17:30 12/30/23 17:46 Temperature 97.9 F Temperature Source Axillary Pulse Rate 58 L 88 Respiratory Rate 17 15 Respiratory Effort Short of Breath Blood Pressure 105/52 L 117/62 Blood Pressure Mean 69 80 Pulse Ox 99 97 Oxygen Delivery Method Room Air High Flow Oxygen Flow Rate (L/min) 10 12/30/23 18:00 12/30/23 18:30 12/30/23 19:00 Temperature 97.9 F 97.9 F Temperature Source Axillary Axillary Pulse Rate 71 54 L 66 Respiratory Rate 15 18 16 Respiratory Effort Blood Pressure 129/59 H 98/72 118/61 Blood Pressure Mean 82 80 80 Pulse Ox 97 97 100 Oxygen Delivery Method High Flow Nasal Cannula Nasal Cannula Oxygen Flow Rate (L/min) 10 4 4 12/30/23 19:30 12/30/23 20:00 12/30/23 20:20 Temperature 98.2 F 98.2 F Temperature Source Oral Pulse Rate 57 L 57 L 59 L Respiratory Rate 17 19 H 18 Respiratory Effort Blood Pressure 132/66 H 121/58 H 121/58 H Blood Pressure Mean 88 79 79 Pulse Ox 96 98 98 Oxygen Delivery Method Nasal Cannula Nasal Cannula Oxygen Flow Rate (L/min) 4 4 12/30/23 20:30 Temperature Temperature Source Pulse Rate 59 L Respiratory Rate 17 Respiratory Effort Blood Pressure 140/70 H Blood Pressure Mean 93 Pulse Ox 91 Oxygen Delivery Method Nasal Cannula Oxygen Flow Rate (L/min) 4 Weight Weight: 318 lb 12.615 oz Body Mass Index (BMI) 42.0 Physical Exam Narrative Physical Examination: General: Awake, alert, oriented to self, place and recent events, does admit that he chronically avoids using his oxygen out, discussed at length, remains cooperative, seated upright in the ED bed, fatigued appearing, reports he seems back to his baseline mental status. Skin: Normal color, normal turgor, no icterus, no cyanosis except occasional stage ecchymoses, abrasion as well as bilateral lower extremity chronic venous stasis skin changes. HEENT: AT/NC, EOMI, PERRLA, MMM, no carotid bruits or JVD noted; however, thickened neck makes evaluation difficult. Lungs: Diminished, greater bases, appropriate effort, no evidence of any distress, no rales, ronchi or wheezing. Heart: Regular rate and rhythm; no gallop, rub audible. Abdomen: Soft, morbidly obese, NTTP, no suprapubic tenderness, distant BS, difficult to discern distention and HSM given habitus. Extremities: No cyanosis, no clubbing, mild ankle to distal calderon edema Neurological: Patient awake, alert, oriented as noted, cognitive function intact; pupils equally reactive to light and accommodation, cranial nerves grossly normal, moving all 4 extremities, no focal deficits, strength moderately to severely global decreased but improving. Psychiatric: Affect appears mildly flat, fatigued, no acute evidence of depressive or anxiety feelings but does have underlying history. Results Lab / Micro Data 12/30/23 16:48 12/30/23 18:59 Labs: Laboratory Results - last 24 hr 12/30/23 16:48: WBC 10.2, RBC 4.50 L, Hgb 12.5 L, Hct 40.0, MCV 88.9, MCH 27.8, MCHC 31.3 L, RDW Std Deviation 47.6 H, RDW Coeff of Woo 14.6, Plt Count 362, MPV 10.5, Immature Gran % (Auto) 0.500, Neut % (Auto) 80.0 H, Lymph % (Auto) 9.4 L, [place] % (Auto) 7.7, Eos % (Auto) 2.0, Baso % (Auto) 0.4, Absolute Neuts (auto) 8.2 H, Absolute Lymphs (auto) 0.96, Nucleated RBC % 0 12/30/23 17:37: POC Glucose 75 12/30/23 17:52: Urine Color Straw, Urine Clarity Clear, Urine pH 7.0, Ur Specific [place] 1.010, Urine Protein Negative, Urine Glucose (UA) Normal, Urine Ketones Negative, Urine Occult Blood 10 H, Urine Nitrite Negative, Urine Bilirubin Negative, Urine Urobilinogen Normal, Ur Leukocyte Esterase 100 H, Urine RBC 0 SEEN, Urine WBC 25-50 SEEN, Ur Squamous Epith Cells 0 SEEN, Urine Bacteria 2+, Urine Mucus 0 SEEN 12/30/23 18:46: POC Glucose 79 12/30/23 18:59: Sodium 138, Potassium 2.9 L, Chloride 96 L, Carbon Dioxide 35.0 H, Anion Gap 8, BUN 17, Creatinine 1.25, Estim Creat Clear Calc 72.87, Est GFR (MDRD) Af Amer 72, Est GFR (MDRD) Non-Af 59 L, BUN/Creatinine Ratio 13.6, G lucose 28 L*, Calcium 10.2 H, Total Bilirubin 0.50, AST 28, ALT 22, Alkaline Phosphatase 63, Total Protein 8.5 H, Albumin 3.7, Globulin 4.8 H, A lbumin/Globulin Ratio 0.8 L, Lipase 23 Assessment & Plan Assessment/Plan (1) Encephalopathy acute: PLAN: Plan The patient is a 78 y/o M w/ PMHx: Morbid obesity, CKD stage III based on GFR trending unclear subtype, Chronic anemia, HTN, HLD, Diabetes mellitus type II with chronic diabetic neuropathy, GERD, TARA on q HS oxygen only, Chronic essential tremor, Anxiety and Depression, HFpEF, Chronic Hypoxic Respiratory Failure secondary to Restrictive lung disease (3L NC), Dementia unclear type with unclear behavioral disturbance history, 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 ED on 12/30/23 with concern per of altered mental status with several errands on day of presentation and unfortunately patient declining to wear his chronic supplementation with increasing fatigue and malaise as well as diaphoresis eventually prompting EMS call who noted upon arrival and assessment of him that he was 50% on room air and a blood sugar check was 54 with a recheck noted to be 30 prompting dextrose amp administration and transition to the ED for evaluation. #1. Acute encephalopathy, multifactorial including Acute Complicated Urinary Tract Infection,, #2, #3: Will admit to ICU given concurrent significant hypoglycemia with need for frequent blood sugar assessments as noted below, UA upon ED evaluation remarkable, pending UCx, continuing judicious dextrose fluids given underlying heart disease, monitor I/Os, continue IV Rocephin given previous cultures were sensitive w/ transition as able pending sensitivities and speciation. Bld cx x 2 obtained in the ED. PT/OT/case management consulted for discharge planning #2. Diabetes mellitus type I with acute hypoglycemia with chronic associated neuropathy: Hold oral home regimen, will obtain hemoglobin A1c, holding short acting and long-acting insulin as patient unfortunately with recently feeling poorly was continuing his insulin but not eating at all, allow broaden to regular diet and given ongoing significant hyperglycemia will continue judicious D5 NS given underlying cardiac disease as noted, continue to check Accu-Cheks every hour and if patient maintains above greater than 110 x 2 will reassess for potentially decreasing down on the drip versus transition to q 2 hr hour Accu- Cheks, nutrition consulted for education so the patient understands what he needs to do when he is feeling poorly as far as oral intake. #3. Acute (per EMS) on Chronic hypoxic respiratory failure with underlying restrictive lung disease secondary to Oxygen non-compliance: Unfortunately secondary to patient not wearing his oxygen supplementation and likely causing in large part in addition section his mental status alteration, discussed at length with patient and his spouse and encouraged him to maintain his chronic supplementation of 3 L nasal cannula which he also uses at night as he is not on compliant with PAP therapy, encourage continued outpatient follow-up with pulmonary medicine, maintain on ATC budesonide therapy as well as as needed albuterol, encourage head of bed and I-S. #4. Hypokalemia: Admission K+ 2.9, magnesium level requested, supplementation given, repeat level in AM. #5. 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 #6. Hypertension: Continue home regimen including lisinopril, Lasix, verapamil, temporally holding hydrochlorothiazide component, PRN hydralazine. #7. Hyperlipidemia: We will continue patient home triple therapy regimen. #8. Chronic normocytic anemia: Admission hemoglobin 12.5, MCV 88.9, baseline hemoglobin appears primarily 10-12, most recently prior to this 07/15/23 hemoglobin 10.9, continue to trend CBC. #9. Chronic Kidney Disease Stage III unclear subtype based on GFR trending: Admission BUN/Cr 17/1.5, GFR 59, baseline renal function primarily 1.0-1.4 but has vacillated, most recently prior to this 07/15/23 creatinine 1.20, repeat BMP in AM. #10. HFpEF: Most recent echo noted 07/23/20 with LV systolic function hyperdynamic, EF 75%, trivial TVI, RVSP 23 mmHg, no evidence of diastolic dysfunction. Given history and this echocardiogram is remote will hydrate judiciously to be cautious, continue aspirin, statin, lisinopril, Lasix home regimen, per current list patient is on verapamil of note. #11. Morbid Obesity: Weight loss and lifestyle changes encouraged. #12. BPH: Per current list does not appear to be on any regimen, if this is an issue especially with active UTI may initiate Flomax regimen. #13. TARA: Per discussion with patient and he does not use PAP therapy, will continue chronic supplementation of oxygen which he also uses at night. #14. GERD: We will continue patient on PPI. #15. Anxiety and depression: We will continue patient home amitriptyline as well as citalopram home regimen in addition to low-dose hydroxyzine but low threshold to hold for sedation. #16. DVT prophylaxis: Lovenox. #17. CODE status: Patient does not have healthcare power of corporate associate attorney or living will in place but his who is present he notes would be his medical decision-maker if necessary. Discussed CODE status at length including difference between FULL code, DNR-CCA and DNR-CC status. Following discussions about the differences in these status, requested Full Code status. Advanced Care Planning Face to Face Time: 16 minutes. Charges/Coding Visit Charges Inpatient E&M: 45392 Init Hosp L3 Procedures Hospitalists Procedures: 00242 Advncd Care Plan 30 Min
[2023-12-30] MEDS: Potassium Chloride Oral Soln 20 MEQ/15 ML UDC 40 MEQ PO (20:43)
[2023-12-30] MEDS: Potassium Chloride 40 MEQ in Dext 5%-0.45% NS 1,000 ML 100 MEQ IV (20:43)
[2023-12-30 21:06] LABS: Magnesium 1.4 mg/dL (1.6-2.6)
[2023-12-30 22:54] LABS: Bedside Glucose 127 mg/dL (74-106)
[2023-12-30] MEDS: Dextrose 5%/0.9% NaCl 1,000 ML 75 ML IV (23:23)
[2023-12-30] MEDS: Enoxaparin 40 MG/0.4 ML Syringe SC (23:24)
[2023-12-30] MEDS: CLARIFY ORDER 1 EACH NOTE (23:24)
[2023-12-30] MEDS: Timolol 0.5% 5ML OPTH.BTL 1 DRP OPHTHALMIC (23:24)
[2023-12-30] MEDS: hydrOXYzine PAM 25 MG Capsule PO (23:25)
[2023-12-30] MEDS: Amitriptyline 25 MG Tablet PO (23:26)
[2023-12-30] MEDS: Donepezil HCl 10 MG Tablet PO (23:27)
[2023-12-30 23:49] LABS: Bedside Glucose 144 mg/dL (74-106)
[2023-12-31] VITALS (14 sets, daily range): BP systolic 119–165; BP diastolic 58–82; PULSE 53–80; RESP 18–22; TEMP 36.3–36.8; O2SAT 90–100; BMI 41.1
[2023-12-31 01:21] LABS: Bedside Glucose 160 mg/dL (74-106)
[2023-12-31 02:30] LABS: Bedside Glucose 178 mg/dL (74-106)
[2023-12-31 03:27] LABS: Bedside Glucose 155 mg/dL (74-106)
[2023-12-31 05:22] LABS: Bedside Glucose 149 mg/dL (74-106)
[2023-12-31 05:43] LABS: Absolute Lymphocyte Count 0.89 X10^3/uL (0.83-4.51); Absolute Neutrophil Count 8.4 X10^3/uL (2.0-7.7); Basophil# 0.04 X10^3/uL; Basophil% 0.4 % (0-1); Eosinophil# 0.15 X10^3/uL; Eosinophils% 1.4 % (0-5); Hematocrit 38.1 % (40-54); Hemoglobin 11.4 g/dL (13.0-16.5); Lymphocyte # 0.89 X10^3/ul (0.83-4.51); Lymphocyte % 8.4 % (19-41); Mean Corp Hgb Conc 29.9 g/dL (32-36); Mean Corpuscular Hgb 27.3 pg (27.0-32.0); Mean Corpuscular Volume 91.1 fL (80-94); Monocyte# 0.98 X10^3/uL; Monocyte% 9.3 % (0-10); NRBC Flagged by Analyzer 0 % (0-5); Neutrophil # 8.44 X10^3/uL (2.7-7.7); Neutrophil % 80.1 % (47-70); Platelet Count 303 K/mm3 (150-450); RBC Distribution Width CV 14.4 % (11.6-14.6); RBC Distribution Width SD 48.4 fl (35.1-43.9); Red Blood Count 4.18 M/mm3 (4.6-6.2); White Blood Count 10.5 K/mm3 (4.4-11.0)
[2023-12-31] MEDS: hydrOXYzine PAM 25 MG Capsule PO ×3 (06:17→21:14)
[2023-12-31 06:41] LABS: ALB/GLOB Ratio 0.8 RATIO (0.9-2.4); AST(SGOT) 18 U/L (15-37); Alanine Aminotransfer ALT/SGPT 18 U/L (16-61); Alkaline Phosphatase 50 U/L (45-117); Anion Gap -1 (5-15); BUN 14 mg/dL (7-18); BUN/Creat Ratio 12.1 RATIO (10-20); Calcium,Total 8.9 mg/dL (8.5-10.1); Chloride 97 mmol/L (98-107); Creatinine, Serum 1.16 mg/dL (0.70-1.30); EST Glomerular Filtration Rate 65 mL/min (>60); Est Glom Filt Rate - Afr Amer 78 mL/min (>60); Estimated Creatinine Clearance 77.63 ml/min; Glucose 165 mg/dL (74-106); Sodium Level 138 mmol/L (136-145)
--- NOTE | 2023-12-31 07:03 | PN.HOSP_ITS ---
Reason for Visit Reason for Visit: Diagnoses Encephalopathy, unspecified (12/30/23) Subjective Subjective A 78-year-old gentleman with multiple comorbidities was brought to pain with decreased level of sensorium. Patient was apparently found to be hypoglycemic as well as hypoxic. Workup did reveal acute cystitis admitted for subsequent inpatient management Objective Data Objective Data Vital Signs: Vital Signs Temp Pulse Resp BP Pulse Ox O2 Del Method O2 Flow Rate 97.6 F L 73 20 H 148/74 H 92 Nasal Cannula 3 12/31/23 06:00 12/31/23 06:00 12/31/23 06:00 12/31/23 06:00 12/31/23 06:00 12/31/23 06:00 12/31/23 06:00 Oxygen Flow Rate (L/min) 3 Oxygen Delivery Method Nasal Cannula Weight: 141.6 kg Body Mass Index (BMI) 41.1 Intake & Output: Intake and Output for Last 24 Hours 12/29/23 12/30/23 12/31/23 23:59 23:59 23:59 Intake Total 50 / 664.58 614.58 / 614.58 Output Total 0 / 0 0 / 0 Balance 50 / 664.58 614.58 / 614.58 Lab / Micro Data 12/31/23 05:30 12/31/23 05:30 Labs: Laboratory Results - last 24 hr 12/30/23 16:48: WBC 10.2, RBC 4.50 L, Hgb 12.5 L, Hct 40.0, MCV 88.9, MCH 27.8, MCHC 31.3 L, RDW Std Deviation 47.6 H, RDW Coeff of Woo 14.6, Plt Count 362, MPV 10.5, Immature Gran % (Auto) 0.500, Neut % (Auto) 80.0 H, Lymph % (Auto) 9.4 L, [place] % (Auto) 7.7, Eos % (Auto) 2.0, Baso % (Auto) 0.4, Absolute Neuts (auto) 8.2 H, Absolute Lymphs (auto) 0.96, Nucleated RBC % 0 12/30/23 17:37: POC Glucose 75 12/30/23 17:52: Urine Color Straw, Urine Clarity Clear, Urine pH 7.0, Ur Specific [place] 1.010, Urine Protein Negative, Urine Glucose (UA) Normal, Urine Ketones Negative, Urine Occult Blood 10 H, Urine Nitrite Negative, Urine Bilirubin Negative, Urine Urobilinogen Normal, Ur Leukocyte Esterase 100 H, Urine RBC 0 SEEN, Urine WBC 25-50 SEEN, Ur Squamous Epith Cells 0 SEEN, Urine Bacteria 2+, Urine Mucus 0 SEEN 12/30/23 18:46: POC Glucose 79 12/30/23 18:59: Sodium 138, Potassium 2.9 L, Chloride 96 L, Carbon Dioxide 35.0 H, Anion Gap 8, BUN 17, Creatinine 1.25, Estim Creat Clear Calc 72.87, Est GFR (MDRD) Af Amer 72, Est GFR (MDRD) Non-Af 59 L, BUN/Creatinine Ratio 13.6, G lucose 28 L*, Calcium 10.2 H, Total Bilirubin 0.50, AST 28, ALT 22, Alkaline Phosphatase 63, Total Protein 8.5 H, Albumin 3.7, Globulin 4.8 H, A lbumin/Globulin Ratio 0.8 L, Lipase 23 12/30/23 19:38: Magnesium 1.4 L 12/30/23 22:27: POC Glucose 127 H 12/30/23 23:30: POC Glucose 144 H 12/31/23 01:02: POC Glucose 160 H 12/31/23 02:11: POC Glucose 178 H 12/31/23 03:08: POC Glucose 155 H 12/31/23 05:03: POC Glucose 149 H 12/31/23 05:30: WBC 10.5, RBC 4.18 L, Hgb 11.4 L, Hct 38.1 L, MCV 91.1, MCH 27.3, MCHC 29.9 L, RDW Std Deviation 48.4 H, RDW Coeff of Woo 14.4, Plt Count 303, MPV 10.0, Immature Gran % (Auto) 0.400, Neut % (Auto) 80.1 H, Lymph % (Auto) 8.4 L, [place] % (Auto) 9.3, Eos % (Auto) 1.4, Baso % (Auto) 0.4, Absolute Neuts (auto) 8.4 H, Absolute Lymphs (auto) 0.89, Nucleated RBC % 0, Sodium 138, Potassium 4.0, Chloride 97 L, Carbon Dioxide 41.0 H, Anion Gap -1 L, BUN 14, Creatinine 1.16, Estim Creat Clear Calc 77.63, Est GFR (MDRD) Af Amer 78, Est GFR (MDRD) Non-Af 65, BUN/Creatinine Ratio 12.1, Glucose 165 H, Calcium 8.9, Total Bilirubin 0.40, AST 18, ALT 18, Alkaline Phosphatase 50, Total Protein 7.0, Albumin 3.0 L, Globulin 4.0, Albumin/Globulin Ratio 0.8 L Physical Exam Narrative GENERAL: cooperative HEENT: Atraumatic; normocephalic EYES; Anicteric, Normal Conjunctiva NECK; supple, normal thyroid, RESPIRATORY: Diminished to auscultation CARDIOVASCULAR: Regular S1 S2, GI: soft, normoactive bowel sounds, : No Renal angle tenderness; EXTREMITIES: No edema, no clubbing, MUSCULOSKELETAL: no muscle wasting NEURO: Awake; no lateralizing signs. SKIN: No Rash PSYCH; Flat affect Assessment & Plan Assessment/Plan (1) Encephalopathy acute: PLAN: Plan A 78-year-old gentleman with multiple comorbidities was brought to pain with decreased level of sensorium. Patient was apparently found to be hypoglycemic as well as hypoxic. Workup did reveal acute cystitis admitted for subsequent inpatient management 1. Acute metabolic encephalopathy ? Secondary to combination of cystitis as well as hypoglycemia admitted to the intensive care unit with treatment of the underlying clinical condition 2. Acute cystitis ? Patient started on broad-spectrum antibiotic therapy with ceftriaxone cultures sent we will follow-up on result 3. Hypoglycemia ? Patient with known diabetes mellitus type 2 on long-acting insulin. Patient antihyperglycemic agents were held treated with dextrose subsequent monitoring of blood glucose levels ordered 4. Acute on chronic hypoxic respiratory failure ? Patient was reported to be hypoxic on his home oxygen at 50%. Has underlying history of restrictive lung disease and is on baseline home oxygen 3 L at rest consistent use encouraged 5. Hypokalemia ? Corrected per protocol ordered repeat potassium levels for follow-up. Also did order magnesium levels 6. Hypertension ? Blood pressure controlled, home medications continued with dose adjustment as needed 7. Dyslipidemia ?Patient is on statin as well as fibrate therapy, continued at home dose 8. Vitamin B12 deficiency ? Patient is on cyanocobalamin q. monthly 9. Class III obesity with BMI of 41.2 ? Complicating care weight loss advised 10. Dementia ? Patient is on donepezil continue 11. GERD ? On PPI 12. DVT prophylaxis ? On enoxaparin Time spent in the patient's overall evaluation,decision-making process, review of diagnostic data, adjustment of management, discussion with other providers, nursing nursing and ancillary staff involved in patient's care documentation, 52 Minutes Charges/Coding Visit Charges Inpatient E&M: 55152 Subs Hosp L3
[2023-12-31] MEDS: Potassium Chloride 40 MEQ in Dext 5%-0.45% NS 1,000 ML 100 MEQ IV ×2 (08:08→15:00)
[2023-12-31] MEDS: Verapamil SR 180 MG CAPSULE PO (08:09)
[2023-12-31] MEDS: Fenofibrate 145 MG Tablet PO (08:09)
[2023-12-31] MEDS: Aspirin E.C. 81 MG Tablet PO (08:10)
[2023-12-31] MEDS: Ezetimibe 10 MG Tablet PO (08:10)
[2023-12-31] MEDS: Lisinopril 20 MG Tablet PO (08:11)
[2023-12-31] MEDS: Citalopram 20 MG Tablet PO (08:11)
[2023-12-31] MEDS: Potassium Chloride Oral Tablet 20 MEQ PO (08:11)
[2023-12-31] MEDS: Tolterodine Tartrate 4 MG CAP.SA PO (08:11)
[2023-12-31] MEDS: Furosemide 40 MG Tablet PO (08:12)
[2023-12-31] MEDS: Pantoprazole Sodium 20 MG Tablet PO (08:12)
[2023-12-31] MEDS: Timolol 0.5% 5ML OPTH.BTL 1 DRP OPHTHALMIC ×2 (08:13→21:15)
[2023-12-31] MEDS: Enoxaparin 40 MG/0.4 ML Syringe SC ×2 (08:13→21:14)
[2023-12-31 08:39] LABS: Hemoglobin A1c 5.8 % (3.8-5.6)
[2023-12-31] MEDS: Budesonide Respules 0.5 MG/2 ML AMPUL.NEB. INHALATION ×2 (09:40→19:25)
--- NOTE | 2023-12-31 09:47 | CASEMGMT ---
SHEBA FAJARDO Assessment Face to Face with patient for initial transition planning/care coordination assessment. SHEBA FAJARDO introduced self and role at [facility], pt voices understanding. Pt is A&Ox4 and is resting comfortably in bed and is calm. Care providers, pharmacy, and demographics verified. Admitting dx: Hypoglycemia, UTI, Hypokalemia LACE Strata: 3 PCP: Kike Barroso Specialists: Arthur (Neuro), (Endo), [facility] Preferred Pharmacy: [facility] Insurance: [facility] A/B, [employer] Prescription Benefit: Yes LNOK: Edwina Mccormack (W), Ga Bridger (Padmaja) Living Arrangements: Pt lives with his in a 2 story home with 2 steps to enter with handrails throughout ADLs/IADLs: Pt states that he is independent Transportation: Self, DME: Pt states that he has a working glucometer and sufficient supplies to help manage the DM. Pt also wears home oxygen through [employer]. Ann from [employer] confirms the pt current order states 3LPM Cont. Pt wears a CPAP at . Pt has a concentrator and a pulse ox. Pt states that he has portable tanks at home but none with him currently. States that his can bring one in at time of DC. Pt also has a FWW and grab bars in the home. HHC/SNF: Denies history or needs Pt?s goal: Home Plan: Home with pt and CCN. This RN CM discussed HHC, OP Tx, and CCN with the pt. Pt denies Skilled HHC and OP Tx but is willing to try CCN. Referral placed. Follow for increased oxygen needs. PT is pending. Pt denies further concerns at this time. CM to follow. Pete Suarez RN, CM
[2023-12-31] MEDS: FLU VACCINE **HIGH DOSE** TV 24-25 180 MCG/0.5 ML SYRINGE IM (09:48)
[2023-12-31] MEDS: Magnesium Chloride 64 MG Delay Rel.Tablet 128 MG PO ×2 (10:33→21:14)
[2023-12-31] MEDS: Magnesium Sulfate 2 GM in Dextrose 5%-Water (100mL Bag) 100 ML IV (11:34)
[2023-12-31 11:50] LABS: Bedside Glucose 194 mg/dL (74-106)
--- NOTE | 2023-12-31 12:38 | CHAPLAIN ---
Type of Pastoral Visit _x__ Initial Visit ___ Follow-up Visit ___ On-call Visit ___ General Patient Visit ___ Spiritual Assessment ___ Family Conference ___ Bereavement ___ Rapid Response ___ Code Blue ___ Other (describe below) Pastoral Care Referral From _x__ Patient ___ Family ___ Nurse ___ Physician ___ Wine Bottle Inspector ___ Associate Spa Director ___ Other (describe below) Sacrament/Intervention _x__ Active listening ___ Anointing ___ Protestant ___ Bereavement ___ Communion ___ Loli exploration ___ ___ Life review _x__ Prayer ___ Reconciliation ___ Sacrament of Sick ___ Supportive presence ___ Wedding ___ Other (describe below) Pastoral Comments patient states that he is feeling better and will be moved to [facility] [place]; pt gives some life background information and casual conversation continues; pt is not concerned or worried per his responses to questions; prayer is welcomed
[2023-12-31] MEDS: Atorvastatin Calcium 80 MG Tablet PO (21:14)
[2023-12-31] MEDS: Donepezil HCl 10 MG Tablet PO (21:14)
[2023-12-31] MEDS: Amitriptyline 25 MG Tablet PO (21:16)
[2023-12-31] MEDS: Ceftriaxone 1 GM/50 ML BAG IV (21:30)
[2024-01-01] VITALS (9 sets, daily range): BP systolic 138–147; BP diastolic 72–75; PULSE 64–76; RESP 16–18; TEMP 36.4–36.6; O2SAT 96–100; BMI 41.3
[2024-01-01 00:50] LABS: Bedside Glucose 233 mg/dL (74-106)
--- NOTE | 2024-01-01 02:33 | PCM.HOSP.N ---
Hospitalist Note Patient with notable fluid intake w/ now corrected BS, will d/c D5 and continue to monitor.
[2024-01-01 04:18] LABS: Bedside Glucose 218 mg/dL (74-106)
[2024-01-01 06:19] LABS: Absolute Lymphocyte Count 1.23 X10^3/uL (0.83-4.51); Absolute Neutrophil Count 6.4 X10^3/uL (2.0-7.7); Basophil# 0.04 X10^3/uL; Basophil% 0.4 % (0-1); Eosinophil# 0.27 X10^3/uL; Eosinophils% 2.9 % (0-5); Hematocrit 39.4 % (40-54); Hemoglobin 11.7 g/dL (13.0-16.5); Lymphocyte # 1.23 X10^3/ul (0.83-4.51); Lymphocyte % 13.1 % (19-41); Mean Corp Hgb Conc 29.7 g/dL (32-36); Mean Corpuscular Hgb 27.2 pg (27.0-32.0); Mean Corpuscular Volume 91.6 fL (80-94); Mean Platelet Vol. 10.7 fl (6.2-12.0); Monocyte# 1.44 X10^3/uL; Monocyte% 15.3 % (0-10); NRBC Flagged by Analyzer 0 % (0-5); Neutrophil # 6.41 X10^3/uL (2.7-7.7); Platelet Count 280 K/mm3 (150-450); RBC Distribution Width CV 14.7 % (11.6-14.6); RBC Distribution Width SD 49.5 fl (35.1-43.9); White Blood Count 9.4 K/mm3 (4.4-11.0)
[2024-01-01] MEDS: hydrOXYzine PAM 25 MG Capsule PO ×3 (06:39→21:18)
[2024-01-01 06:54] LABS: Anion Gap 2 (5-15); BUN 13 mg/dL (7-18); BUN/Creat Ratio 10.4 RATIO (10-20); Calcium,Total 9.4 mg/dL (8.5-10.1); Chloride 99 mmol/L (98-107); Creatinine, Serum 1.25 mg/dL (0.70-1.30); EST Glomerular Filtration Rate 59 mL/min (>60); Est Glom Filt Rate - Afr Amer 72 mL/min (>60); Estimated Creatinine Clearance 72.04 ml/min; Glucose 206 mg/dL (74-106); Magnesium 1.8 mg/dL (1.6-2.6); Phosphorus 2.1 mg/dL (2.5-4.9); Potassium 4.1 mmol/L (3.5-5.1); Sodium Level 137 mmol/L (136-145)
[2024-01-01 06:59] LABS: Bedside Glucose 171 mg/dL (74-106)
--- NOTE | 2024-01-01 07:20 | PCM.PN.HOSP ---
Reason for Visit Reason for Visit: Diagnoses Encephalopathy, unspecified (12/30/23) Subjective Subjective Patient seen appears dyspneic at rest. With oxygen saturation in the mid 70s was participating in physical therapy. Ordered checks x-ray for subsequent eval Objective Data Objective Data Vital Signs: Vital Signs Temp Pulse Resp BP Pulse Ox O2 Del Method O2 Flow Rate 98 F 68 18 138/72 H 96 Nasal Cannula 3 01/01/24 03:26 01/01/24 03:26 01/01/24 03:26 01/01/24 03:26 01/01/24 03:26 01/01/24 03:26 01/01/24 03:26 Oxygen Flow Rate (L/min) 3 Oxygen Delivery Method Nasal Cannula Weight: 141.6 kg Body Mass Index (BMI) 41.3 Intake & Output: Intake and Output for Last 24 Hours 12/30/23 12/31/23 01/01/24 23:59 23:59 23:59 Intake Total 50 / 664.58 2966.92 / 2966.92 1620 / 1620 Output Total 0 / 0 0 / 0 700 / 700 Balance 50 / 664.58 2966.92 / 2966.92 920 / 920 Lab / Micro Data 01/01/24 05:35 01/01/24 05:35 Labs: Laboratory Results - last 24 hr 12/31/23 05:30: Hemoglobin A1c 5.8 H 12/31/23 11:31: POC Glucose 194 H 12/31/23 18:17: POC Glucose 218 H 01/01/24 00:25: POC Glucose 233 H 01/01/24 05:35: WBC 9.4, RBC 4.30 L, Hgb 11.7 L, Hct 39.4 L, MCV 91.6, MCH 27.2, MCHC 29.7 L, RDW Std Deviation 49.5 H, RDW Coeff of Woo 14.7 H, Plt Count 280, MPV 10.7, Immature Gran % (Auto) 0.300, Neut % (Auto) 68.0, Lymph % (Auto) 13.1 L, [place] % (Auto) 15.3 H, Eos % (Auto) 2.9, Baso % (Auto) 0.4, Absolute Neuts (auto) 6.4, Absolute Lymphs (auto) 1.23, Nucleated RBC % 0, Sodium 137, Potassium 4.1, Chloride 99, Carbon Dioxide 37.0 H, Anion Gap 2 L, BUN 13, Creatinine 1.25, Estim Creat Clear Calc 72.04, Est GFR (MDRD) Af Amer 72, Est GFR (MDRD) Non-Af 59 L, BUN/Creatinine Ratio 10.4, Glucose 206 H, Calcium 9.4, Phosphorus 2.1 L, Magnesium 1.8 01/01/24 06:38: POC Glucose 171 H Physical Exam Narrative GENERAL: cooperative HEENT: Atraumatic; normocephalic EYES; Anicteric, Normal Conjunctiva NECK; supple, normal thyroid, RESPIRATORY: Diminished to auscultation CARDIOVASCULAR: Regular S1 S2, GI: soft, normoactive bowel sounds, : No Renal angle tenderness; EXTREMITIES: No edema, no clubbing, MUSCULOSKELETAL: no muscle wasting NEURO: Awake; no lateralizing signs. SKIN: No Rash PSYCH; Flat affect Assessment & Plan Assessment/Plan (1) Encephalopathy acute: PLAN: Plan A 78-year-old gentleman with multiple comorbidities was brought to pain with decreased level of sensorium. Patient was apparently found to be hypoglycemic as well as hypoxic. Workup did reveal acute cystitis admitted for subsequent inpatient management 1. Acute metabolic encephalopathy ? Secondary to combination of cystitis as well as hypoglycemia admitted to the intensive care unit with treatment of the underlying clinical condition ? 01/01/2024; patient appears to be back to his base 2. Acute cystitis with Klebsiella pneumoniae ? Patient started on broad-spectrum antibiotic therapy with ceftriaxone cultures sent we will follow-up on result ? 01/01/2024 urine cultures came back positive for Klebsiella pneumonia patient remains on appropriate antibiotic 3. Hypoglycemia ? Patient with known diabetes mellitus type 2 on long-acting insulin. Patient antihyperglycemic agents were held treated with dextrose subsequent monitoring of blood glucose levels ordered 4. Acute on chronic hypoxic respiratory failure ? Patient was reported to be hypoxic on his home oxygen at 50%. Has underlying history of restrictive lung disease and is on baseline home oxygen 3 L at rest consistent use encouraged ? 01/01/2024. Patient was found to be significantly hypoxic while participating in physical therapy ordered checks x-ray for subsequent eval do suspect a combination of his restrictive lung disease as well as congestive heart failure. Also ordered proBNP 5. Hypokalemia ? Corrected per protocol ordered repeat potassium levels for follow-up. Also did order magnesium levels 6. Hypertension ? Blood pressure controlled, home medications continued with dose adjustment as needed 7. Dyslipidemia ?Patient is on statin as well as fibrate therapy, continued at home dose 8. Vitamin B12 deficiency ? Patient is on cyanocobalamin q. monthly 9. Class III obesity with BMI of 41.2 ? Complicating care weight loss advised 10. Dementia ? Patient is on donepezil continue 11. GERD ? On PPI 12. DVT prophylaxis ? On enoxaparin Time spent in the patient's overall evaluation,decision-making process, review of diagnostic data, adjustment of management, discussion with other providers, nursing nursing and ancillary staff involved in patient's care documentation, 50 Minutes Charges/Coding Visit Charges Inpatient E&M: 61846 Subs Hosp L3
--- NOTE | 2024-01-01 09:10 | RAD_ITS ---
STUDY: X-RAY CHEST REASON FOR EXAM: Male, 78 years old. dyspnea TECHNIQUE: Frontal and lateral views of the chest. COMPARISON: July 12, 2023 FINDINGS: Elevated right hemidiaphragm. Subsegmental atelectasis right lung base. Left lower lobe airspace disease. The lungs are clear and expanded. There is no demonstrated pleural abnormality. Normal size heart. Normal mediastinum and miguelito. Normal visualized pulmonary arteries. Normal visualized aortic arch and descending thoracic aorta. Normal visualized thoracic spine. Normal visualized ribs, clavicles, and shoulders. There is no demonstrated abnormality of the visualized soft tissue structures of the upper abdomen. RAD/Chest PA and Lateral IMPRESSION: Left lower lobe airspace disease Electronically Signed: Jovani Kemp MD at 16:32 EDT ,
[2024-01-01 09:18] LABS: BNP,B-Type NATRIURETIC PEPTIDE 36.5 pg/mL (0-100)
--- NOTE | 2024-01-01 09:30 | CASEMGMT ---
Addendum entered by Loan Benito 01/01/24 15:24: Social Work SW stopped in to pt's room to speak w/him again about the possibility of going to a SNF. Pt is sleeping, pt's is in the room. SW spoke w/her about pt going somewhere for rehab, explained pt is not moving very well with PT. She does not think pt would be agreeable to going to SNF. We spoke about TCU, she thinks he may be agreeable to this, and will speak w/him about it. SW did explain that there is no guarantee there would be a bed, but SW can make the referral. states understanding. states pt had [facility] before and it was helpful, so this may be an option also if pt is moving a little better. agreeable to referral to TCU, and SW explained will have SW Wednesday to follow up w/pt and to confirm they want TCU, or if pt starts moving better can look into referral for HHC. SW let physician know as well that SW making referral to TCU. SW made referral via email, will follow up on Wednesday. JENNIFER Ortiz Original Note: Social Work SW met w/pt in regard to discharge plan. SW provided to pt a list via [facility] of [facility] facilities in network w/pt's insurance, in pt's preferred geographic area, and complete w/quality and resource use data. SW explained to pt if SNF is needed for rehab, all the facilities take his insurance. Pt would still prefer to go home but acknowledges he is not at his baseline. SW/CM will continue to follow for d/c needs. JENNIFER Ortiz
[2024-01-01] MEDS: Aspirin E.C. 81 MG Tablet PO (10:16)
[2024-01-01] MEDS: Citalopram 20 MG Tablet PO (10:16)
[2024-01-01] MEDS: Potassium Chloride Oral Tablet 20 MEQ PO (10:16)
[2024-01-01] MEDS: Tolterodine Tartrate 4 MG CAP.SA PO (10:16)
[2024-01-01] MEDS: Verapamil SR 180 MG CAPSULE PO (10:16)
[2024-01-01] MEDS: Magnesium Chloride 64 MG Delay Rel.Tablet 128 MG PO ×2 (10:17→21:18)
[2024-01-01] MEDS: Furosemide 40 MG Tablet PO (10:17)
[2024-01-01] MEDS: Enoxaparin 40 MG/0.4 ML Syringe SC ×2 (10:17→21:19)
[2024-01-01] MEDS: Ezetimibe 10 MG Tablet PO (10:18)
[2024-01-01] MEDS: Fenofibrate 145 MG Tablet PO (10:18)
[2024-01-01] MEDS: Pantoprazole Sodium 20 MG Tablet PO (10:18)
[2024-01-01] MEDS: Timolol 0.5% 5ML OPTH.BTL 1 DRP OPHTHALMIC ×2 (10:18→21:17)
[2024-01-01] MEDS: Lisinopril 20 MG Tablet PO (10:18)
[2024-01-01 14:08] LABS: Bedside Glucose 199 mg/dL (74-106)
[2024-01-01 18:42] LABS: Bedside Glucose 235 mg/dL (74-106)
[2024-01-01] MEDS: Budesonide Respules 0.5 MG/2 ML AMPUL.NEB. INHALATION (19:27)
[2024-01-01] MEDS: Ceftriaxone 1 GM/50 ML BAG IV (21:17)
[2024-01-01] MEDS: 0.9% Normal Saline (250mL Bag) 250 ML 15 ML IV (21:17)
[2024-01-01] MEDS: Atorvastatin Calcium 80 MG Tablet PO (21:18)
[2024-01-01] MEDS: Donepezil HCl 10 MG Tablet PO (21:18)
[2024-01-01] MEDS: Amitriptyline 25 MG Tablet PO (21:20)
[2024-01-01 22:35] LABS: Bedside Glucose 210 mg/dL (74-106)
[2024-01-02 03:00] VITALS: BP 142/70; PULSE 68; RESP 16; TEMP 36.9; O2SAT 96
[2024-01-02 06:00] VITALS: BMI 42.4
[2024-01-02 06:09] LABS: Absolute Lymphocyte Count 1.03 X10^3/uL (0.83-4.51); Absolute Neutrophil Count 4.1 X10^3/uL (2.0-7.7); Basophil# 0.04 X10^3/uL; Basophil% 0.6 % (0-1); Eosinophil# 0.35 X10^3/uL; Eosinophils% 5.2 % (0-5); Hematocrit 36.6 % (40-54); Hemoglobin 10.9 g/dL (13.0-16.5); Lymphocyte # 1.03 X10^3/ul (0.83-4.51); Lymphocyte % 15.3 % (19-41); Mean Corp Hgb Conc 29.8 g/dL (32-36); Mean Corpuscular Hgb 27.5 pg (27.0-32.0); Mean Corpuscular Volume 92.4 fL (80-94); Mean Platelet Vol. 10.7 fl (6.2-12.0); Monocyte# 1.21 X10^3/uL; NRBC Flagged by Analyzer 0 % (0-5); Neutrophil # 4.07 X10^3/uL (2.7-7.7); Neutrophil % 60.6 % (47-70); Platelet Count 270 K/mm3 (150-450); RBC Distribution Width CV 14.6 % (11.6-14.6); RBC Distribution Width SD 49.9 fl (35.1-43.9); Red Blood Count 3.96 M/mm3 (4.6-6.2); White Blood Count 6.7 K/mm3 (4.4-11.0)
[2024-01-02 06:27] LABS: Anion Gap 2 (5-15); BUN 15 mg/dL (7-18); BUN/Creat Ratio 13.2 RATIO (10-20); Calcium,Total 9.3 mg/dL (8.5-10.1); Chloride 100 mmol/L (98-107); Creatinine, Serum 1.14 mg/dL (0.70-1.30); EST Glomerular Filtration Rate 66 mL/min (>60); Est Glom Filt Rate - Afr Amer 80 mL/min (>60); Glucose 190 mg/dL (74-106); Potassium 4.2 mmol/L (3.5-5.1); Sodium Level 137 mmol/L (136-145)
[2024-01-02] MEDS: hydrOXYzine PAM 25 MG Capsule PO ×3 (06:27→22:16)
[2024-01-02 07:06] LABS: Bedside Glucose 186 mg/dL (74-106)
--- NOTE | 2024-01-02 07:06 | PN.HOSP_ITS ---
Reason for Visit Reason for Visit: Diagnoses Encephalopathy, unspecified (12/30/23) Subjective Subjective Patient did develop respiratory distress the day prior checks x-ray did not show any infiltrates or CHF. BNP was only 36.5. Patient seen this a.m. appears comfortable at rest participating in physical therapy Objective Data Objective Data Vital Signs: Vital Signs Temp Pulse Resp BP Pulse Ox O2 Del Method O2 Flow Rate 98.4 F 68 16 142/70 H 96 Nasal Cannula 3 01/02/24 03:00 01/02/24 03:00 01/02/24 03:00 01/02/24 03:00 01/02/24 03:00 01/02/24 03:00 01/02/24 03:00 Oxygen Flow Rate (L/min) 3 Oxygen Delivery Method Nasal Cannula Weight: 145.1 kg Body Mass Index (BMI) 42.4 Intake & Output: Intake and Output for Last 24 Hours 12/31/23 01/01/24 01/02/24 23:59 23:59 23:59 Intake Total 2966.92 / 2966.92 1670 / 1670 Output Total 0 / 0 950 / 1450 1000 / 1000 Balance 2966.92 / 2966.92 720 / 220 -1000 / -1000 Lab / Micro Data 01/02/24 05:30 01/02/24 05:30 Labs: Laboratory Results - last 24 hr 01/01/24 05:35: B-Natriuretic Peptide 36.5 01/01/24 13:50: POC Glucose 199 H 01/01/24 18:25: POC Glucose 235 H 01/01/24 21:16: POC Glucose 210 H 01/02/24 05:30: WBC 6.7, RBC 3.96 L, Hgb 10.9 L, Hct 36.6 L, MCV 92.4, MCH 27.5, MCHC 29.8 L, RDW Std Deviation 49.9 H, RDW Coeff of Woo 14.6, Plt Count 270, MPV 10.7, Immature Gran % (Auto) 0.300, Neut % (Auto) 60.6, Lymph % (Auto) 15.3 L, M [place] % (Auto) 18.0 H, Eos % (Auto) 5.2 H, Baso % (Auto) 0.6, Absolute Neuts (auto) 4.1, Absolute Lymphs (auto) 1.03, Nucleated RBC % 0, Sodium 137, Potassium 4.2, Chloride 100, Carbon Dioxide 36.0 H, Anion Gap 2 L, BUN 15, Creatinine 1.14, Estim Creat Clear Calc 79.00, Est GFR (MDRD) Af Amer 80, Est GFR (MDRD) Non-Af 66, BUN/Creatinine Ratio 13.2, Glucose 190 H, Calcium 9.3 Radiography Diagnostic Testing: Radiology Impression Chest X-Ray 01/01/24 09:10 IMPRESSION: Left lower lobe airspace disease Electronically Signed: Jovani Kemp MD at 16:32 EDT Reading Location ID and State: [facility] / [place] Tel , Service support , Physical Exam Narrative GENERAL: cooperative HEENT: Atraumatic; normocephalic EYES; Anicteric, Normal Conjunctiva NECK; supple, normal thyroid, RESPIRATORY: Diminished to auscultation CARDIOVASCULAR: Regular S1 S2, GI: soft, normoactive bowel sounds, : No Renal angle tenderness; EXTREMITIES: No edema, no clubbing, MUSCULOSKELETAL: no muscle wasting NEURO: Awake; no lateralizing signs. SKIN: No Rash PSYCH; Flat affect Assessment & Plan Assessment/Plan (1) Encephalopathy acute: PLAN: Plan A 78-year-old gentleman with multiple comorbidities was brought to pain with decreased level of sensorium. Patient was apparently found to be hypoglycemic as well as hypoxic. Workup did reveal acute cystitis admitted for subsequent inpatient management 1. Acute metabolic encephalopathy ? Secondary to combination of cystitis as well as hypoglycemia admitted to the intensive care unit with treatment of the underlying clinical condition ? 01/01/2024; patient appears to be back to his base 2. Acute cystitis with Klebsiella pneumoniae ? Patient started on broad-spectrum antibiotic therapy with ceftriaxone cultures sent we will follow-up on result ? 01/01/2024 urine cultures came back positive for Klebsiella pneumonia patient remains on appropriate antibiotic 3. Hypoglycemia ? Patient with known diabetes mellitus type 2 on long-acting insulin. Patient antihyperglycemic agents were held treated with dextrose subsequent monitoring of blood glucose levels ordered 4. Acute on chronic hypoxic respiratory failure ? Patient was reported to be hypoxic on his home oxygen at 50%. Has underlying history of restrictive lung disease and is on baseline home oxygen 3 L at rest consistent use encouraged ? 01/01/2024. Patient was found to be significantly hypoxic while participating in physical therapy ordered checks x-ray for subsequent eval do suspect a combination of his restrictive lung disease as well as congestive heart failure. Also ordered proBNP ? 01/02/2024;Patient did develop respiratory distress the day prior checks x-ray did not show any infiltrates or CHF. BNP was only 36.5. Patient respiratory distress secondary to his underlying restrictive lung disease 5. Hypokalemia ? Corrected per protocol ordered repeat potassium levels for follow-up. Also did order magnesium levels 6. Hypertension ? Blood pressure controlled, home medications continued with dose adjustment as needed 7. Dyslipidemia ?Patient is on statin as well as fibrate therapy, continued at home dose 8. Vitamin B12 deficiency ? Patient is on cyanocobalamin q. monthly 9. Class III obesity with BMI of 41.2 ? Complicating care weight loss advised 10. Dementia ? Patient is on donepezil continue 11. GERD ? On PPI 12. DVT prophylaxis ? On enoxaparin 13. Physical deconditioning ? Requested for PT OT eval and protective services social worker to assist with discharge planning. Patient agreeable to being discharged to a fdc facility Time spent in the patient's overall evaluation,decision-making process, review of diagnostic data, adjustment of management, discussion with other providers, nursing nursing and ancillary staff involved in patient's care documentation, 37 Minutes Charges/Coding Visit Charges Inpatient E&M: 78435 Subs Hosp L2
[2024-01-02 09:15] VITALS: BP 144/77; PULSE 78; RESP 16; TEMP 36.4; O2SAT 97
[2024-01-02] MEDS: Enoxaparin 40 MG/0.4 ML Syringe SC ×2 (09:18→22:15)
[2024-01-02] MEDS: Ezetimibe 10 MG Tablet PO (09:18)
[2024-01-02] MEDS: Fenofibrate 145 MG Tablet PO (09:18)
[2024-01-02] MEDS: Magnesium Chloride 64 MG Delay Rel.Tablet 128 MG PO ×2 (09:18→22:16)
[2024-01-02] MEDS: Furosemide 40 MG Tablet PO (09:18)
[2024-01-02] MEDS: Lisinopril 20 MG Tablet PO (09:18)
[2024-01-02] MEDS: Potassium Chloride Oral Tablet 20 MEQ PO (09:18)
[2024-01-02] MEDS: Tolterodine Tartrate 4 MG CAP.SA PO (09:18)
[2024-01-02] MEDS: Timolol 0.5% 5ML OPTH.BTL 1 DRP OPHTHALMIC ×2 (09:19→22:19)
[2024-01-02] MEDS: Pantoprazole Sodium 20 MG Tablet PO (09:19)
[2024-01-02] MEDS: Aspirin E.C. 81 MG Tablet PO (09:19)
[2024-01-02] MEDS: Verapamil SR 180 MG CAPSULE PO (09:19)
[2024-01-02] MEDS: Citalopram 20 MG Tablet PO (09:19)
[2024-01-02 12:50] LABS: Bedside Glucose 220 mg/dL (74-106)
[2024-01-02 15:00] VITALS: BP 110/64; PULSE 70; RESP 18; TEMP 36.6; O2SAT 95
[2024-01-02] MEDS: Insulin Lispro 100 UNIT/ML INSULN.PEN 10 UNIT SC (15:26)
[2024-01-02] MEDS: Insulin Lispro 100 UNIT/ML INSULN.PEN SC ×2 (17:44→22:18)
[2024-01-02 18:00] LABS: Bedside Glucose 286 mg/dL (74-106)
[2024-01-02 19:16] VITALS: PULSE 75; RESP 16
[2024-01-02] MEDS: Budesonide Respules 0.5 MG/2 ML AMPUL.NEB. INHALATION (19:16)
[2024-01-02] MEDS: Donepezil HCl 10 MG Tablet PO (22:15)
[2024-01-02] MEDS: Ceftriaxone 1 GM/50 ML BAG IV (22:15)
[2024-01-02] MEDS: Insulin Glargine-YFGN 100 UNIT/ML Pen 20 UNIT SC (22:17)
[2024-01-02] MEDS: Amitriptyline 25 MG Tablet PO (22:17)
[2024-01-02] MEDS: Atorvastatin Calcium 80 MG Tablet PO (22:18)
[2024-01-02 22:30] VITALS: BP 140/63; PULSE 68; RESP 18; TEMP 36.9; O2SAT 95
[2024-01-03 00:32] LABS: Bedside Glucose 235 mg/dL (74-106)
[2024-01-03 04:00] VITALS: BP 116/60; PULSE 71; RESP 18; TEMP 36.4; O2SAT 95
[2024-01-03 06:00] VITALS: BMI 42.5
[2024-01-03] MEDS: hydrOXYzine PAM 25 MG Capsule PO ×2 (06:09→13:51)
[2024-01-03 06:27] LABS: Bedside Glucose 131 mg/dL (74-106)
[2024-01-03 07:14] LABS: Absolute Lymphocyte Count 1.13 X10^3/uL (0.83-4.51); Absolute Neutrophil Count 3.3 X10^3/uL (2.0-7.7); Basophil# 0.03 X10^3/uL; Basophil% 0.6 % (0-1); Eosinophil# 0.27 X10^3/uL; Hematocrit 34.3 % (40-54); Hemoglobin 10.4 g/dL (13.0-16.5); Lymphocyte # 1.13 X10^3/ul (0.83-4.51); Lymphocyte % 20.9 % (19-41); Mean Corp Hgb Conc 30.3 g/dL (32-36); Mean Corpuscular Volume 92.2 fL (80-94); Mean Platelet Vol. 10.6 fl (6.2-12.0); Monocyte# 0.62 X10^3/uL; Monocyte% 11.5 % (0-10); NRBC Flagged by Analyzer 0 % (0-5); Neutrophil # 3.34 X10^3/uL (2.7-7.7); Neutrophil % 61.8 % (47-70); Platelet Count 292 K/mm3 (150-450); RBC Distribution Width CV 14.5 % (11.6-14.6); Red Blood Count 3.72 M/mm3 (4.6-6.2); White Blood Count 5.4 K/mm3 (4.4-11.0)
[2024-01-03 07:29] VITALS: PULSE 88; RESP 18; O2SAT 95
[2024-01-03] MEDS: Budesonide Respules 0.5 MG/2 ML AMPUL.NEB. INHALATION ×2 (07:29→19:35)
[2024-01-03 09:30] VITALS: BP 125/66; PULSE 79; RESP 18; TEMP 36.6; O2SAT 95
[2024-01-03] MEDS: Timolol 0.5% 5ML OPTH.BTL 1 DRP OPHTHALMIC ×2 (09:32→22:38)
[2024-01-03] MEDS: Lisinopril 20 MG Tablet PO (09:33)
[2024-01-03] MEDS: Pantoprazole Sodium 20 MG Tablet PO (09:33)
[2024-01-03] MEDS: Fenofibrate 145 MG Tablet PO (09:33)
[2024-01-03] MEDS: Tolterodine Tartrate 4 MG CAP.SA PO (09:33)
[2024-01-03] MEDS: Magnesium Chloride 64 MG Delay Rel.Tablet 128 MG PO ×2 (09:33→22:36)
[2024-01-03] MEDS: Aspirin E.C. 81 MG Tablet PO (09:33)
[2024-01-03] MEDS: Ezetimibe 10 MG Tablet PO (09:33)
[2024-01-03] MEDS: Verapamil SR 180 MG CAPSULE PO (09:33)
[2024-01-03] MEDS: Enoxaparin 40 MG/0.4 ML Syringe SC ×2 (09:33→22:36)
[2024-01-03] MEDS: Potassium Chloride Oral Tablet 20 MEQ PO (09:33)
[2024-01-03] MEDS: Citalopram 20 MG Tablet PO (09:34)
[2024-01-03] MEDS: Furosemide 40 MG Tablet PO (09:34)
[2024-01-03 10:00] LABS: Anion Gap 5 (5-15); BUN 21 mg/dL (7-18); BUN/Creat Ratio 14.9 RATIO (10-20); Calcium,Total 9.7 mg/dL (8.5-10.1); Chloride 100 mmol/L (98-107); Creatinine, Serum 1.41 mg/dL (0.70-1.30); EST Glomerular Filtration Rate 52 mL/min (>60); Est Glom Filt Rate - Afr Amer 62 mL/min (>60); Estimated Creatinine Clearance 64.82 ml/min; Glucose 139 mg/dL (74-106); Potassium 4.4 mmol/L (3.5-5.1); Sodium Level 139 mmol/L (136-145)
--- NOTE | 2024-01-03 11:44 | CASEMGMT ---
Social Work- SW met with pt to advise of TCU declination of referral. Pt has not had PT today, but reported he would be interested in a copy of SNF list previously provided. SW will f/u with pt and following PT today, as it has been discussed that if pt does well with PT, he would like to d/c home. JORDAN Holman
[2024-01-03] MEDS: Insulin Lispro 100 UNIT/ML INSULN.PEN SC ×3 (11:52→22:37)
[2024-01-03 12:17] LABS: Bedside Glucose 166 mg/dL (74-106)
--- NOTE | 2024-01-03 13:24 | VDUE_ITS ---
Reason For Study: LUE SWELLING Left Proximal Left jugular vein is spontaneous, widely patent, phasic, with no intraluminal echogenicity noted. Left subclavian vein is spontaneous, widely patent, phasic, with no intraluminal echogenicity noted. Left Arm Left axillary vein is spontaneous, patent, phasic, competent, compressible and demonstrates augmentation. Left brachial vein is compressible. Left cephalic vein is compressible. Left basilic vein is compressible. IV LINE NOTED IN BASILIC VEIN. Patient Safety Technically difficult study. VL/Venous Duplex US, Unilateral Interpretation Summary Deep veins of the left upper extremity are patent and compressible segmentally. There is no evidence of deep vein thrombosis. Superficial veins of the left upper extremity are patent and compressible segme ntally. There is no evidence of superficial vein thrombosis. Ordering Physician: Carrie Cooley Referring Physician: Kike Barroso Performed By: Tracey Mcfadden, KATHRINE, RVT ???
--- NOTE | 2024-01-03 14:17 | CASEMGMT ---
Social Work- SW met with pt and pt . SW provided a list of SNF providers including quality and resource use data and consistent with the patient?s preferred geographic region, medical needs, and insurance network were provided from the [employer]. [facility] as [facility]. Pt states if PT recommends a SNF, that would be her choice. If PT recommends home with help, pt is agreeable to that as well. PT has not seen pt at this time yet today, so pt agreeable to making SNF referral. DCA advised. JORDAN Holman
--- NOTE | 2024-01-03 14:31 | CASEMGMT ---
Social Work Referral sent to [facility] as requested by patient. Jody David, JOINER, INDEPENDENT LIVING SPECIALIST
[2024-01-03 15:08] VITALS: BP 127/74; PULSE 74; RESP 18; TEMP 36.2; O2SAT 97
[2024-01-03 16:58] LABS: Bedside Glucose 192 mg/dL (74-106)
--- NOTE | 2024-01-03 18:17 | PN.HOSP_ITS ---
Reason for Visit Reason for Visit: Diagnoses Encephalopathy, unspecified (12/30/23) Subjective Subjective Feeling better overall though still has some shortness of breath not quite back to baseline, feels generally weak, also has some left upper extremity swelling Objective Data Objective Data Vital Signs: Vital Signs Temp Pulse Resp BP Pulse Ox O2 Del Method O2 Flow Rate 97.1 F L 74 18 127/74 H 97 Nasal Cannula 3 01/03/24 15:08 01/03/24 15:08 01/03/24 15:08 01/03/24 15:08 01/03/24 15:08 01/03/24 15:08 01/03/24 16:22 Oxygen Flow Rate (L/min) 3 Oxygen Delivery Method Nasal Cannula Weight: 145.5 kg Body Mass Index (BMI) 42.5 Intake & Output: Intake and Output for Last 24 Hours 01/01/24 01/02/24 01/03/24 23:59 23:59 23:59 Intake Total 1670 / 1670 217.75 / 217.75 Output Total 950 / 1450 1825 / 1825 1850 / 1850 Balance 720 / 220 -1607.25 / -1607.25 -1850 / -1850 Lab / Micro Data 01/03/24 06:52 01/03/24 06:52 Labs: Laboratory Results - last 24 hr 01/02/24 22:13: POC Glucose 235 H 01/03/24 06:06: POC Glucose 131 H 01/03/24 06:52: WBC 5.4, RBC 3.72 L, Hgb 10.4 L, Hct 34.3 L, MCV 92.2, MCH 28.0, MCHC 30.3 L, RDW Std Deviation 49.0 H, RDW Coeff of Woo 14.5, Plt Count 292, MPV 10.6, Immature Gran % (Auto) 0.200, Neut % (Auto) 61.8, Lymph % (Auto) 20.9, M shanell % (Auto) 11.5 H, Eos % (Auto) 5.0, Baso % (Auto) 0.6, Absolute Neuts (auto) 3.3, Absolute Lymphs (auto) 1.13, Nucleated RBC % 0, Sodium 139, Potassium 4.4, Chloride 100, Carbon Dioxide 34.0 H, Anion Gap 5, BUN 21 H, Creatinine 1.41 H, Estim Creat Clear Calc 64.82, Est GFR (MDRD) Af Amer 62, Est GFR (MDRD) Non-Af 52 L, BUN/Creatinine Ratio 14.9, Glucose 139 H, Calcium 9.7 01/03/24 11:51: POC Glucose 166 H 01/03/24 16:38: POC Glucose 192 H Micro: Microbiology 12/30/23 19:37 Blood Culture (Wb) - Anticubital Left Blood Culture - Preliminary No growth in 48 hours. Radiography Diagnostic Testing: Radiology Impression Venous Doppler Study 01/03/24 13:24 Interpretation Summary Deep veins of the left upper extremity are patent and compressible segmentally. There is no evidence of deep vein thrombosis. Superficial veins of the left upper extremity are patent and compressible segmentally. There is no evidence of superficial vein thrombosis. Ordering Physician: Carrie Cooley Referring Physician: Kike Barroso Performed By: Tracey Mcfadden, KATHRINE, RVT ??? Physical Exam Narrative General: Alert, oriented, no apparent distress HEENT: Atraumatic, normocephalic Eyes: Anicteric, normal conjunctiva, extraocular movements grossly intact Neck: Supple Respiratory: Diminished at the bases, normal respiratory effort Cardiovascular: Regular rate GI: Soft, nontender, nondistended Extremities: 1+ pitting edema left upper extremity Musculoskeletal: Moving all extremities Neuro: No overt focal neurological deficits Skin: No rashes appreciated Psych: Cooperative Assessment & Plan Assessment/Plan (1) Encephalopathy acute: PLAN: Plan #Acute metabolic encephalopathy ? Secondary to combination of cystitis as well as hypoglycemia admitted to the intensive care unit with treatment of the underlying clinical condition ? 01/01/2024; patient appears to be back to his base -01/02: Patient still somewhat tired but was awake and alert and answering questions appropriately, overall improving with improvement in hypoglycemia and treatment of UTI. Patient remains on Rocephin. Has been quite tired so we will change hydroxyzine to as needed # Generalized weakness and debility -PT/OT -Patient may need placement pending progress # Elevated BUN/creatinine -Patient did have bump in BUN/creatinine though does not meet criteria for BHAVNA -Holding a.m. Lasix and lisinopril #Acute cystitis with Klebsiella pneumoniae ? Patient started on broad-spectrum antibiotic therapy with ceftriaxone cultures sent we will follow-up on result ? 01/01/2024 urine cultures came back positive for Klebsiella pneumonia patient remains on appropriate antibiotic -01/02: Patient improving on Rocephin, continue to monitor closely #Hypoglycemia in setting of known type 2 diabetes mellitus ? Patient with known diabetes mellitus type 2 on long-acting insulin. Patient antihyperglycemic agents were held treated with dextrose subsequent monitoring of blood glucose levels ordered -01/02: Patient on 20 units of insulin glargine with sliding scale and has been fairly well-controlled with this, this is significantly decreased from the 80 units daily with 45 units Premeal he was on at home. Will need to follow closely on discharge for further adjustments and monitoring #Acute on chronic hypoxic respiratory failure ? Patient was reported to be hypoxic on his home oxygen at 50%. Has underlying history of restrictive lung disease and is on baseline home oxygen 3 L at rest consistent use encouraged ? 01/01/2024. Patient was found to be significantly hypoxic while participating in physical therapy ordered checks x-ray for subsequent eval do suspect a combination of his restrictive lung disease as well as congestive heart failure. Also ordered proBNP ? 01/02/2024;Patient did develop respiratory distress the day prior checks x-ray did not show any infiltrates or CHF. BNP was only 36.5. Patient respiratory distress secondary to his underlying restrictive lung disease -01/02: Patient 97% on 3 L nasal cannula today, he reports he is beginning to feel better overall. Respiratory status stable at this time #Morbid obesity -BMI documented as 42.3 kg/m? at time of admission -Complicates treatment, prognosis, outcomes -Recommend weight loss and lifestyle changes #GERD -Continue PPI #DVT ppx: Lovenox subcu Carrie Cooley MD Time spent in the patient's overall evaluation,decision-making process, review of diagnostic data, adjustment of management, discussion with other providers, nursing nursing and ancillary staff involved in patient's care documentation, 36 Minutes Charges/Coding Visit Charges Inpatient E&M: 37720 Subs Hosp L2
[2024-01-03 19:35] VITALS: PULSE 75; RESP 16
[2024-01-03 22:00] VITALS: BP 142/73; PULSE 80; RESP 18; TEMP 37.3; O2SAT 96
[2024-01-03] MEDS: Atorvastatin Calcium 80 MG Tablet PO (22:36)
[2024-01-03] MEDS: Amitriptyline 25 MG Tablet PO (22:36)
[2024-01-03] MEDS: Insulin Glargine-YFGN 100 UNIT/ML Pen 20 UNIT SC (22:37)
[2024-01-03] MEDS: Donepezil HCl 10 MG Tablet PO (22:38)
[2024-01-03] MEDS: Ceftriaxone 1 GM/50 ML BAG IV (22:44)
[2024-01-03 23:03] LABS: Bedside Glucose 191 mg/dL (74-106)
[2024-01-04] VITALS (10 sets, daily range): BP systolic 124–160; BP diastolic 57–74; PULSE 76–88; RESP 14–20; TEMP 36.8–37.2; O2SAT 88–98; BMI 42.5
[2024-01-04 06:39] LABS: Bedside Glucose 110 mg/dL (74-106)
[2024-01-04 07:00] LABS: Absolute Neutrophil Count 3.6 X10^3/uL (2.0-7.7); Basophil# 0.05 X10^3/uL; Basophil% 0.8 % (0-1); Eosinophil# 0.28 X10^3/uL; Eosinophils% 4.7 % (0-5); Hematocrit 33.9 % (40-54); Hemoglobin 10.2 g/dL (13.0-16.5); Lymphocyte % 21.7 % (19-41); Mean Corp Hgb Conc 30.1 g/dL (32-36); Mean Corpuscular Hgb 27.1 pg (27.0-32.0); Mean Corpuscular Volume 90.2 fL (80-94); Mean Platelet Vol. 10.3 fl (6.2-12.0); Monocyte# 0.69 X10^3/uL; Monocyte% 11.5 % (0-10); NRBC Flagged by Analyzer 0 % (0-5); Neutrophil # 3.64 X10^3/uL (2.7-7.7); Platelet Count 310 K/mm3 (150-450); RBC Distribution Width CV 14.2 % (11.6-14.6); RBC Distribution Width SD 47.2 fl (35.1-43.9); Red Blood Count 3.76 M/mm3 (4.6-6.2)
[2024-01-04 08:12] LABS: Anion Gap 5 (5-15); BUN 19 mg/dL (7-18); BUN/Creat Ratio 15.3 RATIO (10-20); Calcium,Total 9.9 mg/dL (8.5-10.1); Chloride 100 mmol/L (98-107); Creatinine, Serum 1.24 mg/dL (0.70-1.30); EST Glomerular Filtration Rate 60 mL/min (>60); Est Glom Filt Rate - Afr Amer 72 mL/min (>60); Estimated Creatinine Clearance 73.71 ml/min; Glucose 112 mg/dL (74-106); Sodium Level 141 mmol/L (136-145)
[2024-01-04] MEDS: Aspirin E.C. 81 MG Tablet PO (08:37)
[2024-01-04] MEDS: Pantoprazole Sodium 20 MG Tablet PO (10:00)
[2024-01-04] MEDS: Magnesium Chloride 64 MG Delay Rel.Tablet 128 MG PO ×2 (10:00→21:30)
[2024-01-04] MEDS: Citalopram 20 MG Tablet PO (10:00)
[2024-01-04] MEDS: Verapamil SR 180 MG CAPSULE PO (10:00)
[2024-01-04] MEDS: Ezetimibe 10 MG Tablet PO (10:00)
[2024-01-04] MEDS: Enoxaparin 40 MG/0.4 ML Syringe SC ×2 (10:01→21:29)
[2024-01-04] MEDS: Potassium Chloride Oral Tablet 20 MEQ PO (10:01)
[2024-01-04] MEDS: Fenofibrate 145 MG Tablet PO (10:02)
[2024-01-04] MEDS: Tolterodine Tartrate 4 MG CAP.SA PO (10:02)
[2024-01-04] MEDS: Timolol 0.5% 5ML OPTH.BTL 1 DRP OPHTHALMIC ×2 (10:02→21:30)
[2024-01-04] MEDS: Insulin Lispro 100 UNIT/ML INSULN.PEN SC (11:40)
[2024-01-04 12:01] LABS: Bedside Glucose 173 mg/dL (74-106)
--- NOTE | 2024-01-04 12:19 | CASEMGMT ---
Addendum entered by Stacy Hernandez 01/04/24 14:16: Bed available today. He will be in bed 231. SW updated. Stacy Hernandez DC Planning Asst. Original Note: [facility]charge [facility]. They are to call back with bed availability. SW updated. Stacy Hernandez DC Planning Asst.
--- NOTE | 2024-01-04 14:25 | CASEMGMT ---
Addendum entered by Erna Lopez 01/04/24 16:20: Physician ordered additional medication for this evening d/t difficulty with movements to EOB; pt will not d/c today. Pt and pt express that they will want d/c to [facility] when medically ready. DCA advised. JORDAN Holman Original Note: Social Work- SW met with pt and pt spouse to advise of [facility] acceptance. Pt and state that they discussed it last night and they decided they do not want placement and would like [facility] and d/c home. SW collaborated with physician. Pt to have oxygen test completed then SW will follow up. JORDAN Holman
--- NOTE | 2024-01-04 14:45 | CASEMGMT ---
Addendum entered by Katy Sweet 01/04/24 15:20: Notified Ruchi at [facility] to cancel referral. Original Note: RN SCOTTY notified by that pt wants to go home with [facility] and wants [facility] as he has had in the past. TC to intake, left with referral for SN, PT and OT. Will await returned call for decision to accept.
--- NOTE | 2024-01-04 14:52 | CASEMGMT ---
Discharge Planning Pt has decided to return home. Referral cancelled with [facility]. Stacy Hernandez DC Planning Asst.
[2024-01-04] MEDS: Furosemide 40 MG/4 ML Vial IV (15:48)
[2024-01-04] MEDS: 0.9% Saline Lock 10 ML Syringe IV (15:48)
--- NOTE | 2024-01-04 16:18 | PCM.PN.HOSP ---
Reason for Visit Reason for Visit: Diagnoses Encephalopathy, unspecified (12/30/23) Subjective Subjective Patient overall had been feeling better throughout the day, initially planned to go to SNF and then thought he might want to go home so walk test was to be performed but he became short of breath when trying to sit up on side of bed and required O2 to be turned up. Not coughing, overall has been feeling better and has intermittently had these episodes, patient quite deconditioned. Patient and do want him to be placed and acknowledge the extra assistance he will need upon discharge Objective Data Objective Data Vital Signs: Vital Signs Temp Pulse Resp BP Pulse Ox O2 Del Method O2 Flow Rate 98.7 F 83 14 152/73 H 94 Nasal Cannula 4 01/04/24 14:37 01/04/24 14:37 01/04/24 14:37 01/04/24 14:37 01/04/24 15:47 01/04/24 15:51 01/04/24 15:51 Oxygen Flow Rate (L/min) [ 5 AMBULATING with Oxygen #3] Oxygen Flow Rate (L/min) [ 4 AMBULATING with Oxygen #2] Oxygen Flow Rate (L/min) [ 3 AMBULATING with Oxygen #1] Oxygen Flow Rate (L/min) [At 3 REST with Oxygen] Oxygen Flow Rate (L/min) 4 Oxygen Delivery Method Nasal Cannula Weight: 145.5 kg Body Mass Index (BMI) 42.5 Intake & Output: Intake and Output for Last 24 Hours 01/02/24 01/03/24 01/04/24 23:59 23:59 23:59 Intake Total 217.75 / 217.75 50 / 50 400 / 400 Output Total 1825 / 1825 3150 / 3150 750 / 750 Balance -1607.25 / -1607.25 -3100 / -3100 -350 / -350 Lab / Micro Data 01/04/24 06:44 01/04/24 06:44 Labs: Laboratory Results - last 24 hr 01/03/24 16:38: POC Glucose 192 H 01/03/24 22:33: POC Glucose 191 H 01/04/24 06:17: POC Glucose 110 H 01/04/24 06:44: WBC 6.0, RBC 3.76 L, Hgb 10.2 L, Hct 33.9 L, MCV 90.2, MCH 27.1, MCHC 30.1 L, RDW Std Deviation 47.2 H, RDW Coeff of Woo 14.2, Plt Count 310, MPV 10.3, Immature Gran % (Auto) 0.300, Neut % (Auto) 61.0, Lymph % (Auto) 21.7, Kings % (Auto) 11.5 H, Eos % (Auto) 4.7, Baso % (Auto) 0.8, Absolute Neuts (auto) 3.6, Absolute Lymphs (auto) 1.30, Nucleated RBC % 0, Sodium 141, Potassium 4.0, Chloride 100, Carbon Dioxide 36.0 H, Anion Gap 5, BUN 19 H, Creatinine 1.24, Estim Creat Clear Calc 73.71, Est GFR (MDRD) Af Amer 72, Est GFR (MDRD) Non-Af 60, BUN/Creatinine Ratio 15.3, Glucose 112 H, Calcium 9.9 01/04/24 11:40: POC Glucose 173 H Micro: Microbiology 12/30/23 19:37 Blood Culture (Wb) - Anticubital Left Blood Culture - Preliminary No growth in 48 hours. Radiography Diagnostic Testing: Radiology Impression Venous Doppler Study 01/03/24 13:24 Interpretation Summary Deep veins of the left upper extremity are patent and compressible segmentally. There is no evidence of deep vein thrombosis. Superficial veins of the left upper extremity are patent and compressible segmentally. There is no evidence of superficial vein thrombosis. Ordering Physician: Carrie Cooley Referring Physician: Kiek Barroso Performed By: Tracey Mcfadden, KATHRINE, RVT ??? Physical Exam Narrative Initial exam this a.m.: General: Alert, oriented, no apparent distress HEENT: Atraumatic, normocephalic Eyes: Anicteric, normal conjunctiva, extraocular movements grossly intact Neck: Supple Respiratory: Diminished at the bases, normal respiratory effort Cardiovascular: Regular rate GI: Soft, nontender, nondistended Extremities: Trace pitting edema left upper extremity Musculoskeletal: Moving all extremities Neuro: No overt focal neurological deficits Skin: No rashes appreciated Psych: Cooperative When reevaluated in the evening patient sat up to side of bed, did have some increased respiratory effort but was returning to normal without position change while I was in the room. Lungs still diminished at the bases but no rhonchi or wheezes, no coughing, does not appear to have increase in his lower extremity swelling Assessment & Plan Assessment/Plan (1) Encephalopathy acute: PLAN: Plan #Acute on chronic hypoxic respiratory failure ? Patient was reported to be hypoxic on his home oxygen at 50%. Has underlying history of restrictive lung disease and is on baseline home oxygen 3 L at rest consistent use encouraged ? 01/01/2024. Patient was found to be significantly hypoxic while participating in physical therapy ordered checks x-ray for subsequent eval do suspect a combination of his restrictive lung disease as well as congestive heart failure. Also ordered proBNP ? 01/02/2024;Patient did develop respiratory distress the day prior checks x-ray did not show any infiltrates or CHF. BNP was only 36.5. Patient respiratory distress secondary to his underlying restrictive lung disease -01/02: Patient 97% on 3 L nasal cannula today, he reports he is beginning to feel better overall. Respiratory status stable at this time -01/03:Patient overall had been feeling better today, initially planned to go to SNF and then thought he might want to go home so walk test to his to be performed but he became short of breath when trying to sit up on side of bed and required O2 to be turned up. Does appear he has needed higher O2 on ambulation (PT note noted he needed 5 L on ambulation from yesterday) and suspect that this is multifactorial due to obesity, his chronic heart failure, deconditioning, untreated TARA, restrictive lung disease. dose of Lasix was held this morning due to a bump in creatinine yesterday however kidney function look better today and suspect the other factor going into patient's slightly worsened breathing is the very delicate fluid balance and that missing 1 dose of Lasix may have exacerbated the above. Patient received a dose of IV Lasix. And suspect this will help, if patient doing well in the a.m. after resumption of Lasix suspect he would be stable for transfer. No cough, fever, white blood cell count. Had been at his baseline oxygen but desaturates with movement. Further decreased activity will only worsen deconditioning and respiratory status so will discharge to SNF when medically stable but suspect he will need at least temporary increase in his O2 on ambulation. Of note discussed with patient and he is not on any inhalers and has never been on any inhalers, does follow with pulmonology in outpatient basis. Additionally has sleep apnea and is supposed to use a CPAP but has not used 1 in roughly 5 years. Suspect that that exacerbates patient's already diminished respiratory status #Acute metabolic encephalopathy ? Secondary to combination of cystitis as well as hypoglycemia admitted to the intensive care unit with treatment of the underlying clinical condition ? 01/01/2024; patient appears to be back to his base -01/02: Patient still somewhat tired but was awake and alert and answering questions appropriately, overall improving with improvement in hypoglycemia and treatment of UTI. Patient remains on Rocephin. Has been quite tired so we will change hydroxyzine to as needed -01/03: Seemed to improve by making hydroxyzine as needed # Generalized weakness and debility -PT/OT -Patient may need placement pending progress -01/03: Patient to go to [facility], initially and entertained him going home however they do not feel that they could manage him at home and I agree that I do not think that is a safe discharge plan. #Acute cystitis with Klebsiella pneumoniae ? Patient started on broad-spectrum antibiotic therapy with ceftriaxone cultures sent we will follow-up on result ? 01/01/2024 urine cultures came back positive for Klebsiella pneumonia patient remains on appropriate antibiotic -01/02: Patient improving on Rocephin, continue to monitor closely -01/03: Denied any specific urinary related complaints today #Hypoglycemia in setting of known type 2 diabetes mellitus ? Patient with known diabetes mellitus type 2 on long-acting insulin. Patient antihyperglycemic agents were held treated with dextrose subsequent monitoring of blood glucose levels ordered -01/02: Patient on 20 units of insulin glargine with sliding scale and has been fairly well-controlled with this, this is significantly decreased from the 80 units daily with 45 units Premeal he was on at home. Will need to follow closely on discharge for further adjustments and monitoring -01/03: Fasting glucose 110, will need to follow with his repair supervisor upon discharge Chronic medical problems: #Morbid obesity -BMI documented as 42.3 kg/m? at time of admission -Complicates treatment, prognosis, outcomes -Recommend weight loss and lifestyle changes #GERD -Continue PPI #DVT ppx: Lovenox subcu Carrie Cooley MD Time spent in the patient's overall evaluation,decision-making process, review of diagnostic data, adjustment of management, discussion with other providers, nursing nursing and ancillary staff involved in patient's care documentation, 42 Minutes Charges/Coding Visit Charges Inpatient E&M: 73165 Subs Hosp L2
[2024-01-04 16:19] LABS: Bedside Glucose 146 mg/dL (74-106)
[2024-01-04] MEDS: Budesonide Respules 0.5 MG/2 ML AMPUL.NEB. INHALATION (19:00)
[2024-01-04] MEDS: Insulin Glargine-YFGN 100 UNIT/ML Pen 20 UNIT SC (21:28)
[2024-01-04] MEDS: Amitriptyline 25 MG Tablet PO (21:29)
[2024-01-04] MEDS: Atorvastatin Calcium 80 MG Tablet PO (21:29)
[2024-01-04] MEDS: Donepezil HCl 10 MG Tablet PO (21:29)
[2024-01-04] MEDS: Ceftriaxone 1 GM/50 ML BAG IV (21:35)
[2024-01-04 21:51] LABS: Bedside Glucose 138 mg/dL (74-106)
[2024-01-05] VITALS (7 sets, daily range): BP systolic 125–147; BP diastolic 70–91; PULSE 77–84; RESP 18; TEMP 36.9–37; O2SAT 94–96; BMI 41.6
[2024-01-05 06:33] LABS: Bedside Glucose 126 mg/dL (74-106)
[2024-01-05 07:12] LABS: Anion Gap 1 (5-15); BUN 17 mg/dL (7-18); BUN/Creat Ratio 14.8 RATIO (10-20); Calcium,Total 9.9 mg/dL (8.5-10.1); Chloride 97 mmol/L (98-107); Creatinine, Serum 1.15 mg/dL (0.70-1.30); EST Glomerular Filtration Rate 65 mL/min (>60); Est Glom Filt Rate - Afr Amer 79 mL/min (>60); Estimated Creatinine Clearance 78.61 ml/min; Glucose 121 mg/dL (74-106); Potassium 3.9 mmol/L (3.5-5.1); Sodium Level 136 mmol/L (136-145)
[2024-01-05] MEDS: Budesonide Respules 0.5 MG/2 ML AMPUL.NEB. INHALATION (07:17)
[2024-01-05 07:19] LABS: Absolute Lymphocyte Count 1.16 X10^3/uL (0.83-4.51); Absolute Neutrophil Count 3.2 X10^3/uL (2.0-7.7); Basophil# 0.05 X10^3/uL; Basophil% 0.9 % (0-1); Eosinophil# 0.25 X10^3/uL; Eosinophils% 4.7 % (0-5); Hematocrit 34.7 % (40-54); Hemoglobin 10.6 g/dL (13.0-16.5); Lymphocyte # 1.16 X10^3/ul (0.83-4.51); Lymphocyte % 21.8 % (19-41); Mean Corp Hgb Conc 30.5 g/dL (32-36); Mean Corpuscular Hgb 27.4 pg (27.0-32.0); Mean Corpuscular Volume 89.7 fL (80-94); Mean Platelet Vol. 10.2 fl (6.2-12.0); Monocyte# 0.63 X10^3/uL; Monocyte% 11.9 % (0-10); NRBC Flagged by Analyzer 0 % (0-5); Neutrophil % 60.3 % (47-70); Platelet Count 306 K/mm3 (150-450); RBC Distribution Width CV 14.2 % (11.6-14.6); RBC Distribution Width SD 46.2 fl (35.1-43.9); Red Blood Count 3.87 M/mm3 (4.6-6.2); White Blood Count 5.3 K/mm3 (4.4-11.0)
--- NOTE | 2024-01-05 08:36 | CASEMGMT ---
Discharge Planning [facility] will have a bed available after 4:30 today. Referral office requests to be kept updated on dc status. SW updated. Stacy Hernandez, YEISON Planning Asst.
[2024-01-05] MEDS: Pantoprazole Sodium 20 MG Tablet PO (09:09)
[2024-01-05] MEDS: Ezetimibe 10 MG Tablet PO (09:10)
[2024-01-05] MEDS: Citalopram 20 MG Tablet PO (09:10)
[2024-01-05] MEDS: Potassium Chloride Oral Tablet 20 MEQ PO (09:10)
[2024-01-05] MEDS: Fenofibrate 145 MG Tablet PO (09:10)
[2024-01-05] MEDS: Aspirin E.C. 81 MG Tablet PO (09:10)
[2024-01-05] MEDS: Tolterodine Tartrate 4 MG CAP.SA PO (09:10)
[2024-01-05] MEDS: Enoxaparin 40 MG/0.4 ML Syringe SC (09:10)
[2024-01-05] MEDS: Verapamil SR 180 MG CAPSULE PO (09:10)
[2024-01-05] MEDS: Magnesium Chloride 64 MG Delay Rel.Tablet 128 MG PO (09:10)
[2024-01-05] MEDS: Timolol 0.5% 5ML OPTH.BTL 1 DRP OPHTHALMIC (09:11)
[2024-01-05] MEDS: Furosemide 40 MG Tablet PO (09:16)
[2024-01-05 11:07] LABS: Bedside Glucose 251 mg/dL (74-106)
[2024-01-05] MEDS: Insulin Lispro 100 UNIT/ML INSULN.PEN SC ×2 (11:36→17:09)
[2024-01-05 11:48] LABS: Bedside Glucose 164 mg/dL (74-106)
--- NOTE | 2024-01-05 15:39 | PCM.TXEXTCAR ---
Diet Diet Order/Speech Therapy: 12/30/23 21:49 Diet: Regular - General Food consistency:: Regular Liquid Consistency:: Regular/Thin Routine Orders/Code Status Suppository Type: Dulcolax 10mg Suppository Frequency: Daily PRN O2 Liters per Minute: 3 O2 Frequency: At times needs 5 w/ ambulation Therapies Physical Therapy: Eval and Treat Occupational Therapy: Eval and Treat Problem/Diagnosis (1) Encephalopathy acute: Status: Acute Code(s): G93.40 - Encephalopathy, unspecified Plan #Acute on chronic hypoxic respiratory failure suspect due to holding lasix dose in light of noncompliance with TARA treatment and deconditioning #Acute metabolic encephalopathy secondary to UTI?resolved # Generalized weakness and debility #Acute cystitis with Klebsiella pneumoniae #Hypoglycemia in setting of known type 2 diabetes mellitus #Morbid obesity #GERD 78-year-old male history of morbid obesity, chronic diastolic heart failure, CKD stage IIIb, BPH, chronic respiratory failure, restrictive lung disease, TARA noncompliant with CPAP who presented [facility] ED 12/30/2023 due to altered mental status and was found to have O2 sat of 50% on room air and blood glucose of 54 with recheck of 30. Patient given dextrose and O2 placed and was also found to have a UTI. Mental status improved with treatment of the aforementioned. Urine grew Klebsiella pneumonia and patient was continued on antibiotics and his insulin was adjusted. He is supposed to use 3 L continuous O2 and has TARA but is noncompliant with CPAP. Patient's hospital course was complicated by episode of respiratory distress however patient had no infiltrates or overload on chest x-ray and BNP was only 36.5 and respiratory status stabilized. The day prior to discharge a dose of his Lasix were held due to his slight elevation creatinine (he had received the dose that day and was set to hold the following a.m. dose but creatinine improved independently) and he had decreased exercise tolerance with desaturation just moving the side of bed. He was given IV Lasix and overall improved, home Lasix were continued. On day of discharge patient reports his breathing is much better and he was able to get up to chair without the breathing difficulty he had 1 Lasix dose was held. He had no new or acute complaints. - your insulin has been decreased to 20 units of long-acting insulin as this is what you required in the hospital along with sliding scale insulin, this will likely need further adjustments moving forward -Please follow-up with Your test inspection engineer upon discharge. Please call their office to schedule hospital follow-up appointment upon discharge. -Please follow-up with Pulmonology upon discharge. Please call their office to schedule hospital follow-up appointment upon discharge. - you are being treated for urinary tract infection, he will need to take 1 dose of Augmentin tonight and 2 doses tomorrow to complete your course Allergies/Procedures Done in Hospital Allergies No Known Allergies Allergy (Verified 12/30/23 16:49) Type of Care/Length of Stay Estimated LOS: Convalescent Care Less Than 30 days Type of Care Needed: Skilled Rehab Potential: Fair Prognosis: Fair Additional Orders/Day of Discharge Day of Discharge: 01/05/24 Dietary and Speech Recommendations Dietitian Recommendations/Changes: Will change diet to 2000 kadie Cardiac d/t pmhx Will provide diet education at time of follow if desired by pt. Discharge Plan Admission Admit Date/Time: 12/30/23 20:41 Primary Reason for Your Visit: Mental status changes Attending Provider: Carrie Cooley Primary Care Provider: Kike Barroso Consulting Providers: Yana Calle; Socrates Moise Instructions Patient Instructions: Diabetes and Illness Additional Instructions / Restrictions: DISCHARGE INSTRUCTIONS PLEASE READ *Please take this with you to your next doctors appointment* - your insulin has been decreased to 20 units of long-acting insulin as this is what you required in the hospital along with sliding scale insulin, this will likely need further adjustments moving forward -Please follow-up with Your test inspection engineer upon discharge. Please call their office to schedule hospital follow-up appointment upon discharge. -Please follow-up with Pulmonology upon discharge. Please call their office to schedule hospital follow-up appointment upon discharge. - you are being treated for urinary tract infection, he will need to take 1 dose of Augmentin tonight and 2 doses tomorrow to complete your course -Please call your primary care provider's office upon discharge to schedule a hospital follow up within 1 week. -For any concerning signs or symptoms please call 911 or proceed to the nearest emergency department Discharge Orders/Prescriptions Prescriptions: New amoxicillin-pot clavulanate 875-125 mg tablet 1 tab PO BID Qty: 3 0RF insulin lispro [Humalog KwikPen Insulin] 100 unit/mL Insulin Pen See Protocol subcut ACHS Qty: 0 0RF Protocol: 4. Sliding Scale Insulin High-Med Dosing Condition: 150-199 mg/dl = 2 units Condition: 200-259 mg/dl = 4 units Condition: 260-324 mg/dl = 6 units Condition: 325-374 mg/dl = 8 units Condition: 375-409 mg/dl = 10 units Condition: 410-449 mg/dl = 11 units Condition: Greater than 449 call physician Protocol Text: Suggested for: - Patients on Total Daily Insulin Dose of 56-80 units - Patient who are known to be insulin resistant or septic HIGH MEDIUM DOSING ALGORITHM Continued (DME) Precision Xtra Test Strip See Rx Instructions .Route Qty: 200 3RF Rx Instructions: bid (DME) pen needle, diabetic [BD Ultra-Fine Zenaida Pen Needle] 32 gauge x 5/32 needle See Rx Instructions .ROUTE .MEDSUPPLY Qty: 400 3RF Rx Instructions: 4 times daily donepezil 10 mg tablet 10 mg PO QHS Qty: 30 10RF clotrimazole-betamethasone 1-0.05 % cream 1 applic topical PRN atorvastatin 80 MG tablet 80 mg PO DAILY Patient Comments: cholesterol lowering aspirin 81 MG tablet 81 mg PO DAILY@0800 Patient Comments: blood thinner citalopram 20 MG tablet 20 mg PO DAILY Patient Comments: anti-depressant amitriptyline 25 MG tablet 25 mg PO QHS Patient Comments: anti-depressant fenofibrate nanocrystallized 145 MG tablet 145 mg PO DAILY Patient Comments: cholesterol lowering metformin 500 mg tablet 500 mg PO BID Patient Comments: diabetic med ezetimibe 10 mg tablet 10 mg PO DAILY omeprazole 20 mg capsule,delayed release(DR/EC) 20 mg PO DAILY timolol maleate 0.5 % drops 1 drp ophthalmic (eye) BID Patient Comments: [NO ORIGINAL SIG] oxybutynin chloride 15 mg tablet extended release 24hr 5 mg PO DAILY cyanocobalamin (vitamin B-12) 1,000 mcg/mL solution 100 mcg IM QMONTH (DME) Easy Touch Twist Lancets 32 gauge misc See Rx Instructions .Route Qty: 200 1RF Rx Instructions: bid furosemide [Lasix] 40 mg tablet 40 mg PO DAILY Qty: 90 4RF verapamil 180 mg tablet extended release 180 mg PO DAILY Qty: 30 11RF Changed hydroxyzine pamoate 25 mg capsule 25 mg PO TID PRN (Reason: anxiety) Qty: 90 2RF insulin glargine [Lantus Solostar U-100 Insulin] 100 unit/mL (3 mL) insulin pen 20 unit subcut DAILY Qty: 72 2RF Discontinued insulin aspart U-100 [Novolog FlexPen U-100 Insulin] 100 unit/mL (3 mL) insulin pen 45 unit SC TID Qty: 120 3RF lisinopril-hydrochlorothiazide 20-25 mg tablet 1 tab PO BID potassium chloride 20 mEq tablet extended release 20 meq PO QDAY Referrals / Follow Up: Kike Barroso DO [Primary Care Provider] - Within 1 Week Mathew Cooper MD [Med Staff - Courtesy Staff] - Franchesca Garza NP, SURGEON'S ASSISTANT-C [Med Staff - Adv Practice Prof] - Disposition Disposition (needs filled in before D/C Order can be placed): Longterm Facility
--- NOTE | 2024-01-05 15:49 | PCM.DC.SUM ---
Providers Date of Admission: 12/30/23 Date of Discharge: 01/05/24 Primary Care Physician: Dr. Kike Barroso DO Reason For Visit: HYPOGLYCEMIA RECURRENT UTI HYPOKALEMIA Diagnosis Discharge Diagnosis (1) Encephalopathy acute: Status: Acute Code(s): G93.40 - Encephalopathy, unspecified Plan #Acute on chronic hypoxic respiratory failure suspect due to holding lasix dose in light of noncompliance with TARA treatment and deconditioning #Acute metabolic encephalopathy secondary to UTI?resolved # Generalized weakness and debility #Acute cystitis with Klebsiella pneumoniae #Hypoglycemia in setting of known type 2 diabetes mellitus #Morbid obesity #GERD Medications at Discharge Home Medications amitriptyline 25 mg tablet 25 mg PO QHS 03/24/16 aspirin 81 mg tablet,delayed release 81 mg PO DAILY@0800 03/24/16 atorvastatin 80 mg tablet 80 mg PO DAILY 03/24/16 citalopram 20 mg tablet 20 mg PO DAILY 03/24/16 fenofibrate nanocrystallized 145 mg tablet 145 mg PO DAILY 03/24/16 metformin 500 mg tablet 500 mg PO BID 05/08/19 ezetimibe 10 mg tablet 10 mg PO DAILY 11/07/20 Precision Xtra Test (blood sugar diagnostic) #200 ea 04/15/23 lancets 32 gauge (Easy Touch Twist Lancets) #200 ea 04/16/23 furosemide 40 mg tablet (Lasix) 40 mg PO DAILY #90 tabs 04/26/23 omeprazole 20 mg capsule,delayed release 20 mg PO DAILY 07/12/23 timolol maleate 0.5 % eye drops 1 drp ophthalmic (eye) BID 07/12/23 pen needle, diabetic 32 gauge x 5/32 (BD Ultra-Fine Zenaida Pen Needle) #400 ea 09/03/23 donepezil 10 mg tablet 10 mg PO QHS #30 tabs 10/19/23 clotrimazole-betamethasone 1 %-0.05 % topical cream 1 applic topical PRN 11/19/23 oxybutynin chloride 15 mg tablet,extended release 24 hr 5 mg PO DAILY 11/19/23 verapamil 180 mg tablet,extended release 180 mg PO DAILY #30 tabs 12/27/23 cyanocobalamin (vitamin B-12) 1,000 mcg/mL injection solution 100 mcg IM QMONTH 12/30/23 Lantus Solostar U-100 Insulin 100 unit/mL (3 mL) subcutaneous pen (insulin glargine) 20 unit (0.2 mL) subcut DAILY #72 mL 01/05/24 amoxicillin 875 mg-potassium clavulanate 125 mg tablet 1 tab PO BID #3 tabs 01/05/24 hydroxyzine pamoate 25 mg capsule 25 mg PO TID PRN anxiety #90 caps 01/05/24 insulin lispro 100 unit/mL subcutaneous pen (Humalog KwikPen (U-100) Insulin) See Protocol subcut ACHS #0 mL 01/05/24 Hospital Course Summary of Care Provided Minutes Spent on Discharge: 33 Hospital Course: 78-year-old male history of morbid obesity, chronic diastolic heart failure, CKD stage IIIb, BPH, chronic respiratory failure, restrictive lung disease, TARA noncompliant with CPAP who presented [facility] ED 12/30/2023 due to altered mental status and was found to have O2 sat of 50% on room air and blood glucose of 54 with recheck of 30. Patient given dextrose and O2 placed and was also found to have a UTI. Mental status improved with treatment of the aforementioned. Urine grew Klebsiella pneumonia and patient was continued on antibiotics and his insulin was adjusted. He is supposed to use 3 L continuous O2 and has TARA but is noncompliant with CPAP. Patient's hospital course was complicated by episode of respiratory distress however patient had no infiltrates or overload on chest x-ray and BNP was only 36.5 and respiratory status stabilized. The day prior to discharge a dose of his Lasix were held due to his slight elevation creatinine (he had received the dose that day and was set to hold the following a.m. dose but creatinine improved independently) and he had decreased exercise tolerance with desaturation just moving the side of bed. He was given IV Lasix and overall improved, home Lasix were continued. On day of discharge patient reports his breathing is much better and he was able to get up to chair without the breathing difficulty he had 1 Lasix dose was held. He had no new or acute complaints. - your insulin has been decreased to 20 units of long-acting insulin as this is what you required in the hospital along with sliding scale insulin, this will likely need further adjustments moving forward -Please follow-up with Your security system engineer upon discharge. Please call their office to schedule hospital follow-up appointment upon discharge. -Please follow-up with Pulmonology upon discharge. Please call their office to schedule hospital follow-up appointment upon discharge. - you are being treated for urinary tract infection, he will need to take 1 dose of Augmentin tonight and 2 doses tomorrow to complete your course Physical Exam Narrative General: Alert, oriented, no apparent distress HEENT: Atraumatic, normocephalic Eyes: Anicteric, normal conjunctiva, extraocular movements grossly intact Neck: Supple Respiratory: Diminished at the bases, improved respiratory effort, no respiratory effort or respiratory distress Cardiovascular: Regular rate GI: Soft, nontender, nondistended Musculoskeletal: Moving all extremities Neuro: No overt focal neurological deficits Skin: No rashes appreciated Psych: Cooperative Weight / BMI Weight Weight: 142.6 kg Body Mass Index (BMI) 41.6 ABG / Lab / Microbiology Data 01/05/24 06:40 01/05/24 06:40 Laboratory: Laboratory Results - last 24 hr 12/30/23 16:43: POC Glucose 251 H 01/04/24 16:00: POC Glucose 146 H 01/04/24 21:27: POC Glucose 138 H 01/05/24 06:15: POC Glucose 126 H 01/05/24 06:40: WBC 5.3, RBC 3.87 L, Hgb 10.6 L, Hct 34.7 L, MCV 89.7, MCH 27.4, MCHC 30.5 L, RDW Std Deviation 46.2 H, RDW Coeff of Woo 14.2, Plt Count 306, MPV 10.2, Immature Gran % (Auto) 0.400, Neut % (Auto) 60.3, Lymph % (Auto) 21.8, [place] % (Auto) 11.9 H, Eos % (Auto) 4.7, Baso % (Auto) 0.9, Absolute Neuts (auto) 3.2, Absolute Lymphs (auto) 1.16, Nucleated RBC % 0, Sodium 136, Potassium 3.9, Chloride 97 L, Carbon Dioxide 39.0 H, Anion Gap 1 L, BUN 17, Creatinine 1.15, Estim Creat Clear Calc 78.61, Est GFR (MDRD) Af Amer 79, Est GFR (MDRD) Non-Af 65, BUN/Creatinine Ratio 14.8, Glucose 121 H, Calcium 9.9 01/05/24 11:29: POC Glucose 164 H Microbiology: Microbiology 12/30/23 19:37 Blood Culture (Wb) - Anticubital Left Blood Culture - Final No growth in 5 days. Meaningful Use Info Meaningful Use Meaningful Use Diagnoses (Choose all that apply): None applicable Ischemic Stroke Statin Dosing Therapy Reference: STATIN DOSE THERAPY REFERENCE: * Patients > 75 years receive moderate or high dose statin therapy. * Patients 75 years or YOUNGER should receive HIGH intensity statin dose unless contraindicated. You will be required to document reason for non-treatment if statin daily dose does not meet guidelines. HIGH DOSE STATIN THERAPY DAILY Atorvastatin > than or = to 40 mg Rosuvastatin > than or = to 20 mg Amlodipine + Atorvastatin > than or = to 2.5/40 mg Ezetimibe + Simvastatin 10/80 mg Simvastatin 80mg Discharge Plan Admission Admit Date/Time: 12/30/23 20:41 Primary Reason for Your Visit: Mental status changes Attending Provider: Carrie Cooley Primary Care Provider: Kike Barroso Consulting Providers: Yana Calle; Socrates Moise Instructions Patient Instructions: Diabetes and Illness Additional Instructions / Restrictions: DISCHARGE INSTRUCTIONS PLEASE READ *Please take this with you to your next doctors appointment* - your insulin has been decreased to 20 units of long-acting insulin as this is what you required in the hospital along with sliding scale insulin, this will likely need further adjustments moving forward -Please follow-up with Your security system engineer upon discharge. Please call their office to schedule hospital follow-up appointment upon discharge. -Please follow-up with Pulmonology upon discharge. Please call their office to schedule hospital follow-up appointment upon discharge. - you are being treated for urinary tract infection, he will need to take 1 dose of Augmentin tonight and 2 doses tomorrow to complete your course -Please call your primary care provider's office upon discharge to schedule a hospital follow up within 1 week. -For any concerning signs or symptoms please call 911 or proceed to the nearest emergency department Discharge Orders/Prescriptions Prescriptions: New amoxicillin-pot clavulanate 875-125 mg tablet 1 tab PO BID Qty: 3 0RF insulin lispro [Humalog KwikPen Insulin] 100 unit/mL Insulin Pen See Protocol subcut ACHS Qty: 0 0RF Protocol: 4. Sliding Scale Insulin High-Med Dosing Condition: 150-199 mg/dl = 2 units Condition: 200-259 mg/dl = 4 units Condition: 260-324 mg/dl = 6 units Condition: 325-374 mg/dl = 8 units Condition: 375-409 mg/dl = 10 units Condition: 410-449 mg/dl = 11 units Condition: Greater than 449 call physician Protocol Text: Suggested for: - Patients on Total Daily Insulin Dose of 56-80 units - Patient who are known to be insulin resistant or septic HIGH MEDIUM DOSING ALGORITHM Continued (DME) Precision Xtra Test Strip See Rx Instructions .Route Qty: 200 3RF Rx Instructions: bid (DME) pen needle, diabetic [BD Ultra-Fine Zenaida Pen Needle] 32 gauge x 5/32 needle See Rx Instructions .ROUTE .MEDSUPPLY Qty: 400 3RF Rx Instructions: 4 times daily donepezil 10 mg tablet 10 mg PO QHS Qty: 30 10RF clotrimazole-betamethasone 1-0.05 % cream 1 applic topical PRN atorvastatin 80 MG tablet 80 mg PO DAILY Patient Comments: cholesterol lowering aspirin 81 MG tablet 81 mg PO DAILY@0800 Patient Comments: blood thinner citalopram 20 MG tablet 20 mg PO DAILY Patient Comments: anti-depressant amitriptyline 25 MG tablet 25 mg PO QHS Patient Comments: anti-depressant fenofibrate nanocrystallized 145 MG tablet 145 mg PO DAILY Patient Comments: cholesterol lowering metformin 500 mg tablet 500 mg PO BID Patient Comments: diabetic med ezetimibe 10 mg tablet 10 mg PO DAILY omeprazole 20 mg capsule,delayed release(DR/EC) 20 mg PO DAILY timolol maleate 0.5 % drops 1 drp ophthalmic (eye) BID Patient Comments: [NO ORIGINAL SIG] oxybutynin chloride 15 mg tablet extended release 24hr 5 mg PO DAILY cyanocobalamin (vitamin B-12) 1,000 mcg/mL solution 100 mcg IM QMONTH (DME) Easy Touch Twist Lancets 32 gauge misc See Rx Instructions .Route Qty: 200 1RF Rx Instructions: bid furosemide [Lasix] 40 mg tablet 40 mg PO DAILY Qty: 90 4RF verapamil 180 mg tablet extended release 180 mg PO DAILY Qty: 30 11RF Changed hydroxyzine pamoate 25 mg capsule 25 mg PO TID PRN (Reason: anxiety) Qty: 90 2RF insulin glargine [Lantus Solostar U-100 Insulin] 100 unit/mL (3 mL) insulin pen 20 unit subcut DAILY Qty: 72 2RF Discontinued insulin aspart U-100 [Novolog FlexPen U-100 Insulin] 100 unit/mL (3 mL) insulin pen 45 unit SC TID Qty: 120 3RF lisinopril-hydrochlorothiazide 20-25 mg tablet 1 tab PO BID potassium chloride 20 mEq tablet extended release 20 meq PO QDAY Referrals / Follow Up: Kike Barroso DO [Primary Care Provider] - Within 1 Week Mathew Cooper MD [Med Staff - Courtesy Staff] - Franchesca Garza NP, CHEESE PROCESSOR-C [Med Staff - Adv Practice Prof] - Disposition Disposition (needs filled in before D/C Order can be placed): [facility] Facility Charges/Coding Visit Charges Inpatient E&M: 74872 Disch Hosp >30min
--- NOTE | 2024-01-05 15:59 | CASEMGMT ---
Social Work Physician feels pt is ready for discharge today.?SW met with pt and they are agreeable to discharge plan as stated above.? DCA and bedside nurse notified of discharge. JORDAN Holman
--- NOTE | 2024-01-05 16:02 | PHA.DC.MR.R ---
Pharmacy [facility] Med Reconciliation Pharmacy Service has performed discharge medication reconciliation for this patient. The patient's discharge medication list was reviewed for discrepancies and discrepancies were resolved. Medications at Discharge Home Medications amitriptyline 25 mg tablet 25 mg PO QHS 03/24/16 aspirin 81 mg tablet,delayed release 81 mg PO DAILY@0800 03/24/16 atorvastatin 80 mg tablet 80 mg PO DAILY 03/24/16 citalopram 20 mg tablet 20 mg PO DAILY 03/24/16 fenofibrate nanocrystallized 145 mg tablet 145 mg PO DAILY 03/24/16 metformin 500 mg tablet 500 mg PO BID 05/08/19 ezetimibe 10 mg tablet 10 mg PO DAILY 11/07/20 Precision Xtra Test (blood sugar diagnostic) #200 ea 04/15/23 lancets 32 gauge (Easy Touch Twist Lancets) #200 ea 04/16/23 furosemide 40 mg tablet (Lasix) 40 mg PO DAILY #90 tabs 04/26/23 omeprazole 20 mg capsule,delayed release 20 mg PO DAILY 07/12/23 timolol maleate 0.5 % eye drops 1 drp ophthalmic (eye) BID 07/12/23 pen needle, diabetic 32 gauge x 5/32 (BD Ultra-Fine Zenaida Pen Needle) #400 ea 09/03/23 donepezil 10 mg tablet 10 mg PO QHS #30 tabs 10/19/23 clotrimazole-betamethasone 1 %-0.05 % topical cream 1 applic topical PRN 11/19/23 oxybutynin chloride 15 mg tablet,extended release 24 hr 5 mg PO DAILY 11/19/23 verapamil 180 mg tablet,extended release 180 mg PO DAILY #30 tabs 12/27/23 cyanocobalamin (vitamin B-12) 1,000 mcg/mL injection solution 100 mcg IM QMONTH 12/30/23 Lantus Solostar U-100 Insulin 100 unit/mL (3 mL) subcutaneous pen (insulin glargine) 20 unit (0.2 mL) subcut DAILY #72 mL 01/05/24 amoxicillin 875 mg-potassium clavulanate 125 mg tablet 1 tab PO BID #3 tabs 01/05/24 hydroxyzine pamoate 25 mg capsule 25 mg PO TID PRN anxiety #90 caps 01/05/24 insulin lispro 100 unit/mL subcutaneous pen (Humalog KwikPen (U-100) Insulin) See Protocol subcut ACHS #0 mL 01/05/24
--- NOTE | 2024-01-05 16:25 | CASEMGMT ---
Addendum entered by Stacy Hernandez 01/05/24 16:28: Fax confirmation rec'd. Stacy Hernandez DC Planning Asst. Original Note: Discharge Planning Discharge orders, signed med list, and transport time faxed to [facility] referral office ([phone]). Msg (x2) left with referral office regarding discharge. Physicians will transport patient by cot at 5:30p. Nursing, SW, patient, and his updated. Stacy Hernandez DC Planning Asst.
[2024-01-05 17:31] LABS: Bedside Glucose 225 mg/dL (74-106)
== END 2024-01-05 18:09 | disposition skilled nursing facility (03) | DRG 689 ==
LOC: ED 20:41 → ICU 21:14 → MS3 12-31 12:55
PROVIDERS: Internal Medicine; Admitting Provider Family Medicine; Emergency Provider Emergency Medicine; PCP Family Medicine; Visit Provider Internal Medicine
DX: N30.00 Acute cystitis without hematuria (principal); J96.21 Acute and chronic respiratory failure with hypoxia; G93.41 Metabolic encephalopathy; I13.0 Hypertensive heart and chronic kidney disease with heart failure and stage 1 through stage 4 chronic kidney disease, or unspecified chronic kidney disease; F03.918 Unspecified dementia, unspecified severity, with other behavioral disturbance; Z68.41 Body mass index [BMI] 40.0-44.9, adult; I50.32 Chronic diastolic (congestive) heart failure; E10.42 Type 1 diabetes mellitus with diabetic polyneuropathy; E10.22 Type 1 diabetes mellitus with diabetic chronic kidney disease; B96.1 Klebsiella pneumoniae [K. pneumoniae] as the cause of diseases classified elsewhere; N18.32 Chronic kidney disease, stage 3b; D64.9 Anemia, unspecified; E10.649 Type 1 diabetes mellitus with hypoglycemia without coma; F03.90 Unspecified dementia, unspecified severity, without behavioral disturbance, psychotic disturbance, mood disturbance, and anxiety; E78.5 Hyperlipidemia, unspecified; E87.6 Hypokalemia; G47.33 Obstructive sleep apnea (adult) (pediatric); Z79.4 Long term (current) use of insulin; K21.9 Gastro-esophageal reflux disease without esophagitis; E53.8 Deficiency of other specified B group vitamins; F41.8 Other specified anxiety disorders; Z79.82 Long term (current) use of aspirin; E66.813 Obesity, class 3; R53.81 Other malaise; Z23 Encounter for immunization; Z99.89 Dependence on other enabling machines and devices; Z79.899 Other long term (current) drug therapy; Z79.84 Long term (current) use of oral hypoglycemic drugs; R53.1 Weakness; R79.89 Other specified abnormal findings of blood chemistry
CPT/HCPCS: 36415; 71046; 80048; 80053; 81001; 82962; 83036; 83690; 83735; 83880; 84100; 85025; 87040; 90662; 93971; 94640; 94668; 97110; 97162; 97166; 97530; 97802; 99284; J7050; A4216; J1940; J7799

== ENCOUNTER 2024-03-03 13:48 | Inpatient (IN) | payer MEDICARE, OTHER, SELFPAY ==
[2024-03-03] VITALS (12 sets, daily range): BP systolic 131–179; BP diastolic 54–86; PULSE 91–113; RESP 16–28; TEMP 36.6–37; O2SAT 3–99; BMI 41.3; BMI 40.7
--- NOTE | 2024-03-03 14:37 | EKG12_ITS ---
Test Reason : Blood Pressure : */* mmHG Vent. Rate : 93 BPM Atrial Rate : 93 BPM P-R Int : 270 ms QRS Dur : 150 ms QT Int : 422 ms P-R-T Axes : 61 37 -12 degrees QTcB Int : 524 ms Sinus rhythm with 1st degree A-V block Right bundle branch block baseline artifact T wave abnormality, consider lateral ischemia Abnormal ECG Confirmed by Timur Pitts ([id number]), electronic news gathering editor DANTE CORTEZ ([id number]) on 03/06/2024 6:41:48 AM Referred By: Confirmed By: Timur Pitts
--- NOTE | 2024-03-03 14:38 | RAD_ITS ---
STUDY: X-RAY - RIGHT KNEE REASON FOR EXAM: Male, 78 years old. Pain TECHNIQUE: 4 view(s) of the knee. COMPARISON: None. FINDINGS: Normal visualized distal femur. Normal visualized proximal tibia and fibula. Normal proximal tibiofibular articulation. There is moderate degenerative arthrosis of the medial femorotibial compartment with moderate joint space narrowing. Normal lateral femorotibial compartment. There is moderate degenerative arthrosis of the patellofemoral articulation. Soft tissue swelling. RAD/Knee 4 or More Views IMPRESSION: Degenerative arthrosis. Electronically Signed: Gigi Marcano MD at 15:02 EST ,
--- NOTE | 2024-03-03 14:40 | RAD_ITS ---
STUDY: X-RAY CHEST REASON FOR EXAM: Male, 78 years old. Weakness TECHNIQUE: Single AP portable view of the chest. COMPARISON: Comparison is made with prior study dated January 01, 2024. FINDINGS: EKG electrodes are seen. Elevation of the right hemidiaphragm. Mild vascular congestion and atelectasis at the right lung base. There is no demonstrated pleural abnormality. There is moderate cardiac enlargement. Normal mediastinum and miguelito. Normal visualized pulmonary arteries. Normal visualized aortic arch and descending thoracic aorta. There are diffuse degenerative changes of the visualized thoracic spine. Normal visualized ribs, clavicles, and shoulders. There is no demonstrated abnormality of the visualized soft tissue structures of the upper abdomen. RAD/Chest 1 View (Portable) IMPRESSION: Elevation of the right hemidiaphragm with mild right basilar atelectasis superimposed on vascular congestion. Electronically Signed: Gigi Marcano MD at 15:03 EST ,
--- NOTE | 2024-03-03 14:41 | EDS_ITS ---
HPI <LAWSON Main - Last Filed: 03/03/24 17:47> History of Present Illness Chief Complaint: Fall Narrative Narrative: 78-year-old male with PMH of HTN, HLD, DM2, CHF, dementia lost his balance and fell in the bathroom landing on both knees. He was stuck between the toilet and the bathtub and was too weak to get up even with his 's assistance so they called the paramedics. There was no head injury or LOC. His states he always complains about being tired but he did seem more weak yesterday and did not want to eat dinner or breakfast. No fever or other symptoms of illness. He is chronically incontinent and wears depends and states he has had UTIs in the past. She states his cognition is at baseline. PFSH <LAWSON Main - Last Filed: 03/03/24 17:47> [facility] Medical History (Updated 03/03/24 @ 20:02 by Archana Sawyer) On home oxygen therapy Fatigue Essential hypertension Cancer Insulin dependent diabetes mellitus Diabetes Prostate disease Tremor Dietary restriction Gastric reflux Non-smoker CPAP (continuous positive airway pressure) dependence Sleep apnea History of edema History of echocardiogram History of stress test Hyperlipidemia Chronic kidney disease, stage 3 Right bundle branch block Tachycardia Positive colorectal cancer screening using Cologuard test Positive colorectal cancer screening using Cologuard test Shortness of breath on exertion Super obese Type 2 diabetes mellitus Depression, major, recurrent, moderate Onychomycosis Passive aggressive personality disorder Actinic keratosis Diabetic peripheral neuropathy Restrictive lung disease TARA (obstructive sleep apnea) Chronic diastolic heart failure Microalbuminuria Osteoarthritis of left knee Other tear of medial meniscus, current injury, left knee, initial encounter Other tear of lateral meniscus, current injury, left knee, subsequent encounter Other tear of lateral meniscus, current injury, left knee, initial encounter Other tear of medial meniscus, current injury, left knee, subsequent encounter Home Medications ?Medication ?Instructions ?Recorded ?Last Taken ?Type amitriptyline 25 mg tablet 25 mg PO QHS 03/24/16 Unknown History aspirin 81 mg tablet,delayed 81 mg PO DAILY@0800 03/24/16 Unknown History release atorvastatin 80 mg tablet 80 mg PO DAILY 03/24/16 Unknown History citalopram 20 mg tablet 20 mg PO DAILY 03/24/16 05/13/16 07:00 History fenofibrate nanocrystallized 145 145 mg PO DAILY 03/24/16 Unknown History mg tablet metformin 500 mg tablet 500 mg PO BID 05/08/19 Unknown History ezetimibe 10 mg tablet 10 mg PO DAILY 11/07/20 Unknown History Precision Xtra Test (blood sugar #200 ea 04/15/23 Unknown Rx diagnostic) lancets 32 gauge (Easy Touch Twist #200 ea 04/16/23 Unknown Rx Lancets) furosemide 40 mg tablet (Lasix) 40 mg PO DAILY #90 tabs 04/26/23 Unknown Rx omeprazole 20 mg capsule,delayed 20 mg PO DAILY 07/12/23 Unknown History release timolol maleate 0.5 % eye drops 1 drp ophthalmic (eye) BID 07/12/23 Unknown History pen needle, diabetic 32 gauge x #400 ea 09/03/23 Unknown Rx (BD Ultra-Fine Zenaida Pen Needle) donepezil 10 mg tablet 10 mg PO QHS #30 tabs 10/19/23 Unknown Rx clotrimazole-betamethasone 1 1 applic topical PRN 11/19/23 Unknown History %-0.05 % topical cream oxybutynin chloride 15 mg 5 mg PO DAILY 11/19/23 Unknown History tablet,extended release 24 hr verapamil 180 mg tablet,extended 180 mg PO DAILY #30 tabs 12/27/23 Unknown Rx release cyanocobalamin (vitamin B-12) 100 mcg IM QMONTH 12/30/23 Unknown History 1,000 mcg/mL injection solution Lantus Solostar U-100 Insulin 100 20 unit (0.2 mL) subcut DAILY #72 01/05/24 Unknown Rx unit/mL (3 mL) subcutaneous pen mL (insulin glargine) hydroxyzine pamoate 25 mg capsule 25 mg PO TID PRN anxiety #90 caps 01/05/24 Unknown Rx insulin lispro 100 unit/mL See Protocol subcut ACHS #0 mL 01/05/24 Unknown Rx subcutaneous pen (Humalog KwikPen (U-100) Insulin) Allergy/AdvReac Type Severity Reaction Status Date / Time No Known Allergies Allergy Verified 03/03/24 14:03 Family History Mother Hypertension Hyperlipemia Heart disease Diabetes Environmental and seasonal allergies alcoholism and drug abuse Sister Stomach cancer Ovarian cancer Brother Diabetes Daughter bipolar Father Schizophrenia Aortic aneurysm Surgical History History of transurethral resection of prostate (11/13/20) History of arthroscopy of left knee (~05/03/16) s/p urolift procedure (04/21/19) History of skin graft Social History (Updated 12/30/23 @ 22:[address] Yana Calle MD) household members: spouse Smoking Status: Never smoker Electronic Cigarette Use: not used second hand exposure: No alcohol intake: current alcohol intake frequency: holidays/special occasions only substance use type: does not use caffeine: Yes what type of physical activity do you participate in: none jason/worship: None seatbelt use: always ROS <LAWSON Main - Last Filed: 03/03/24 17:47> ROS ED ROS Narrative Constitutional: Negative for fever, chills CVS: Negative for palpitations, chest pain, syncope. Respiratory: Negative for shortness of breath, cough. GI: Negative for abdominal pain, nausea, vomiting, diarrhea, melena, hematochezia. : Negative for dysuria, hematuria or frequency. Neuro: Negative for headache. EXAM <LAWSON Main - Last Filed: 03/03/24 17:47> Physical Exam Narrative Exam Narrative: CONST: Patient sitting in no acute distress. EYES: Normal inspection. NECK: Normal inspection. RESP: No respiratory distress, CTAB. CVS: Regular rate and rhythm, no murmur, no gallop. ABD: Soft and nontender, no guarding or rebound, nondistended. SKIN: Color normal, no rash, warm, dry, intact. EXTREMITIES: Minor abrasion left knee with no bony tenderness, abrasions right knee with localized swelling and tenderness, able to extend bilaterally, 2+ DP pulses. Abrasion right toes. NEURO: Alert to self, place, situation. Some mild difficulty answering historical questions which is his baseline per . PSYCH: Normal affect. Const Vital Signs: 03/03/24 13:56 03/03/24 14:01 03/03/24 14:01 Temperature 98.6 F Temperature Source Oral Pulse Rate 91 Respiratory Rate Respiratory Effort Short of Breath Blood Pressure Blood Pressure Mean Pulse Ox 79 95 Oxygen Delivery Method Room Air Nasal Cannula Oxygen Flow Rate (L/min) 2 03/03/24 14:03 03/03/24 16:00 03/03/24 17:28 Temperature Temperature Source Pulse Rate 113 H 98 Respiratory Rate 28 H Respiratory Effort Blood Pressure 131/54 H 168/76 H Blood Pressure Mean 79 106 Pulse Ox 93 94 Oxygen Delivery Method Nasal Cannula Oxygen Flow Rate (L/min) 3 3 03/03/24 17:30 Temperature 97.9 F Temperature Source Oral Pulse Rate Respiratory Rate Respiratory Effort Blood Pressure Blood Pressure Mean Pulse Ox Oxygen Delivery Method Oxygen Flow Rate (L/min) <Dr. Russell Min DO - Last Filed: 03/03/24 23:33> Physical Exam Const Vital Signs: 03/03/24 13:56 03/03/24 14:01 03/03/24 14:01 Temperature 98.6 F Temperature Source Oral Pulse Rate 91 Respiratory Rate Respiratory Effort Short of Breath Blood Pressure Blood Pressure Mean Pulse Ox 79 95 Oxygen Delivery Method Room Air Nasal Cannula Oxygen Flow Rate (L/min) 2 03/03/24 14:03 03/03/24 16:00 03/03/24 17:28 Temperature Temperature Source Pulse Rate 113 H 98 Respiratory Rate 28 H Respiratory Effort Blood Pressure 131/54 H 168/76 H Blood Pressure Mean 79 106 Pulse Ox 93 94 Oxygen Delivery Method Nasal Cannula Oxygen Flow Rate (L/min) 3 3 03/03/24 17:30 Temperature 97.9 F Temperature Source Oral Pulse Rate Respiratory Rate Respiratory Effort Blood Pressure Blood Pressure Mean Pulse Ox Oxygen Delivery Method Oxygen Flow Rate (L/min) [facility] <LAWSON Main - Last Filed: 03/03/24 17:47> [facility] Narrative Medical decision making narrative: History gathered from: Patient and spouse Patient had mechanical fall in the bathroom landing on both knees. He felt too weak to get up. He denies hitting his head but does have a history of dementia. He is awake alert with stable vital signs. He is on chronic 3 L O2. His exam is only notable for abrasions to bilateral knees. CXR bilateral knee x-rays negative. CT brain shows no acute process. Labs as listed below consistent wi th mild BHAVNA and glucose of 240s was given IV fluids. He has a UTI and was started on IV Rocephin. Patient was only able to ambulate a few feet before feeling too weak and had to sit down. I feel he needs admitted to the hospital for treatment of UTI and generalized weakness causing difficulty ambulating as he is a fall risk. Case was discussed with the hospitalist for admission. Attending note: I have personally performed a face to face assessment of the patient and have reviewed the BAHMAN note. I personally made/approved the management plan and take responsibility for the patient management. I performed a substantive portion of the visit including all aspects of the following. My coates findings include: Brought by EMS from home reporting mechanical fall in the bathroom. Patient reports going to use the restroom his legs gave out he fell between the commode in the shower. Unable to get up. Denies hitting his head. Does have history of dementia. Is on aspirin therapy. No headache. Chronic oxygenation 3 L. Chronic cough per spouse. He felt weak when he woke up this morning. Exam GCS 15 alert and orient x 3 he is on 3 L oxygen. Lungs clear, heart was regular abdomen soft. There was contusion abrasion bilateral knees. Chest x-ray: No acute process. Bilateral knee x-rays no acute process interpreted by myself and read by radiology. CT brain pending. Labs white count and 11.5 potassium 3.4 creatinine 1.66 with last creatinine being 1.0. Given IV fluids. Urine positive for infection culture sent started on antibiotics. Attempted to ambulate patient is too weak to ambulate. Will await results of CT prior to planned admission. Lab Data Labs: Laboratory Results - last 24 hr 03/03/24 03/03/24 13:21 15:26 WBC 11.5 H RBC 3.86 L Hgb 10.8 L Hct 35.1 L MCV 90.9 MCH 28.0 MCHC 30.8 L RDW Std Deviation 46.4 H RDW Coeff of Woo 13.9 Plt Count 295 MPV 10.8 Immature Gran % (Auto) 0.300 Neut % (Auto) 84.7 H Lymph % (Auto) 6.7 L [place] % (Auto) 7.7 Eos % (Auto) 0.3 Baso % (Auto) 0.3 Absolute Neuts (auto) 9.7 H Absolute Lymphs (auto) 0.77 L Nucleated RBC % 0 Sodium 139 Potassium 3.4 L Chloride 96 L Carbon Dioxide 34.0 H Anion Gap 9 BUN 21 H Creatinine 1.66 H Estim Creat Clear Calc 54.40 Est GFR (MDRD) Af Amer 52 L Est GFR (MDRD) Non-Af 43 L BUN/Creatinine Ratio 12.7 Glucose 270 H Calcium 9.6 Troponin I High Sens 14 Urine Color Straw Urine Clarity Clear Urine pH 7.0 Ur Specific Baker 1.010 Urine Protein 15 H Urine Glucose (UA) 100 H Urine Ketones Negative Urine Occult Blood 25 H Urine Nitrite Negative Urine Bilirubin Negative Urine Urobilinogen Normal Ur Leukocyte Esterase 500 H Urine RBC 0 SEEN Urine WBC >100 SEEN Ur Squamous Epith Cells 0-5 SEEN Urine Bacteria 3+ Urine Mucus 0 SEEN Radiography Diagnostic Testing: Clinical Impression(s) from Imaging Studies Knee X-Ray 03/03/24 14:38 IMPRESSION: Degenerative arthrosis. Electronically Signed: Gigi Marcano MD at 15:02 EST , Chest X-Ray 03/03/24 14:40 IMPRESSION: Elevation of the right hemidiaphragm with mild right basilar atelectasis superimposed on vascular congestion. Electronically Signed: Gigi Marcano MD at 15:03 EST , Knee X-Ray 03/03/24 14:43 IMPRESSION: Degenerative arthrosis. Electronically Signed: Gigi Marcano MD at 15:01 EST , Brain CT 03/03/24 15:48 IMPRESSION: Normal unenhanced CT scan of the brain. Electronically Signed: Ezio Morales MD at 17:17 EST , ED attending interpretation of bilateral knee show no acute fracture or dislocation. ED attending interpretation of 1-view chest x-ray shows normal heart size, no acute infiltrate. <Dr. Russell Min, DO - Last Filed: 03/03/24 23:33> [facility] Narrative Medical decision making narrative: History gathered from: Patient and spouse Patient had mechanical fall in the bathroom landing on both knees. He felt too weak to get up. He denies hitting his head but does have a history of dementia. He is awake alert with stable vital signs. He is on chronic 3 L O2. His exam is only notable for abrasions to bilateral knees. CXR bilateral knee x-rays negative. CT brain shows no acute process. Labs as listed below consistent with mild BHAVNA and glucose of 240s was given IV fluids. He has a UTI and was started on IV Rocephin. Patient was only able to ambulate a few feet before feeling too weak and had to sit down. I feel he needs admitted to the hospital for treatment of UTI and generalized weakness causing difficulty ambulating as he is a fall risk. Case was discussed with the hospitalist for admission. Attending note: I have personally performed a face to face assessment of the patient and have reviewed the BAHMAN note. I personally made/approved the management plan and take responsibility for the patient management. I performed a substantive portion of the visit including all aspects of the following. My coates findings include: Brought by EMS from home reporting mechanical fall in the bathroom. Patient reports going to use the restroom his legs gave out he fell between the commode in the shower. Unable to get up. Denies hitting his head. Does have history of dementia. Is on aspirin therapy. No headache. Chronic oxygenation 3 L. Chronic cough per spouse. He felt weak when he woke up this morning. Exam GCS 15 alert and orient x 3 he is on 3 L oxygen. Lungs clear, heart was regular abdomen soft. There was contusion abrasion bilateral knees. Chest x-ray: No acute process. Bilateral knee x-rays no acute process interpreted by myself and read by radiology. CT brain pending. Labs white count and 11.5 potassium 3.4 creatinine 1.66 with last creatinine being 1.0. Given IV fluids. Urine positive for infection culture sent started on antibiotics. Attempted to ambulate patient is too weak to ambulate. Will await results of CT prior to planned admission. CT brain negative. Discussed with hospitalist for admission. Lab Data Attestation: I reviewed the patient's lab results. Labs: Laboratory Results - last 24 hr 03/03/24 03/03/24 13:21 15:26 WBC 11.5 H RBC 3.86 L Hgb 10.8 L Hct 35.1 L MCV 90.9 MCH 28.0 MCHC 30.8 L RDW Std Deviation 46.4 H RDW Coeff of Woo 13.9 Plt Count 295 MPV 10.8 Immature Gran % (Auto) 0.300 Neut % (Auto) 84.7 H Lymph % (Auto) 6.7 L [place] % (Auto) 7.7 Eos % (Auto) 0.3 Baso % (Auto) 0.3 Absolute Neuts (auto) 9.7 H Absolute Lymphs (auto) 0.77 L Nucleated RBC % 0 Sodium 139 Potassium 3.4 L Chloride 96 L Carbon Dioxide 34.0 H Anion Gap 9 BUN 21 H Creatinine 1.66 H Estim Creat Clear Calc 54.40 Est GFR (MDRD) Af Amer 52 L Est GFR (MDRD) Non-Af 43 L BUN/Creatinine Ratio 12.7 Glucose 270 H Calcium 9.6 Troponin I High Sens 14 Urine Color Straw Urine Clarity Clear Urine pH 7.0 Ur Specific Baker 1.010 Urine Protein 15 H Urine Glucose (UA) 100 H Urine Ketones Negative Urine Occult Blood 25 H Urine Nitrite Negative Urine Bilirubin Negative Urine Urobilinogen Normal Ur Leukocyte Esterase 500 H Urine RBC 0 SEEN Urine WBC >100 SEEN Ur Squamous Epith Cells 0-5 SEEN Urine Bacteria 3+ Urine Mucus 0 SEEN Radiography Diagnostic Testing: Clinical Impression(s) from Imaging Studies Knee X-Ray 03/03/24 14:38 IMPRESSION: Degenerative arthrosis. Electronically Signed: Gigi Marcano MD at 15:02 EST , Chest X-Ray 03/03/24 14:40 IMPRESSION: Elevation of the right hemidiaphragm with mild right basilar atelectasis superimposed on vascular congestion. Electronically Signed: Gigi Marcano MD at 15:03 EST , Knee X-Ray 03/03/24 14:43 IMPRESSION: Degenerative arthrosis. Electronically Signed: Gigi Marcano MD at 15:01 EST , Brain CT 03/03/24 15:48 IMPRESSION: Normal unenhanced CT scan of the brain. Electronically Signed: Ezio Morales MD at 17:17 EST , Discharge Plan Dx/Rx/DC Orders Clinical Impression: Fall, Abrasion of knee, bilateral, Generalized weakness, Acute UTI, Acute kidney injury Disposition Disposition: Acute Care Hospital [facility] Discharge Date/Time: 03/03/24 18:48
--- NOTE | 2024-03-03 14:41 | ED.RN ---
Patient transported to radiology
--- NOTE | 2024-03-03 14:43 | RAD_ITS ---
STUDY: X-RAY - LEFT KNEE REASON FOR EXAM: Male, 78 years old. pain TECHNIQUE: 4 view(s) of the knee. COMPARISON: None. FINDINGS: Normal visualized distal femur. Normal visualized proximal tibia and fibula. Normal proximal tibiofibular articulation. There is moderate degenerative arthrosis of the medial femorotibial compartment with moderate joint space narrowing. There is severe degenerative arthrosis of the lateral femorotibial compartment with severe joint space narrowing. There is moderate degenerative arthrosis of the patellofemoral articulation. Diffuse soft tissue swelling. Small joint effusion. RAD/Knee 4 or More Views IMPRESSION: Degenerative arthrosis. Electronically Signed: Gigi Marcano MD at 15:01 EST ,
[2024-03-03 14:44] LABS: Absolute Lymphocyte Count 0.77 X10^3/uL (0.83-4.51); Absolute Neutrophil Count 9.7 X10^3/uL (2.0-7.7); Basophil# 0.04 X10^3/uL; Basophil% 0.3 % (0-1); Eosinophil# 0.03 X10^3/uL; Eosinophils% 0.3 % (0-5); Hematocrit 35.1 % (40-54); Hemoglobin 10.8 g/dL (13.0-16.5); Lymphocyte # 0.77 X10^3/ul (0.83-4.51); Lymphocyte % 6.7 % (19-41); Mean Corp Hgb Conc 30.8 g/dL (32-36); Mean Corpuscular Volume 90.9 fL (80-94); Mean Platelet Vol. 10.8 fl (6.2-12.0); Monocyte# 0.89 X10^3/uL; Monocyte% 7.7 % (0-10); NRBC Flagged by Analyzer 0 % (0-5); Neutrophil # 9.72 X10^3/uL (2.7-7.7); Neutrophil % 84.7 % (47-70); Platelet Count 295 K/mm3 (150-450); RBC Distribution Width CV 13.9 % (11.6-14.6); RBC Distribution Width SD 46.4 fl (35.1-43.9); Red Blood Count 3.86 M/mm3 (4.6-6.2); White Blood Count 11.5 K/mm3 (4.4-11.0)
[2024-03-03 15:07] LABS: Anion Gap 9 (5-15); BUN 21 mg/dL (7-18); BUN/Creat Ratio 12.7 RATIO (10-20); Calcium,Total 9.6 mg/dL (8.5-10.1); Chloride 96 mmol/L (98-107); Creatinine, Serum 1.66 mg/dL (0.70-1.30); EST Glomerular Filtration Rate 43 mL/min (>60); Est Glom Filt Rate - Afr Amer 52 mL/min (>60); Glucose 270 mg/dL (74-106); Potassium 3.4 mmol/L (3.5-5.1); Sodium Level 139 mmol/L (136-145); Troponin-I HS 14 pg/mL (3.0-78.0)
[2024-03-03 15:31] LABS: Mucous, Urine 0 SEEN /hpf (<or=2+); Red Blood Cells-Urine 0 SEEN /hpf (0-5)
[2024-03-03] MEDS: 0.9% Normal Saline (1000mL) 1,000 ML 999 ML IV (15:36)
[2024-03-03 15:47] LABS: Color, Urine Straw (Yellow); Glucose, Dipstick 100 mg/dl (Normal); Ketone-Dipstick Negative (Negative); Leukocyte Esterase-Dipstick 500 /ul (Negative); Nitrite-Dipstick Negative (Negative); Occult Blood-Urine 25 /ul (Negative); Protein-Dipstick 15 mg/dl (Negative); Urine Bilirubin Dipstick Negative (Negative); Urine Clarity Clear (Clear); Urine Urobilinogen Normal (Normal)
--- NOTE | 2024-03-03 15:48 | CT_ITS ---
STUDY: CT BRAIN WITHOUT CONTRAST REASON FOR EXAM: Male, 78 years old. fall RADIATION DOSAGE (If Supplied By Facility): CTDIvol = ( 44.99 ) mGy, DLP = ( 863.60 ) mGycm TECHNIQUE: Transaxial CT imaging of the brain was performed without administration of intravenous contrast material. Individualized dose optimization techniques were used for this CT. COMPARISON: No relevant priors. FINDINGS: Normal soft tissue structures. Normal calvarium. Normal size ventricles and extra-axial spaces for the patient''s age. Normal white matter tracts of the cerebral hemispheres. Normal basal ganglia and thalami. Normal brainstem. Normal cerebellum. There is no intracranial hemorrhage. There are no findings of an acute ischemic infarction. Normal visualized paranasal sinuses. CT/Brain/Head without Contrast IMPRESSION: Normal unenhanced CT scan of the brain. Electronically Signed: Ezio Morales MD at 17:17 EST ,
--- NOTE | 2024-03-03 16:04 | ED.RN ---
Patient ambulated in hallway. During ambulation patient stated that he felt slightly dizzy and very weak. Patient requested to return to room stating he did not feel well.
[2024-03-03 16:05] LABS: Bacteria 3+ /hpf (None Seen); Squamous Epithelial Cells - UA 0-5 SEEN /hpf (0-5); White Blood Cells >100 SEEN /hpf (0-5)
[2024-03-03] MEDS: Acetaminophen 325 MG Tablet 650 MG PO (17:20)
[2024-03-03] MEDS: Ceftriaxone 1 GM/50 ML BAG IV (17:26)
--- NOTE | 2024-03-03 17:58 | ED.RN ---
Patient given sandwich, joel doones, and sugar free sprite per request
--- NOTE | 2024-03-03 18:37 | PCM.HP.STD ---
HPI - General General Date of Admission: 03/03/24 Date of Service: 03/03/24 Chief Complaint: Generalized weakness HPI Narrative MEGAN RIVER, is a 78-year-old male history of hypertension, diabetes, CHF, dementia, TARA who presented [facility] ED 03/03/2024 after he lost his balance and fell in the bathroom landed on both knees. He was stuck between the toilet and bathtub and was too weak to get up even with 's assistance they called paramedics. In the ED patient found to have BHAVNA and UA suggestive of UTI. Patient weak and unable to be safely discharged home so hospitalist contacted for admission. Patient evaluated with family member at bedside, he has been weak and just has not felt well over the past couple of days and when he fell today he was too weak to get up. He denies any urinary frequency or burning but has had several recent UTIs. Patient at his baseline respiratory status. Denies any other new or acute complaints [facility] Medical History Fatigue Essential hypertension Cancer Insulin dependent diabetes mellitus Diabetes Prostate disease Tremor Dietary restriction Gastric reflux Non-smoker CPAP (continuous positive airway pressure) dependence Sleep apnea History of edema History of echocardiogram History of stress test Hyperlipidemia Chronic kidney disease, stage 3 Right bundle branch block Tachycardia Positive colorectal cancer screening using Cologuard test Positive colorectal cancer screening using Cologuard test Shortness of breath on exertion Super obese Type 2 diabetes mellitus Depression, major, recurrent, moderate Onychomycosis Passive aggressive personality disorder Actinic keratosis Diabetic peripheral neuropathy Restrictive lung disease TARA (obstructive sleep apnea) Chronic diastolic heart failure Microalbuminuria Osteoarthritis of left knee Other tear of medial meniscus, current injury, left knee, initial encounter Other tear of lateral meniscus, current injury, left knee, subsequent encounter Other tear of lateral meniscus, current injury, left knee, initial encounter Other tear of medial meniscus, current injury, left knee, subsequent encounter Home Medications ?Medication ?Instructions ?Recorded ?Last Taken ?Type amitriptyline 25 mg tablet 25 mg PO QHS 03/24/16 Unknown History aspirin 81 mg tablet,delayed 81 mg PO DAILY@0800 03/24/16 Unknown History release atorvastatin 80 mg tablet 80 mg PO DAILY 03/24/16 Unknown History citalopram 20 mg tablet 20 mg PO DAILY 03/24/16 05/13/16 07:00 History fenofibrate nanocrystallized 145 145 mg PO DAILY 03/24/16 Unknown History mg tablet metformin 500 mg tablet 500 mg PO BID 05/08/19 Unknown History ezetimibe 10 mg tablet 10 mg PO DAILY 11/07/20 Unknown History Precision Xtra Test (blood sugar #200 ea 04/15/23 Unknown Rx diagnostic) lancets 32 gauge (Easy Touch Twist #200 ea 04/16/23 Unknown Rx Lancets) furosemide 40 mg tablet (Lasix) 40 mg PO DAILY #90 tabs 04/26/23 Unknown Rx omeprazole 20 mg capsule,delayed 20 mg PO DAILY 07/12/23 Unknown History release timolol maleate 0.5 % eye drops 1 drp ophthalmic (eye) BID 07/12/23 Unknown History pen needle, diabetic 32 gauge x #400 ea 09/03/23 Unknown Rx (BD Ultra-Fine Zenaida Pen Needle) donepezil 10 mg tablet 10 mg PO QHS #30 tabs 10/19/23 Unknown Rx clotrimazole-betamethasone 1 1 applic topical PRN 11/19/23 Unknown History %-0.05 % topical cream oxybutynin chloride 15 mg 5 mg PO DAILY 11/19/23 Unknown History tablet,extended release 24 hr verapamil 180 mg tablet,extended 180 mg PO DAILY #30 tabs 12/27/23 Unknown Rx release cyanocobalamin (vitamin B-12) 100 mcg IM QMONTH 12/30/23 Unknown History 1,000 mcg/mL injection solution Lantus Solostar U-100 Insulin 100 20 unit (0.2 mL) subcut DAILY #72 01/05/24 Unknown Rx unit/mL (3 mL) subcutaneous pen mL (insulin glargine) hydroxyzine pamoate 25 mg capsule 25 mg PO TID PRN anxiety #90 caps 01/05/24 Unknown Rx insulin lispro 100 unit/mL See Protocol subcut ACHS #0 mL 01/05/24 Unknown Rx subcutaneous pen (Humalog KwikPen (U-100) Insulin) Allergy/AdvReac Type Severity Reaction Status Date / Time No Known Allergies Allergy Verified 03/03/24 14:03 Family History Mother Hypertension Hyperlipemia Heart disease Diabetes Environmental and seasonal allergies alcoholism and drug abuse Sister Stomach cancer Ovarian cancer Brother Diabetes Daughter bipolar Father Schizophrenia Aortic aneurysm Surgical History History of transurethral resection of prostate (11/13/20) History of arthroscopy of left knee (~05/03/16) s/p urolift procedure (04/21/19) History of skin graft Social History (Updated 12/30/23 @ 22:[address] Yana Calle MD) household members: spouse Smoking Status: Never smoker Electronic Cigarette Use: not used second hand exposure: No alcohol intake: current alcohol intake frequency: holidays/special occasions only substance use type: does not use caffeine: Yes what type of physical activity do you participate in: none jason/congregational: None seatbelt use: always ROS ROS Narrative General: Denies fever/chills HENT: Denies headache, denies stuffy nose, denies sore throat EYES: Denies changes in vision Resp: Denies cough, baseline shortness of breath Cardiac: Denies chest pain GI: Denies abdominal pain, denies changes in bowel, denies nausea/vomiting : Denies changes in urination that he has noticed Extremity: Denies swelling MSK: Generalized weakness Neuro: Denies any numbness/tingling Heme: Denies any bleeding or bruising Skin: Denies rashes Psychiatric: No complaints voiced Vital Signs Vital Signs Vital Signs: 03/03/24 13:56 03/03/24 14:01 03/03/24 14:01 Temperature 98.6 F Temperature Source Oral Pulse Rate 91 Respiratory Rate Respiratory Effort Short of Breath Blood Pressure Blood Pressure Mean Pulse Ox 79 95 Oxygen Delivery Method Room Air Nasal Cannula Oxygen Flow Rate (L/min) 2 03/03/24 14:03 03/03/24 16:00 03/03/24 17:28 Temperature Temperature Source Pulse Rate 113 H 98 Respiratory Rate 28 H Respiratory Effort Blood Pressure 131/54 H 168/76 H Blood Pressure Mean 79 106 Pulse Ox 93 94 Oxygen Delivery Method Nasal Cannula Oxygen Flow Rate (L/min) 3 3 03/03/24 17:30 Temperature 97.9 F Temperature Source Oral Pulse Rate Respiratory Rate Respiratory Effort Blood Pressure Blood Pressure Mean Pulse Ox Oxygen Delivery Method Oxygen Flow Rate (L/min) Weight Weight: 142.337 kg Body Mass Index (BMI) 41.3 Physical Exam Narrative General: Alert, oriented, no apparent distress HEENT: Atraumatic, normocephalic Eyes: Anicteric, normal conjunctiva, extraocular movements grossly intact Neck: Supple Respiratory: Diminished bilaterally, normal respiratory effort Cardiovascular: Regular rate and rhythm GI: Soft, nontender, nondistended Extremities: No edema Musculoskeletal: Moving all extremities Neuro: No overt focal neurological deficits Skin: No rashes appreciated Psych: Cooperative Results Lab / Micro Data 03/03/24 13:21 03/03/24 13:21 Labs: Laboratory Results - last 24 hr 03/03/24 13:21: WBC 11.5 H, RBC 3.86 L, Hgb 10.8 L, Hct 35.1 L, MCV 90.9, MCH 28.0, MCHC 30.8 L, RDW Std Deviation 46.4 H, RDW Coeff of Woo 13.9, Plt Count 295, MPV 10.8, Immature Gran % (Auto) 0.300, Neut % (Auto) 84.7 H, Lymph % (Auto) 6.7 L, [place] % (Auto) 7.7, Eos % (Auto) 0.3, Baso % (Auto) 0.3, Absolute Neuts (auto) 9.7 H, Absolute Lymphs (auto) 0.77 L, Nucleated RBC % 0, Sodium 139, Potassium 3.4 L, Chloride 96 L, Carbon Dioxide 34.0 H, Anion Gap 9, BUN 21 H, Creatinine 1.66 H, Estim Creat Clear Calc 54.40, Est GFR (MDRD) Af Amer 52 L, Est GFR (MDRD) Non-Af 43 L, BUN/Creatinine Ratio 12.7, Glucose 270 H, Calcium 9.6, Troponin I High Sens 14 03/03/24 15:26: Urine Color Straw, Urine Clarity Clear, Urine pH 7.0, Ur Specific [place] 1.010, Urine Protein 15 H, Urine Glucose (UA) 100 H, Urine Ketones Negative, Urine Occult Blood 25 H, Urine Nitrite Negative, Urine Bilirubin Negative, Urine Urobilinogen Normal, Ur Leukocyte Esterase 500 H, Urine RBC 0 SEEN, Urine WBC >100 SEEN, Ur Squamous Epith Cells 0-5 SEEN, Urine Bacteria 3+, Urine Mucus 0 SEEN Imaging Radiology Impression Knee X-Ray 03/03/24 14:38 IMPRESSION: Degenerative arthrosis. Electronically Signed: Gigi Marcano MD at 15:02 EST , Chest X-Ray 03/03/24 14:40 IMPRESSION: Elevation of the right hemidiaphragm with mild right basilar atelectasis superimposed on vascular congestion. Electronically Signed: Gigi Marcano MD at 15:03 EST , Knee X-Ray 03/03/24 14:43 IMPRESSION: Degenerative arthrosis. Electronically Signed: Gigi Marcano MD at 15:01 EST , Brain CT 03/03/24 15:48 IMPRESSION: Normal unenhanced CT scan of the brain. Electronically Signed: Ezio Morales MD at 17:17 EST , Assessment & Plan Assessment/Plan (1) Generalized weakness: PLAN: Plan #UTI -UA suggestive of UTI -Urine culture pending -Continue Rocephin # BHAVNA -Creatinine 1.15 at baseline, is 1.66 today -Received some gentle hydration -Hold home Lasix -Repeat in the a.m. # Generalized weakness -Suspect secondary to UTI -Treat underlying illness -PT/OT -Case management #Hypertension -Continue home medications # Chronic hypoxic respiratory failure -On 3 L O2 continuous -Patient is unclear why, is at his baseline presently #Type 2 diabetes mellitus -Glucose checks and sliding scale insulin -Continue long-acting insulin # History of heart failure with preserved ejection fraction, chronic -Per documented history -Daily weights, I's and O's #TARA -Noncompliant with therapy -Does wear 3 L O2 nightly #Depression/anxiety -Continue home Celexa #GERD -Continue PPI #Hypokalemia -Replace -Repeat in the AM #Morbid obesity -BMI documented as 41.4 kg/m? at time of admission -Complicates treatment, prognosis, outcomes -Recommend weight loss and lifestyle changes #DVT ppx: Lovenox subcu Carrie Cooley MD Charges/Coding Visit Charges Inpatient E&M: 48465 Init Hosp L2
[2024-03-03] MEDS: Potassium Chloride Oral Tablet 20 MEQ 40 MEQ PO (22:04)
[2024-03-03] MEDS: Enoxaparin 40 MG/0.4 ML Syringe SC (22:04)
[2024-03-03] MEDS: Amitriptyline 25 MG Tablet PO (22:05)
[2024-03-03] MEDS: hydrALAZINE 20 MG/ML Vial 10 MG IV (23:07)
[2024-03-03 23:25] LABS: Bedside Glucose 147 mg/dL (74-106)
[2024-03-04] VITALS (9 sets, daily range): BP systolic 124–157; BP diastolic 46–86; PULSE 78–91; RESP 16–18; TEMP 36.4–36.9; O2SAT 92–100; BMI 40.7
[2024-03-04 05:37] LABS: Absolute Lymphocyte Count 1.45 X10^3/uL (0.83-4.51); Absolute Neutrophil Count 5.4 X10^3/uL (2.0-7.7); Basophil# 0.04 X10^3/uL; Basophil% 0.5 % (0-1); Eosinophil# 0.18 X10^3/uL; Eosinophils% 2.3 % (0-5); Hematocrit 32.4 % (40-54); Lymphocyte # 1.45 X10^3/ul (0.83-4.51); Lymphocyte % 18.5 % (19-41); Mean Corp Hgb Conc 30.9 g/dL (32-36); Mean Corpuscular Hgb 27.8 pg (27.0-32.0); Mean Platelet Vol. 10.3 fl (6.2-12.0); Monocyte# 0.77 X10^3/uL; Monocyte% 9.8 % (0-10); NRBC Flagged by Analyzer 0 % (0-5); Neutrophil # 5.37 X10^3/uL (2.7-7.7); Neutrophil % 68.5 % (47-70); Platelet Count 235 K/mm3 (150-450); RBC Distribution Width SD 46.4 fl (35.1-43.9); White Blood Count 7.8 K/mm3 (4.4-11.0)
[2024-03-04 06:04] LABS: ALB/GLOB Ratio 0.7 RATIO (0.9-2.4); AST(SGOT) 23 U/L (15-37); Alanine Aminotransfer ALT/SGPT 23 U/L (16-61); Albumin, Serum 2.9 g/dL (3.2-5.0); Alkaline Phosphatase 58 U/L (45-117); Anion Gap 3 (5-15); BUN 17 mg/dL (7-18); BUN/Creat Ratio 16.2 RATIO (10-20); Calcium,Total 9.2 mg/dL (8.5-10.1); Chloride 100 mmol/L (98-107); Creatinine, Serum 1.05 mg/dL (0.70-1.30); EST Glomerular Filtration Rate 73 mL/min (>60); Est Glom Filt Rate - Afr Amer 88 mL/min (>60); Estimated Creatinine Clearance 85.28 ml/min; Globulin 4.1 g/dL (2.2-4.2); Glucose 145 mg/dL (74-106); Magnesium 1.6 mg/dL (1.6-2.6); Potassium 3.6 mmol/L (3.5-5.1); Sodium Level 140 mmol/L (136-145)
[2024-03-04] MEDS: Citalopram 20 MG Tablet PO (08:11)
[2024-03-04] MEDS: Enoxaparin 40 MG/0.4 ML Syringe SC ×2 (08:11→22:43)
[2024-03-04] MEDS: Aspirin E.C. 81 MG Tablet PO (08:12)
[2024-03-04] MEDS: Tolterodine Tartrate 2 MG CAP.SA PO (08:12)
[2024-03-04] MEDS: Ezetimibe 10 MG Tablet PO (08:12)
[2024-03-04] MEDS: Pantoprazole Sodium 20 MG Tablet PO (08:12)
[2024-03-04] MEDS: Atorvastatin Calcium 80 MG Tablet PO (08:13)
[2024-03-04] MEDS: Insulin Glargine-YFGN 100 UNIT/ML Pen 20 UNIT SC (08:18)
[2024-03-04 08:39] LABS: Bedside Glucose 147 mg/dL (74-106)
[2024-03-04] MEDS: Ceftriaxone 1 GM/50 ML BAG IV (10:24)
[2024-03-04] MEDS: Verapamil SR 180 MG CAPSULE PO (10:24)
[2024-03-04] MEDS: Ensure Plus High Protein 120 ML LIQUID PO (10:24)
[2024-03-04] MEDS: Albuterol 2.5 MG/3 ML VIAL.NEB. INHALATION (10:28)
[2024-03-04] MEDS: Insulin Lispro 100 UNIT/ML INSULN.PEN SC ×3 (11:12→22:43)
[2024-03-04 11:32] LABS: Bedside Glucose 206 mg/dL (74-106)
--- NOTE | 2024-03-04 13:22 | PCM.PN.HOSP ---
Reason for Visit Reason for Visit: Diagnoses Weakness (03/03/24) Subjective Subjective Patient was seen and examined today, he is alert but does not carry on a lengthy conversation with me. Nursing states that the patient is aware he is in the hospital and he is aware of the year. Objective Data Objective Data Vital Signs: Vital Signs Temp Pulse Resp BP Pulse Ox O2 Del Method O2 Flow Rate 97.7 F L 91 18 124/46 H 94 Nasal Cannula 1.5 03/04/24 11:28 03/04/24 11:28 03/04/24 11:28 03/04/24 11:28 03/04/24 11:28 03/04/24 11:28 03/04/24 11:28 Oxygen Flow Rate (L/min) 1.5 Oxygen Delivery Method Nasal Cannula Weight: 140.1 kg Body Mass Index (BMI) 40.7 Intake & Output: Intake and Output for Last 24 Hours 03/02/24 03/03/24 03/04/24 23:59 23:59 23:59 Intake Total 1055 / 1355 900 / 900 Balance 1055 / 1355 900 / 900 Lab / Micro Data 03/04/24 05:07 03/04/24 05:07 Labs: Laboratory Results - last 24 hr 03/03/24 13:21: WBC 11.5 H, RBC 3.86 L, Hgb 10.8 L, Hct 35.1 L, MCV 90.9, MCH 28.0, MCHC 30.8 L, RDW Std Deviation 46.4 H, RDW Coeff of Woo 13.9, Plt Count 295, MPV 10.8, Immature Gran % (Auto) 0.300, Neut % (Auto) 84.7 H, Lymph % (Auto) 6.7 L, [place] % (Auto) 7.7, Eos % (Auto) 0.3, Baso % (Auto) 0.3, Absolute Neuts (auto) 9.7 H, Absolute Lymphs (auto) 0.77 L, Nucleated RBC % 0, Sodium 139, Potassium 3.4 L, Chloride 96 L, Carbon Dioxide 34.0 H, Anion Gap 9, BUN 21 H, Creatinine 1.66 H, Estim Creat Clear Calc 54.40, Est GFR (MDRD) Af Amer 52 L, Est GFR (MDRD) Non-Af 43 L, BUN/Creatinine Ratio 12.7, Glucose 270 H, Calcium 9.6, Troponin I High Sens 14 03/03/24 15:26: Urine Color Straw, Urine Clarity Clear, Urine pH 7.0, Ur Specific [place] 1.010, Urine Protein 15 H, Urine Glucose (UA) 100 H, Urine Ketones Negative, Urine Occult Blood 25 H, Urine Nitrite Negative, Urine Bilirubin Negative, Urine Urobilinogen Normal, Ur Leukocyte Esterase 500 H, Urine RBC 0 SEEN, Urine WBC >100 SEEN, Ur Squamous Epith Cells 0-5 SEEN, Urine Bacteria 3+, Urine Mucus 0 SEEN 03/03/24 22:08: POC Glucose 147 H 03/04/24 05:07: WBC 7.8, RBC 3.60 L, Hgb 10.0 L, Hct 32.4 L, MCV 90.0, MCH 27.8, MCHC 30.9 L, RDW Std Deviation 46.4 H, RDW Coeff of Woo 14.0, Plt Count 235, MPV 10.3, Immature Gran % (Auto) 0.400, Neut % (Auto) 68.5, Lymph % (Auto) 18.5 L, [place] % (Auto) 9.8, Eos % (Auto) 2.3, Baso % (Auto) 0.5, Absolute Neuts (auto) 5.4, Absolute Lymphs (auto) 1.45, Nucleated RBC % 0, Sodium 140, Potassium 3.6, Chloride 100, Carbon Dioxide 37.0 H, Anion Gap 3 L, BUN 17, Creatinine 1.05, Estim Creat Clear Calc 85.28, Est GFR (MDRD) Af Amer 88, Est GFR (MDRD) Non-Af 73, BUN/Creatinine Ratio 16.2, Glucose 145 H, Calcium 9.2, Magnesium 1.6, Total Bilirubin 0.40, AST 23, ALT 23, Alkaline Phosphatase 58, Total Protein 7.0, Albumin 2.9 L, Globulin 4.1, Albumin/Globulin Ratio 0.7 L, TSH 2.340 03/04/24 06:26: POC Glucose 147 H 03/04/24 11:11: POC Glucose 206 H Micro: Microbiology 03/03/24 15:26 Urine, Catheterized Urine Culture - Preliminary GNR Poss Pseudomonas sp Radiography Diagnostic Testing: Radiology Impression Knee X-Ray 03/03/24 14:38 IMPRESSION: Degenerative arthrosis. Electronically Signed: Gigi Marcano MD at 15:02 EST , Chest X-Ray 03/03/24 14:40 IMPRESSION: Elevation of the right hemidiaphragm with mild right basilar atelectasis superimposed on vascular congestion. Electronically Signed: Gigi Marcano MD at 15:03 EST , Knee X-Ray 03/03/24 14:43 IMPRESSION: Degenerative arthrosis. Electronically Signed: Gigi Marcano MD at 15:01 EST , Brain CT 03/03/24 15:48 IMPRESSION: Normal unenhanced CT scan of the brain. Electronically Signed: Ezio Morales MD at 17:17 EST , Physical Exam Const alert, oriented x3 and no apparent distress General Appearance: cooperative, well kempt and well developed Orientation / Consciousness: awake, oriented to person, oriented to place and oriented to time HEENT normocephalic, head/scalp atraumatic and moist oral mucous membranes Eyes PERRL, EOMs intact bilaterally and conjunctivae normal Neck supple, no JVD, thyroid normal and no carotid bruits General: trachea midline Resp normal respiratory effort, no retractions, no use of accessory muscles and clear to auscultation bilaterally Auscultation: Negative for rales, rhonchi or wheezes Cardio regular rate, regular rhythm, S1 normal heart sound, S2 normal heart sound, no murmurs, no rub and no gallops GI normal to inspection, nondistended, normoactive bowel sounds, soft to palpation, non-tender and non-distended Extremity no clubbing, cyanosis or edema Skin no rashes or lesions noted General Skin Exam: no breakdown Neuro oriented x3, CN's II-XII intact bilaterally, moves all extremities, no focal motor deficits and no sensory deficits noted Sensorium / Orientation: awake and alert Speech: speech normal Psych Psych Narrative: Patient has flat affect Assessment & Plan Assessment/Plan (1) Acute UTI: PLAN: Plan 1. Acute cystitis-patient remains on IV Rocephin at this time await urine cultures #2 essential hypertension-patient remains on his home medications #3 type 2 diabetes-patient's blood sugars will be monitored using fingerstick blood sugars, sliding scale insulin will be given as appropriate #4 hyperlipidemia-patient is on atorvastatin and Zetia #5 acute debility-patient will be seen by PT and OT, it may be necessary for the patient to go to an extended care facility for short-term rehab services. #6 chronic hypoxic respiratory failure-patient wears oxygen at home at 3 L/min #7 mild dehydration-patient's creatinine was elevated when he was admitted, creatinine has corrected as of today, I do not feel the patient had acute kidney injury Total clinical time spent by myself addressing the patient's medical issues, reviewing all of his data, and collaborating with the patient's care team: 35 minutes Charges/Coding Visit Charges Inpatient E&M: 91715 Subs Hosp L2
--- NOTE | 2024-03-04 14:18 | CASEMGMT ---
Addendum entered by Loan Benito 03/04/24 14:38: Social Work SW spoke w/pt and after PT/OT, they would like SNF, [facility] is first choice, [facility] [place] [facility]. Referral [facility] to [facility] via email, SW to follow up on Wednesday. JENNIFER Ortiz Original Note: Social Work Director Of Archives met w/pt and in room in regard to prior level of function and anticipated discharge plan. Strata 3 Diagnosis: Weakness and UTI PCP: Dr. Barroso Specialists: Dr. Cooper--endocrinology, Dr Berrios--neurology, [facility] Insurance: Medicare/WPS for Life Pharmacy: [facility] in [place] LNOK: , son in [place], [place], son in [place], [place], and daughter in [facility] LW/POA: As per , they have started filling out the paperwork and just need to get it notarized, will be POA Living arrangements/Prior level of function: Pt lives w/ in a two story home, no steps to enter. Pt stays on the firs floor. Pt's helps with all ADLs including cooking, cleaning, cutting up food, driving, bathing, dressing, medication management. DME: Pt has a walker he uses at times, and has a transport chair. Pt has home O2 through [employer], 3LPM continuous HHC: Pt has had [facility], had [facility] prior to admission here SNF: Pt was at [facility] in December Plan: Home vs SNF SW spoke w/pt and in room in regard to discharge plan. They would prefer to go home and continue [facility] if possible. SW did provide to a list via [facility] of assisted facilities in network w/insurance, in pt's preferred geographic area, and complete w/quality and resource use data. Pt to see PT/OT today. SW to follow up once pt has had PT/OT for appropriate discharge plan. JENNIFER Ortiz
[2024-03-04 16:38] LABS: Bedside Glucose 178 mg/dL (74-106)
[2024-03-04] MEDS: Amitriptyline 25 MG Tablet PO (22:43)
[2024-03-04] MEDS: Piperacil/Tazobactam 3.375 GM in 0.9% Normal Saline (50mL MB+) 50 ML IV (22:43)
[2024-03-04] MEDS: 0.9% Saline Lock 10 ML Syringe IV (22:46)
[2024-03-04 23:16] LABS: Bedside Glucose 186 mg/dL (74-106)
[2024-03-05] VITALS (10 sets, daily range): BP systolic 130–145; BP diastolic 41–74; PULSE 78–94; RESP 16–18; TEMP 36.6–37.3; O2SAT 92–96; BMI 40.9
[2024-03-05] MEDS: Piperacil/Tazobactam 3.375 GM in 0.9% Normal Saline (50mL MB+) 50 ML IV ×2 (07:23→14:41)
[2024-03-05] MEDS: Insulin Lispro 100 UNIT/ML INSULN.PEN SC ×4 (07:23→22:13)
[2024-03-05 07:47] LABS: Bedside Glucose 154 mg/dL (74-106)
[2024-03-05 08:04] LABS: Bedside Glucose 148 mg/dL (74-106)
[2024-03-05] MEDS: Citalopram 20 MG Tablet PO (08:42)
[2024-03-05] MEDS: Tolterodine Tartrate 2 MG CAP.SA PO (08:42)
[2024-03-05] MEDS: Aspirin E.C. 81 MG Tablet PO (08:42)
[2024-03-05] MEDS: Verapamil SR 180 MG CAPSULE PO (08:42)
[2024-03-05] MEDS: Ezetimibe 10 MG Tablet PO (08:43)
[2024-03-05] MEDS: Enoxaparin 40 MG/0.4 ML Syringe SC ×2 (08:43→21:58)
[2024-03-05] MEDS: Atorvastatin Calcium 80 MG Tablet PO (08:43)
[2024-03-05] MEDS: Pantoprazole Sodium 20 MG Tablet PO (08:43)
[2024-03-05] MEDS: Insulin Glargine-YFGN 100 UNIT/ML Pen 20 UNIT SC (11:15)
[2024-03-05 12:17] LABS: Bedside Glucose 157 mg/dL (74-106)
--- NOTE | 2024-03-05 14:39 | PCM.PN.HOSP ---
Reason for Visit Reason for Visit: Diagnoses Urinary tract infection, site not specified (03/03/24) Weakness (03/03/24) Subjective Subjective Patient was seen and examined today, he voices no complaints. Patient's urine culture was positive for Pseudomonas. It is sensitive to quinolones. Objective Data Objective Data Vital Signs: Vital Signs Temp Pulse Resp BP Pulse Ox O2 Del Method O2 Flow Rate 97.8 F 82 18 130/63 H 92 Nasal Cannula 2 03/05/24 08:16 03/05/24 08:16 03/05/24 08:17 03/05/24 08:16 03/05/24 10:32 03/05/24 10:32 03/05/24 10:32 Oxygen Flow Rate (L/min) 2 Oxygen Delivery Method Nasal Cannula Weight: 140.1 kg Body Mass Index (BMI) 40.9 Intake & Output: Intake and Output for Last 24 Hours 03/03/24 03/04/24 03/05/24 23:59 23:59 23:59 Intake Total 1055 / 1355 1350 / 1400 850 / 850 Output Total 825 / 825 Balance 1055 / 1355 1350 / 1125 25 / 25 Lab / Micro Data 03/04/24 05:07 03/04/24 05:07 Labs: Laboratory Results - last 24 hr 03/04/24 16:10: POC Glucose 178 H 03/04/24 22:33: POC Glucose 186 H 03/05/24 07:21: POC Glucose 154 H 03/05/24 07:46: POC Glucose 148 H 03/05/24 12:00: POC Glucose 157 H Micro: Microbiology 03/03/24 15:26 Urine, Catheterized Urine Culture - Final Pseudomonas aeruginosa Physical Exam Narrative alert, oriented x3 and no apparent distress General Appearance: cooperative, well kempt and well developed Orientation / Consciousness: awake, oriented to person, oriented to place and oriented to time HEENT normocephalic, head/scalp atraumatic and moist oral mucous membranes Eyes PERRL, EOMs intact bilaterally and conjunctivae normal Neck supple, no JVD, thyroid normal and no carotid bruits General: trachea midline Resp normal respiratory effort, no retractions, no use of accessory muscles and clear to auscultation bilaterally Auscultation: Negative for rales, rhonchi or wheezes Cardio regular rate, regular rhythm, S1 normal heart sound, S2 normal heart sound, no murmurs, no rub and no gallops GI normal to inspection, nondistended, normoactive bowel sounds, soft to palpation, non-tender and non-distended Extremity no clubbing, cyanosis or edema Skin no rashes or lesions noted General Skin Exam: no breakdown Neuro oriented x3, CN's II-XII intact bilaterally, moves all extremities, no focal motor deficits and no sensory deficits noted Sensorium / Orientation: awake and alert Speech: speech normal Psych Psych Narrative: Patient has flat affect Assessment & Plan Assessment/Plan (1) Generalized weakness: (2) Acute UTI: PLAN: Plan 1. Acute cystitis due to Pseudomonas-I have decided to switch the patient to Levaquin and stop his Zosyn. #2 essential hypertension-patient remains on his home medications #3 type 2 diabetes-patient's blood sugars will be monitored using fingerstick blood sugars, sliding scale insulin will be given as appropriate #4 hyperlipidemia-patient is on atorvastatin and Zetia #5 acute debility-patient will be seen by PT and OT, it may be necessary for the patient to go to an extended care facility for short-term rehab services. #6 chronic hypoxic respiratory failure-patient wears oxygen at home at 3 L/min #7 mild dehydration-patient's creatinine was elevated when he was admitted, creatinine has corrected , I do not feel the patient had acute kidney injury Total clinical time spent by myself addressing the patient's medical issues, reviewing all of his data, and collaborating with the patient's care team: 35 minutes Charges/Coding Visit Charges Inpatient E&M: 42240 Subs Hosp L2
[2024-03-05] MEDS: levoFLOXacin 500 MG Tablet PO (16:46)
[2024-03-05 16:56] LABS: Bedside Glucose 216 mg/dL (74-106)
[2024-03-05] MEDS: Amitriptyline 25 MG Tablet PO (21:58)
[2024-03-06] VITALS (7 sets, daily range): BP systolic 137–164; BP diastolic 65–78; PULSE 78–91; RESP 16–18; TEMP 36.7–37.3; O2SAT 93–96; BMI 42.0
[2024-03-06 00:34] LABS: Bedside Glucose 218 mg/dL (74-106)
[2024-03-06] MEDS: levoFLOXacin 500 MG Tablet PO (06:19)
[2024-03-06 07:09] LABS: Bedside Glucose 139 mg/dL (74-106)
[2024-03-06] MEDS: Tolterodine Tartrate 2 MG CAP.SA PO (09:21)
[2024-03-06] MEDS: Citalopram 20 MG Tablet PO (09:21)
[2024-03-06] MEDS: Atorvastatin Calcium 80 MG Tablet PO (09:21)
[2024-03-06] MEDS: Pantoprazole Sodium 20 MG Tablet PO (09:21)
[2024-03-06] MEDS: Enoxaparin 40 MG/0.4 ML Syringe SC ×2 (09:21→20:17)
[2024-03-06] MEDS: Aspirin E.C. 81 MG Tablet PO (09:21)
[2024-03-06] MEDS: Insulin Glargine-YFGN 100 UNIT/ML Pen 20 UNIT SC (09:22)
[2024-03-06] MEDS: Verapamil SR 180 MG CAPSULE PO (09:22)
[2024-03-06] MEDS: Ezetimibe 10 MG Tablet PO (09:22)
--- NOTE | 2024-03-06 09:52 | CASEMGMT ---
Addendum entered by Erna Lopez 03/06/24 16:54: SW updated TCU that per charge nurse, pt does not currently have angela bed. TCU also updated that pt had bowel movement. TCU staff left at 13:30 and will follow up in the morning. JORDAN Holman Addendum entered by Erna Lopez 03/06/24 16:00: Pt and updated on pending discharge. Pt reports that pt admitted 03/03 and had bowel movement 03/02, which is normal for pt. TCU updated. TCU deferred d/t not having a angela bed. SW remains available to follow. JORDAN Holman Original Note: Social Work- SW received notice of acceptance at TCU pending pt having a bowel movement. Bedside RN advised. Pt updated. Plan: TCU; skilled level of care JORDAN Holman
[2024-03-06] MEDS: Senna/Docusate Sodium 1 Tablet 2 TABLET PO (10:11)
--- NOTE | 2024-03-06 11:41 | PCM.PN.HOSP ---
Subjective Subjective Doing well, no issues overnight Objective Data Objective Data Vital Signs: Vital Signs Temp Pulse Resp BP Pulse Ox O2 Del Method O2 Flow Rate 98.4 F 91 16 164/78 H 96 Nasal Cannula 2 03/06/24 09:27 03/06/24 09:27 03/06/24 09:27 03/06/24 09:27 03/06/24 09:27 03/06/24 09:27 03/06/24 10:13 Oxygen Flow Rate (L/min) 2 Oxygen Delivery Method Nasal Cannula Weight: 317 lb 7.45 oz Body Mass Index (BMI) 42.0 Intake & Output: Intake and Output for Last 24 Hours 03/05/24 03/06/24 03/07/24 03:59 03:59 03:59 Intake Total 1150 / 1150 1578.33 / 1578.33 400 / 400 Output Total 275 / 275 1550 / 1550 300 / 300 Balance 875 / 875 28.33 / 28.33 100 / 100 Lab / Micro Data 03/04/24 05:07 03/04/24 05:07 Labs: Laboratory Results - last 24 hr 03/05/24 12:00: POC Glucose 157 H 03/05/24 16:31: POC Glucose 216 H 03/05/24 22:11: POC Glucose 218 H 03/06/24 06:51: POC Glucose 139 H Micro: Microbiology 03/03/24 15:26 Urine, Catheterized Urine Culture - Final Pseudomonas aeruginosa Physical Exam Narrative General: Alert, Oriented x3, Cooperative, No apparent distress HEENT: Atraumatic, PERRLA, EOMI, Normocephalic Oral: Moist Mucosa Neck: Supple, No JVD Lungs: Diminished, Normal air movement, No rhonchi, No wheeze, No rales Cardiovascular: Regular rate, Regular Rhythm, Normal S1, Normal S2, No murmurs Abdomen: Soft, Non Tender, Non-Distended, No Hepato-splenomegaly Extremities: No edema, Capillary Refill Less than 3 Seconds Skin: No rashes, No breakdown Musculoskeletal: No Tenderness to Palpation of Joints or Extremities Neurological: No focal neurological deficits, Motor Exam 5/5 strength throughout, Sensory exam intact to light touch and pain Psych/Mental Status: Flat Assessment & Plan Assessment/Plan (1) Generalized weakness: (2) Acute UTI: PLAN: Plan 1. Acute UTI secondary to Pseudomonas/debility ? Continue with Levaquin p.o. ? This is a second UTI in the ER, will have him follow-up with urology as an outpatient ? PT/OT pending possible transition to TCU 2. Essential HTN/HLD ? Continue with home blood pressure medications ? Will monitor make adjustments as necessary ? Continue with his home cholesterol medications 3. DM2 ? Stable ? Continue with insulin ? Accu-Cheks ACHS ? Will monitor make adjustments as necessary 4. Chronic hypoxic respiratory failure ? Wears oxygen at 3 L nasal cannula baseline at home DVT: Lovenox Charges/Coding Visit Charges Inpatient E&M: 33588 Subs Hosp L2
[2024-03-06 11:55] LABS: Bedside Glucose 159 mg/dL (74-106)
[2024-03-06] MEDS: Polyethylene Glycol 3350 17 GM PACKET PO (12:00)
[2024-03-06] MEDS: Insulin Lispro 100 UNIT/ML INSULN.PEN SC ×2 (12:00→20:20)
[2024-03-06 17:05] LABS: Bedside Glucose 150 mg/dL (74-106)
[2024-03-06] MEDS: Amitriptyline 25 MG Tablet PO (20:18)
[2024-03-06 20:46] LABS: Bedside Glucose 181 mg/dL (74-106)
[2024-03-07 02:14] VITALS: BP 146/51; PULSE 75; RESP 17; TEMP 36.9; O2SAT 95
[2024-03-07] MEDS: levoFLOXacin 500 MG Tablet PO (05:35)
[2024-03-07 06:38] LABS: Bedside Glucose 137 mg/dL (74-106)
[2024-03-07 07:31] LABS: Absolute Lymphocyte Count 1.13 X10^3/uL (0.83-4.51); Absolute Neutrophil Count 2.4 X10^3/uL (2.0-7.7); Basophil# 0.04 X10^3/uL; Basophil% 0.9 % (0-1); Eosinophil# 0.25 X10^3/uL; Eosinophils% 5.7 % (0-5); Hematocrit 29.2 % (40-54); Hemoglobin 8.9 g/dL (13.0-16.5); Lymphocyte # 1.13 X10^3/ul (0.83-4.51); Lymphocyte % 25.9 % (19-41); Mean Corp Hgb Conc 30.5 g/dL (32-36); Mean Corpuscular Hgb 27.3 pg (27.0-32.0); Mean Corpuscular Volume 89.6 fL (80-94); Mean Platelet Vol. 10.2 fl (6.2-12.0); Monocyte# 0.58 X10^3/uL; Monocyte% 13.3 % (0-10); NRBC Flagged by Analyzer 0 % (0-5); Neutrophil # 2.35 X10^3/uL (2.7-7.7); Neutrophil % 53.7 % (47-70); Platelet Count 238 K/mm3 (150-450); RBC Distribution Width CV 13.6 % (11.6-14.6); RBC Distribution Width SD 44.7 fl (35.1-43.9); Red Blood Count 3.26 M/mm3 (4.6-6.2); White Blood Count 4.4 K/mm3 (4.4-11.0)
[2024-03-07 07:57] VITALS: O2SAT 98
[2024-03-07 08:03] LABS: Anion Gap 1 (5-15); BUN 13 mg/dL (7-18); BUN/Creat Ratio 12.5 RATIO (10-20); Calcium,Total 9.7 mg/dL (8.5-10.1); Chloride 100 mmol/L (98-107); Creatinine, Serum 1.04 mg/dL (0.70-1.30); EST Glomerular Filtration Rate 73 mL/min (>60); Est Glom Filt Rate - Afr Amer 89 mL/min (>60); Estimated Creatinine Clearance 87.39 ml/min; Glucose 182 mg/dL (74-106); Potassium 3.7 mmol/L (3.5-5.1); Sodium Level 139 mmol/L (136-145)
[2024-03-07 08:10] VITALS: BP 145/69; PULSE 81; RESP 20; TEMP 36.8; O2SAT 95
[2024-03-07] MEDS: Atorvastatin Calcium 80 MG Tablet PO (08:15)
[2024-03-07] MEDS: Verapamil SR 180 MG CAPSULE PO (08:15)
[2024-03-07] MEDS: Enoxaparin 40 MG/0.4 ML Syringe SC (08:15)
[2024-03-07] MEDS: Citalopram 20 MG Tablet PO (08:15)
[2024-03-07] MEDS: Tolterodine Tartrate 2 MG CAP.SA PO (08:15)
[2024-03-07] MEDS: Ezetimibe 10 MG Tablet PO (08:15)
[2024-03-07] MEDS: Aspirin E.C. 81 MG Tablet PO (08:15)
[2024-03-07] MEDS: Pantoprazole Sodium 20 MG Tablet PO (08:15)
[2024-03-07] MEDS: Insulin Glargine-YFGN 100 UNIT/ML Pen 20 UNIT SC (08:17)
[2024-03-07 08:22] VITALS: O2SAT 96
--- NOTE | 2024-03-07 09:50 | PCM.TXEXTCAR ---
Diet Diet Order/Speech Therapy: 03/03/24 19:47 Diet: Cardiac - Heart Healthy Food consistency:: Regular Liquid Consistency:: Regular/Thin Routine Orders/Code Status Routine Lab Work: CBC and BMP Code Status: Full Code DC O2, CPAP, BIPAP needs Additional Home O2 Discharge instructions: No Wound(s) Left knee: Wound Type: Skin Tear Right Knee: Wound Type: Skin Tear Right second toe: Wound Type: Abrasion BL big toe: Wound Type: Abrasion chest: Wound Type: Abrasion left foot second toe: Wound Type: Abrasion Therapies Physical Therapy: Eval and Treat Occupational Therapy: Eval and Treat Problem/Diagnosis (1) Generalized weakness: Status: Acute Code(s): R53.1 - Weakness (2) Acute UTI: Status: Acute Code(s): N39.0 - Urinary tract infection, site not specified Plan 1. Acute UTI secondary to Pseudomonas/debility ? Continue with Levaquin p.o. ? This is a second UTI in the ER, will have him follow-up with urology as an outpatient ? PT/OT pending possible transition to TCU 2. Essential HTN/HLD ? Continue with home blood pressure medications ? Will monitor make adjustments as necessary ? Continue with his home cholesterol medications 3. DM2 ? Stable ? Continue with insulin ? Accu-Cheks ACHS ? Will monitor make adjustments as necessary 4. Chronic hypoxic respiratory failure ? Wears oxygen at 3 L nasal cannula baseline at home DVT: Lovenox Allergies/Procedures Done in Hospital Allergies No Known Allergies Allergy (Verified 03/03/24 14:03) Procedures: None Type of Care/Length of Stay Estimated LOS: Convalescent Care Less Than 30 days Type of Care Needed: Skilled Rehab Potential: Fair Prognosis: Fair Additional Orders/Day of Discharge Day of Discharge: 03/07/24 Dietary and Speech Recommendations Dietitian Recommendations/Changes: Will change diet to 2000 kadie Consistent CHO/Cardiac diet to help manage medical conditions Will follow and monitor for changes in pt nutritional status - will provide diet education if appropriate and pt interested. Discharge Plan Admission Admit Date/Time: 03/03/24 18:37 Attending Provider: Pedro Allen Primary Care Provider: Kike Barroso Consulting Providers: Carrie Cooley; Kike Dykes Discharge Orders/Prescriptions Prescriptions: New levofloxacin 500 mg Tablet 500 mg PO DAILY@0600 3 Days Qty: 0 0RF Continued (DME) Precision Xtra Test Strip See Rx Instructions .Route Qty: 200 3RF Rx Instructions: bid (DME) pen needle, diabetic [BD Ultra-Fine Zenaida Pen Needle] 32 gauge x 5/32 needle See Rx Instructions .ROUTE .MEDSUPPLY Qty: 400 3RF Rx Instructions: 4 times daily donepezil 10 mg tablet 10 mg PO QHS Qty: 30 10RF clotrimazole-betamethasone 1-0.05 % cream 1 applic topical PRN atorvastatin 80 MG tablet 80 mg PO DAILY Patient Comments: cholesterol lowering aspirin 81 MG tablet 81 mg PO DAILY@0800 Patient Comments: blood thinner citalopram 20 MG tablet 20 mg PO DAILY Patient Comments: anti-depressant amitriptyline 25 MG tablet 25 mg PO QHS Patient Comments: anti-depressant fenofibrate nanocrystallized 145 MG tablet 145 mg PO DAILY Patient Comments: cholesterol lowering metformin 500 mg tablet 500 mg PO BID Patient Comments: diabetic med ezetimibe 10 mg tablet 10 mg PO DAILY omeprazole 20 mg capsule,delayed release(DR/EC) 20 mg PO DAILY timolol maleate 0.5 % drops 1 drp ophthalmic (eye) BID Patient Comments: [NO ORIGINAL SIG] oxybutynin chloride 15 mg tablet extended release 24hr 5 mg PO DAILY cyanocobalamin (vitamin B-12) 1,000 mcg/mL solution 100 mcg IM QMONTH hydroxyzine pamoate 25 mg capsule 25 mg PO TID PRN (Reason: anxiety) Qty: 90 2RF insulin glargine [Lantus Solostar U-100 Insulin] 100 unit/mL (3 mL) insulin pen 20 unit subcut DAILY Qty: 72 2RF insulin lispro [Humalog KwikPen Insulin] 100 unit/mL Insulin Pen See Protocol subcut ACHS Qty: 0 0RF Protocol: 4. Sliding Scale Insulin High-Med Dosing Condition: 150-199 mg/dl = 2 units Condition: 200-259 mg/dl = 4 units Condition: 260-324 mg/dl = 6 units Condition: 325-374 mg/dl = 8 units Condition: 375-409 mg/dl = 10 units Condition: 410-449 mg/dl = 11 units Condition: Greater than 449 call physician Protocol Text: Suggested for: - Patients on Total Daily Insulin Dose of 56-80 units - Patient who are known to be insulin resistant or septic HIGH MEDIUM DOSING ALGORITHM (DME) Easy Touch Twist Lancets 32 gauge misc See Rx Instructions .Route Qty: 200 1RF Rx Instructions: bid furosemide [Lasix] 40 mg tablet 40 mg PO DAILY Qty: 90 4RF verapamil 180 mg tablet extended release 180 mg PO DAILY Qty: 30 11RF Referrals / Follow Up: Kike Barroso DO [Primary Care Provider] - Disposition Disposition (needs filled in before D/C Order can be placed): Care Home Facility
--- NOTE | 2024-03-07 10:22 | CASEMGMT ---
Social Work- SW received notice that [facility] is able to receive pt. Physician feels pt is medically ready. SW faxed discharge paperwork to [facility]. SW advised bedside nurse of pending d/c, as well as pt. SW remains available to follow. Plan: [facility] Holman
--- NOTE | 2024-03-07 10:35 | PHA.DC.MR.R ---
Pharmacy [facility] Med Reconciliation Pharmacy Service has performed discharge medication reconciliation for this patient. The patient's discharge medication list was reviewed for discrepancies and discrepancies were resolved. Medications at Discharge Home Medications amitriptyline 25 mg tablet 25 mg PO QHS 03/24/16 aspirin 81 mg tablet,delayed release 81 mg PO DAILY@0800 03/24/16 atorvastatin 80 mg tablet 80 mg PO DAILY 03/24/16 citalopram 20 mg tablet 20 mg PO DAILY 03/24/16 fenofibrate nanocrystallized 145 mg tablet 145 mg PO DAILY 03/24/16 metformin 500 mg tablet 500 mg PO BID 05/08/19 ezetimibe 10 mg tablet 10 mg PO DAILY 11/07/20 Precision Xtra Test (blood sugar diagnostic) #200 ea 04/15/23 lancets 32 gauge (Easy Touch Twist Lancets) #200 ea 04/16/23 furosemide 40 mg tablet (Lasix) 40 mg PO DAILY #90 tabs 04/26/23 omeprazole 20 mg capsule,delayed release 20 mg PO DAILY 07/12/23 timolol maleate 0.5 % eye drops 1 drp ophthalmic (eye) BID 07/12/23 pen needle, diabetic 32 gauge x 5/32 (BD Ultra-Fine Zenaida Pen Needle) #400 ea 09/03/23 donepezil 10 mg tablet 10 mg PO QHS #30 tabs 10/19/23 clotrimazole-betamethasone 1 %-0.05 % topical cream 1 applic topical PRN 11/19/23 oxybutynin chloride 15 mg tablet,extended release 24 hr 5 mg PO DAILY 11/19/23 verapamil 180 mg tablet,extended release 180 mg PO DAILY #30 tabs 12/27/23 cyanocobalamin (vitamin B-12) 1,000 mcg/mL injection solution 100 mcg IM QMONTH 12/30/23 Lantus Solostar U-100 Insulin 100 unit/mL (3 mL) subcutaneous pen (insulin glargine) 20 unit (0.2 mL) subcut DAILY #72 mL 01/05/24 hydroxyzine pamoate 25 mg capsule 25 mg PO TID PRN anxiety #90 caps 01/05/24 insulin lispro 100 unit/mL subcutaneous pen (Humalog KwikPen (U-100) Insulin) See Protocol subcut ACHS #0 mL 01/05/24 levofloxacin 500 mg tablet 500 mg PO DAILY@0600 3 days #0 tabs 03/07/24
[2024-03-07] MEDS: Insulin Lispro 100 UNIT/ML INSULN.PEN SC (11:24)
[2024-03-07 11:43] LABS: Bedside Glucose 161 mg/dL (74-106)
--- NOTE | 2024-03-07 11:51 | DS.PCM_ITS ---
Providers Date of Admission: 03/03/24 Primary Care Physician: Dr. Kike Barroso, DO Reason For Visit: WEAKNESS W/ FALL Diagnosis Discharge Diagnosis (1) Generalized weakness: Status: Acute Code(s): R53.1 - Weakness (2) Acute UTI: Status: Acute Code(s): N39.0 - Urinary tract infection, site not specified Medications at Discharge Home Medications amitriptyline 25 mg tablet 25 mg PO QHS 03/24/16 aspirin 81 mg tablet,delayed release 81 mg PO DAILY@0800 03/24/16 atorvastatin 80 mg tablet 80 mg PO DAILY 03/24/16 citalopram 20 mg tablet 20 mg PO DAILY 03/24/16 fenofibrate nanocrystallized 145 mg tablet 145 mg PO DAILY 03/24/16 metformin 500 mg tablet 500 mg PO BID 05/08/19 ezetimibe 10 mg tablet 10 mg PO DAILY 11/07/20 Precision Xtra Test (blood sugar diagnostic) #200 ea 04/15/23 lancets 32 gauge (Easy Touch Twist Lancets) #200 ea 04/16/23 furosemide 40 mg tablet (Lasix) 40 mg PO DAILY #90 tabs 04/26/23 omeprazole 20 mg capsule,delayed release 20 mg PO DAILY 07/12/23 timolol maleate 0.5 % eye drops 1 drp ophthalmic (eye) BID 07/12/23 pen needle, diabetic 32 gauge x 5/32 (BD Ultra-Fine Zenaida Pen Needle) #400 ea 09/03/23 donepezil 10 mg tablet 10 mg PO QHS #30 tabs 10/19/23 clotrimazole-betamethasone 1 %-0.05 % topical cream 1 applic topical PRN 11/19/23 oxybutynin chloride 15 mg tablet,extended release 24 hr 5 mg PO DAILY 11/19/23 verapamil 180 mg tablet,extended release 180 mg PO DAILY #30 tabs 12/27/23 cyanocobalamin (vitamin B-12) 1,000 mcg/mL injection solution 100 mcg IM QMONTH 12/30/23 Lantus Solostar U-100 Insulin 100 unit/mL (3 mL) subcutaneous pen (insulin glargine) 20 unit (0.2 mL) subcut DAILY #72 mL 01/05/24 hydroxyzine pamoate 25 mg capsule 25 mg PO TID PRN anxiety #90 caps 01/05/24 insulin lispro 100 unit/mL subcutaneous pen (Humalog KwikPen (U-100) Insulin) See Protocol subcut ACHS #0 mL 01/05/24 levofloxacin 500 mg tablet 500 mg PO DAILY@0600 3 days #0 tabs 03/07/24 Hospital Course Operations None Procedures None Summary of Care Provided Minutes Spent on Discharge: 32 Hospital Course: Per HPI: MEGAN RIVER, is a 78-year-old male history of hypertension, diabetes, CHF, dementia, TARA who presented [facility] ED 03/03/2024 after he lost his balance and fell in the bathroom landed on both knees. He was stuck between the toilet and bathtub and was too weak to get up even with 's assistance they called paramedics. In the ED patient found to have BHAVNA and UA suggestive of UTI. Patient weak and unable to be safely discharged home so hospitalist contacted for admission. Patient evaluated with family member at bedside, he has been weak and just has not felt well over the past couple of days and when he fell today he was too weak to get up. He denies any urinary frequency or burning but has had several recent UTIs. Patient at his baseline respiratory status. Denies any other new or acute complaints Hospital Course: 1. Acute UTI secondary to Pseudomonas with debility?78-year-old male presented to the hospital with weakness and a fall at home where he got stuck between the toilet and the bathtub. He was found to have a UTI that was due to Pseudomonas and it was sensitive to Levaquin. He is much improved after antibiotics however he is still weak so we discussed the plan for discharge to longterm for physical therapy and he expressed understanding of the risk benefits of going today and he would like to go when possible. Will continue Levaquin 500 mg p.o. daily for 3 more days to complete treatment. 2. Essential hypertension, hyperlipidemia, type 2 diabetes, chronic hypoxic respiratory failure on 3 L nasal cannula at baseline are all chronic medical conditions which complicate his care. His home medications were continued where appropriate Physical Exam Narrative General: Alert, Oriented x3, Cooperative, No apparent distress HEENT: Atraumatic, PERRLA, EOMI, Normocephalic Oral: Moist Mucosa Neck: Supple, No JVD Lungs: Diminished, Normal air movement, No rhonchi, No wheeze, No rales Cardiovascular: Regular rate, Regular Rhythm, Normal S1, Normal S2, No murmurs Abdomen: Soft, Non Tender, Non-Distended, No Hepato-splenomegaly Extremities: No edema, Capillary Refill Less than 3 Seconds Skin: No rashes, No breakdown Musculoskeletal: No Tenderness to Palpation of Joints or Extremities Neurological: No focal neurological deficits, Motor Exam 5/5 strength throughout, Sensory exam intact to light touch and pain Psych/Mental Status: Flat Weight / BMI Weight Weight: 317 lb 7.45 oz Body Mass Index (BMI) 42.0 ABG / Lab / Microbiology Data 03/07/24 06:56 03/07/24 06:56 Laboratory: Laboratory Results - last 24 hr 03/06/24 11:33: POC Glucose 159 H 03/06/24 16:48: POC Glucose 150 H 03/06/24 20:19: POC Glucose 181 H 03/07/24 05:46: POC Glucose 137 H 03/07/24 06:56: WBC 4.4, RBC 3.26 L, Hgb 8.9 L, Hct 29.2 L, MCV 89.6, MCH 27.3, MCHC 30.5 L, RDW Std Deviation 44.7 H, RDW Coeff of Woo 13.6, Plt Count 238, MPV 10.2, Immature Gran % (Auto) 0.500, Neut % (Auto) 53.7, Lymph % (Auto) 25.9, M shanell % (Auto) 13.3 H, Eos % (Auto) 5.7 H, Baso % (Auto) 0.9, Absolute Neuts (auto) 2.4, Absolute Lymphs (auto) 1.13, Nucleated RBC % 0, Sodium 139, Potassium 3.7, Chloride 100, Carbon Dioxide 38.0 H, Anion Gap 1 L, BUN 13, Creatinine 1.04, Estim Creat Clear Calc 87.39, Est GFR (MDRD) Af Amer 89, Est GFR (MDRD) Non-Af 73, BUN/Creatinine Ratio 12.5, Glucose 182 H, Calcium 9.7 03/07/24 11:23: POC Glucose 161 H Microbiology: Microbiology 03/03/24 15:26 Urine, Catheterized Urine Culture - Final Pseudomonas aeruginosa D/C Instructions DC O2, CPAP, BIPAP Needs Additional Home O2 Discharge instructions: No DC home with Oxygen: No Meaningful Use Info Meaningful Use Meaningful Use Diagnoses (Choose all that apply): None applicable Ischemic Stroke Statin Dosing Therapy Reference: STATIN DOSE THERAPY REFERENCE: * Patients > 75 years receive moderate or high dose statin therapy. * Patients 75 years or YOUNGER should receive HIGH intensity statin dose unless contraindicated. You will be required to document reason for non-treatment if statin daily dose does not meet guidelines. HIGH DOSE STATIN THERAPY DAILY Atorvastatin > than or = to 40 mg Rosuvastatin > than or = to 20 mg Amlodipine + Atorvastatin > than or = to 2.5/40 mg Ezetimibe + Simvastatin 10/80 mg Simvastatin 80mg Discharge Plan Admission Admit Date/Time: 03/03/24 18:37 Attending Provider: Pedro Allen Primary Care Provider: Kike Barroso Consulting Providers: Carrie Cooley; Kike Dykes Discharge Orders/Prescriptions Prescriptions: New levofloxacin 500 mg Tablet 500 mg PO DAILY@0600 3 Days Qty: 0 0RF Continued (DME) Precision Xtra Test Strip See Rx Instructions .Route Qty: 200 3RF Rx Instructions: bid (DME) pen needle, diabetic [BD Ultra-Fine Zenaida Pen Needle] 32 gauge x 5/32 needle See Rx Instructions .ROUTE .MEDSUPPLY Qty: 400 3RF Rx Instructions: 4 times daily donepezil 10 mg tablet 10 mg PO QHS Qty: 30 10RF clotrimazole-betamethasone 1-0.05 % cream 1 applic topical PRN atorvastatin 80 MG tablet 80 mg PO DAILY Patient Comments: cholesterol lowering aspirin 81 MG tablet 81 mg PO DAILY@0800 Patient Comments: blood thinner citalopram 20 MG tablet 20 mg PO DAILY Patient Comments: anti-depressant amitriptyline 25 MG tablet 25 mg PO QHS Patient Comments: anti-depressant fenofibrate nanocrystallized 145 MG tablet 145 mg PO DAILY Patient Comments: cholesterol lowering metformin 500 mg tablet 500 mg PO BID Patient Comments: diabetic med ezetimibe 10 mg tablet 10 mg PO DAILY omeprazole 20 mg capsule,delayed release(DR/EC) 20 mg PO DAILY timolol maleate 0.5 % drops 1 drp ophthalmic (eye) BID Patient Comments: [NO ORIGINAL SIG] oxybutynin chloride 15 mg tablet extended release 24hr 5 mg PO DAILY cyanocobalamin (vitamin B-12) 1,000 mcg/mL solution 100 mcg IM QMONTH hydroxyzine pamoate 25 mg capsule 25 mg PO TID PRN (Reason: anxiety) Qty: 90 2RF insulin glargine [Lantus Solostar U-100 Insulin] 100 unit/mL (3 mL) insulin pen 20 unit subcut DAILY Qty: 72 2RF insulin lispro [Humalog KwikPen Insulin] 100 unit/mL Insulin Pen See Protocol subcut ACHS Qty: 0 0RF Protocol: 4. Sliding Scale Insulin High-Med Dosing Condition: 150-199 mg/dl = 2 units Condition: 200-259 mg/dl = 4 units Condition: 260-324 mg/dl = 6 units Condition: 325-374 mg/dl = 8 units Condition: 375-409 mg/dl = 10 units Condition: 410-449 mg/dl = 11 units Condition: Greater than 449 call physician Protocol Text: Suggested for: - Patients on Total Daily Insulin Dose of 56-80 units - Patient who are known to be insulin resistant or septic HIGH MEDIUM DOSING ALGORITHM (DME) Easy Touch Twist Lancets 32 gauge misc See Rx Instructions .Route Qty: 200 1RF Rx Instructions: bid furosemide [Lasix] 40 mg tablet 40 mg PO DAILY Qty: 90 4RF verapamil 180 mg tablet extended release 180 mg PO DAILY Qty: 30 11RF Referrals / Follow Up: Kike Barroso DO [Primary Care Provider] - Disposition Disposition (needs filled in before D/C Order can be placed): Detention Facility Charges/Coding Visit Charges Inpatient E&M: 35525 Disch Hosp >30min
== END 2024-03-07 13:17 | disposition skilled nursing facility (03) | DRG 690 ==
LOC: ED 15:47 → MS3 18:48
PROVIDERS: Internal Medicine; Physician Assistant; Admitting Provider Internal Medicine; Emergency Provider Emergency Medicine; PCP Family Medicine; Visit Provider Family Medicine
DX: N39.0 Urinary tract infection, site not specified (principal); I50.32 Chronic diastolic (congestive) heart failure; I13.0 Hypertensive heart and chronic kidney disease with heart failure and stage 1 through stage 4 chronic kidney disease, or unspecified chronic kidney disease; Z68.41 Body mass index [BMI] 40.0-44.9, adult; J96.11 Chronic respiratory failure with hypoxia; N17.9 Acute kidney failure, unspecified; B96.5 Pseudomonas (aeruginosa) (mallei) (pseudomallei) as the cause of diseases classified elsewhere; E11.42 Type 2 diabetes mellitus with diabetic polyneuropathy; N18.30 Chronic kidney disease, stage 3 unspecified; F32.A Depression, unspecified; E66.01 Morbid (severe) obesity due to excess calories; E87.6 Hypokalemia; Z79.4 Long term (current) use of insulin; K21.9 Gastro-esophageal reflux disease without esophagitis; S80.01XA Contusion of right knee, initial encounter; S80.212A Abrasion, left knee, initial encounter; E78.5 Hyperlipidemia, unspecified; G47.33 Obstructive sleep apnea (adult) (pediatric); S80.211A Abrasion, right knee, initial encounter; E11.22 Type 2 diabetes mellitus with diabetic chronic kidney disease; S80.02XA Contusion of left knee, initial encounter; W17.89XA Other fall from one level to another, initial encounter; F41.9 Anxiety disorder, unspecified; E86.0 Dehydration; R53.1 Weakness; Z80.0 Family history of malignant neoplasm of digestive organs; R53.81 Other malaise; Y92.002 Bathroom of unspecified non-institutional (private) residence as the place of occurrence of the external cause; Z99.89 Dependence on other enabling machines and devices; Z79.82 Long term (current) use of aspirin
CPT/HCPCS: 36415; 70450; 71045; 73564; 80048; 80053; 81001; 82962; 83735; 84443; 84484; 85025; 87077; 87086; 87088; 87184; 87186; 93005; 94640; 94668; 97110; 97116; 97162; 97166; 97530; 97802; 99252; 99285; J7030; J7040; P9612; A4216; G0463

== ENCOUNTER 2024-03-07 13:26 | Inpatient (IN) | payer MEDICARE, OTHER, SELFPAY ==
[2024-03-07 13:52] VITALS: BP 137/72; PULSE 78; RESP 18; TEMP 36.3; O2SAT 92; BMI 41.7
--- NOTE | 2024-03-07 14:24 | NURSING ---
Resident states he is due for B12 injection today. Clarified dose with Dr. Gibson's office, 1500mcg due today. Order entered.
[2024-03-07 14:30] VITALS: BMI 41.9
[2024-03-07 14:38] VITALS: PULSE 78
[2024-03-07 17:10] LABS: Bedside Glucose 165 mg/dL (74-106)
[2024-03-07] MEDS: Cyanocobalamin (B12) 1,000 MCG/ML Vial 1500 MCG IM (17:18)
[2024-03-07] MEDS: metFORMIN HCl 500 MG Tablet PO (17:21)
[2024-03-07] MEDS: Insulin Lispro 100 UNIT/ML INSULN.PEN SC (17:31)
[2024-03-07] MEDS: Donepezil HCl 10 MG Tablet PO (21:33)
[2024-03-07] MEDS: Amitriptyline 25 MG Tablet PO (21:34)
--- NOTE | 2024-03-07 21:34 | HP.PCM_ITS ---
HPI - General General Date of Admission: 03/07/24 Date of Service: 03/07/24 Chief Complaint: Here for rehabilitation. HPI Narrative MEGAN RIVER, is a 78 Male who presents with followin03/03/2024 [facility] ED with fall. Lost balance, fell in bathroom, landing on both knees. Stuck between toilet and bathtub, unable to get up, EMS called. No head injury, no LOC. More weak, did not eat breakfast or dinner. Chronic urinary incontinence. Chronic oxygen 3 liters per nasal cannula. Urinalysis c/w UTI, urine culture sent, Rocephin IV given. Too weak to stand, unable to go home. 03/03/[address] [facility]. PT/OT for debility. Rocephin IV for UTI, urine culture pending. Gentle IV fluids, Hold Lasix for BHAVNA. 03/04/2024 Alert today, A+O x 2. Rocephin IV for UTI, urine culture pending. PT/OT for SNF. 03/05/2024 Urine culture growing Pseudomonas sensitive to quinolones. Stop Zosyn, start Levaquin. PT/OT for SNF. 03/06/2024 No acute events overnight. Levaquin for Pseudomonas UTI, f/u urology as outpatient for UTI. PT/OT for SNF. 03/07/2024 Admit to TCU with debility, here for rehabilitation, strengtheing, prior to discharge home with . [facility] Medical History (Updated 03/07/24 @ 21:[address] Finn Pierce MD) On home oxygen therapy Fatigue Essential hypertension Cancer Insulin dependent diabetes mellitus Diabetes Prostate disease Tremor Dietary restriction Gastric reflux Non-smoker CPAP (continuous positive airway pressure) dependence Sleep apnea History of edema History of echocardiogram History of stress test Hyperlipidemia Chronic kidney disease, stage 3 Right bundle branch block Tachycardia Positive colorectal cancer screening using Cologuard test Positive colorectal cancer screening using Cologuard test Shortness of breath on exertion Super obese Type 2 diabetes mellitus Depression, major, recurrent, moderate Onychomycosis Passive aggressive personality disorder Actinic keratosis Diabetic peripheral neuropathy Restrictive lung disease TARA (obstructive sleep apnea) Chronic diastolic heart failure Microalbuminuria Osteoarthritis of left knee Other tear of medial meniscus, current injury, left knee, initial encounter Other tear of lateral meniscus, current injury, left knee, subsequent encounter Other tear of lateral meniscus, current injury, left knee, initial encounter Other tear of medial meniscus, current injury, left knee, subsequent encounter Home Medications ?Medication ?Instructions ?Recorded ?Last Taken ?Type amitriptyline 25 mg tablet 25 mg PO QHS mood 03/24/16 Unknown History aspirin 81 mg tablet,delayed 81 mg PO DAILY@0800 blood thinner 03/24/16 Unknown History release atorvastatin 80 mg tablet 80 mg PO DAILY cholesterol 03/24/16 Unknown History citalopram 20 mg tablet 20 mg PO DAILY mood/depression 03/24/16 05/13/16 07:00 History fenofibrate nanocrystallized 145 145 mg PO DAILY supplement 03/24/16 Unknown History mg tablet metformin 500 mg tablet 500 mg PO BID diabetes 05/08/19 Unknown History ezetimibe 10 mg tablet 10 mg PO DAILY cholesterol 11/07/20 Unknown History Precision Xtra Test (blood sugar #200 ea 04/15/23 Unknown Rx diagnostic) lancets 32 gauge (Easy Touch Twist #200 ea 04/16/23 Unknown Rx Lancets) furosemide 40 mg tablet (Lasix) 40 mg PO DAILY fluid/swelling #90 04/26/23 Unknown Rx tabs omeprazole 20 mg capsule,delayed 20 mg PO DAILY reflux 07/12/23 03/07/24 History release timolol maleate 0.5 % eye drops 1 drp ophthalmic (eye) BID eye 07/12/23 Unknown History pressure pen needle, diabetic 32 gauge x #400 ea 09/03/23 Unknown Rx (BD Ultra-Fine Zenaida Pen Needle) donepezil 10 mg tablet 10 mg PO QHS cognition #30 tabs 10/19/23 Unknown Rx clotrimazole-betamethasone 1 1 applic topical PRN antifungal 11/19/23 Unknown History %-0.05 % topical cream oxybutynin chloride 15 mg 5 mg PO DAILY bladder 11/19/23 Unknown History tablet,extended release 24 hr verapamil 180 mg tablet,extended 180 mg PO DAILY BP #30 tabs 12/27/23 Unknown Rx release cyanocobalamin (vitamin B-12) 100 mcg IM QMONTH supplement 12/30/23 Unknown History 1,000 mcg/mL injection solution Lantus Solostar U-100 Insulin 100 20 unit (0.2 mL) subcut DAILY 01/05/24 Unknown Rx unit/mL (3 mL) subcutaneous pen diabetes #72 mL (insulin glargine) hydroxyzine pamoate 25 mg capsule 25 mg PO TID PRN anxiety #90 caps 01/05/24 Unknown Rx insulin lispro 100 unit/mL See Protocol subcut ACHS diabetes 01/05/24 Unknown Rx subcutaneous pen (Humalog KwikPen #0 mL (U-100) Insulin) levofloxacin 500 mg tablet 500 mg PO DAILY@0600 antibiotic 3 03/07/24 Unknown Rx days #0 tabs Allergy/AdvReac Type Severity Reaction Status Date / Time No Known Allergies Allergy Verified 03/03/24 14:03 Family History Mother Hypertension Hyperlipemia Heart disease Diabetes Environmental and seasonal allergies alcoholism and drug abuse Sister Stomach cancer Ovarian cancer Brother Diabetes Daughter bipolar Father Schizophrenia Aortic aneurysm Surgical History History of transurethral resection of prostate (11/13/20) History of arthroscopy of left knee (~05/03/16) s/p urolift procedure (04/21/19) History of skin graft Social History household members: spouse Smoking Status: Never smoker Electronic Cigarette Use: not used second hand exposure: No alcohol intake: current alcohol intake frequency: holidays/special occasions only substance use type: does not use caffeine: Yes what type of physical activity do you participate in: none jason/tenriism: None seatbelt use: always ROS Constitutional Constitutional: Reports weakness; Denies chills, fever(s) or weight gain ENT HEENT: Denies headache(s), nasal congestion or nasal discharge Cardiovascular Cardiovascular: Denies chest pain or palpitations Respiratory/Chest Respiratory/Chest: Denies cough, excessive phlegm production or shortness of breath with exertion Gastrointestinal Gastrointestinal: Denies abdominal pain, nausea or vomiting Genitourinary Genitourinary: Denies dysuria Musculoskeletal Musculoskeletal: Denies joint pain or joint swelling Integumentary Integumentary: Denies rash or wounds Neurologic Neurologic: Denies focal weakness, numbness or tingling Psychiatric Psychiatric: Denies anxiety, auditory hallucinations, depression, homicidal ideation or suicidal ideation Vital Signs Vital Signs Vital Signs: 03/07/24 13:52 03/07/24 14:38 Temperature 97.3 F L Temperature Source Temporal Pulse Rate 78 78 Pulse Rhythm Regular Pulse Strength Normal (2+) Respiratory Rate 18 Respiratory Effort Non-Labored Respiratory Depth Normal Respiratory Pattern Normal Blood Pressure 137/72 H Blood Pressure Mean 93 Blood Pressure Source Monitor Blood Pressure Position Sitting Blood Pressure Location Right Arm Pulse Ox 92 Oxygen Delivery Method Nasal Cannula Nasal Cannula Oxygen Flow Rate (L/min) 3 3 Fraction of Inspired Oxygen (FIO2) 96 Weight Weight: 143.517 kg Body Mass Index (BMI) 41.9 Physical Exam Const alert General Appearance: cooperative HEENT normocephalic Eyes PERRL and EOMs intact bilaterally Neck supple, no JVD and no carotid bruits Resp normal respiratory effort, normal air movement and clear to auscultation bilaterally Cardio regular rate and regular rhythm GI normal to inspection, nondistended, normoactive bowel sounds, non-tender and non-distended Extremity normal capillary refill General Extremity: Negative for edema Skin no rashes or lesions noted General Skin Exam: no breakdown Psych affect normal Appearance: appropriate Results Lab / Micro Data Labs: Laboratory Results - last 24 hr 03/07/24 16:52: POC Glucose 165 H Assessment & Plan Assessment/Plan (1) Debility: (2) Fall: (3) Acute UTI: (4) Acute kidney injury: (5) Diabetes: (6) Essential hypertension: (7) Hyperlipidemia: QUALIFIERS: Hyperlipidemia type: mixed hyperlipidemia Qualified Code(s): E78.2 - Mixed hyperlipidemia (8) Congestive heart failure: (9) Alzheimer disease: (10) Insomnia: (11) Depression: (12) GERD (gastroesophageal reflux disease): (13) Overactive bladder: (14) Glaucoma: (15) Morbid obesity: PLAN: Plan 78 year old male with below past medical history hospitalized for fall 2/2 UTI, complicated by BHAVNA, admitted to TCU with debility, here for rehabilitation, strengthening, prior to discharge home with . * Debility - PT/OT. * Pain - Tylenol 1000mg q6 prn pain (1-10). * Bowel - Miralax 17gm daily, Senna/colace 1 tablet bid, Magnesium citrate 300mL daily pnr. * Adult immunization - Administer pneumonia vaccine, covid vaccine, flu vaccine as appropriate. * DVT prophylaxis - Lovenox 40mg sc daily. * Insomnia - Elavil 25mg qhs, stable chronic buttermaker use, GDR not recommended. * CV prophylaxis - Aspirin 81mg daily. * Hyperlipidemia - Atorvastatin 80mg qhs, Zetia 10mg daily, Fenofibrate 145mg daily. * Hypertension - Verapamil 180mg daily, Furosemide 40mg daily. * Depression - Citalopram 20mg daily, stable chronic buttermaker use, GDR not recommended. * Tinea Corporis - Lotrisone cream topical daily prn. * Vitamin B12 deficiency - B12 1500mcg im qmonth. * Alzheimer Disease - Donepezil 10mg qhs. * HFpEF - Furosemide 40mg daily. * Anxiety - Hydroxyzine 25mg tid prn. * Diabetes Mellitus II - Metformin 500mg bid, Glargine 20 units daily. * Pseudomonas UTI - Levaquin 500mg daily thru 03/11/2024 * GERD - Pantoprazole 20mg daily. * Glaucoma - Timolol 1gtt ou bid. * Overactive bladder - Tolterodine 2mg daily.
[2024-03-07] MEDS: Timolol 0.5% 5ML OPTH.BTL 1 DRP OPHTHALMIC (21:35)
[2024-03-07 21:46] LABS: Bedside Glucose 149 mg/dL (74-106)
[2024-03-08] MEDS: Enoxaparin 40 MG/0.4 ML Syringe SC (05:45)
[2024-03-08] MEDS: levoFLOXacin 500 MG Tablet PO (05:46)
[2024-03-08 05:50] VITALS: O2SAT 94
[2024-03-08 05:52] VITALS: O2SAT 96
[2024-03-08 06:31] LABS: Bedside Glucose 139 mg/dL (74-106)
[2024-03-08 08:07] LABS: Absolute Lymphocyte Count 0.99 X10^3/uL (0.83-4.51); Absolute Neutrophil Count 3.7 X10^3/uL (2.0-7.7); Basophil# 0.04 X10^3/uL; Basophil% 0.7 % (0-1); Eosinophil# 0.29 X10^3/uL; Eosinophils% 5.2 % (0-5); Hematocrit 32.5 % (40-54); Hemoglobin 9.9 g/dL (13.0-16.5); Lymphocyte # 0.99 X10^3/ul (0.83-4.51); Lymphocyte % 17.6 % (19-41); Mean Corp Hgb Conc 30.5 g/dL (32-36); Mean Corpuscular Hgb 27.6 pg (27.0-32.0); Mean Corpuscular Volume 90.5 fL (80-94); Mean Platelet Vol. 10.2 fl (6.2-12.0); Monocyte# 0.61 X10^3/uL; Monocyte% 10.8 % (0-10); NRBC Flagged by Analyzer 0 % (0-5); Neutrophil # 3.65 X10^3/uL (2.7-7.7); Neutrophil % 64.8 % (47-70); Platelet Count 295 K/mm3 (150-450); RBC Distribution Width CV 13.7 % (11.6-14.6); RBC Distribution Width SD 45.3 fl (35.1-43.9); Red Blood Count 3.59 M/mm3 (4.6-6.2); White Blood Count 5.6 K/mm3 (4.4-11.0)
[2024-03-08 09:00] VITALS: BP 130/66; PULSE 75; RESP 18; TEMP 35.8; O2SAT 95
[2024-03-08 09:05] LABS: Anion Gap 5 (5-15); BUN 12 mg/dL (7-18); BUN/Creat Ratio 11.8 RATIO (10-20); Chloride 100 mmol/L (98-107); Creatinine, Serum 1.02 mg/dL (0.70-1.30); EST Glomerular Filtration Rate 75 mL/min (>60); Est Glom Filt Rate - Afr Amer 91 mL/min (>60); Estimated Creatinine Clearance 88.94 ml/min; Glucose 152 mg/dL (74-106); Potassium 4.2 mmol/L (3.5-5.1); Sodium Level 138 mmol/L (136-145)
[2024-03-08] MEDS: Polyethylene Glycol 3350 17 GM PACKET PO (09:11)
[2024-03-08] MEDS: Senna/Docusate Sodium 1 Tablet PO ×2 (09:11→20:25)
[2024-03-08] MEDS: Timolol 0.5% 5ML OPTH.BTL 1 DRP OPHTHALMIC ×2 (09:12→20:25)
[2024-03-08] MEDS: Furosemide 40 MG Tablet PO (09:12)
[2024-03-08] MEDS: metFORMIN HCl 500 MG Tablet PO ×2 (09:12→16:46)
[2024-03-08] MEDS: Fenofibrate 145 MG Tablet PO (09:12)
[2024-03-08] MEDS: Aspirin E.C. 81 MG Tablet PO (09:12)
[2024-03-08] MEDS: Ezetimibe 10 MG Tablet PO (09:12)
[2024-03-08] MEDS: Verapamil SR 180 MG CAPSULE PO (09:12)
[2024-03-08] MEDS: Atorvastatin Calcium 80 MG Tablet PO (09:12)
[2024-03-08] MEDS: Tolterodine Tartrate 2 MG CAP.SA PO (09:12)
[2024-03-08] MEDS: Pantoprazole Sodium 20 MG Tablet PO (09:12)
[2024-03-08] MEDS: Insulin Glargine-YFGN 100 UNIT/ML Pen 20 UNIT SC (09:13)
[2024-03-08 11:44] VITALS: O2SAT 95
[2024-03-08 11:46] LABS: Bedside Glucose 131 mg/dL (74-106)
--- NOTE | 2024-03-08 11:54 | NURSING ---
Carroting Machine Offbearer Note; Activity Asset: Sammi Christianson is independent in his choice of daily activities. He prefers to be called Tone. Tone has his smartphone he uses for everything, watches tv, and will read the paper. His family and friends will visits daily and bring him items he may need or want. Tone stated he will not need visits from therapy dog or tuber helper at this time however will let us know if he changes his mind. Staff will remind him of weekly activities and respect his right to say no.
[2024-03-08] MEDS: 0.9% Saline Lock 10 ML Syringe IV (13:49)
[2024-03-08] MEDS: Tuberculin,Purif.prot.deriv. 50 TU/ML Vial 0.1 ML ID (13:49)
--- NOTE | 2024-03-08 15:13 | PCM.PN.DRR ---
Documented by User: Sondra Anguiano 03/08/24 16:55 TCU RX Drug Regimen Review Subjective/Objective Subjective/Objective Subjective: TCU Admission. 78 YOM presented to the ER with a fall. Hospitalized for fall 2/2 UTI, complicated by BHAVNA. Admitted to TCU with debility for strengthening and rehabilitation. Objective: Allergies No Known Allergies Allergy (Verified 03/03/24 14:03) Current Medications Generic Name Dose Route Start Last Admin Trade Name Freq PRN Reason Stop Dose Admin Amitriptyline HCl 25 mg 03/07/24 22:00 03/07/24 21:34 Amitriptyline 25 Mg Tablet PO 25 mg QHS CHANDLER Administration Aspirin 81 mg 03/08/24 08:00 03/08/24 09:12 Aspirin E.C. 81 Mg Tablet PO 81 mg BREAKFAST CHANDLER Administration Atorvastatin Calcium 80 mg 03/08/24 10:00 03/08/24 09:12 Atorvastatin Calcium 80 Mg Tablet PO 80 mg DAILY CHANDLER Administration Citalopram Hydrobromide 20 mg 03/08/24 10:00 03/08/24 08:33 Citalopram 20 Mg Tablet PO Not Given DAILY [facility] Clotrimazole 1 applic 03/07/24 13:45 Clotrimazole/Betamethasone 1 Tube TOPICAL PRN CHANDLER Protocol Cyanocobalamin 1,500 mcg 03/07/24 14:22 03/07/24 17:18 Cyanocobalamin (B12) 1,000 Mcg/Ml Vial IM 1,500 mcg QMONTH CHANDLER Administration Donepezil HCl 10 mg 03/07/24 22:00 03/07/24 21:33 Donepezil Hcl 10 Mg Tablet PO 10 mg QHS CHANDLER Administration Ezetimibe 10 mg 03/08/24 10:00 03/08/24 09:12 Ezetimibe 10 Mg Tablet PO 10 mg DAILY CHANDLER Administration Enoxaparin Sodium 40 mg 03/08/24 06:00 03/08/24 05:45 Enoxaparin 40 Mg/0.4 Ml Syringe SC 40 mg DAILY@0600 CHANDLER Administration Fenofibrate 145 mg 03/08/24 10:00 03/08/24 09:12 Fenofibrate 145 Mg Tablet PO 145 mg DAILY CHANDLER Administration Furosemide 40 mg 03/08/24 10:00 03/08/24 09:12 Furosemide 40 Mg Tablet PO 40 mg DAILY CHANDLER Administration Protocol Hydroxyzine Pamoate 25 mg 03/07/24 13:42 Hydroxyzine Liliane 25 Mg Capsule PO TID PRN PRN anxiety Insulin Glargine 20 unit 03/08/24 10:00 03/08/24 09:13 Insulin Glargine-Yfgn 100 Unit/Ml Pen SC 20 unit DAILY CHANDLER Administration Levofloxacin 500 mg 03/08/24 06:00 03/08/24 05:46 Levofloxacin 500 Mg Tablet PO 03/11/24 06:01 500 mg DAILY@0600 CHANDLER Administration Magnesium Citrate 300 ml 03/07/24 13:54 Magnesium Citrate 300 Ml PO X1 PRN Constipation Metformin HCl 500 mg 03/07/24 17:00 03/08/24 09:12 Metformin Hcl 500 Mg Tablet PO 500 mg BIDCM CHANDLER Administration Pantoprazole Sodium 20 mg 03/08/24 10:00 03/08/24 09:12 Pantoprazole Sodium 20 Mg Tablet PO 20 mg DAILY CHANDLER Administration Polyethylene Glycol 17 gm 03/08/24 10:00 03/08/24 09:11 Polyethylene Glycol 3350 17 Gm Packet PO 17 gm DAILY CHANDLER Administration Senna/Docusate Sodium 1 tablet 03/07/24 22:00 03/08/24 09:11 Senna/Docusate Sodium 1 Tablet PO 1 tablet BID CHANDLER Administration Sodium Chloride 10 - 40 ml 03/07/24 15:25 03/08/24 13:49 0.9% Saline Lock 10 Ml Syringe IV 10 ml UD PRN Administration SALINE FLUSH Timolol Maleate 1 drp 03/07/24 22:00 03/08/24 09:12 Timolol 0.5% 5ml Opth.Btl OPHTHALMIC 1 drp BID CHANDLER Administration Tolterodine Tartrate 2 mg 03/08/24 10:00 03/08/24 09:12 Tolterodine Tartrate 2 Mg Cap.Sa PO 2 mg DAILY CHANDLER Administration Tuberculin PPD 0.1 ml 03/15/24 10:00 Tuberculin,Purif.Prot.Deriv. 50 Tu/Ml Vial ID 03/15/24 10:01 X1 ONE Verapamil HCl 180 mg 03/08/24 10:00 03/08/24 09:12 Verapamil Sr 180 Mg Capsule PO 180 mg DAILY CHANDLER Administration Problem List Morbid obesity (Acute) Glaucoma (Acute) Overactive bladder (Acute) GERD (gastroesophageal reflux disease) (Acute) Depression (Acute) Insomnia (Acute) Alzheimer disease (Acute) Congestive heart failure (Acute) Diabetes (Acute) Debility (Acute) Acute kidney injury (Acute) Acute UTI (Acute) Fall (Acute) Essential hypertension (Chronic) Hyperlipidemia (Chronic) Vital Signs Temp Pulse Resp BP Pulse Ox O2 Del Method O2 Flow Rate 97.3 F L 78 18 137/72 H 95 Nasal Cannula 3 03/07/24 13:52 03/07/24 14:38 03/07/24 13:52 03/07/24 13:52 03/08/24 11:44 03/08/24 08:03 03/08/24 11:44 FiO2 96 03/07/24 14:38 Oxygen Flow Rate (L/min) 3 Oxygen Delivery Method Nasal Cannula Weight: 143.517 kg Body Mass Index (BMI) 41.9 Sodium 138 mmol/L (136-145) 03/08/24 07:50 Potassium 4.2 mmol/L (3.5-5.1) 03/08/24 07:50 Chloride 100 mmol/L (98-107) 03/08/24 07:50 Carbon Dioxide 33.0 mmol/L (21.0-32.0) H 03/08/24 07:50 Anion Gap 5 (5-15) 03/08/24 07:50 BUN 12 mg/dL (7-18) 03/08/24 07:50 Creatinine 1.02 mg/dL (0.70-1.30) 03/08/24 07:50 Est GFR (MDRD) Af Amer 91 mL/min (>60) 03/08/24 07:50 Est GFR (MDRD) Non-Af 75 mL/min (>60) 03/08/24 07:50 BUN/Creatinine Ratio 11.8 RATIO (10-20) 03/08/24 07:50 Glucose 152 mg/dL (74-106) H 03/08/24 07:50 Assessment/Plan: 1. Bowel: Miralax 17gm PO daily, senna/docusate 1T PO BID and magnesium citrate 300mL PO daily PRN constipation. Resident has not had any PRN doses. Please continue to monitor for constipation and PRN usage. Last documented bowel movement was 03/08. 2. DVT prophylaxis: enoxaparin 40mg SC daily. Please continue to monitor for S/S of bleeding/DVT, renal function, hemoglobin (last 9.9g/dL) and platelets (last 295,000). 3. CV prophylaxis: aspirin 81mg PO daily. Please continue to monitor for S/S of stroke/heart and bleeding. 4. Pseudomonas UTI: levofloxacin 500mg PO daily thru 03/11/24. Please continue to monitor for S/S of infection, renal function, diarrhea, tendon/joint pain. 5. Hypertension/HFpEF: verapamil SR 180mg PO daily and furosemide 40mg PO daily. Please continue to monitor BP (last 137/72), HR (last 78), swelling, renal function and potassium (last 4.2mmol/L). 6. Hyperlipidemia: atorvastatin 80mg PO QHS, ezetimibe 10mg PO daily, fenofibrate 145mg PO daily. Please consider ordering a lipid panel as the last is from 12/2022. Thanks. Please continue to monitor for muscle pain, renal function and LFTs (last 03/04/24). 7. Alzheimer disease: donepezil 10mg PO QHS. Please continue to monitor for S/S of Alzheimer and GI side effects. 8. Diabetes mellitus II: metformin 500mg PO BID and insulin glargine 20units SC daily. Please continue to monitor GFR (last 75 mL/min), glucose (last 131mg/dL), hemoglobin A1c (last 5.8% 12/31/23), diarrhea and S/S of hypoglycemia. 9. GERD: pantoprazole 20mg PO daily. Please continue to monitor for S/S of GERD and diarrhea ([place]). 10. Overactive bladder: tolterodine 2mg PO daily. Please continue to monitor for S/S of overactive bladder and anticholinergic side effects. 11. Glaucoma: timolol 1gtt OU BID. Please continue to monitor for S/S of glaucoma and eye irritation. 12. Vitamin B12 deficiency: cyanocobalamin 1500mcg IM monthly. Please consider ordering a vitamin B12 level as the last level is from 2020. Thanks. 13. Tinea Corporis - Lotrisone cream topical daily prn. Please continue to monitor. No doses have been used. Assessment/Plan for indications treated with psychotropic medications: 1. Insomnia: amitriptyline 25mg PO QHS. Please see physician note regarding GDR. Please continue to monitor for excessive drowsiness, insomnia, anticholinergic side effects (BEERs), dementia/delirium (BEERs), falls/fractures (BEERs). 2. Depression: citalopram 20mg PO daily currently on hold while taking Levaquin. Please see physician note regarding GDR. Please continue to monitor sodium (last 138mmol/L), falls/fractures (BEERs). 3. Anxiety: hydroxyzine 25mg PO TID PRN anxiety. No doses have been given, GDR not appropriate as this time. Please continue to monitor for S/S of anxiety and PRN usage. Medical chart and medication regimen reviewed. The following medication irregularities or issues were identified: 1. Cyanocobalamin 1500mcg IM monthly. Please consider ordering a vitamin B12 level as the last level is from 2020. Thanks. 2. Atorvastatin 80mg PO QHS, ezetimibe 10mg PO daily, fenofibrate 145mg PO daily. Please consider ordering a lipid panel as the last is from 12/2022. Thanks. Date Date of Note: 03/08/24 Documented by User: Dr. Finn Pierce MD 03/08/24 17:08 TCU RX Drug Regimen Review Provider Comments Provider responsibility Provider Comments to Recommendations by Pharmacy Agree
[2024-03-08 16:31] LABS: Bedside Glucose 144 mg/dL (74-106)
[2024-03-08] MEDS: COVID VAC 24-25 (12UP)(MODERNA)/PF 50 MCG/0.5 ML SYRINGE IM (17:28)
[2024-03-08] MEDS: Amitriptyline 25 MG Tablet PO (20:26)
[2024-03-08] MEDS: Donepezil HCl 10 MG Tablet PO (20:26)
--- NOTE | 2024-03-08 20:59 | NURSING ---
Dressings changed as ordered to BLE open areas from when I fell at home. Wound consult order in place
[2024-03-08 22:00] VITALS: PULSE 78; RESP 18; O2SAT 99
[2024-03-08 22:26] LABS: Bedside Glucose 147 mg/dL (74-106)
[2024-03-09] MEDS: levoFLOXacin 500 MG Tablet PO (05:38)
[2024-03-09] MEDS: Enoxaparin 40 MG/0.4 ML Syringe SC (05:38)
[2024-03-09 06:10] LABS: Bedside Glucose 145 mg/dL (74-106)
[2024-03-09 06:28] LABS: Cholesterol 131 mg/dL (200); High Density Lipoprotein 46 mg/dL; Triglycerides 117 mg/dL; Very Low Density Lipoprotein 23 mg/dL (5-40)
[2024-03-09] MEDS: Aspirin E.C. 81 MG Tablet PO (08:31)
[2024-03-09] MEDS: metFORMIN HCl 500 MG Tablet PO ×2 (08:31→16:45)
[2024-03-09] MEDS: Tolterodine Tartrate 2 MG CAP.SA PO (08:32)
[2024-03-09] MEDS: Insulin Glargine-YFGN 100 UNIT/ML Pen 20 UNIT SC (08:32)
[2024-03-09] MEDS: Furosemide 40 MG Tablet PO (08:32)
[2024-03-09] MEDS: Verapamil SR 180 MG CAPSULE PO (08:32)
[2024-03-09] MEDS: Senna/Docusate Sodium 1 Tablet PO ×2 (08:33→20:09)
[2024-03-09] MEDS: Polyethylene Glycol 3350 17 GM PACKET PO (08:33)
[2024-03-09] MEDS: Atorvastatin Calcium 80 MG Tablet PO (08:33)
[2024-03-09] MEDS: Pantoprazole Sodium 20 MG Tablet PO (08:33)
[2024-03-09] MEDS: Ezetimibe 10 MG Tablet PO (08:36)
[2024-03-09] MEDS: Fenofibrate 145 MG Tablet PO (08:36)
[2024-03-09] MEDS: Timolol 0.5% 5ML OPTH.BTL 1 DRP OPHTHALMIC ×2 (08:38→20:09)
[2024-03-09 09:53] LABS: Vitamin B12 > 2000 pg/mL (211-911)
--- NOTE | 2024-03-09 11:15 | CASEMGMT ---
Social Work SW phoned to complete initial assessment d/t chart review noting pt's confusion and Alzheimer's dx. provided history. This worker also spoke with pt and pt scored 14/15 on BIMS. pt confirmed code status as full code. Educated to Medicare benefit and copay coverage. Pt admitted on day . and pt's goal is to return home at [facility]. is the primary caregiver and will need to ensure she can assist pt at home. There is no local support for assistance. SW will continue to follow for DC planning. BOLA GarberW
[2024-03-09 12:11] LABS: Bedside Glucose 138 mg/dL (74-106)
[2024-03-09 13:56] VITALS: BP 119/79; PULSE 73; RESP 16; TEMP 36.8; O2SAT 98
[2024-03-09 17:06] LABS: Bedside Glucose 158 mg/dL (74-106)
[2024-03-09] MEDS: 0.9% Saline Lock 10 ML Syringe IV (17:34)
[2024-03-09] MEDS: Donepezil HCl 10 MG Tablet PO (20:09)
[2024-03-09] MEDS: Amitriptyline 25 MG Tablet PO (20:09)
[2024-03-09 21:30] LABS: Bedside Glucose 176 mg/dL (74-106)
[2024-03-10 04:00] VITALS: RESP 18
[2024-03-10] MEDS: levoFLOXacin 500 MG Tablet PO (05:09)
[2024-03-10] MEDS: Enoxaparin 40 MG/0.4 ML Syringe SC (05:09)
[2024-03-10 06:28] LABS: Bedside Glucose 145 mg/dL (74-106)
[2024-03-10 07:25] VITALS: O2SAT 97
[2024-03-10] MEDS: metFORMIN HCl 500 MG Tablet PO ×2 (08:21→16:54)
[2024-03-10] MEDS: Tolterodine Tartrate 2 MG CAP.SA PO (08:21)
[2024-03-10] MEDS: Aspirin E.C. 81 MG Tablet PO (08:21)
[2024-03-10] MEDS: Verapamil SR 180 MG CAPSULE PO (08:21)
[2024-03-10] MEDS: Insulin Glargine-YFGN 100 UNIT/ML Pen 20 UNIT SC (08:21)
[2024-03-10] MEDS: Atorvastatin Calcium 80 MG Tablet PO (08:22)
[2024-03-10] MEDS: Senna/Docusate Sodium 1 Tablet PO ×2 (08:22→20:43)
[2024-03-10] MEDS: Furosemide 40 MG Tablet PO (08:22)
[2024-03-10] MEDS: Pantoprazole Sodium 20 MG Tablet PO (08:22)
[2024-03-10] MEDS: Polyethylene Glycol 3350 17 GM PACKET PO (08:22)
[2024-03-10] MEDS: Timolol 0.5% 5ML OPTH.BTL 1 DRP OPHTHALMIC ×2 (08:23→20:44)
[2024-03-10] MEDS: Fenofibrate 145 MG Tablet PO (08:23)
[2024-03-10] MEDS: Ezetimibe 10 MG Tablet PO (08:23)
[2024-03-10 12:10] LABS: Bedside Glucose 130 mg/dL (74-106)
[2024-03-10 14:30] VITALS: O2SAT 96
[2024-03-10 14:47] VITALS: BP 144/60; PULSE 79; RESP 18; TEMP 36.8; O2SAT 95
--- NOTE | 2024-03-10 15:37 | CHAPLAIN ---
Type of Pastoral Visit _x__ Initial Visit ___ Follow-up Visit ___ On-call Visit ___ General Patient Visit ___ Spiritual Assessment ___ Family Conference ___ Bereavement ___ Rapid Response ___ Code Blue ___ Other (describe below) Pastoral Care Referral From _x__ Patient ___ Family ___ Nurse ___ Physician ___ Customer Specialist ___ Dry Cleaning Machine Operator Helper ___ Other (describe below) Sacrament/Intervention _x_ Active listening ___ Anointing ___ Druze ___ Bereavement ___ Communion ___ Loli exploration ___ ___ Life review _x__ Prayer ___ Reconciliation ___ Sacrament of Sick _x__ Supportive presence ___ Wedding ___ Other (describe below) Pastoral Comments patient reports that he is doing well; pt believes that he will be ready to go home soon and is looking forward to [place]; spouse walks in and joins in the conversation; they plan a low coates [place] but welcome the time to get stronger and be there; no other concerns or need identified
[2024-03-10 16:44] LABS: Bedside Glucose 142 mg/dL (74-106)
[2024-03-10] MEDS: 0.9% Saline Lock 10 ML Syringe IV (16:55)
[2024-03-10] MEDS: Amitriptyline 25 MG Tablet PO (20:43)
[2024-03-10] MEDS: Donepezil HCl 10 MG Tablet PO (20:44)
[2024-03-10 21:06] LABS: Bedside Glucose 141 mg/dL (74-106)
[2024-03-11] MEDS: levoFLOXacin 500 MG Tablet PO (05:34)
[2024-03-11] MEDS: Enoxaparin 40 MG/0.4 ML Syringe SC (05:34)
--- NOTE | 2024-03-11 05:44 | NURSING ---
Dressings to rt knee and anterior LE dislodged. Adaptic applied to anterior LE and secured w/ a foam border dressing. Knee abrasion left yossi as the affected area is dry. Will continue to monitor.
[2024-03-11 06:34] LABS: Bedside Glucose 139 mg/dL (74-106)
[2024-03-11 07:33] VITALS: O2SAT 94
[2024-03-11 09:22] VITALS: BP 154/71; PULSE 99; RESP 17; TEMP 36.6
[2024-03-11] MEDS: Citalopram 20 MG Tablet PO (09:32)
[2024-03-11] MEDS: metFORMIN HCl 500 MG Tablet PO ×2 (09:32→16:23)
[2024-03-11] MEDS: Verapamil SR 180 MG CAPSULE PO (09:32)
[2024-03-11] MEDS: Aspirin E.C. 81 MG Tablet PO (09:32)
[2024-03-11] MEDS: Polyethylene Glycol 3350 17 GM PACKET PO (09:33)
[2024-03-11] MEDS: Pantoprazole Sodium 20 MG Tablet PO (09:33)
[2024-03-11] MEDS: Senna/Docusate Sodium 1 Tablet PO ×2 (09:33→21:16)
[2024-03-11] MEDS: Atorvastatin Calcium 80 MG Tablet PO (09:33)
[2024-03-11] MEDS: Tolterodine Tartrate 2 MG CAP.SA PO (09:33)
[2024-03-11] MEDS: Furosemide 40 MG Tablet PO (09:33)
[2024-03-11] MEDS: Insulin Glargine-YFGN 100 UNIT/ML Pen 20 UNIT SC (09:33)
[2024-03-11] MEDS: Fenofibrate 145 MG Tablet PO (09:34)
[2024-03-11] MEDS: Timolol 0.5% 5ML OPTH.BTL 1 DRP OPHTHALMIC ×2 (09:34→21:16)
[2024-03-11] MEDS: Ezetimibe 10 MG Tablet PO (09:35)
[2024-03-11 12:05] LABS: Bedside Glucose 143 mg/dL (74-106)
[2024-03-11 16:44] LABS: Bedside Glucose 154 mg/dL (74-106)
[2024-03-11] MEDS: Amitriptyline 25 MG Tablet PO (21:16)
[2024-03-11] MEDS: Donepezil HCl 10 MG Tablet PO (21:16)
[2024-03-11 22:08] LABS: Bedside Glucose 121 mg/dL (74-106)
[2024-03-12] MEDS: Enoxaparin 40 MG/0.4 ML Syringe SC (05:31)
[2024-03-12 06:26] LABS: Bedside Glucose 130 mg/dL (74-106)
[2024-03-12 08:25] VITALS: O2SAT 94
[2024-03-12 09:23] VITALS: BP 125/60; PULSE 78; RESP 18; TEMP 36.1
[2024-03-12] MEDS: Citalopram 20 MG Tablet PO (09:29)
[2024-03-12] MEDS: Insulin Glargine-YFGN 100 UNIT/ML Pen 20 UNIT SC (09:29)
[2024-03-12] MEDS: metFORMIN HCl 500 MG Tablet PO ×2 (09:29→16:30)
[2024-03-12] MEDS: Aspirin E.C. 81 MG Tablet PO (09:29)
[2024-03-12] MEDS: Verapamil SR 180 MG CAPSULE PO (09:29)
[2024-03-12] MEDS: Tolterodine Tartrate 2 MG CAP.SA PO (09:29)
[2024-03-12] MEDS: Pantoprazole Sodium 20 MG Tablet PO (09:30)
[2024-03-12] MEDS: Furosemide 40 MG Tablet PO (09:30)
[2024-03-12] MEDS: Senna/Docusate Sodium 1 Tablet PO ×2 (09:30→20:35)
[2024-03-12] MEDS: Polyethylene Glycol 3350 17 GM PACKET PO (09:30)
[2024-03-12] MEDS: Timolol 0.5% 5ML OPTH.BTL 1 DRP OPHTHALMIC ×2 (09:30→20:36)
[2024-03-12] MEDS: Atorvastatin Calcium 80 MG Tablet PO (09:30)
[2024-03-12] MEDS: Fenofibrate 145 MG Tablet PO (09:31)
[2024-03-12] MEDS: Ezetimibe 10 MG Tablet PO (09:31)
[2024-03-12 11:33] LABS: Bedside Glucose 135 mg/dL (74-106)
[2024-03-12 17:10] LABS: Bedside Glucose 127 mg/dL (74-106)
[2024-03-12] MEDS: Amitriptyline 25 MG Tablet PO (20:36)
[2024-03-12] MEDS: Donepezil HCl 10 MG Tablet PO (20:36)
[2024-03-12 22:01] LABS: Bedside Glucose 132 mg/dL (74-106)
[2024-03-13] MEDS: Enoxaparin 40 MG/0.4 ML Syringe SC (05:13)
[2024-03-13 06:45] LABS: Bedside Glucose 159 mg/dL (74-106)
[2024-03-13 07:03] VITALS: O2SAT 95
[2024-03-13] MEDS: Timolol 0.5% 5ML OPTH.BTL 1 DRP OPHTHALMIC ×2 (08:27→20:30)
[2024-03-13] MEDS: Atorvastatin Calcium 80 MG Tablet PO (08:28)
[2024-03-13] MEDS: Aspirin E.C. 81 MG Tablet PO (08:28)
[2024-03-13] MEDS: Citalopram 20 MG Tablet PO (08:28)
[2024-03-13] MEDS: Insulin Glargine-YFGN 100 UNIT/ML Pen 20 UNIT SC (08:28)
[2024-03-13] MEDS: Pantoprazole Sodium 20 MG Tablet PO (08:28)
[2024-03-13] MEDS: Tolterodine Tartrate 2 MG CAP.SA PO (08:28)
[2024-03-13] MEDS: Verapamil SR 180 MG CAPSULE PO (08:28)
[2024-03-13] MEDS: Furosemide 40 MG Tablet PO (08:28)
[2024-03-13] MEDS: Ezetimibe 10 MG Tablet PO (08:28)
[2024-03-13] MEDS: Polyethylene Glycol 3350 17 GM PACKET PO (08:28)
[2024-03-13] MEDS: Senna/Docusate Sodium 1 Tablet PO ×2 (08:28→20:30)
[2024-03-13] MEDS: Fenofibrate 145 MG Tablet PO (08:28)
[2024-03-13] MEDS: metFORMIN HCl 500 MG Tablet PO ×2 (08:29→17:51)
[2024-03-13 11:46] LABS: Bedside Glucose 159 mg/dL (74-106)
[2024-03-13 15:17] VITALS: BP 141/68; PULSE 82; RESP 16; TEMP 36.3; O2SAT 96
[2024-03-13 17:19] LABS: Bedside Glucose 155 mg/dL (74-106)
[2024-03-13] MEDS: Donepezil HCl 10 MG Tablet PO (20:31)
[2024-03-13] MEDS: Amitriptyline 25 MG Tablet PO (20:31)
[2024-03-13 21:00] VITALS: PULSE 79; RESP 16; O2SAT 99
[2024-03-13 22:06] LABS: Bedside Glucose 168 mg/dL (74-106)
[2024-03-14] MEDS: Enoxaparin 40 MG/0.4 ML Syringe SC (05:24)
[2024-03-14 06:23] LABS: Bedside Glucose 123 mg/dL (74-106)
[2024-03-14 06:39] VITALS: O2SAT 98
[2024-03-14] MEDS: Fenofibrate 145 MG Tablet PO (08:44)
[2024-03-14] MEDS: Ezetimibe 10 MG Tablet PO (08:44)
[2024-03-14] MEDS: Atorvastatin Calcium 80 MG Tablet PO (08:44)
[2024-03-14] MEDS: Senna/Docusate Sodium 1 Tablet PO ×2 (08:44→21:16)
[2024-03-14] MEDS: Aspirin E.C. 81 MG Tablet PO (08:45)
[2024-03-14] MEDS: Pantoprazole Sodium 20 MG Tablet PO (08:45)
[2024-03-14] MEDS: Citalopram 20 MG Tablet PO (08:45)
[2024-03-14] MEDS: Tolterodine Tartrate 2 MG CAP.SA PO (08:45)
[2024-03-14] MEDS: Verapamil SR 180 MG CAPSULE PO (08:45)
[2024-03-14] MEDS: Insulin Glargine-YFGN 100 UNIT/ML Pen 20 UNIT SC (08:45)
[2024-03-14] MEDS: metFORMIN HCl 500 MG Tablet PO ×2 (08:45→17:34)
[2024-03-14] MEDS: Furosemide 40 MG Tablet PO (08:45)
[2024-03-14] MEDS: Polyethylene Glycol 3350 17 GM PACKET PO (08:45)
[2024-03-14] MEDS: Timolol 0.5% 5ML OPTH.BTL 1 DRP OPHTHALMIC ×2 (08:46→21:17)
[2024-03-14 08:52] VITALS: BP 149/63; PULSE 75
[2024-03-14 09:45] VITALS: O2SAT 98
[2024-03-14 11:29] VITALS: BMI 41.3
[2024-03-14 11:46] LABS: Bedside Glucose 127 mg/dL (74-106)
--- NOTE | 2024-03-14 15:06 | CASEMGMT ---
Social Work SW completed BIMS () and PHQ-2 () for MDS assessment. Suellen Cruz, DOUBLE ENDING MACHINE OPERATOR SLOT FLOORMAN
[2024-03-14 15:49] VITALS: BP 122/57; PULSE 82; RESP 16; TEMP 36.1; O2SAT 94
[2024-03-14 16:59] LABS: Bedside Glucose 175 mg/dL (74-106)
[2024-03-14] MEDS: Donepezil HCl 10 MG Tablet PO (21:17)
[2024-03-14] MEDS: Amitriptyline 25 MG Tablet PO (21:17)
[2024-03-14 21:41] LABS: Bedside Glucose 173 mg/dL (74-106)
[2024-03-15 06:15] LABS: Bedside Glucose 123 mg/dL (74-106)
[2024-03-15 06:23] LABS: Absolute Lymphocyte Count 1.35 X10^3/uL (0.83-4.51); Absolute Neutrophil Count 3.1 X10^3/uL (2.0-7.7); Basophil# 0.03 X10^3/uL; Basophil% 0.5 % (0-1); Eosinophil# 0.29 X10^3/uL; Eosinophils% 5.3 % (0-5); Hematocrit 33.6 % (40-54); Hemoglobin 9.7 g/dL (13.0-16.5); Lymphocyte # 1.35 X10^3/ul (0.83-4.51); Lymphocyte % 24.6 % (19-41); Mean Corp Hgb Conc 28.9 g/dL (32-36); Mean Corpuscular Hgb 26.9 pg (27.0-32.0); Mean Corpuscular Volume 93.1 fL (80-94); Mean Platelet Vol. 10.1 fl (6.2-12.0); Monocyte# 0.71 X10^3/uL; Monocyte% 12.9 % (0-10); NRBC Flagged by Analyzer 0 % (0-5); Neutrophil # 3.08 X10^3/uL (2.7-7.7); Neutrophil % 56.2 % (47-70); Platelet Count 284 K/mm3 (150-450); RBC Distribution Width CV 13.6 % (11.6-14.6); RBC Distribution Width SD 46.1 fl (35.1-43.9); Red Blood Count 3.61 M/mm3 (4.6-6.2); White Blood Count 5.5 K/mm3 (4.4-11.0)
[2024-03-15] MEDS: Enoxaparin 40 MG/0.4 ML Syringe SC (06:36)
[2024-03-15 06:56] LABS: BUN 17 mg/dL (7-18); Calcium,Total 9.6 mg/dL (8.5-10.1); Carbon Dioxide > 45.0 mmol/L (21.0-32.0); Chloride 92 mmol/L (98-107); Creatinine, Serum 1.06 mg/dL (0.70-1.30); EST Glomerular Filtration Rate 72 mL/min (>60); Est Glom Filt Rate - Afr Amer 87 mL/min (>60); Estimated Creatinine Clearance 85.18 ml/min; Glucose 127 mg/dL (74-106); Potassium 4.3 mmol/L (3.5-5.1); Sodium Level 139 mmol/L (136-145)
[2024-03-15 07:58] LABS: Allen Test Positive; Base Excess 22 mmol/L (-2 to +2); Bicarbonate 47.7 mmol/L (22-26); Blood Gas Specimen Type ART; FI02 3.5; Mode Not entered; O2 Delivery Device Cannula; PO2 102 mmHG (75-100); SITE L Radial; SO2 97 % (95-99); Total Carbon Dioxide > 50 mmol/L; pCO2 87.4 mmHg (35-45); pH 7.35 (7.35-7.45)
--- NOTE | 2024-03-15 08:15 | NURSING ---
Dr. Pierce updated on blood gas results and that respiratory therapist updated nursing that he needs to wear bipap at night. Order for bipap QHS placed.
[2024-03-15] MEDS: Citalopram 20 MG Tablet PO (08:19)
[2024-03-15] MEDS: Tolterodine Tartrate 2 MG CAP.SA PO (08:19)
[2024-03-15] MEDS: Senna/Docusate Sodium 1 Tablet PO ×2 (08:20→20:17)
[2024-03-15] MEDS: Furosemide 40 MG Tablet PO (08:20)
[2024-03-15] MEDS: Verapamil SR 180 MG CAPSULE PO (08:20)
[2024-03-15] MEDS: metFORMIN HCl 500 MG Tablet PO ×2 (08:20→17:04)
[2024-03-15] MEDS: Timolol 0.5% 5ML OPTH.BTL 1 DRP OPHTHALMIC ×2 (08:20→20:16)
[2024-03-15] MEDS: Ezetimibe 10 MG Tablet PO (08:20)
[2024-03-15] MEDS: Aspirin E.C. 81 MG Tablet PO (08:20)
[2024-03-15] MEDS: Polyethylene Glycol 3350 17 GM PACKET PO (08:21)
[2024-03-15] MEDS: Fenofibrate 145 MG Tablet PO (08:21)
[2024-03-15] MEDS: Pantoprazole Sodium 20 MG Tablet PO (08:21)
[2024-03-15] MEDS: Insulin Glargine-YFGN 100 UNIT/ML Pen 20 UNIT SC (08:21)
[2024-03-15] MEDS: Atorvastatin Calcium 80 MG Tablet PO (08:21)
[2024-03-15 08:29] VITALS: BP 150/68; PULSE 74; RESP 15; TEMP 36.4; O2SAT 3
--- NOTE | 2024-03-15 08:58 | NURSING ---
Steward/Stewardess Chief Cargo Vessel Note; MDS for 03/14/2024 Complete
--- NOTE | 2024-03-15 09:22 | CPS ---
took bipap to patients room. discussed with patient and his , states he had a cpap machine years ago and refused to wear it. patient declines to start bipap now but states he will give it a try tonite.
--- NOTE | 2024-03-15 09:25 | CASEMGMT ---
Social Work IDT met with patient and for care plan meeting. Discussed patient's progress in PT/OT/ST/SN. Educated to Medicare benefit. Provided with written communication on insurance process and copay coverage during the stay. Pt's goal is to return home with continuing to assist. Discussed timeframe and readiness for DC. Offered therapy training to to determine the LOC she can provide to pt and if he has met that or needs further improvement. Scheduled for 03/16 at 1230. SW requested to contact this worker after therapy with decision for DC. agreed. Therapy recommending HHC PT/OT/ST/SN. SW inquired about AOC, as pt was active with [facility] and [facility] prior. prefers [facility]. Pt is new on a bipap. SW to follow up with RT and Dr for DC needs. Will continue to follow. BOLA GarberW
[2024-03-15 12:06] LABS: Bedside Glucose 131 mg/dL (74-106)
[2024-03-15] MEDS: Tuberculin,Purif.prot.deriv. 50 TU/ML Vial 0.1 ML ID (14:48)
[2024-03-15 17:49] LABS: Bedside Glucose 157 mg/dL (74-106)
[2024-03-15] MEDS: Amitriptyline 25 MG Tablet PO (20:18)
[2024-03-15] MEDS: Donepezil HCl 10 MG Tablet PO (20:18)
[2024-03-15 21:44] VITALS: O2SAT 96
[2024-03-15 21:53] LABS: Bedside Glucose 153 mg/dL (74-106)
[2024-03-15 22:55] VITALS: PULSE 75; RESP 15
[2024-03-16] MEDS: Enoxaparin 40 MG/0.4 ML Syringe SC (06:05)
[2024-03-16 06:31] LABS: Bedside Glucose 99 mg/dL (74-106)
[2024-03-16 06:51] VITALS: O2SAT 95
[2024-03-16] MEDS: Furosemide 40 MG Tablet PO (07:49)
[2024-03-16] MEDS: metFORMIN HCl 500 MG Tablet PO ×2 (07:49→16:37)
[2024-03-16] MEDS: Ezetimibe 10 MG Tablet PO (07:49)
[2024-03-16] MEDS: Polyethylene Glycol 3350 17 GM PACKET PO (07:49)
[2024-03-16] MEDS: Pantoprazole Sodium 20 MG Tablet PO (07:49)
[2024-03-16] MEDS: Fenofibrate 145 MG Tablet PO (07:49)
[2024-03-16] MEDS: Citalopram 20 MG Tablet PO (07:49)
[2024-03-16] MEDS: Timolol 0.5% 5ML OPTH.BTL 1 DRP OPHTHALMIC ×2 (07:49→20:36)
[2024-03-16] MEDS: Verapamil SR 180 MG CAPSULE PO (07:49)
[2024-03-16] MEDS: Senna/Docusate Sodium 1 Tablet PO (07:50)
[2024-03-16] MEDS: Insulin Glargine-YFGN 100 UNIT/ML Pen 20 UNIT SC (07:50)
[2024-03-16] MEDS: Aspirin E.C. 81 MG Tablet PO (07:50)
[2024-03-16] MEDS: Tolterodine Tartrate 2 MG CAP.SA PO (07:50)
[2024-03-16] MEDS: Atorvastatin Calcium 80 MG Tablet PO (07:50)
[2024-03-16 08:02] VITALS: BP 149/71; PULSE 84; RESP 15; TEMP 36.4; O2SAT 97
[2024-03-16 12:07] LABS: Bedside Glucose 118 mg/dL (74-106)
--- NOTE | 2024-03-16 12:12 | MDS.RN ---
Information for the MDS was obtained from review of the clinical record, interview of resident, staff, and direct observation of resident?s care.
--- NOTE | 2024-03-16 13:56 | NURSING ---
Called and left VM with Blanca in the sleep lab, requested return call. Left info about resident being on bipap here after blood gas completed.
--- NOTE | 2024-03-16 14:11 | CASEMGMT ---
Social Work SW received call from requesting to set DC date. reported therapy training went well and pt would like to be home before Jessa. SW agreed and can tentatively set DC for 03/20, but will need to speak with nursing and RT on use of bipap and recommendations for home. This may postpone pt's DC date. expressed understanding and will await final outcome from this worker. SW spoke with charge nurse who is following up with proper entities. SW will continue to follow. Suellen Cruz, MEDICAL FIELD REPRESENTATIVE TEXTILE MACHINERY INSTRUCTOR
[2024-03-16 17:01] LABS: Bedside Glucose 177 mg/dL (74-106)
[2024-03-16] MEDS: Amitriptyline 25 MG Tablet PO (20:35)
[2024-03-16] MEDS: Donepezil HCl 10 MG Tablet PO (20:35)
[2024-03-16 22:16] LABS: Bedside Glucose 129 mg/dL (74-106)
--- NOTE | 2024-03-17 02:24 | NURSING ---
Assessed toe wounds to great and second toes to b/l feet. Wounds to lt great, rt great, and lt second toes are dry. Wound to rt second toe is slightly moist and will leave rotary shear worker helper for the remainder of the shift. No sxs infection noted to the above noted areas. Will continue to monitor.
[2024-03-17] MEDS: Enoxaparin 40 MG/0.4 ML Syringe SC (05:41)
[2024-03-17 06:47] VITALS: O2SAT 96
[2024-03-17 06:49] LABS: Bedside Glucose 94 mg/dL (74-106)
[2024-03-17 08:40] VITALS: BP 141/67; PULSE 76; RESP 16; TEMP 36.1; O2SAT 97
[2024-03-17] MEDS: Verapamil SR 180 MG CAPSULE PO (08:47)
[2024-03-17] MEDS: Aspirin E.C. 81 MG Tablet PO (08:47)
[2024-03-17] MEDS: metFORMIN HCl 500 MG Tablet PO ×2 (08:47→17:06)
[2024-03-17] MEDS: Citalopram 20 MG Tablet PO (08:47)
[2024-03-17] MEDS: Insulin Glargine-YFGN 100 UNIT/ML Pen 20 UNIT SC (08:48)
[2024-03-17] MEDS: Tolterodine Tartrate 2 MG CAP.SA PO (08:48)
[2024-03-17] MEDS: Timolol 0.5% 5ML OPTH.BTL 1 DRP OPHTHALMIC ×2 (08:50→20:12)
[2024-03-17] MEDS: Polyethylene Glycol 3350 17 GM PACKET PO (08:50)
[2024-03-17] MEDS: Furosemide 40 MG Tablet PO (08:50)
[2024-03-17] MEDS: Atorvastatin Calcium 80 MG Tablet PO (08:50)
[2024-03-17] MEDS: Senna/Docusate Sodium 1 Tablet PO ×2 (08:50→20:12)
[2024-03-17] MEDS: Pantoprazole Sodium 20 MG Tablet PO (08:50)
[2024-03-17] MEDS: Fenofibrate 145 MG Tablet PO (08:51)
[2024-03-17] MEDS: Ezetimibe 10 MG Tablet PO (08:51)
[2024-03-17 11:32] LABS: Bedside Glucose 125 mg/dL (74-106)
--- NOTE | 2024-03-17 15:32 | DS.PCM_ITS ---
Providers Date of Admission: 03/07/24 Primary Care Physician: Dr. Kike Barroso DO Reason For Visit: FALL/UTI Diagnosis Discharge Diagnosis (1) Debility: Status: Acute Code(s): R53.81 - Other malaise (2) Fall: Status: Acute Code(s): W19.XXXA - Unspecified fall, initial encounter (3) Acute UTI: Status: Acute Code(s): N39.0 - Urinary tract infection, site not specified (4) Acute kidney injury: Status: Acute Code(s): N17.9 - Acute kidney failure, unspecified (5) Diabetes: Status: Acute Code(s): E11.9 - Type 2 diabetes mellitus without complications (6) Essential hypertension: Status: Chronic Code(s): I10 - Essential (primary) hypertension (7) Hyperlipidemia: Status: Chronic Code(s): E78.5 - Hyperlipidemia, unspecified Qualifiers: Hyperlipidemia type: mixed hyperlipidemia Qualified Code(s): E78.2 - Mixed hyperlipidemia (8) Congestive heart failure: Status: Acute Code(s): I50.9 - Heart failure, unspecified (9) Alzheimer disease: Status: Acute Code(s): G30.9 - Alzheimer's disease, unspecified; F02.80 - Dementia in other diseases classified elsewhere, unspecified severity, without behavioral disturbance, psychotic disturbance, mood disturbance, and anxiety (10) Insomnia: Status: Acute Code(s): G47.00 - Insomnia, unspecified (11) Depression: Status: Acute Code(s): F32.A - Depression, unspecified (12) GERD (gastroesophageal reflux disease): Status: Acute Code(s): K21.9 - Gastro-esophageal reflux disease without esophagitis (13) Overactive bladder: Status: Acute Code(s): N32.81 - Overactive bladder (14) Glaucoma: Status: Acute Code(s): H40.9 - Unspecified glaucoma (15) Morbid obesity: Status: Acute Code(s): E66.01 - Morbid (severe) obesity due to excess calories Plan 78 year old male with below past medical history hospitalized for fall 2/2 UTI, complicated by BHAVNA, admitted to TCU with debility, here for rehabilitation, strengthening, prior to discharge home with . * Debility - PT/OT. * Pain - Tylenol 1000mg q6 prn pain (1-10). * Bowel - Miralax 17gm daily, Senna/colace 1 tablet bid, Magnesium citrate 300mL daily pnr. * Adult immunization - Administer pneumonia vaccine, covid vaccine, flu vaccine as appropriate. * DVT prophylaxis - Lovenox 40mg sc daily. * Insomnia - Elavil 25mg qhs, stable chronic residential use, GDR not recommended. * CV prophylaxis - Aspirin 81mg daily. * Hyperlipidemia - Atorvastatin 80mg qhs, Zetia 10mg daily, Fenofibrate 145mg daily. * Hypertension - Verapamil 180mg daily, Furosemide 40mg daily. 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 * Tinea Corporis - Lotrisone cream topical daily prn. * Vitamin B12 deficiency - B12 1500mcg im qmonth. * Alzheimer Disease - Donepezil 10mg qhs. * HFpEF - Furosemide 40mg daily. * Anxiety - Hydroxyzine 25mg tid prn. * Diabetes Mellitus II - Metformin 500mg bid, Glargine 20 units daily. * Pseudomonas UTI - Levaquin 500mg daily thru 03/11/2024 * GERD - Pantoprazole 20mg daily. * Glaucoma - Timolol 1gtt ou bid. * Overactive bladder - Tolterodine 2mg daily. Medications at Discharge Home Medications amitriptyline 25 mg tablet 25 mg PO QHS mood 03/24/16 aspirin 81 mg tablet,delayed release 81 mg PO DAILY@0800 blood thinner 03/24/16 atorvastatin 80 mg tablet 80 mg PO DAILY cholesterol 03/24/16 citalopram 20 mg tablet 20 mg PO DAILY mood/depression 03/24/16 fenofibrate nanocrystallized 145 mg tablet 145 mg PO DAILY supplement 03/24/16 metformin 500 mg tablet 500 mg PO BID diabetes 05/08/19 ezetimibe 10 mg tablet 10 mg PO DAILY cholesterol 11/07/20 Precision Xtra Test (blood sugar diagnostic) #200 ea 04/15/23 lancets 32 gauge (Easy Touch Twist Lancets) #200 ea 04/16/23 furosemide 40 mg tablet (Lasix) 40 mg PO DAILY fluid/swelling #90 tabs 04/26/23 omeprazole 20 mg capsule,delayed release 20 mg PO DAILY reflux 07/12/23 timolol maleate 0.5 % eye drops 1 drp ophthalmic (eye) BID eye pressure 07/12/23 pen needle, diabetic 32 gauge x 5/32 (BD Ultra-Fine Zenaida Pen Needle) #400 ea 09/03/23 donepezil 10 mg tablet 10 mg PO QHS cognition #30 tabs 10/19/23 clotrimazole-betamethasone 1 %-0.05 % topical cream 1 applic topical PRN antifungal 11/19/23 oxybutynin chloride 15 mg tablet,extended release 24 hr 5 mg PO DAILY bladder 11/19/23 cyanocobalamin (vitamin B-12) 1,000 mcg/mL injection solution 100 mcg IM QMONTH supplement 12/30/23 Lantus Solostar U-100 Insulin 100 unit/mL (3 mL) subcutaneous pen (insulin glargine) 20 unit (0.2 mL) subcut DAILY diabetes #72 mL 01/05/24 hydroxyzine pamoate 25 mg capsule 25 mg PO TID PRN anxiety #90 caps 01/05/24 verapamil 180 mg tablet,extended release 180 mg PO DAILY BP #90 tabs 03/13/24 Hospital Course Operations None Procedures None Summary of Care Provided Minutes Spent on Discharge: 35 Hospital Course: 78 year old male with below past medical history hospitalized for fall 2/2 UTI, complicated by BHAVNA, admitted to TCU with debility, here for rehabilitation, strengthening, prior to discharge home with . Resident snores, daytime somnolence, bloodwork and abg showed respiratory alkalosis with CO2 retention. Resident was prescribed BiPAP in the past, but could not tolerate due to claustrophobia, feeling suffocated. He is willing to try again and has been tolerating BiPAP on TCU, recommend sleep study. Discharge to sleep lab 03/20/2024, then home with , [facility] PT/OT/ST. Oxygen documentation: Patient requires 3LPM of oxygen via nasal cannula due to restrictive lung disease, obstructive sleep apnea; requires a concentrator and portable O2 tanks to allow patient to be mobile in the home and the community; O2 will improve the patient's condition in the home setting. Physical Exam Const alert General Appearance: cooperative HEENT normocephalic Eyes PERRL and EOMs intact bilaterally Neck supple, no JVD and no carotid bruits Resp normal respiratory effort, normal air movement and clear to auscultation bilaterally Cardio regular rate and regular rhythm GI normal to inspection, nondistended, normoactive bowel sounds, non-tender and non-distended Extremity normal capillary refill General Extremity: Negative for edema Skin no rashes or lesions noted General Skin Exam: no breakdown Psych affect normal Appearance: appropriate Weight / BMI Weight Weight: 142.292 kg Body Mass Index (BMI) 41.3 ABG / Lab / Microbiology Data 03/15/24 05:29 03/15/24 05:29 Laboratory: Laboratory Results - last 24 hr 03/16/24 16:39: POC Glucose 177 H 03/16/24 21:58: POC Glucose 129 H 03/17/24 06:11: POC Glucose 94 03/17/24 11:05: POC Glucose 125 H Microbiology: Microbiology 03/13/24 09:45 Nasal Secretion SARS-CoV-2 Antigen (Rapid) - Final D/C Instructions Discharge Diet: No restrictions Discharge Activity: Return to Normal Activity, May Shower and Use Walker Weight Bearing Status: Weight bearing as tolerated Call your doctor if you observe: Fever of 101 or Higher DC O2, CPAP, BIPAP Needs PSN CPAP & BiPAP: BiPAP & CPAP Settings per PSN Fraction of Inspired Oxygen ( 96 03/07/24 14:38 FIO2) Home O2 Discharge instructions: Yes Type of respiratory needs?: Oxygen Oxygen frequency: Continuous Continuous oxygen liters per minute: 3 DC home with Oxygen: Yes Home O2 MD Review: I have reviewed the oxygen testing, and the patient qualifies for home oxygen equipment and portability. The patient is mobile in the home and the community. Meaningful Use Info Meaningful Use Meaningful Use Diagnoses (Choose all that apply): None applicable Ischemic Stroke Statin Dosing Therapy Reference: STATIN DOSE THERAPY REFERENCE: * Patients > 75 years receive moderate or high dose statin therapy. * Patients 75 years or YOUNGER should receive HIGH intensity statin dose unless contraindicated. You will be required to document reason for non-treatment if statin daily dose does not meet guidelines. HIGH DOSE STATIN THERAPY DAILY Atorvastatin > than or = to 40 mg Rosuvastatin > than or = to 20 mg Amlodipine + Atorvastatin > than or = to 2.5/40 mg Ezetimibe + Simvastatin 10/80 mg Simvastatin 80mg Discharge Plan Admission Admit Date/Time: 03/07/24 13:26 Primary Reason for Your Visit: Debility. Attending Provider: Stan,Finn Chi Primary Care Provider: Kike Barroso Instructions Additional Instructions / Restrictions: Discharge to sleep lab 03/20/2024, then home with , [facility] PT/OT/ST. Oxygen documentation: Patient requires 3LPM of oxygen via nasal cannula due to restrictive lung disease, obstructive sleep apnea; requires a concentrator and portable O2 tanks to allow patient to be mobile in the home and the community; O2 will improve the patient's condition in the home setting. Discharge Orders/Prescriptions Prescriptions: Continued donepezil 10 mg tablet 10 mg PO QHS Qty: 30 10RF clotrimazole-betamethasone 1-0.05 % cream 1 applic topical PRN atorvastatin 80 MG tablet 80 mg PO DAILY Patient Comments: cholesterol lowering aspirin 81 MG tablet 81 mg PO DAILY@0800 Patient Comments: blood thinner citalopram 20 MG tablet 20 mg PO DAILY Patient Comments: anti-depressant amitriptyline 25 MG tablet 25 mg PO QHS Patient Comments: anti-depressant fenofibrate nanocrystallized 145 MG tablet 145 mg PO DAILY Patient Comments: cholesterol lowering metformin 500 mg tablet 500 mg PO BID Patient Comments: diabetic med ezetimibe 10 mg tablet 10 mg PO DAILY omeprazole 20 mg capsule,delayed release(DR/EC) 20 mg PO DAILY timolol maleate 0.5 % drops 1 drp ophthalmic (eye) BID Patient Comments: [NO ORIGINAL SIG] oxybutynin chloride 15 mg tablet extended release 24hr 5 mg PO DAILY cyanocobalamin (vitamin B-12) 1,000 mcg/mL solution 100 mcg IM QMONTH hydroxyzine pamoate 25 mg capsule 25 mg PO TID PRN (Reason: anxiety) Qty: 90 2RF insulin glargine [Lantus Solostar U-100 Insulin] 100 unit/mL (3 mL) insulin pen 20 unit subcut DAILY Qty: 72 2RF furosemide [Lasix] 40 mg tablet 40 mg PO DAILY Qty: 90 4RF verapamil 180 mg tablet extended release 180 mg PO DAILY Qty: 90 3RF Discontinued insulin lispro [Humalog KwikPen Insulin] 100 unit/mL Insulin Pen See Protocol subcut ACHS Qty: 0 0RF Protocol: 4. Sliding Scale Insulin High-Med Dosing Condition: 150-199 mg/dl = 2 units Condition: 200-259 mg/dl = 4 units Condition: 260-324 mg/dl = 6 units Condition: 325-374 mg/dl = 8 units Condition: 375-409 mg/dl = 10 units Condition: 410-449 mg/dl = 11 units Condition: Greater than 449 call physician Protocol Text: Suggested for: - Patients on Total Daily Insulin Dose of 56-80 units - Patient who are known to be insulin resistant or septic HIGH MEDIUM DOSING ALGORITHM levofloxacin 500 mg Tablet 500 mg PO DAILY@0600 3 Days Qty: 0 0RF No Action (DME) Precision Xtra Test Strip See Rx Instructions .Route Qty: 200 3RF Rx Instructions: bid (DME) pen needle, diabetic [BD Ultra-Fine Zenaida Pen Needle] 32 gauge x 5/32 needle See Rx Instructions .ROUTE .MEDSUPPLY Qty: 400 3RF Rx Instructions: 4 times daily (DME) Easy Touch Twist Lancets 32 gauge misc See Rx Instructions .Route Qty: 200 1RF Rx Instructions: bid Referrals / Follow Up: Fidencio Gray MD [Med Staff - Active Staff] - Kike Barroso DO [Primary Care Provider] - Disposition Disposition (needs filled in before D/C Order can be placed): Home Health Service
--- NOTE | 2024-03-17 15:59 | CASEMGMT ---
Social Work SW followed up with charge nurse and pt will need a new sleep study to determine the use of a bipap. Sleep lab has availability 03/20. Nursing scheduled. SW spoke with pt and at bedside to educate to sleep study 03/20, and pt will continue using O2 at home until recommendations from the sleep study are provided. and pt agreeable. can transport home from sleep study on 03/21. SW confirmed previous request of [facility]. SW educated that d/t holiday, there may be a delayed SOC. agreeable. Pt denied any DME needs. SW updated IDT. Phoned [facility] for PT/OT/ST Plan: DC 03/20 to sleep study, then home with 03/21, [facility] PT/OT/ST Suellen Cruz MSW CLINIC NURSE
[2024-03-17 16:39] LABS: Bedside Glucose 198 mg/dL (74-106)
--- NOTE | 2024-03-17 16:47 | CASEMGMT ---
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
[2024-03-17] MEDS: Pneumococcal Vaccine 20 Valent 0.5 ML Syringe IM (17:07)
[2024-03-17] MEDS: Amitriptyline 25 MG Tablet PO (20:12)
[2024-03-17] MEDS: Donepezil HCl 10 MG Tablet PO (20:13)
[2024-03-17 21:23] VITALS: PULSE 70; RESP 12; RESP 20; O2SAT 96
--- NOTE | 2024-03-18 | NURSING ---
Tolerating Bipap well, continuous SPO2 in place per order, SPO2 @ 97%, no resp distress observed or reported. Prefers to sleep in recliner, declines assist to bed. Call light in reach.
[2024-03-18 00:04] VITALS: PULSE 71; RESP 12; RESP 18; O2SAT 96
[2024-03-18 04:00] VITALS: O2SAT 98
[2024-03-18] MEDS: Enoxaparin 40 MG/0.4 ML Syringe SC (05:06)
[2024-03-18 06:09] LABS: Bedside Glucose 140 mg/dL (74-106)
[2024-03-18] MEDS: Aspirin E.C. 81 MG Tablet PO (08:30)
[2024-03-18] MEDS: metFORMIN HCl 500 MG Tablet PO ×2 (08:30→17:04)
[2024-03-18] MEDS: Citalopram 20 MG Tablet PO (08:31)
[2024-03-18] MEDS: Verapamil SR 180 MG CAPSULE PO (08:31)
[2024-03-18] MEDS: Tolterodine Tartrate 2 MG CAP.SA PO (08:31)
[2024-03-18] MEDS: Polyethylene Glycol 3350 17 GM PACKET PO (08:32)
[2024-03-18] MEDS: Atorvastatin Calcium 80 MG Tablet PO (08:32)
[2024-03-18] MEDS: Furosemide 40 MG Tablet PO (08:32)
[2024-03-18] MEDS: Pantoprazole Sodium 20 MG Tablet PO (08:33)
[2024-03-18] MEDS: Senna/Docusate Sodium 1 Tablet PO ×2 (08:33→20:49)
[2024-03-18] MEDS: Fenofibrate 145 MG Tablet PO (08:34)
[2024-03-18] MEDS: Ezetimibe 10 MG Tablet PO (08:34)
[2024-03-18] MEDS: Insulin Glargine-YFGN 100 UNIT/ML Pen 20 UNIT SC (08:34)
[2024-03-18 08:35] VITALS: PULSE 77; RESP 12; RESP 20; O2SAT 96
[2024-03-18] MEDS: Timolol 0.5% 5ML OPTH.BTL 1 DRP OPHTHALMIC ×2 (08:36→20:50)
[2024-03-18 08:46] VITALS: BP 145/65; PULSE 68; O2SAT 100
[2024-03-18 16:00] VITALS: RESP 20; TEMP 35.6
[2024-03-18 16:53] LABS: Bedside Glucose 168 mg/dL (74-106)
[2024-03-18 19:46] VITALS: O2SAT 100
[2024-03-18] MEDS: Donepezil HCl 10 MG Tablet PO (20:50)
[2024-03-18] MEDS: Amitriptyline 25 MG Tablet PO (20:50)
--- NOTE | 2024-03-19 04:07 | CPS ---
Patient refused PAP therapy for night time use.
[2024-03-19] MEDS: Enoxaparin 40 MG/0.4 ML Syringe SC (05:54)
[2024-03-19 06:39] LABS: Bedside Glucose 125 mg/dL (74-106)
[2024-03-19 07:33] VITALS: O2SAT 96
[2024-03-19] MEDS: metFORMIN HCl 500 MG Tablet PO ×2 (08:55→17:50)
[2024-03-19] MEDS: Aspirin E.C. 81 MG Tablet PO (08:55)
[2024-03-19] MEDS: Citalopram 20 MG Tablet PO (08:56)
[2024-03-19] MEDS: Tolterodine Tartrate 2 MG CAP.SA PO (08:56)
[2024-03-19] MEDS: Verapamil SR 180 MG CAPSULE PO (08:56)
[2024-03-19] MEDS: Furosemide 40 MG Tablet PO (08:57)
[2024-03-19] MEDS: Polyethylene Glycol 3350 17 GM PACKET PO (08:58)
[2024-03-19] MEDS: Pantoprazole Sodium 20 MG Tablet PO (08:58)
[2024-03-19] MEDS: Timolol 0.5% 5ML OPTH.BTL 1 DRP OPHTHALMIC ×2 (08:58→22:20)
[2024-03-19] MEDS: Atorvastatin Calcium 80 MG Tablet PO (08:58)
[2024-03-19] MEDS: Senna/Docusate Sodium 1 Tablet PO ×2 (08:58→22:20)
[2024-03-19] MEDS: Ezetimibe 10 MG Tablet PO (08:59)
[2024-03-19] MEDS: Fenofibrate 145 MG Tablet PO (08:59)
[2024-03-19] MEDS: Insulin Glargine-YFGN 100 UNIT/ML Pen 20 UNIT SC (09:00)
[2024-03-19 09:10] VITALS: BP 146/63; PULSE 76; O2SAT 94
[2024-03-19 13:55] VITALS: RESP 17; TEMP 35.8
[2024-03-19 16:57] LABS: Bedside Glucose 187 mg/dL (74-106)
[2024-03-19] MEDS: Amitriptyline 25 MG Tablet PO (22:21)
[2024-03-19] MEDS: Donepezil HCl 10 MG Tablet PO (22:21)
[2024-03-20 01:07] VITALS: PULSE 69; RESP 12; RESP 23; O2SAT 100
[2024-03-20 05:24] VITALS: PULSE 64; RESP 12; RESP 25; O2SAT 100
[2024-03-20] MEDS: Enoxaparin 40 MG/0.4 ML Syringe SC (05:32)
[2024-03-20 06:44] LABS: Bedside Glucose 113 mg/dL (74-106)
[2024-03-20 09:37] VITALS: BP 147/62; PULSE 74; RESP 17; TEMP 36.2; O2SAT 99
[2024-03-20] MEDS: Citalopram 20 MG Tablet PO (09:43)
[2024-03-20] MEDS: Insulin Glargine-YFGN 100 UNIT/ML Pen 20 UNIT SC (09:43)
[2024-03-20] MEDS: Aspirin E.C. 81 MG Tablet PO (09:43)
[2024-03-20] MEDS: metFORMIN HCl 500 MG Tablet PO ×2 (09:43→16:07)
[2024-03-20] MEDS: Verapamil SR 180 MG CAPSULE PO (09:43)
[2024-03-20] MEDS: Tolterodine Tartrate 2 MG CAP.SA PO (09:43)
[2024-03-20] MEDS: Fenofibrate 145 MG Tablet PO (09:44)
[2024-03-20] MEDS: Furosemide 40 MG Tablet PO (09:44)
[2024-03-20] MEDS: Pantoprazole Sodium 20 MG Tablet PO (09:44)
[2024-03-20] MEDS: Ezetimibe 10 MG Tablet PO (09:44)
[2024-03-20] MEDS: Timolol 0.5% 5ML OPTH.BTL 1 DRP OPHTHALMIC ×2 (09:44→18:57)
[2024-03-20] MEDS: Polyethylene Glycol 3350 17 GM PACKET PO (09:44)
[2024-03-20] MEDS: Atorvastatin Calcium 80 MG Tablet PO (09:44)
[2024-03-20] MEDS: Senna/Docusate Sodium 1 Tablet PO ×2 (09:44→18:57)
[2024-03-20 12:54] LABS: Bedside Glucose 150 mg/dL (74-106)
[2024-03-20 16:36] LABS: Bedside Glucose 194 mg/dL (74-106)
[2024-03-20] MEDS: Amitriptyline 25 MG Tablet PO (18:57)
[2024-03-20] MEDS: Donepezil HCl 10 MG Tablet PO (18:57)
[2024-03-20 20:00] VITALS: BP 130/66; PULSE 78; RESP 16; TEMP 36; O2SAT 99
== END 2024-03-20 20:00 | disposition home health service (06) | DRG 690 ==
PROVIDERS: Admitting Provider Family Medicine Geriatric Medicine; PCP Family Medicine; Visit Provider Family Medicine Geriatric Medicine
DX: N39.0 Urinary tract infection, site not specified (principal); I13.0 Hypertensive heart and chronic kidney disease with heart failure and stage 1 through stage 4 chronic kidney disease, or unspecified chronic kidney disease; I50.32 Chronic diastolic (congestive) heart failure; Z68.41 Body mass index [BMI] 40.0-44.9, adult; F33.1 Major depressive disorder, recurrent, moderate; B96.5 Pseudomonas (aeruginosa) (mallei) (pseudomallei) as the cause of diseases classified elsewhere; E11.22 Type 2 diabetes mellitus with diabetic chronic kidney disease; G30.9 Alzheimer's disease, unspecified; N18.30 Chronic kidney disease, stage 3 unspecified; E66.01 Morbid (severe) obesity due to excess calories; E78.2 Mixed hyperlipidemia; E53.8 Deficiency of other specified B group vitamins; E11.39 Type 2 diabetes mellitus with other diabetic ophthalmic complication; K21.9 Gastro-esophageal reflux disease without esophagitis; Z79.4 Long term (current) use of insulin; E11.42 Type 2 diabetes mellitus with diabetic polyneuropathy; F02.80 Dementia in other diseases classified elsewhere, unspecified severity, without behavioral disturbance, psychotic disturbance, mood disturbance, and anxiety; F41.9 Anxiety disorder, unspecified; G47.33 Obstructive sleep apnea (adult) (pediatric); N32.81 Overactive bladder; H40.9 Unspecified glaucoma; R32 Unspecified urinary incontinence; Z99.81 Dependence on supplemental oxygen; G47.00 Insomnia, unspecified; Z79.899 Other long term (current) drug therapy; Z79.82 Long term (current) use of aspirin; Z23 Encounter for immunization
CPT/HCPCS: 36415; 36600; 80048; 80061; 82607; 82803; 82962; 85025; 87493; 87811; 90480; 90677; 91322; 92523; 94002; 94003; 94762; 97110; 97116; 97129; 97130; 97162; 97166; 97530; 97535; 97802; A4216; J3420

== ENCOUNTER → 2024-03-20 | Outpatient (CLI) | payer MEDICARE, OTHER, SELFPAY | END | disposition home or self-care (01) | LOC: SL 20:19 | PROVIDERS: PCP Family Medicine; Visit Provider Family Medicine Geriatric Medicine | DX: G47.33 Obstructive sleep apnea (adult) (pediatric) (principal) | CPT/HCPCS: 95810 ==